=== PATIENT | male | born 1965 | race Caucasian/White ===

== ENCOUNTER 2024-04-18 09:23 | Emergency (ER) | payer BC, SELFPAY ==
[2024-04-18 09:27] VITALS: BP 151/98; PULSE 89; TEMP 36.9; O2SAT 99; BMI 31.3
--- NOTE | 2024-04-18 09:36 | ED_ITS ---
HPI - Animal Bite General Chief Complaint: Wound/Laceration Stated Complaint: UPPER LEFT EXTREMITY ANIMAL BITE Time Seen by Provider: 04/18/24 09:24 Source: patient Mode of arrival: walk-in Limitations: no limitations History of Present Illness HPI narrative: 58-year-old male presents to the emergency department for a cat bite. This was sustained on his left hand last night and a cat that lives at his house but outside. No other injury was sustained. It was more swollen today so he came in and got checked. He cannot recall at all when his last tetanus shot was, it has been a very long time. He has no weakness or numbness. Related Data Previous Rx's ?Medication ?Instructions ?Recorded amoxicillin 875 mg-potassium 1 tab PO BID #14 tabs 04/18/24 clavulanate 125 mg tablet Allergies Allergy/AdvReac Type Severity Reaction Status Date / Time No Known Drug Allergies Allergy Verified 04/18/24 09:27 Review of Systems ROS Narrative A ten point review of systems is negative except as noted above. Exam Narrative Exam Narrative: Nurses note and vital signs reviewed and patient is not hypoxic. General: The patient appears in no apparent distress. Patient is resting comfortably on cart. Skin: Warm, dry, no pallor noted. There is no rash noted. Head: Normocephalic, atraumatic Eye: Normal conjunctiva, no drainage Ears, Nose, Mouth, and Throat: oral mucosa is moist. Nares patent. Cardiovascular: Regular Rate and Rhythm Respiratory: Patient is in no distress, no accessory muscle use Back: non-tender GI: Nontender healing puncture type wood are present on his left hand on the ulnar side. No drainage. There is swelling of the dorsum of his hand as well as erythema. The patient has no evidence of calf tenderness, no pitting edema, symmetrical pulses noted bilaterally Neurological: A&O, normal speech; fingers have full range of motion Psychiatric: Cooperative Constitutional Vital Signs, click to edit/add: Last Vital Signs Temp 98.5 F 04/18/24 09:27 Pulse 89 04/18/24 09:27 Resp 18 04/18/24 09:27 BP 151/98 H 04/18/24 09:27 Pulse Ox 99 04/18/24 09:27 O2 Del Method Room Air 04/18/24 09:27 Course Vital Signs Vital signs: Vital Signs Temperature 98.5 F 04/18/24 09:27 Pulse Rate 89 04/18/24 09:27 Respiratory Rate 18 04/18/24 09:27 Blood Pressure 151/98 H 04/18/24 09:27 Pulse Oximetry 99 04/18/24 09:27 Oxygen Delivery Method Room Air 04/18/24 09:27 Temperature 98.5 F 04/18/24 09:27 Pulse Rate 89 04/18/24 09:27 Respiratory Rate 18 04/18/24 09:27 Blood Pressure 151/98 H 04/18/24 09:27 Pulse Oximetry 99 04/18/24 09:27 Oxygen Delivery Method Room Air 04/18/24 09:27 MDM - Animal Bite MDM Narrative Medical decision making narrative: Tetanus is updated and he was given IM Ancef and prescribed Augmentin. Treatment diagnosis and follow-up were discussed with the patient. I do not suspect rabies. This is a cat known to him and was provoked. Differential Diagnosis Differential diagnosis: Likely bite by animal and cat bite Discharge Plan Discharge Chief Complaint: Wound/Laceration Clinical Impression: Cat bite Patient Disposition: Home, Self-Care Time of Disposition Decision: 09:39 Condition: Good Mode of Transportation: Private Vehicle Prescriptions / Home Meds: New amoxicillin-pot clavulanate 875-125 mg tablet 1 tab PO BID Qty: 14 0RF Print Language: Kiswahili Instructions: Animal Bite (ED) Referrals: Dayron Pleitez MD [Primary Care Provider] - 1 week
[2024-04-18] MEDS: CEFAZOLIN SODIUM 1,000 MG, WATER FOR INJECTION,STERILE 2.5 ML IM (09:50)
[2024-04-18] MEDS: ADACEL DIPH,PERTUSS(ACELL),TET VAC/PF 0.5 ML ADULT SYRINGE IM (09:51)
== END 2024-04-18 09:58 | disposition home or self-care (01) ==
PROVIDERS: Emergency Provider Emergency Medicine; PCP Family Medicine
DX: S61.432A Puncture wound without foreign body of left hand, initial encounter (principal); W55.01XA Bitten by cat, initial encounter; Z23 Encounter for immunization
CPT/HCPCS: 90471; 90715; 96372; 99284; J0690

== ENCOUNTER 2024-09-24 07:37 | Outpatient (OUT) | payer BC, SELFPAY ==
--- OUTSIDE RECORDS SUMMARY | 2024-06-24 04:57 | XMS_ITS ---
Author Organization The [facility] in [place] Address [address] [place] [address] Care Team Providers Care Nut Sorter Name Role Phone PERLA PLEITEZ MD Primary Care Provider [phone] Perla Pleitez Unavailable [phone] Encounters Encounter Location Date Provider Diagnosis [address] [address] 06/24/2024 Perla Pleitez Plan Of Treatment No Information Progress Notes * Irvin CARRINGTON EDOB:1965 (58 yo M)Acc No.[id number]:06/24/2024 Patient: Roni MICHELLEIrvin :1965 A ge:58 Y S ex:Male Address:[facility] [address], [place], [address] * true * Date: Generated for Radhika boone/Rochelle/eTransmitting on: 0 09/24/2024 07:41 AM EDT
--- OUTSIDE RECORDS SUMMARY | 2024-08-25 09:06 | XMS_ITS ---
Author Organization The [facility] in [place] Address [address] [place] [address] Care Team Providers Care Financial Aid Administrator Name Role Phone PERLA PLEITEZ MD Primary Care Provider Perla Pleitez Unavailable [phone] REASON FOR VISIT Eliquis Encounters Encounter Location Date Provider Diagnosis [facility] [address] [place] [address] 08/25/2024 Perla Pleitez Plan Of Treatment No Information Progress Notes * Irvin CARRINGTON EDOB:1965 (58 yo M)Acc No.[id number]:08/25/2024 Patient: Roni MICHELLEIrvin :1965 A ge:58 Y S ex:Male Address:[facility] [address], [place], [address] * true * Date: Generated for Husami mely/Rochelle/eTransmitting on: 0 09/24/2024 07:41 AM EDT
--- OUTSIDE RECORDS SUMMARY | 2024-09-21 06:09 | XMS_ITS ---
Author Organization The [facility] in [place] Address [address] [place] [address] Care Team Providers Care Interventional Tech Name Role Phone PERLA PLEITEZ MD Primary Care Provider [phone] Perla Pleitez Unavailable [phone] REASON FOR VISIT repeat US for DVT Encounters Encounter Location Date Provider Diagnosis [facility] [address] [place] [address] 09/21/2024 Perla Pleitez Deep vein blood clot of right lower extremity I82.401 Assessments Encounter Date Diagnosis (ICD Code) Assessment Notes Treatment Notes Treatment Clinical Notes Section Notes 09/21/2024 Deep vein blood clot of right lower extremity (ICD-10 - I82.401) Plan Of Treatment Pending Test Test Name Order Date US venous doppler LE BI 09/21/2024 Progress Notes * Irvin CARRINGTON EDOB:1965 (58 yo M)Acc No.[id number]:09/21/2024 Patient: Roni MICHELLE Irvin Geller :1965 A ge:58 Y S ex:Male Address:[address], [place], [address] Subjective: * Chief Complaints: * r epeat US for DVT * Medical History: * Surgical History: * Hospitalization/Major Diagno stic Procedure: * Medications: Objective: * Vitals: * Physical Examination: Assessment: * Assessment: 1. D eep vein blood clot of right lower extremity - I82.401 (Primary) Plan: * Treatment: * Procedure Codes: * true * Date: Generated for Radhika boone/Rochelle/Jennifer on: 0 09/24/2024 07:41 AM EDT
--- OUTSIDE RECORDS SUMMARY | 2024-09-24 07:41 | XMS_ITS | Clinical Summary ---
Author Organization [facility] Address [id number] [address] [place] [address] Care Team Providers Care Paper Rewinder Operator Name Role Phone Dayron Pleitez MD Primary Care Provider [phone] Allergies No known active allergies Medications metoprolol tartrate (LOPRESSOR) 25 mg tablet Take 1 tablet (25 mg total) by mouth. Active lisinopriL (PRINIVIL,ZESTR IL) 20 mg tablet Take 1 tablet (20 mg total) by mouth in the morning. Active tacrolimus (PROGRAF) 1 mg capsule Take 1 capsule (1 mg total) by mouth every 12 (twelve) hours. Active mycophenolate (MYFORTIC) 180 mg EC tablet Take 3 tablets (540 mg total) by mouth in the morning and 3 tablets (540 mg total) before bedtime. Active atorvastatin (LIPITOR) 20 mg tablet Take 1 tablet (20 mg total) by mouth in the morning. Active magnesium oxide (MAGOX) 400 mg tablet Take 1 tablet (400 mg total) by mouth in the morning. Active allopurinoL (ZYLOPRIM) 100 mg tablet Take 1 tablet (100 mg total) by mouth in the morning. Active omega 3-ndm-wwi-fish oil (Fish OiL) 300-1,000 mg capsule Take 1,000 mg by mouth in the morning. Active Active Problems No known active problems Social History Tobacco Use Types Packs/Day Years Used Date Smoking Tobacco: Never Smokeless Tobacco: Never Alcohol Use Standard Drinks/Week Comments Yes 0 (1 standard drink = 0.6 oz pur e alcohol) few drinks few times a week Childcare Answer Date Recorded Childcare Unknown 09/17/2018 Employment Answer Date Recorded Employment Unknown 09/17/2018 Sex and Gender Information Value Date Recorded Sex Assigned at Not on file Legal Sex Male 11:31 AM EDT Gender Identity Not on file Sexual Orientation Not on file Last Filed Vital Signs Vital Sign Reading Time Taken Comments Blood Pressure 154/100 02/06/2024 8:23 AM EDT ok to d/c per dr. salvador Pulse 49 02/06/2024 8:23 AM EDT Temperature 36.4 C (97.5 F) 02/06/2024 6:48 AM EDT Respiratory Rate 14 02/06/2024 8:23 AM EDT Oxygen Saturation 97% 02/06/2024 8:2 3 AM EDT Inhaled Oxygen Concentration - - Weight 97.5 kg (215 lb) 02/06/2024 6:48 AM EDT Height 177.8 cm (5' 10 ) 02/06/2024 6:4 8 AM EDT Body Mass Index 30.85 02/06/2024 6:48 AM EDT Plan of Treatment Health Maintenance Due Date Last Done Comments Depression Screening 1978 Adult BMI Follow Up Plan 1984 DTaP,Tdap and Td Vaccines (1 - Tdap) 1985 Zoster (Shingles) Vaccine (1 of 2) 2016 Influenza Vaccine 12/07/2024 02/25/2019, 02/23/2016 Adult BMI Screening 02/05/2025 02/06/2024 Tobacco Screening 02/05/2025 02/06/2024 Colonoscopy 02/05/2034 02/06/2024, 02/06/2024 Medical Devices Not on file Procedures Procedure Name Priority Date/Time Associated Diagnosis Comments PROVATION COLONOSCOPY Routine 02/06/2024 6:18 AM EDT from Last 3 Months or Most Recently Relevant to Health Maintenance Results * Colonoscopy Report (02/06/2024 6:18 AM EDT) Narrative SYSTEMGENERATED, DOCUMENTATION - 02/06/2024 6:18 AM EDT This order has been auto-finalized for image and report archival in PACs. *For full report details, please reach out to your physician. This image is visible to you in [facility].* us Sal Vera DO IMG OR IMG ORDERABLES Final Result from Last 3 Months or Most Recently Relevant to Health Maintenance Insurance ANTH Care Teams Paper Rewinder Operator Relationship Specialty Start Date End Date Dayron Pleitez MD PCP - General Family Medicine 12/11/21
--- OUTSIDE RECORDS SUMMARY | 2024-09-24 07:41 | XMS_ITS | Encounter Summary ---
Author Organization [facility] Address [address] [place] [address] Care Team Providers Care Construction Management Assistant Name Role Phone Sal Guerrero MD Unavailable Dayron Pleitez MD Primary Care Provider [phone] Rojelio Dukes CNP Unavailable [phone] Reason for Visit * Reason Comments Med Refill Encounter Details Date Type Department Care Team (Late st Contact Info) Description 04/05/2023 Refill [facility] Transplant [address] [place] [address] Latha Currie MD [address] [place], [place] Aftercare following organ transplant Social History Tobacco Use Types Packs/Day Years Used Date Smoking Tobacco: Never Smokeless Tobacco: Never Alcohol Use Standard Drinks/Week Comments Yes 0 (1 standard drink = 0.6 oz pur e alcohol) 6 A WEEK BEER OR liquor PHQ-2 Answer Date Recorded Patient Health Questionnaire-2 Score 0 08/24/2022 Sex and Gender Information Value Date Recorded Sex Assigned at Male 05/15/2024 1:32 PM EST Legal Sex Male 9:53 PM EDT Gender Identity Male 05/15/2024 1:32 PM EST Sexual Orientation Heterosexual or Straight 10/2024 1:32 PM EST documented as of this encounter Plan of Treatment Upcoming Encounters Date Type Department Care Team (Late st Contact Info) Description 11/26/2024 2:30 PM EDT Follow-Up [facility] Transplant [address] [place] [address] Flower Baig, GUILLE [address] [facility] [address] [place], [place] [id number] 12/18/2024 10:30 AM EDT Follow-Up [facility] Rheumatology [address] [place] [address] Brennen Vidales MD [address] [place] [address] documented as of this encounter Visit Diagnoses Diagnosis Aftercare following organ transplant documented in this encounter Additional Health Concerns Infection Onset Date Last Indicated Resolved Time COVID-19 (confirmed) 03/21/2023 03/21/2023 024 5:23 AM EST documented as of this encounter Care Teams Construction Management Assistant Relationship Specialty Start Date End Date Dayron Pleitez MD [address] [place] [address] PCP - General 04/26/22 Sal Guerrero MD [address] [place] [address] Dr [address] [place] [address] Consulting Physician Urology 01/16/22 Rojelio Dukes CNP [address] [place] [address] Nurse Practitioner Urology 05/07/23 documented as of this encounter
--- OUTSIDE RECORDS SUMMARY | 2024-09-24 07:41 | XMS_ITS ---
Author Organization [facility] Address [address] [place] [address] Care Team Providers Care Menu Planner Name Role Phone Sal Guerrero MD Unavailable Dayron Pleitez MD Primary Care Provider [phone] Rojelio Dukes CNP Unavailable [phone] Transplant Episode Kidney Recipient [facility] ([place], [place]) - [facility] Organ Received: Left Kidney Transplanted on 11/02/2009 Marked as Active Follow-up on 11/02/2009 Kidney CoordinatorWhitney Pavon RN Phone: N/A Fax: N/A Email: N/A [place] Organ Diagnosis Organ Primary Contributory Kidney IgA Nephropathy Donor Information Organ ABO Source Meets Risk Criteria HLA Match Mismatches Cross Match Left Kidney Transplanted O Live A: B: DR: Left Kidney Donor Serology Results Anti-CMV No results on file HBsAg HBsAg: Negative Anti-HBcAb HBC Total: Not Done HBsAb No results on file HBV DNA No results on file Anti-HCV No results on file Anti-HIV I/II No results on file Anti-HTLV I/II No results on file RPR/VDRL No results on file EBV IgG No results on file EBV IgM No results on file EBNA No results on file Toxoplasma No results on file SARS CoV-2 No results on file Care Team Name Role Phone Fax Email Whitney Pavon RN Kidney Coordinator N/A N/A N/ A Sal Guerrero MD Surgeon [phone] N/A Events Post-Transplant Pre-Transplant Admitted: 11/01/2009 Referred: 06/20/2009 Transplanted: 11/02/2009 Center waitlisted: 09/29/19 10 Discharged: 11/07/2009
--- OUTSIDE RECORDS SUMMARY | 2024-09-24 07:41 | XMS_ITS | Clinical Summary ---
Author Organization [facility] Address [address] [place] [address] Care Team Providers Care [employer] Name Role Phone Sal Guerrero MD Unavailable Dayron Pleitez MD Primary Care Provider [phone] Rojelio Dukes CNP Unavailable [phone] Allergies No known active allergies Medications colchicine 0.6 mg tabletIndications: Gout of multiple sites, unspecified cause, unspecified chronicity Take 1 tab every other day 30 tablet 1 04/27/19 23 Active Additional Information Patient not taking.Reported on 06/19/2024 Prograf 0.5 mg capsuleIndications :Aftercare following organ transplant Take 1 capsule twice a day by oral route for 90 days. TDD: 3mg 60 capsule 11 02/23/20 23 Active Prograf 1 mg capsuleIndications :Aftercare following organ transplant Take 1 capsule twice a day by oral route for 90 days. TDD: 3 MG 180 capsule 3 02/23/20 23 Active ondansetron ODT (Zofran-ODT) 4 mg disintegrating tablet Take 1 tablet (4 mg) by mouth every 8 (eight) hours if needed for nausea or vomiting for up to 10 doses. 10 tablet 03/21/20 23 Active Additional Information Patient not taking.Reported on 06/19/2024 mycophenolate (Myfortic) 180 mg EC tabletIndications: History of renal transplant TAKE 3 TABLETS BY MOUTH TWICE DAILY 540 tablet 3 12/24/19 24 Active tacrolimus (Prograf) 0.5 mg capsuleIndications :Kidney replaced by transplant TAKE 2 CAPSULES BY MOUTH IN THE MORNING AND 2 CAPSULES BY MOUTH IN THE EVENING 360 capsule 3 12/24/19 24 Active predniSONE (Deltasone) 5 mg tabletIndications: Aftercare following organ transplant TAKE 1 TABLET BY MOUTH IN THE MORNING 90 tablet 3 01/06/20 24 Active hydroCHLOROthiazid e 12.5 mg tabletIndications: Aftercare following organ transplant,Essenti al hypertension Take 1 tablet (12.5 mg) by mouth in the morning. 30 tablet 11 05/28/19 25 Active allopurinol (Zyloprim) 100 mg tablet Take 100 mg by mouth in the morning. Active amoxicillin-pot clavulanate (Augmentin) 875-125 mg tablet Take 1 tablet by mouth Twice daily at 6am and 6pm. 04/18/19 25 Active metoprolol tartrate (Lopressor) 25 mg tablet Take 0.5 tablets by mouth in the morning. Active DOCOSAHEXAENOIC ACID ORAL Take 1,000 mg by mouth in the morning. Active omega-3 acid ethyl esters (Lovaza) 1 gram capsule 06/14/19 25 Active Suflave 178.7-7.3-0.5 gram recon soln PLEASE SEE ATTACHED FOR DETAILED DIRECTIONS 01/22/20 24 Active sodium,potassium,m ag sulfates (Suprep) 17.5-3.13-1.6 gram recon soln Active apixaban (Eliquis) 5 mg tablet Take 2 tablets (10 mg) by mouth two times daily for 7 days. 28 tablet 06/20/19 25 Active febuxostat (Uloric) 40 mg tabletIndications: Gout of multiple sites, unspecified cause, unspecified chronicity TAKE 1 TABLET BY MOUTH IN THE MORNING 90 tablet 3 06/23/19 25 Active lisinopril 20 mg tabletIndications: Aftercare following organ transplant Take 1 tablet (20 mg) by mouth in the morning. 90 tablet 3 07/02/19 25 Active atorvastatin (Lipitor) 20 mg tabletIndications: Aftercare following organ transplant TAKE 1 TABLET BY MOUTH IN THE MORNING 90 tablet 3 08/04/19 25 Active magnesium oxide (Mag-Ox) 400 mg (241.3 mg magnesium) tabletIndications: Aftercare following organ transplant TAKE 1 TABLET BY MOUTH IN THE MORNING 90 tablet 3 08/04/19 25 Active Active Problems Problem Noted Date Diagnosed Date End-stage renal disease 01/15/2022 Essential hypertension 01/15/2022 Hypomagnesemia 01/15/2022 Proteinuria 01/15/2022 Stage 3 chronic kidney disease 01/15/2022 Basal cell carcinoma (BCC) of left forearm 11/17 Hyperlipidemia 09/30/2018 Increased infection risk sta tus post immunosuppressive therapy 08/20/2018 Immunodeficiency, unspecified 08/20/2018 Supraventricular tachycardia 07/29/2017 History of renal transplant 09/11/2013 Chest pain 07/20/2011 Encounters Date Type Department Care Team Description 09/09/2024 8:25 AM EDT Lab [facility] Outpatient Draw Station [address] [place] [address] Kidney replaced by transplant 08/18/2024 9:10 AM EDT Lab [facility] Outpatient Draw Station [address] [place] [address] Kidney replaced by transplant; Impaired fasting glucose 07/31/2024 Refill [facility] [address] [place] [address] Latha Currie MD Aftercare following organ transplant 07/01/2024 [facility] [address] [place] [address] Thor Rodriguez MD Aftercare following organ transplant from Last 3 Months Immunizations Immunization Administration Dates Next Due Influenza, injectable, quadrivalent, preservativ e free 02/25/2019,02/23/2016 Tdap 04/18/2024 Social History Tobacco Use Types Packs/Day Years Used Date Smoking Tobacco: Never Smokeless Tobacco: Never Tobacco Cessation:Counseling Given: Not Answered Alcohol Use Standard Drinks/Week Comments Yes 0 (1 standard drink = 0.6 oz pur e alcohol) daily PHQ-2 Answer Date Recorded Patient Health Questionnaire-2 Score 0 06/19/2024 [place] Safety & Environment Answer Date Rec orded Fear of Current or Ex-Partner Not on file Emotionally Abused Not on file 05/30/2023 Physically Abused Not on file 05/30/2023 Sexually Abused Not on file 05/30/2023 Physically or Sexually Abused Not on file Sex and Gender Information Value Date Recorded Sex Assigned at Male 05/15/2024 1:32 PM EST Legal Sex Male 9:53 PM EDT Gender Identity Male 05/15/2024 1:32 PM EST Sexual Orientation Heterosexual or Straight 10/2024 1:32 PM EST Last Filed Vital Signs Vital Sign Reading Time Taken Comments Blood Pressure 142/91 06/19/2024 1:40 PM EDT Pulse 60 06/19/2024 1:40 PM EDT Temperature 36.6 C (97.9 F) 06/19/2024 11:55 AM EDT Respiratory Rate 10 06/19/2024 1:40 PM EDT Oxygen Saturation 95% 06/19/2024 1:40 PM EDT Inhaled Oxygen Concentration - - Weight 98.9 kg (218 lb) 06/19/2024 11:55 AM EDT Height 177.8 cm (5' 10 ) 06/19/2024 11:55 AM EDT Body Mass Index 31.28 06/19/2024 11:55 AM EDT Plan of Treatment Upcoming Encounters Date Type Department Care Team (Late st Contact Info) Description 11/26/2024 2:30 PM EDT Follow-Up [facility] Transplant [address] [place] [id number] Flower Baig, GEOTHERMAL HEAT PUMP MACHINIST [address] [place] [address] 12/18/2024 10:30 AM EDT Follow-Up [facility] Rheumatology [address] [place] [address] Brennen Vidales MD [address] [facility] [place] [address] Health Maintenance Due Date Last Done Comments CT Colonography 1966 FIT-DNA 1966 FIT 1966 FOBT 1966 Sigmoidoscopy 1966 COVID-19 Vaccine (#1) 11/15/1971 Hepatitis B Vaccines (1 of 3 - 19+ 3-dose series) 1985 Pneumococcal Vaccine: Pediatrics (0 to 5 Years) and At-Risk Patients (6 to 64 Years) (1 of 2 - PCV) 1985 Zoster Vaccines (1 of 2) 1985 Influenza Vaccine (Season Ended) 2024 02/25/2019, 02/23/2016 Depression Screening 06/19/2025 06/19/2024 Diabetes: Hemoglobin A1C 08/18/2025 025, 03/18/2024, 12/25/2023, Additional history exists Colonoscopy 02/05/2034 02/06/2024, 02/06/2024 Colorectal Cancer Screening 02/05/2034 Adult Tetanus 04/18/2034 04/18/2024 HIB Vaccines Aged Out No longer eligi ble based on patient's age to complete this topic HPV Vaccines Aged Out No longer eligi ble based on patient's age to complete this topic IPV Vaccines Aged Out No longer eligi ble based on patient's age to complete this topic Meningococcal B Vaccine Aged Out No l onger eligible based on patient's age to complete this topic Meningococcal Vaccine Aged Out No panfilo ra eligible based on patient's age to complete this topic Rotavirus Vaccines Aged Out No longer eligible based on patient's age to complete this topic Procedures Procedure Name Priority Date/Time Associated Diagnosis Comments BILIRUBIN, DIRECT Routine 09/09/2024 8:2 6 AM EDT Kidney replaced by transplant CBC WITH AUTO DIFFERENTIAL Routine 09/09/2024 8:26 AM EDT Kidney replaced by transplant COMPREHENSIVE METABOLIC PANEL Routine 09/09/2024 8:26 AM EDT Kidney replaced by transplant URIC ACID Routine 09/09/2024 8:26 AM EDT Kidney replaced by transplant TACROLIMUS LEVEL Routine 09/09/2024 8:26 AM EDT Kidney replaced by transplant MAGNESIUM Routine 09/09/2024 8:26 AM EDT Kidney replaced by transplant PHOSPHORUS Routine 09/09/2024 8:26 AM EDT Kidney replaced by transplant CBC AND DIFFERENTIAL Routine 09/09/2024 8:26 AM EDT Kidney replaced by transplant BILIRUBIN, DIRECT Routine 08/18/2024 9:2 0 AM EDT Kidney replaced by transplant CBC WITH AUTO DIFFERENTIAL Routine 08/18/2024 9:20 AM EDT Kidney replaced by transplant BK VIRUS, PLASMA, QUANTITATIVE Routine 08/18/2024 9:20 AM EDT Kidney replaced by transplant HEMOGLOBIN A1C Routine 08/18/2024 9:20 AM EDT Impaired fasting glucose TESTOSTERONE, FREE AND TOTAL, AND SHBG Routine 08/18/2024 9:20 AM EDT Kidney replaced by transplant COMPREHENSIVE METABOLIC PANEL Routine 08/18/2024 9:20 AM EDT Kidney replaced by transplant LIPID PANEL Routine 08/18/2024 9:20 AM EDT Kidney replaced by transplant URIC ACID Routine 08/18/2024 9:20 AM EDT Kidney replaced by transplant TACROLIMUS LEVEL Routine 08/18/2024 9:20 AM EDT Kidney replaced by transplant MAGNESIUM Routine 08/18/2024 9:20 AM EDT Kidney replaced by transplant PHOSPHORUS Routine 08/18/2024 9:20 AM EDT Kidney replaced by transplant CBC AND DIFFERENTIAL Routine 08/18/2024 9:20 AM EDT Kidney replaced by transplant from Last 3 Months Results * (ABNORMAL) CBC auto differential (09/09/2024 8:26 AM EDT) Only the most recent of2 resultswithin the time period is included. Auto WBC 10.74(H) 4.00 - 10.60 10*3/uL 09/09/2024 9:06 AM EDT [facility]) RBC 4.62 4.20 - 5.70 10*6/uL 09/09/2024 9:06 AM T [facility] ([facility]) Hemoglobin 13.7 13.0 - 17.0 g/dL 09/09/2024 9:[address] [facility] ([facility]) Hematocrit 42.4 39.0 - 50.0 % 09/09/2024 9:[address] [facility] ([facility]) MCV 91.8 82.0 - 98.0 fL 09/09/2024 9:[address] [facility] ([facility]) MCH 29.7 27.0 - 33.0 pg 09/09/2024 9:[address] [facility] ([facility]) MCHC 32.3 32.0 - 35.0 g/dL 09/09/2024 9:[address] [facility] ([facility]) RDW 13.3 11.5 - 15.0 % 09/09/2024 9:[address] [facility] ([facility]) Neutrophils % 69.5 40.0 - 72.0 % 09/09/2024 9:[address] [facility] ([facility]) Lymphocytes % 21.3 20.0 - 45.0 % 09/09/2024 9:[address] [facility] ([facility]) Monocytes % 7.1 5.0 - 12.0 % 09/09/2024 9:[address] [facility] ([facility]) Eosinophils % 0.7 0.0 - 6.0 % 09/09/2024 9:[address] [facility] ([facility]) Basophils % 0.2 0.0 - 1.0 % 09/09/2024 9:[address] [facility] ([facility]) Neutrophils Absolute 7.46 1.60 - 7.60 10*3/uL 09/09/2024 9:[address] [facility] ([facility]) Lymphocytes Absolute 2.29 1.20 - 4.00 10*3/uL 09/09/2024 9:[address] [facility] ([facility]) Monocytes Absolute 0.76 0.10 - 1.00 10*3/uL 09/09/2024 9:[address] [facility] ([facility]) Eosinophils Absolute 0.08 0.00 - 0.50 10*3/uL 09/09/2024 9:06 AM EDT [facility] ([facility]) Basophils Absolute 0.02 0.00 - 0.20 10*3/uL 09/09/2024 9:06 AM EDT [facility] ([facility]) Platelets 270 150 - 400 10*3/uL 09/09/2024 9:06 AM EDT [facility] ([facility]) nRBC % 0.0 0 % 09/09/2024 9:06 AM EDT [facility] ([facility]) Immature Granulocytes % 1.2(H) 0.0 - 1.0 % 09/09/2024 9:06 AM EDT [facility] ([facility]) Immature Granulocytes Absolute 0.13 0.00 - 0.20 10*3/uL 09/09/2024 9:06 AM EDT [facility] ([facility]) Blood Venous blood specimen / Unknown Venipuncture / Unknown 09/09/2024 8:26 AM EDT 09/09/2024 8:57 AM EDT us Bruce Coates MD LAB BLOOD ORDERABLES Final Re sult [facility] ([facility]) [address] [id number] * (ABNORMAL) Tacrolimus level (09/09/2024 8:26 AM EDT) Only the most recent of2 resultswithin the time period is included. Tacrolimus Lvl 3.6(L) 5.0 - 20.0 ng/mL 09/09/2024 12:41 PM EDT [facility] ([facility]) Comment:The CARO GEAR MACHINE OPERATOR GENERAL Tacrolimus assay is a delayed one-step immunoassay for the quantitative determination of tacrolimus in human whole blood using the chemiluminescent microparticle immunoassay (CMIA) technology with flexible assay protocols, referred to as Chemiflex. Blood Venous blood specimen / Unknown Venipuncture / Unknown 09/09/2024 8:26 AM EDT 09/09/2024 8:57 AM EDT Bruce Coates MD LAB BLOOD ORDERABLES Final Re sult Performing Organization Address City/[facility]/ZIP Co de Phone Number [facility]) [address] [place] [phone] * (ABNORMAL) Uric acid (09/09/2024 8:26 AM EDT) Only the most recent of2 resultswithin the time period is included. Uric Acid 9.7(H) 4.4 - 7.6 mg/dL 09/09/2024 10:14 AM EDT [facility]) Blood Venous blood specimen / Unknown Venipuncture / Unknown 09/09/2024 8:26 AM EDT 09/09/2024 8:56 AM EDT Bruce Coates MD LAB BLOOD ORDERABLES Final Re sult Performing Organization Address [facility] Co de Phone Number [facility]) [address] [place] [phone] * Phosphorus (09/09/2024 8:26 AM EDT) Only the most recent of2 resultswithin the time period is included. Phosphorus 2.9 2.5 - 5.0 mg/dL 09/09/2024 9:24 AM EDT [facility]) Blood Venous blood specimen / Unknown Venipuncture / Unknown 09/09/2024 8:26 AM EDT 09/09/2024 8:56 AM EDT Bruce Coates MD LAB BLOOD ORDERABLES Final Re sult Performing Organization Address City/[facility] Co de Phone Number [facility]) [address] [place] [phone] * (ABNORMAL) Magnesium (09/09/2024 8:26 AM EDT) Only the most recent of2 resultswithin the time period is included. Magnesium 1.8(L) 1.9 - 2.7 mg/dL 09/09/2024 9:24 AM EDT [facility] ([facility]) Blood Venous blood specimen / Unknown Venipuncture / Unknown 09/09/2024 8:26 AM EDT 09/09/2024 8:56 AM EDT Bruce Coates MD LAB BLOOD ORDERABLES Final Re sult Performing Organization Address City/[facility]/ZIP Co de Phone Number [facility]) [address] [place] [address] * Bilirubin, direct (09/09/2024 8:26 AM EDT) Only the most recent of2 resultswithin the time period is included. Bilirubin, Direct 0.1 0 - 0.2 mg/dL 09/09/2024 9:24 AM EDT [facility]) Blood Venous blood specimen / Unknown Venipuncture / Unknown 09/09/2024 8:26 AM EDT 09/09/2024 8:56 AM EDT Bruce Coates MD LAB BLOOD ORDERABLES Final Re sult Performing Organization Address City/[facility] Co de Phone Number [facility]) [address] [place] [phone] * (ABNORMAL) Comprehensive metabolic panel (09/09/2024 8:26 AM EDT) Only the most recent of2 resultswithin the time period is included. Sodium 136 136 - 145 mmol/L 09/09/2024 9:24 AM EDT [facility]) Potassium 4.2 3.5 - 5.1 mmol/L 09/09/2024 9:24 AM EDT [facility]) Chloride 106 98 - 107 mmol/L 09/09/2024 9:24 AM EDT [facility]) CO2 23 21 - 31 mmol/L 09/09/2024 9:24 AM EDT [facility] ([facility]) Anion Gap 11 7 - 20 mmol/L 09/09/2024 9:24 AM T [facility] ([facility]) BUN 54(H) 7 - 25 mg/dL 09/09/2024 9:24 AM T [facility] ([facility]) Creatinine 1.99(H) 0.70 - 1.30 mg/dL 09/09/2024 9:[address] [facility] ([facility]) BUN/Creatinine Ratio 27.1 07/2024 9:24 AM T [facility] ([facility]) Glucose 72 70 - 100 mg/dL 09/09/2024 9:24 AM T [facility] ([facility]) Calcium 9.4 8.6 - 10.3 mg/dL 09/09/2024 9:[address] [facility] ([facility]) AST 12(L) 13 - 39 U/L 09/09/2024 9:[address] [facility] ([facility]) ALT (SGPT) 15 7 - 52 U/L 09/09/2024 9:[address] [facility] ([facility]) Alkaline Phosphatase 50 34 - 104 U/L 09/09/2024 9:[address] [facility] ([facility]) Total Protein 6.5 6.0 - 8.3 g/dL 09/09/2024 9:[address] [facility] ([facility]) Albumin 4.0 3.5 - 5.7 g/dL 09/09/2024 9:[address] [facility] ([facility]) Total Bilirubin 0.5 0.3 - 1.0 mg/dL 09/09/2024 9:[address] [facility] ([facility]) eGFR 38.4(L) >60.0 mL/min/1. 73m*2 09/09/2024 9:[address] [facility] ([facility]) Comment:The [facility] s estimated glomerular filtration rate (eGFR) will no longer include consideration of race in its calculation. The National Kidney Foundation s eGFR Task Force developed new recommendations for the estimation of the glomerular filtration rate in the [place] They recommend immediate implementation of the new equation refit without the race variable in all laboratories because the calculation does not include race. In addition to not including race in the calculation and reporting, it included diversity in its development, and has acceptable performance characteristics and potential consequences that do not disproportionately affect any one group of individuals. Blood Venous blood specimen / Unknown Venipuncture / Unknown 09/09/2024 8:26 AM EDT 09/09/2024 8:56 AM EDT Bruce Coates MD LAB BLOOD ORDERABLES Final Re sult [facility] ([facility]) [address], [place] [id number] * Testosterone, free and total, and SHBG (08/18/2024 9:20 AM EDT) Testosterone 328 193 - 740 ng/dL 08/18/2024 5:24 PM EDT [facility] Sex Hormone Binding 29 19 - 76 nmol/L 08/18/2024 5:24 PM EDT [facility] Testosterone, Free 70.2 47.0 - 244.0 pg/mL 08/18/2024 5:24 PM EDT [facility] Comment: The concentration of free testosterone is derived from a mathematical expression based on the constant for the binding of testosterone to albumin and/or sex hormone binding globulin. Test Performed by [facility] [address] [place] [address] - [id number] 08/18/2024 17:24 Blood Venous blood specimen / Unknown Venipuncture / Unknown 08/18/2024 9:20 AM EDT 08/18/2024 9:40 AM EDT Bruce Coates MD LAB BLOOD ORDERABLES Final Re sult Performing Organization Address City/[facility]/ZIP Co de Phone Number [facility] [address] [place] [address] * BK virus, plasma, quantitative (08/18/2024 9:20 AM EDT) BK Virus Plasma Interpretation Not Detected Not Detected 08/18/2024 1:17 PM EDT [facility] ([place]) BK Virus Quantitation Not Detected Not Detected copies/mL 08/18/2024 1:17 PM EDT [facility] ([facility]) Comment: Method: BK virus was measured by quantitative polymerase chain reaction using a fluorescent hydrolysis probe targeting the polyomavirus BK APPLICATIONS SYSTEMS ENGINEER-1 gene. The lower limit of quantitation of the assay is 500 copies of BK genome per milliliter of plasma or urine, and any detectable BK DNA below that level is reported as: Detected, <500 copies/ml. Serial BK virus measurement can be used to monitor disease activity. (Reference: Hattie vancel. J CLIN MICRO 2004; 42:4570-3588). This test was developed and its performance characteristics determined by the [facility] Molecular Diagnostics Laboratory. It has not been approved by the US Food and Drug Administration. However, such approval is not required for clinical implementation, and test results have been shown to be clinically useful. This laboratory is CAP accredited and CLIA certified to perform high complexity testing. BK Virus Quant Log Not Detected Not Detected copies/mL 08/18/2024 1:17 PM EDT [facility] ([facility]) Blood Venous blood specimen / Unknown Venipuncture / Unknown 08/18/2024 9:20 AM EDT 08/18/2024 9:40 AM EDT us Bruce Coates MD LAB BLOOD ORDERABLES Final Re sult [facility]) [address] [place] [address] * Hemoglobin A1c (08/18/2024 9:20 AM EDT) Hemoglobin A1C 5.8 4.0 - 6.0 % 08/19/2024 7:46 AM EDT [facility] ([facility]) Estimated Average Glucose 120 mg/dL 08/19/2024 7:46 AM EDT [facility] ([facility]) Blood Venous blood specimen / Unknown Venipuncture / Unknown 08/18/2024 9:20 AM EDT 08/18/2024 9:40 AM EDT us Bruce Coates MD LAB BLOOD ORDERABLES Final Re sult [facility] ([facility]) [address] [place] [address] * (ABNORMAL) Lipid panel (08/18/2024 9:20 AM EDT) Triglycerides 132 <150 mg/dL 08/18/2024 10:06 AM EDT [facility] ([facility]) Comment: TRIGLYCERIDE REFERENCE RANGE: 20 YEARS AND OLDER CARDIOVASCULAR RISK LESS THAN 150 mg/dL LOW RISK 150 TO 199 mg/dL BORDERLINE RISK 200 mg/dL AND GREATER HIGH RISK Cholesterol 217(H) 120 - 200 mg/dL 08/18/2024 10:06 AM EDT [facility] ([facility]) LDL Calculated 132 0 - 160 mg/dL 08/18/2024 10:06 AM EDT [facility] ([facility]) HDL 59 23 - 92 mg/dL 08/18/2024 10:06 AM EDT [facility] ([facility]) Non HDL Cholesterol 158 08/18/2024 10:06 AM EDT [facility] ([facility]) Total VLDL-C 26 0 - 40 mg/dL 08/18/2024 10:06 AM EDT [facility] ([facility]) Cholesterol/HDL Ratio 3.7 mg/dL 08/18/2024 10:06 AM EDT [facility] ([facility]) Blood Venous blood specimen / Unknown Venipuncture / Unknown 08/18/2024 9:20 AM EDT 08/18/2024 9:40 AM EDT us Bruce Coates MD LAB BLOOD ORDERABLES Final Re sult [facility] ([facility]) [address] [place] [address] from Last 3 Months Insurance [facility] Care Teams [employer] Relationship Specialty Start Date End Date Dayron Pleitez MD [address] [place] [address] PCP - General 04/26/22 Sal Guerrero MD [address] [place] [address] Dr [address] [place] [phone] Consulting Physician Urology 01/16/22 Rojelio Dukes CNP [address] [place] [address] Nurse Practitioner Urology 05/07/23
--- OUTSIDE RECORDS SUMMARY | 2024-09-24 07:41 | XMS_ITS | Referral Summary ---
Author Organization [facility] Address [address] [address] Care Team Providers Care System Designer Name Role Phone Sal Guerrero MD Unavailable Dayron Pleitez MD Primary Care Provider [phone] Rojelio Dukes CNP Unavailable [phone] Encounters Date Type Department Care Team Description 09/09/2024 8:25 AM EDT Lab [facility] Outpatient Draw Station [address] [place] [address] Kidney replaced by transplant 08/18/2024 9:10 AM EDT Lab [facility] Outpatient Draw Station [address] [place] [address] Kidney replaced by transplant; Impaired fasting glucose 07/31/2024 Refill [facility] [address] [place] [phone] Latha Currie MD Aftercare following organ transplant 07/01/2024 Refill [facility] [address] [place] [phone] Thor Rodriguez MD Aftercare following organ transplant from Last 3 Months Allergies No known active allergies Medications colchicine 0.6 mg tabletIndications: Gout of multiple sites, unspecified cause, unspecified chronicity Take 1 tab every other day 30 tablet 1 04/27/19 23 Active Additional Information Patient not taking.Reported on 06/19/2024 Prograf 0.5 mg capsuleIndications :Aftercare following organ transplant Take 1 capsule twice a day by oral route for 90 days. TDD: 3mg 60 capsule 02/23/20 Active Prograf 1 mg capsuleIndications :Aftercare following organ transplant Take 1 capsule twice a day by oral route for 90 days. TDD: 3 MG 180 capsule 02/23/20 Active ondansetron ODT (Zofran-ODT) 4 mg disintegrating tablet Take 1 tablet (4 mg) by mouth every 8 (eight) hours if needed for nausea or vomiting for up to 10 doses. 10 tablet 03/21/20 Active Additional Information Patient not taking.Reported on 06/19/2024 mycophenolate (Myfortic) 180 mg EC tabletIndications: History of renal transplant TAKE 3 TABLETS BY MOUTH TWICE DAILY 540 tablet 3 12/24/19 24 Active tacrolimus (Prograf) 0.5 mg capsuleIndications :Kidney replaced by transplant TAKE 2 CAPSULES BY MOUTH IN THE MORNING AND 2 CAPSULES BY MOUTH IN THE EVENING 360 capsule 12/24/19 24 Active predniSONE (Deltasone) 5 mg [...] of renal transplant 09/11/2013 Chest pain 07/20/2011 Immunizations Immunization Administration Dates Next Due Influenza, injectable, quadrivalent, preservativ e free 02/25/2019,02/23/2016 Tdap 04/18/2024 Social History Tobacco Use Types Packs/Day Years Used Date Smoking Tobacco: Never Smokeless Tobacco: Never Tobacco Cessation:Counseling Given: Not Answered Alcohol Use Standard Drinks/Week Comments Yes 0 (1 standard drink = 0.6 oz pur e alcohol) daily PHQ-2 Answer Date Recorded Patient Health Questionnaire-2 Score 0 06/19/2024 [place] Safety & Environment Answer Date Rec orded [...] Info) Description 11/26/2024 2:30 PM EDT Follow-Up [facility] Transplant [address] [place] [phone] Flower Baig, [employer] [address] [facility] [address] [place] [id number] 12/18/2024 10:30 AM EDT Follow-Up [facility] Rheumatology [address] [place] [phone] Brennen Vidales MD [address] [facility] [place] [phone] Procedures Procedure Name Priority Date/Time Associated Diagnosis [...] 4.00 - 10.60 10*3/uL 09/09/2024 9:06 AM [facility] ([facility]) RBC 4.62 4.20 - 5.70 10*6/uL 09/09/2024 9:06 AM [facility] ([facility]) Hemoglobin 13.7 13.0 - 17.0 g/dL 09/09/2024 9:06 AM [facility] ([facility]) Hematocrit 42.4 39.0 - 50.0 % 09/09/2024 9:06 AM [facility] ([facility]) MCV 91.8 82.0 - 98.0 fL 09/09/2024 9:06 AM [facility] ([facility]) MCH 29.7 27.0 - 33.0 pg 09/09/2024 9:06 AM [facility] ([facility]) MCHC 32.3 32.0 - 35.0 g/dL 09/09/2024 9:06 AM [facility] ([facility]) RDW 13.3 11.5 - 15.0 % 09/09/2024 9:06 AM [facility] ([facility]) Neutrophils % 69.5 40.0 - 72.0 % 09/09/2024 9:06 AM [facility] ([facility]) Lymphocytes % 21.3 20.0 - 45.0 % 09/09/2024 9:06 AM [facility] ([facility]) Monocytes % 7.1 5.0 - 12.0 % 09/09/2024 9:06 AM [facility] ([facility]) Eosinophils % 0.7 0.0 - 6.0 % 09/09/2024 9:06 AM [facility] ([facility]) Basophils % 0.2 0.0 - 1.0 % 09/09/2024 9:06 AM EDT [facility] ([facility]) Neutrophils Absolute 7.46 1.60 - 7.60 10*3/uL 09/09/2024 9:06 AM EDT [facility] ([facility]) Lymphocytes Absolute 2.29 1.20 - 4.00 10*3/uL 09/09/2024 9:06 AM EDT [facility] ([facility]) Monocytes Absolute 0.76 0.10 - 1.00 10*3/uL 09/09/2024 9:06 AM EDT [facility] ([facility]) Eosinophils Absolute 0.08 0.00 - 0.50 10*3/uL 09/09/2024 9:06 AM EDT [facility] ([facility]) Basophils Absolute 0.02 0.00 - 0.20 10*3/uL 09/09/2024 9:06 AM EDT [facility]) Platelets 270 150 - 400 10*3/uL 09/09/2024 9:06 AM EDT [facility] ([facility]) nRBC % 0.0 0 % 09/09/2024 9:06 AM EDT [facility] ([facility]) Immature Granulocytes % 1.2(H) 0.0 - 1.0 % 09/09/2024 9:06 AM EDT [facility] ([facility]) Immature Granulocytes Absolute 0.13 0.00 - 0.20 10*3/uL 09/09/2024 9:06 AM EDT [facility]) Blood Venous blood specimen / Unknown Venipuncture / Unknown 09/09/2024 8:26 AM EDT 09/09/2024 8:57 AM EDT us Bruce Coates MD LAB BLOOD ORDERABLES Final Re sult [facility]) [address] [place] [address] * (ABNORMAL) Tacrolimus level (09/09/2024 8:26 AM EDT) Only the most recent of2 resultswithin the time period is included. Tacrolimus Lvl 3.6(L) 5.0 - 20.0 ng/mL 09/09/2024 12:41 PM EDT [facility] ([facility]) Comment:The [employer] TRANSITION TEACHER Tacrolimus assay is a delayed one-step immunoassay for the quantitative determination of tacrolimus in human whole blood using the chemiluminescent microparticle immunoassay (CMIA) technology with flexible assay protocols, referred to as Chemiflex. Blood Venous blood specimen / Unknown Venipuncture / Unknown 09/09/2024 8:26 AM EDT 09/09/2024 8:57 AM EDT Bruce Coates MD LAB BLOOD ORDERABLES Final Re sult Performing Organization Address City/[facility]/ZIP Co de Phone Number [facility] ([facility]) [address] [place] [address] * (ABNORMAL) Uric acid (09/09/2024 8:26 AM EDT) Only the most recent of2 resultswithin the time period is included. Uric Acid 9.7(H) 4.4 - 7.6 mg/dL 09/09/2024 10:14 AM EDT [facility] ([facility]) Blood Venous blood specimen / Unknown Venipuncture / Unknown 09/09/2024 8:26 AM EDT 09/09/2024 8:56 AM EDT Bruce Coates MD LAB BLOOD ORDERABLES Final Re sult Performing Organization Address City/[facility]/ZIP Co de Phone Number [facility]) [address] [place] [address] * Phosphorus (09/09/2024 8:26 AM EDT) Only the most recent of2 resultswithin the time period is included. Phosphorus 2.9 2.5 - 5.0 mg/dL 09/09/2024 9:24 AM EDT [facility]) Blood Venous blood specimen / Unknown Venipuncture / Unknown 09/09/2024 8:26 AM EDT 09/09/2024 8:56 AM EDT Bruce Coates MD LAB BLOOD ORDERABLES Final Re sult Performing Organization Address City/[facility]/ZIP Co de Phone Number [facility]) [address] [place] [address] * (ABNORMAL) Magnesium (09/09/2024 8:26 AM EDT) Only the most recent of2 resultswithin the time period is included. Magnesium 1.8(L) 1.9 - 2.7 mg/dL 09/09/2024 9:24 AM EDT [facility] ([facility]) Blood Venous blood specimen / Unknown Venipuncture / Unknown 09/09/2024 8:26 AM EDT 09/09/2024 8:56 AM EDT Result [facility] Bruce Coates MD LAB BLOOD ORDERABLES Final Re sult Performing Organization Address [facility] Co de Phone Number [facility]) [address] [place] [address] * Bilirubin, direct (09/09/2024 8:26 AM EDT) Only the most recent of2 resultswithin the time period is included. Bilirubin, Direct 0.1 0 - 0.2 mg/dL 09/09/2024 9:24 AM EDT [facility] ([facility]) Blood Venous blood specimen / Unknown Venipuncture / Unknown 09/09/2024 8:26 AM EDT 09/09/2024 8:56 AM EDT Bruce Coates MD LAB BLOOD ORDERABLES Final Re sult Performing Organization Address City/[facility]/ZIP Co de Phone Number [facility] ([facility]) [address] [place] [address] * (ABNORMAL) Comprehensive metabolic panel (09/09/2024 8:26 AM EDT) Only the most recent of2 resultswithin the time period is included. Sodium 136 136 - 145 mmol/L 09/09/2024 9:24 AM T [facility] ([facility]) Potassium 4.2 3.5 - 5.1 mmol/L 09/09/2024 9:24 AM T [facility] ([facility]) Chloride 106 98 - 107 mmol/L 09/09/2024 9:24 AM T [facility] ([facility]) CO2 23 21 - 31 mmol/L 09/09/2024 9:24 AM [facility] ([facility]) Anion Gap 11 7 - 20 mmol/L 09/09/2024 9:24 AM [facility] ([facility]) BUN 54(H) 7 - 25 mg/dL 09/09/2024 9:24 AM [facility] ([facility]) Creatinine 1.99(H) 0.70 - 1.30 mg/dL 09/09/2024 9:24 AM [facility] ([facility]) BUN/Creatinine Ratio 27.1 07/2024 9:24 AM [facility] ([facility]) Glucose 72 70 - 100 mg/dL 09/09/2024 9:24 AM [facility] ([facility]) Calcium 9.4 8.6 - 10.3 mg/dL 09/09/2024 9:24 AM [facility] ([facility]) AST 12(L) 13 - 39 U/L 09/09/2024 9:24 AM T [facility] ([facility]) ALT (SGPT) 15 7 - 52 U/L 09/09/2024 9:24 AM [facility] ([facility]) Alkaline Phosphatase 50 34 - 104 U/L 09/09/2024 9:24 AM [facility] ([facility]) Total Protein 6.5 6.0 - 8.3 g/dL 09/09/2024 9:24 AM [facility] ([facility]) Albumin 4.0 3.5 - 5.7 g/dL 09/09/2024 9:24 AM EDT [facility]) Total Bilirubin 0.5 0.3 - 1.0 mg/dL 09/09/2024 9:24 AM EDT [facility] ([facility]) eGFR 38.4(L) >60.0 mL/min/1. 73m*2 09/09/2024 9:24 AM EDT [facility]) Comment:[facility] estimated glomerular filtration rate (eGFR) [...] 8:26 AM EDT 09/09/2024 8:56 AM EDT us Bruce Coates MD LAB BLOOD ORDERABLES Final Re sult [facility] ([place]) [address] [place] [address] * Testosterone, free and total, and SHBG (08/18/2024 9:20 AM EDT) Testosterone 328 193 - 740 ng/dL 08/18/2024 5:24 PM EDT [facility] Sex Hormone Binding 29 19 - 76 nmol/L 08/18/2024 5:24 PM EDT [facility] Testosterone, Free 70.2 47.0 - 244.0 pg/mL 08/18/2024 5:24 PM EDT [facility] Comment: The concentration of free testosterone is derived from a mathematical expression based on the constant for the binding of testosterone to albumin and/or sex hormone binding globulin. Test Performed by [facility] [address] [place] [id number] - [id number] 08/18/2024 17:24 Blood Venous blood specimen / Unknown Venipuncture / Unknown 08/18/2024 9:20 AM EDT 08/18/2024 9:40 AM EDT Bruce Coates MD LAB BLOOD ORDERABLES Final Re sult Performing Organization Address City/[facility]/ZIP Co de Phone Number [facility] [address] [place] [address] * BK virus, plasma, quantitative (08/18/2024 9:20 AM EDT) BK Virus Plasma Interpretation Not Detected Not Detected 08/18/2024 1:17 PM EDT [facility]) BK Virus Quantitation Not Detected Not Detected copies/mL 08/18/2024 1:17 PM EDT [facility] ([facility]) Comment: Method: BK virus was measured by quantitative polymerase chain reaction using a fluorescent hydrolysis probe targeting the polyomavirus BK FINANCIAL SERVICES REPRESENTATIVE-1 gene. The lower limit of quantitation of the assay is 500 copies of BK genome per milliliter of plasma or urine, and any detectable BK DNA below that level is reported as: Detected, <500 copies/ml. Serial BK virus measurement can be used to monitor disease activity. (Reference: Hattie vancel. J CLIN MICRO 2004; 42:0685-0373). This test was developed and its performance characteristics determined by the [facility] Molecular Diagnostics Laboratory. It has not been approved by the US Food and Drug Administration. However, such approval is not required for clinical implementation, and test results have been shown to be clinically useful. This laboratory is CAP accredited and CLIA certified to perform high complexity testing. BK Virus Quant Log Not Detected Not Detected copies/mL 08/18/2024 1:17 PM EDT [facility]) Blood Venous blood specimen / Unknown Venipuncture / Unknown 08/18/2024 9:20 AM EDT 08/18/2024 9:40 AM EDT Bruce Coates MD LAB BLOOD ORDERABLES Final Re sult Performing Organization Address City/[facility]/ZIP Co de Phone Number [facility] ([place]) [address] [place] [address] * Hemoglobin A1c (08/18/2024 9:20 AM EDT) Pathologist [facility] Hemoglobin A1C 5.8 4.0 - 6.0 % 08/19/2024 7:46 AM EDT [facility] ([facility]) Estimated Average Glucose 120 mg/dL 08/19/2024 7:46 AM EDT [facility] ([facility]) Blood Venous blood specimen / Unknown Venipuncture / Unknown 08/18/2024 9:20 AM EDT 08/18/2024 9:40 AM EDT Bruce Coates MD LAB BLOOD ORDERABLES Final Re sult [facility] ([facility]) [address] [place] [address] * (ABNORMAL) Lipid panel (08/18/2024 9:20 AM EDT) [facility] Triglycerides 132 <150 mg/dL 08/18/2024 10:06 AM EDT [facility] ([facility]) Comment: TRIGLYCERIDE REFERENCE RANGE: 20 YEARS AND OLDER CARDIOVASCULAR RISK LESS THAN 150 mg/dL LOW RISK 150 TO 199 mg/dL BORDERLINE RISK 200 mg/dL AND GREATER HIGH RISK Cholesterol 217(H) 120 - 200 mg/dL 08/18/2024 10:06 AM EDT [facility] ([facility]) LDL Calculated 132 0 - 160 mg/dL 08/18/2024 10:06 AM EDT [facility] ([facility]) HDL 59 23 - 92 mg/dL 08/18/2024 10:06 AM EDT [facility] ([facility]) Non HDL Cholesterol 158 08/18/2024 10:06 AM EDT [facility] ([facility]) Total VLDL-C 26 0 - 40 mg/dL 08/18/2024 10:06 AM EDT [facility] ([facility]) Cholesterol/HDL Ratio 3.7 mg/dL 08/18/2024 10:06 AM EDT [facility] ([facility]) Blood Venous blood specimen / Unknown Venipuncture / Unknown 08/18/2024 9:20 AM EDT 08/18/2024 9:40 AM EDT us Bruce Coates MD LAB BLOOD ORDERABLES Final Re sult [facility]) [address] [place] [address] from Last [address] [facility] Care Teams System Designer Relationship Specialty Start Date End Date Dayron Pleitez MD [address] [facility] [address] [address] PCP - General 04/26/22 Sal Guerrero MD [facility] [facility] [address] [place] [address] Consulting Physician Urology 01/16/22 Rojelio Dukes CNP [facility] [place] [address] Nurse Practitioner Urology 05/07/23
--- OUTSIDE RECORDS SUMMARY | 2024-09-24 07:41 | XMS_ITS | Encounter Summary ---
Author Organization [employer] Address [id number] [address] [place] [address] Care Team Providers Care Apparel Rental Clerk Name Role Phone Dayron Pleitez MD Primary Care Provider [phone] Encounter Details Date Type Department Care Team (Late st Contact Info) Description 01/22/2024 Telephone [facility] Surgery [address] [place] [address] Chiara Cano RMA Social History Tobacco Use Types Packs/Day Years [...] on file Sexual Orientation Not on file documented as of this encounter Miscellaneous Notes * Telephone Encounter - TIFFANIE Hyde - 01/22/2024 11:25 AM EDT Irvin was seen in the office on 01/21/24....Kristel Bryan's called to schedule his procedure. We scheduled for 02/06/24 however it will need to be reschedule to February to comply with insurance. documented in this encounter Plan of Treatment Not on file documented as of this encounter Visit Diagnoses Not on filedocumented in this encounter Care Teams Apparel Rental Clerk Relationship Specialty Start Date End Date Dayron Pleitez MD PCP - General Family Medicine 12/11/21 documented as of this encounter
--- OUTSIDE RECORDS SUMMARY | 2024-09-24 07:41 | XMS_ITS | Clinical Summary ---
Author Organization [facility] Address [address] [place] [address] Care Team Providers Care Dye Colorist Dyer Name Role Phone Unavailable Primary Care Provider Unavailabl e Allergies No known active allergies Medications allopurinol (Zyloprim) 100 MG tablet Take 1 tablet every day by oral route as directed for 90 days. Active amLODIPine (Norvasc) 5 MG tablet Take 1 tablet every day by oral route in the morning. Active atorvastatin (Lipitor) 20 MG tablet Take 1 tablet by mouth Daily Active atorvastatin (Lipitor) 20 MG tablet Take 20 mg by mouth in the morning. 11/11/2023 Active Active Problems No known active problems Social History Tobacco Use Types Packs/Day Years Used Date Smoking Tobacco: Never Smokeless Tobacco: Never Tobacco Cessation:Counseling Given: Not Answered Sex and Gender Information Value Date Recorded Sex Assigned at Not on file Legal Sex Male 7:07 PM EDT Gender Identity Not on file Sexual Orientation Not on file Plan of Treatment Not on file Insurance BS
--- OUTSIDE RECORDS SUMMARY | 2024-09-24 07:41 | XMS_ITS | Encounter Summary ---
Author Organization [employer] Address [facility] [id number] [address] [place] [address] Care Team Providers Care Dry Mill Operator Name Role Phone Dayron Pleitez MD Primary Care Provider [phone] Encounter Details Date Type Department Care Team (Late st Contact Info) Description 01/22/2024 Telephone [facility] [address] [place] [address] Chiara Cano RMA Social History [...] Telephone Encounter - TIFFANIE Hyde - 01/22/2024 12:05 PM EDT Kristel said she called the insurance company and it's preventive... they would like to proceed. Irvin 's surgery is scheduled for 02/06/24. documented in this encounter Plan of Treatment Not on file documented as of this encounter Visit Diagnoses Not on filedocumented in this encounter Care Teams Dry Mill Operator Relationship Specialty Start Date End Date Dayron Pleitez MD PCP - General Family Medicine 12/11/21 documented as of this encounter
--- OUTSIDE RECORDS SUMMARY | 2024-09-24 07:41 | XMS_ITS | CCD ---
Author Organization [facility] Care Team Providers Care Predatory Animal Trapper Name Role Phone ARMINDA JOSH Referring Unavailable DAYRON BROWN Primary Care Unavailable OLEG LOPEZ Admitting Unavailab OLEG Johnson Attending Unavailab DAYRON Cantu Primary Care Unavailable KEVIN, DR ONEILL Consulting Unavailable HOY, DR ONEILL Attending Unavailable HOY, DR ONEILL Admitting Unavailable HOY, DR ONEILL Primary Care Unavailable HOY, DR ONEILL Attending Unavailable HOY, DR ONEILL Admitting Unavailable HOY, DR ONEILL Primary Care Unavailable HOY, DR ONEILL Consulting Unavailable ZIEBER, DR SON Gallo Consulting Unavailable RATNAM, DR MCCRACKEN Admitting Unavailable RATNAM, DR MCCRACKEN Attending Unavailable LISETTEY, DR ONEILL Primary Care Unavailable PAY, DR BOURNE Admitting Unavailable PAY, DR BOURNE Attending Unavailable KEVIN, DR ONEILL Primary Care Unavailable WEST, DR SOHAIL Whaley Consulting Unavailable PAY, DR BOURNE Consulting Unavailable LISETTEY, DR ONEILL Attending Unavailable HOY, DR ONEILL Admitting Unavailable HOY, DR ONEILL Primary Care Unavailable HOY, DR ONEILL Consulting Unavailable HOY, DR ONEILL Consulting Unavailable HOY, DR ONEILL Attending Unavailable HOY, DR ONEILL Admitting Unavailable KEVIN, DR ONEILL Primary Care Unavailable MACY SAUCEDO Attending Unavailable HORACIO WINKLER Admitting Unavailable SELF, REFERRED Referring Unavailable DAYRON BROWN Primary Care Unavailable RENE JUAREZ Attending Unavailable SELF, REFERRED Referring Unavailable DAYRON BROWN Primary Care Unavailable PIPER HERNANDEZ Admitting Unavailable RODRIGO BOBO Attending Unavailable AVIVA BROWN Attending Unavailable DAYRON BROWN Referring Unavailable DAYRON BROWN Primary Care Unavailable JANN ADAMS Admitting Unavailable JANN ADAMS Attending Unavailable DAYRON BROWN Primary Care Unavailable Unavailable Primary Care Provider UnavailDayron Waller MD Primary Care Provider [phone] RENE JUAREZ Referring Unavailable JAJA LANDAVERDE Attending Unavailable ROBB BURGOS Referring Unavailable CARMELO FARNSWORTH Referring Unavailable RENE JUAREZ Attending Unavailable ROBB BURGOS Attending Unavailable BRENNEN VIDALES I Referring Unavailable BROOKE NEZAM Lauro Attending Unavailable CARMELO FARNSWORTH Referring Unavailable RENE JUAREZ Referring Unavailable RENE JUAREZ Referring Unavailable ROJELIO DUKES Attending Unavailable Allergies Allergy Classification Reported Allergen(s) Allergy Type Date of Onset Reaction(s) Facility (1 source) 62402,00 Drug allergy (disorder) 11-01-2009 [facility] Repository Medications Current Medications Medication Drug Class(es) Dates Sig (Normalized) Sig (Original) allopurinol 100 mg oral tablet (3 sources) Xanthine Oxidase Inhibitor take 1 tablet by mouth in the morning allopurinoL (ZYLOPRIM) 100 mg tablet Take 1 tablet (100 mg total) by mouth in the morning. Active amLODIPine 5 mg oral tablet (2 sources) Dihydropyridine Calcium Channel Mary take 1 tablet by mouth once daily in the morning amLODIPine (Norvasc) 5 MG tablet Take 1 tablet every day by oral route in the morning. Active atorvastatin 20 mg oral tablet (5 sources) HMG-CoA Reductase Inhibitor Start: 11-11-2023 take 1 tablet by mouth in the morning atorvastatin (Lipitor) 20 MG tablet Take 20 mg by mouth in the morning. 11/11/2023 Active lisinopril 20 mg oral tablet (1 source) Angiotensin Converting Enzyme Inhibitor take 1 tablet by mouth in the morning lisinopriL (PRINIVIL,ZESTRIL) 20 mg tablet Take 1 tablet (20 mg total) by mouth in the morning. Active magnesium oxide 400 mg oral tablet (1 source) take 1 tablet by mouth in the morning magnesium oxide (MAGOX) 400 mg tablet Take 1 tablet (400 mg total) by mouth in the morning. Active metoprolol tartrate 25 mg oral tablet (1 source) beta-Adrenergic Mary metoprolol tartrate (LOPRESSOR) 25 mg tablet Take 1 tablet (25 mg total) by mouth. Active mycophenolic acid 180 mg delayed release oral tablet (1 source) Antimetabolite Immunosuppressant take 3 tablets by mouth in the morning, then take 3 tablets by mouth at bedtime mycophenolate (MYFORTIC) 180 mg EC tablet Take 3 tablets (540 mg total) by mouth in the morning and 3 tablets (540 mg total) before bedtime. Active peg 3350-sod sulf,bicr-woh-lvu 178.7-7.3-0.5 gram recon soln (1 source) Start: 01-21-2024 End: 01-22-2024 peg 3350-sod sulf,xjlc-myr-nqv 178.7-7.3-0.5 gram recon soln Indications: Encounter for screening colonoscopy Take 1 kit by mouth once daily for 1 dose. Please see instructional sheet given by physicians office. 1 each 01/21/2024 01/22/2024 Active tacrolimus 1 mg oral capsule (1 source) Calcineurin Inhibitor Immunosuppressant take 1 capsule by mouth once tacrolimus (PROGRAF) 1 mg capsule Take 1 capsule (1 mg total) by mouth every 12 (twelve) hours. Active Completed/Discontinued Medications Medication Drug Class(es) Dates Sig (Normalized) Sig (Original) predniSONE 5 mg oral tablet (1 source) End: 01-21-2024 take 1 tablet by mouth in the morning predniSONE (DELTASONE) 5 mg tablet Take 1 tablet (5 mg total) by mouth in the morning. 01/21/2024 Discontinued (Therapy completed) Problems Active Problems Problem Classification Problem Date Documented Da te Episodic/Chronic Chronic kidney disease (3 sources) Kidney transplant status; Translations: [KIDNEY TRANSPLANT STATUS] Onset: 04-27-2021 Chronic Chronic kidney disease (2 sources) Chronic kidney disease; Translations: [Chronic kidney disease, stage 3b] Onset: 01-15-2022 Complication of device; implant or graft (2 sources) Unspecified complication of kidney transplant; Translations: [Unspecified complication of kidney transplant] Onset: 05-15-2024 Chronic Diabetes mellitus without complication (2 sources) Impaired fasting glucose; Translations: [Impaired fasting glucose] Onset: 08-18-2024 Episodic Diverticulosis and diverticulitis (1 source) Diverticulosis of intestine, part unspecified, without perforation or abscess without bleeding; Translations: [Diverticulosis of intestine, part unspecified, without perforation or abscess without bleeding] Onset: 02-06-2024 Chronic Essential hypertension (2 sources) Essential (primary) hypertension; Translations: [Essential (primary) hypertension] Onset: 05-15-2024 Chronic Fluid and electrolyte disorders (2 sources) Hypo-osmolality and hyponatremia; Translations: [Dehydration] Onset: 04-27-2021 Episodic Gout and other crystal arthropathies (2 sources) Gout, unspecified; Translations: [Gout, unspecified] Onset: 06-19-2024 Chronic Immunizations and screening for infectious disease (1 source) Encounter for immunization; Translations: [ENCOUNTER FOR IMMUNIZATION] Onset: 04-20-2021 Episodic Other aftercare (1 source) Other terminal supervisor (current) drug therapy; Translations: [OTH CARDIOTHORACIC PHYSIOTHERAPIST CURRENT DRUG THERAPY] Onset: 04-27-2021 Episodic Other connective tissue disease (2 sources) Pain in leg, unspecified; Translations: [Pain in leg, unspecified] Onset: 06-19-2024 Episodic Other connective tissue disease (2 sources) Pain in right lower leg; Translations: [Pain in right lower leg] Onset: 06-19-2024 Episodic Other lower respiratory disease (3 sources) Shortness of breath; Translations: [SHORTNESS OF BREATH] Onset: 04-25-2021 Episodic Other lower respiratory disease (1 source) Dyspnea, unspecified; Translations: [DYSPNEA UNSPECIFIED] Onset: 04-27-2021 Episodic Other nervous system disorders (1 source) Paresthesia of skin; Translations: [PARESTHESIA OF SKIN] Onset: 05-29-2021 Episodic Other screening for suspected conditions (not mental disorders or infectious disease) (4 sources) Encounter for screening for malignant neoplasm of colon; Translations: [Encounter for screening for malignant neoplasm, site unspecified] Onset: 01-21-2024 01-21-2024 Episodic Other upper respiratory infections (1 source) Acute sinusitis, unspecified; Translations: [ACUTE SINUSITIS UNSPECIFIED] Onset: 04-20-2021 Episodic Phlebitis; thrombophlebitis and thromboembolism (2 sources) Acute embolism and thrombosis of unspecified deep veins of right distal lower extremity; Translations: [Acute embolism and thrombosis of unspecified deep veins of right distal lower extremity] Onset: 06-19-2024 Episodic Residual codes; unclassified (4 sources) Localized edema; Translations: [LOCALIZED EDEMA] Onset: 05-25-2021 Episodic Unclassified (3 sources) CONTACT W/AND (SUSP) EXPOS COVID-19; Translations: [CONTACT W/AND (SUSP) EXPOS COVID-19] Onset: 01-09-2021 Unclassified (1 source) Colon Cancer Screening Onset: 01-21-2024 Unclassified (1 source) screening Onset: 02-06-2024 Viral infection (4 sources) COVID-19; Translations: [COVID-19] Onset: 04-17-2021 Past or Other Problems Problem Classification Problem Date Documented Da te Episodic/Chronic Acute bronchitis (1 source) Acute bronchitis, unspecified; Translations: [ACUTE BRONCHITIS UNSPECIFIED] Onset: 01-09-2021 Episodic Other and unspecified benign neoplasm (2 sources) Melanocytic nevus of trunk; Translations: [Melanocytic nevi of trunk] 12-26-2023 Episodic Other and unspecified benign neoplasm (2 sources) Senile angioma; Translations: [Hemangioma of skin and subcutaneous tissue] 12-26-2023 Episodic Other skin disorders (2 sources) Seborrheic keratosis; Translations: [Other seborrheic keratosis] 12-26-2023 Episodic Other skin disorders (2 sources) Actinic keratosis; Translations: [Actinic keratosis] 12-26-2023 Episodic Unclassified (1 source) CONTACT W/AND (SUSP) EXPOS COVID-19; Translations: [CONTACT W/AND (SUSP) EXPOS COVID-19] Onset: 04-14-2021 Results Test Name Value Interpretation Reference Range Facility BILIRUBIN, DIRECTon 09-10-19 25 Magnesium [Mass/Vol] 0.1 mg/dL Normal 0-0.2 [facility] Comment on above: Performed By: #### L [id number] #### [facility] ([facility]) [address] [place] [address] CBC WITH AUTO DIFFERENTIALon 09-09-2024 Basophils (Bld) [#/Vol] 0.02 10*3/uL Normal 0.00-0.20 [facility] Comment on above: Performed By: #### L [id number] #### [facility] ([facility]) [address] [place] [address] Basophils/100 WBC (Bld) 0.2 % Normal 0.0-1.0 [facility] Comment on above: Performed By: #### L [id number] #### [facility] ([facility]) [address] [place] [address] Eosinophils (Bld) [#/Vol] 0.08 10*3/uL Normal 0.00-0.50 [facility] Comment on above: Performed By: #### L [id number] #### [facility] ([facility]) [address] [place] [address] Eosinophils/100 WBC (Bld) 0.7 % Normal 0.0-6.0 [facility] Comment on above: Performed By: #### L [id number] #### [facility] ([facility]) [address] [place] [address] Erythrocyte distribution width (RBC) [Ratio] 13.3 % Normal 11.5-15.0 [facility] Comment on above: Performed By: #### L [id number] #### [facility] ([facility]) [address] [place] [address] ERYTHROCYTE MEAN CORPUSCULAR HEMOGLOBIN CONCENTRATION (G/DL) BY AUTOMATED 32.3 g/dL Normal 32.0-35.0 [facility] Comment on above: Performed By: #### L [id number] #### [facility] ([facility]) [address] [place] [address] Hematocrit (Bld) [Volume fraction] 42.4 % Normal 39.0-50.0 [facility] Comment on above: Performed By: #### L [id number] #### [facility] ([facility]) [address] [place] [address] Hemoglobin (Bld) [Mass/Vol] 13.7 g/dL Normal 13.0-17.0 [facility] Comment on above: Performed By: #### L [id number] #### [facility] [address] [place] [address] Immature granulocytes (Bld) [#/Vol] 0.13 10*3/uL Normal 0.00-0.20 [facility] Comment on above: Performed By: #### L [id number] #### [facility] ([facility]) [address] [place] [address] Immature granulocytes/100 WBC (Bld) 1.2 % High 0.0-1.0 [facility] Comment on above: Performed By: #### L [id number] #### [facility] ([facility]) [address] [place] [address] Lymphocytes (Bld) [#/Vol] 2.29 10*3/uL Normal 1.20-4.00 [facility] Comment on above: Performed By: #### L [id number] #### [facility] ([facility]) [address] [place] [address] Lymphocytes/100 WBC (Bld) 21.3 % Normal 20.0-45.0 [facility] Comment on above: Performed By: #### L [id number] #### [facility] ([facility]) [address] [place] [address] MCH (RBC) [Entitic mass] 29.7 pg Normal 27.0-33.0 [facility] Comment on above: Performed By: #### L [id number] #### [facility] ([facility]) [address] [place] [address] MCV (RBC) [Entitic vol] 91.8 fL Normal 82.0-98.0 [facility] Comment on above: Performed By: #### L [id number] #### [facility] ([facility]) [address] [place] [address] Monocytes (Bld) [#/Vol] 0.76 10*3/uL Normal 0.10-1.00 [facility] Comment on above: Performed By: #### L [id number] #### [facility] ([facility]) [address] [place] [address] Monocytes/100 WBC (Bld) 7.1 % Normal 5.0-12.0 [facility] Comment on above: Performed By: #### L [id number] #### [facility] ([facility]) [address] [place] [address] Neutrophils (Bld) [#/Vol] 7.46 10*3/uL Normal 1.60-7.60 [facility] Comment on above: Performed By: #### L [id number] #### [facility] ([facility]) [address] [place] [address] Neutrophils/100 WBC (Bld) 69.5 % Normal 40.0-72.0 [facility] Comment on above: Performed By: #### L [id number] #### [facility] ([facility]) [address] [place] [address] NRBC (PER 100 WBCS) BY AUTOMATED COUNT 0.0 % Normal 0 [facility] Comment on above: Performed By: #### L [id number] #### [facility] ([facility]) [address] [place] [address] PLATELETS (10*3/UL) IN BLOOD AUTOMATED COUNT 270 10*3/uL Normal 150-400 [facility] Comment on above: Performed By: #### L [id number] #### [facility] ([facility]) [address] [place] [address] RBC (Bld) [#/Vol] 4.62 10*6/uL Normal 4.20-5.70 [facility] Comment on above: Performed By: #### L [id number] #### [facility] ([facility]) [address] [place] [address] WBC (Bld) [#/Vol] 10.74 10*3/uL High 4.00-10.60 [facility] Comment on above: Performed By: #### L [id number] #### [facility] [address] [place] [address] COMPREHENSIVE METABOLIC PANE Jarett 09-09-2024 Albumin [Mass/Vol] 4.0 g/dL Normal 3.5-5.7 [facility] Comment on above: Performed By: #### L [id number] #### [facility] ([facility]) [address] [place] [address] ALP [Catalytic activity/Vol] 50 U/L Normal 34-104 [facility] Comment on above: Performed By: #### L [id number] #### [facility] ([facility]) [address] [place] [address] ALT [Catalytic activity/Vol] 15 U/L Normal 7-52 [facility] Comment on above: Performed By: #### L [id number] #### [facility] [address] [place] [address] Anion gap [Moles/Vol] 11 mmol/L Normal 7-20 [facility] Comment on above: Performed By: #### L [id number] #### [facility] [address] [place] [address] AST [Catalytic activity/Vol] 12 U/L Low 13-39 [facility] Comment on above: Performed By: #### L [id number] #### [facility] [address] [place] [address] Bilirubin [Mass/Vol] 0.5 mg/dL Normal 0.3-1.0 [facility] Comment on above: Performed By: #### L [id number] #### [facility] [address] [place] [address] Calcium [Mass/Vol] 9.4 mg/dL Normal 8.6-10.3 [facility] Comment on above: Performed By: #### L [id number] #### [facility] [address] [place] [address] Chloride [Moles/Vol] 106 mmol/L Normal 98-107 [facility] Comment on above: Performed By: #### L [id number] #### [facility] ([facility]) [address] [place] [address] CO2 [Moles/Vol] 23 mmol/L Normal 21-31 [facility] Comment on above: Performed By: #### L [id number] #### [facility] ([facility]) [address] [place] [address] Creatinine [Mass/Vol] 1.99 mg/dL High 0.70-1.30 [facility] Comment on above: Performed By: #### L [id number] #### [facility] ([facility]) [address] [place] [address] GLOMERULAR FILTRATION RATE ML/MIN/1.73 SQ M.PREDICTED 38.4 mL/min/1.73m*2 Low >60.0 [facility] Comment on above: Result Comment: The [facility]???s estimated glomerular filtration rate (eGFR) will no longer include consideration of race in its calculation. The National Kid[employer] Foundation???s eGFR Task Force developed new recommendations for [...] disproportionately affect any one group of individuals. Performed By: #### L [id number] #### [facility] ([facility]) [address] [place] [address] Glucose [Mass/Vol] 72 mg/dL Normal 70-100 [facility] Comment on above: Performed By: #### L [id number] #### [facility] ([facility]) [address] [place] [address] Potassium [Moles/Vol] 4.2 mmol/L Normal 3.5-5.1 [facility] Comment on above: Performed By: #### L [id number] #### [facility] ([facility]) [address] [place] [address] Protein [Mass/Vol] 6.5 g/dL Normal 6.0-8.3 [facility] Comment on above: Performed By: #### L [id number] #### [facility] ([facility]) [address] [place] [address] Sodium [Moles/Vol] 136 mmol/L Normal 136-145 [facility] Comment on above: Performed By: #### L [id number] #### [facility] ([facility]) [address] [place] [address] Urea nitrogen [Mass/Vol] 54 mg/dL High 7-25 [facility] Comment on above: Performed By: #### L [id number] #### [facility] ([facility]) [address] [facility] [place] [address] UREA NITROGEN/CREATININE (MASS RATIO) IN SER/PLAS 27.1 Normal [facility] Comment on above: Performed By: #### L [id number] #### [facility] ([facility]) [address] [place] [address] Labon 09-09-2024 Lab [id number] Irvin Carrington [address] 1965 M Date Provider Department Center 09/09/2024 [id number]PD LAB RESOURCE [facility] Family History Family history unknown: Yes Normal [facility] MAGNESIUMon 09-09-2024 Magnesium [Mass/Vol] 1.8 mg/dL Low 1.9-2.7 [facility] Comment on above: Performed By: #### L [id number] #### [facility] ([facility]) [address] [place] [address] PHOSPHORUSon 09-09-2024 Magnesium [Mass/Vol] 2.9 mg/dL Normal 2.5-5.0 [facility] Comment on above: Performed By: #### L [id number] #### [facility] ([facility]) [address] [facility] [place] [address] TACROLIMUS LEVELon Tacrolimus (Bld) [Mass/Vol] 3.6 ng/mL Low 5.0-20.0 [facility] Comment on above: Result Comment: The [employer] Tacrolimus assay is a delayed one-step immunoassay for the quantitative determination of tacrolimus in human whole blood using the chemiluminescent microparticle immunoassay (CMIA) technology with flexible assay protocols, referred to as Chemiflex. Performed By: #### L [id number] #### [facility] ([facility]) [address] [place] [address] URIC ACIDon 09-09-2024 Magnesium [Mass/Vol] 9.7 mg/dL High 4.4-7.6 [facility] Comment on above: Performed By: #### L [id number] #### [facility] ([facility]) [address] [place] [address] BILIRUBIN, DIRECTon 08-19-19 25 Magnesium [Mass/Vol] 0.1 mg/dL Normal 0-0.2 [facility] Comment on above: Performed By: #### L [id number] #### [facility] ([facility]) [address] [place] [address] CBC WITH AUTO DIFFERENTIALon 08-18-2024 Basophils (Bld) [#/Vol] 0.03 10*3/uL Normal 0.00-0.20 [facility] Comment on above: Performed By: #### L [id number] #### [facility] ([facility]) [address] [place] [address] Basophils/100 WBC (Bld) 0.4 % Normal 0.0-1.0 [facility] Comment on above: Performed By: #### L [id number] #### [facility] ([facility]) [address] [place] [address] Eosinophils (Bld) [#/Vol] 0.07 10*3/uL Normal 0.00-0.50 [facility] Comment on above: Performed By: #### L [id number] #### [facility] ([facility]) [address] [place] [address] Eosinophils/100 WBC (Bld) 0.8 % Normal 0.0-6.0 [facility] Comment on above: Performed By: #### L [id number] #### [facility] ([facility]) [address] [place] [address] Erythrocyte distribution width (RBC) [Ratio] 13.4 % Normal 11.5-15.0 [facility] Comment on above: Performed By: #### L [id number] #### [facility] ([facility]) [address] [place] [address] ERYTHROCYTE MEAN CORPUSCULAR HEMOGLOBIN CONCENTRATION (G/DL) BY AUTOMATED 32.3 g/dL Normal 32.0-35.0 [facility] Comment on above: Performed By: #### L [id number] #### [facility] ([facility]) [address] [place] [address] Hematocrit (Bld) [Volume fraction] 42.7 % Normal 39.0-50.0 [facility] Comment on above: Performed By: #### L [id number] #### [facility] ([facility]) [address] [place] [address] Hemoglobin (Bld) [Mass/Vol] 13.8 g/dL Normal 13.0-17.0 [facility] Comment on above: Performed By: #### L [id number] #### [facility] ([facility]) [address] [place] [address] Immature granulocytes (Bld) [#/Vol] 0.02 10*3/uL Normal 0.00-0.20 [facility] Comment on above: Performed By: #### L [id number] #### [facility] ([facility]) [address] [place] [address] Immature granulocytes/100 WBC (Bld) 0.2 % Normal 0.0-1.0 [facility] Comment on above: Performed By: #### L [id number] #### [facility] ([facility]) [address] [place] [address] Lymphocytes (Bld) [#/Vol] 1.54 10*3/uL Normal 1.20-4.00 [facility] Comment on above: Performed By: #### L [id number] #### [facility] ([facility]) [address] [place] [address] Lymphocytes/100 WBC (Bld) 18.6 % Low 20.0-45.0 [facility] Comment on above: Performed By: #### L [id number] #### [facility] ([facility]) [address] [place] [address] MCH (RBC) [Entitic mass] 29.4 pg Normal 27.0-33.0 [facility] Comment on above: Performed By: #### L [id number] #### [facility] [address] [place] [address] MCV (RBC) [Entitic vol] 91.0 fL Normal 82.0-98.0 [facility] Comment on above: Performed By: #### L [id number] #### [facility] ([facility]) [address] [place] [address] Monocytes (Bld) [#/Vol] 0.67 10*3/uL Normal 0.10-1.00 [facility] Comment on above: Performed By: #### L [id number] #### [facility] ([facility]) [address] [place] [address] Monocytes/100 WBC (Bld) 8.1 % Normal 5.0-12.0 [facility] Comment on above: Performed By: #### L [id number] #### [facility] ([facility]) [address] [place] [address] Neutrophils (Bld) [#/Vol] 5.93 10*3/uL Normal 1.60-7.60 [facility] Comment on above: Performed By: #### L [id number] #### [facility] ([facility]) [address] [place] [address] Neutrophils/100 WBC (Bld) 71.9 % Normal 40.0-72.0 [facility] Comment on above: Performed By: #### L [id number] #### [facility] ([facility]) [address] [place] [address] NRBC (PER 100 WBCS) BY AUTOMATED COUNT 0.0 % Normal 0 [facility] Comment on above: Performed By: #### L [id number] #### [facility] [address] [place] [address] PLATELETS (10*3/UL) IN BLOOD AUTOMATED COUNT 216 10*3/uL Normal 150-400 [facility] Comment on above: Performed By: #### L [id number] #### [facility] ([facility]) [address] [place] [address] RBC (Bld) [#/Vol] 4.69 10*6/uL Normal 4.20-5.70 [facility] Comment on above: Performed By: #### L [id number] #### [facility] ([facility]) [address] [place] [address] WBC (Bld) [#/Vol] 8.26 10*3/uL Normal 4.00-10.60 [facility] Comment on above: Performed By: #### L [id number] #### [facility] ([facility]) [address] [place] [address] COMPREHENSIVE METABOLIC PANE Jarett 08-18-2024 Albumin [Mass/Vol] 4.3 g/dL Normal 3.5-5.7 [facility] Comment on above: Performed By: #### L [id number] #### [facility] ([facility]) [address] [place] [address] ALP [Catalytic activity/Vol] 52 U/L Normal 34-104 [facility] Comment on above: Performed By: #### L [id number] #### [facility] ([facility]) [address] [place] [address] ALT [Catalytic activity/Vol] 19 U/L Normal 7-52 [facility] Comment on above: Performed By: #### L [id number] #### [facility] [address] [place] [address] Anion gap [Moles/Vol] 13 mmol/L Normal 7-20 [facility] Comment on above: Performed By: #### L [id number] #### [facility] ([facility]) [address] [place] [address] AST [Catalytic activity/Vol] 18 U/L Normal 13-39 [facility] Comment on above: Performed By: #### L [id number] #### [facility] ([facility]) [address] [place] [address] Bilirubin [Mass/Vol] 0.5 mg/dL Normal 0.3-1.0 [facility] Comment on above: Performed By: #### L [id number] #### [facility] ([facility]) [address] [place] [address] Calcium [Mass/Vol] 8.8 mg/dL Normal 8.6-10.3 [facility] Comment on above: Performed By: #### L [id number] #### [facility] ([facility]) [address] [place] [address] Chloride [Moles/Vol] 107 mmol/L Normal 98-107 [facility] Comment on above: Performed By: #### L [id number] #### [facility] ([facility]ER) [address] [place] [address] CO2 [Moles/Vol] 21 mmol/L Normal 21-31 [facility] Comment on above: Performed By: #### L [id number] #### [facility] ([facility]ER) [address] [place] [address] Creatinine [Mass/Vol] 2.11 mg/dL High 0.70-1.30 [facility] Comment on above: Performed By: #### L [id number] #### [facility] [address] [place] [address] GLOMERULAR FILTRATION RATE ML/MIN/1.73 SQ M.PREDICTED 35.8 mL/min/1.73m*2 Low >60.0 [facility] Comment on above: Result Comment: The [facility]???s estimated glomerular filtration rate (eGFR) will no longer include consideration of race in its calculation. The National Kidney Foundation???s eGFR Task Force developed new recommendations for [...] disproportionately affect any one group of individuals. Performed By: #### L [id number] #### [facility] ([facility]) [address] [place] [address] Glucose [Mass/Vol] 88 mg/dL Normal 70-100 [facility] Comment on above: Performed By: #### L [id number] #### [facility] ([facility]) [address] [place] [address] Potassium [Moles/Vol] 4.8 mmol/L Normal 3.5-5.1 [facility] Comment on above: Performed By: #### L [id number] #### [facility] ([facility]) [address] [place] [address] Protein [Mass/Vol] 6.7 g/dL Normal 6.0-8.3 [facility] Comment on above: Performed By: #### L [id number] #### [facility] ([facility]) [address] [place] [address] Sodium [Moles/Vol] 136 mmol/L Normal 136-145 [facility] Comment on above: Performed By: #### L [id number] #### [facility] ([facility]) [address] [place] [address] Urea nitrogen [Mass/Vol] 40 mg/dL High 7-25 [facility] Comment on above: Performed By: #### L [id number] #### [facility] ([facility]) [address] [place] [address] UREA NITROGEN/CREATININE (MASS RATIO) IN SER/PLAS 19.0 Normal [facility] Comment on above: Performed By: #### L [id number] #### [facility] ([facility]) [address] [place] [address] HEMOGLOBIN A1Con 08-18-2024 Glucose [Mass/Vol] 120 mg/dL Normal [facility] Comment on above: Performed By: #### L [id number] #### [facility] [address] [place] [address] HbA1c (Bld) [Mass fraction] 5.8 % Normal 4.0-6.0 [facility] Comment on above: Performed By: #### L [id number] #### [facility] ([facility]) [address] [place] [address] LIPID PANELon 08-18-2024 CHOL/HDL 3.7 mg/dL Normal [facility] Comment on above: Performed By: #### L [id number] #### [facility] ([facility]) [address] [place] [address] Cholesterol [Mass/Vol] 217 mg/dL High 120-200 [facility] Comment on above: Performed By: #### L [id number] #### [facility] ([facility]) [address] [place] [address] Magnesium [Mass/Vol] 132 mg/dL Normal 0-160 [facility] Comment on above: Result Comment: TRIG LYCERIDE REFERENCE RANGE: 20 YEARS AND OLDER CARDIOVASCULAR RISK LESS THAN 150 mg/dL LOW RISK 150 TO 199 mg/dL BORDERLINE RISK 200 mg/dL AND GREATER HIGH RISK Performed By: #### L [id number] #### [facility] ([facility]) [address] [place] [address] Magnesium [Mass/Vol] 59 mg/dL Normal 23-92 [facility] Comment on above: Performed By: #### L [id number] #### [facility] ([facility]) [address] [facility] [place] [address] NON HDL CHOL. (LDL+VLDL) 158 Normal [facility] Comment on above: Performed By: #### L [id number] #### [facility] ([facility]) [address] [place] [address] TOTAL VLDL-C 26 mg/dL Normal 0-40 [facility] Comment on above: Performed By: #### L [id number] #### [facility] [address] [place] [address] Labon 08-18-2024 Lab [id number] Irvin Carrington 1965 M Date Provider Department Center 08/18/2024 2245-[facility] OPD LAB RESOURCE [facility] OPD NM Medical C Family History Family history unknown: Yes Normal [facility] MAGNESIUMon 08-18-2024 Magnesium [Mass/Vol] 2.2 mg/dL Normal 1.9-2.7 [facility] Comment on above: Performed By: #### L [id number] #### [facility] ([facility]) [address] [place] [address] PHOSPHORUSon 08-18-2024 Magnesium [Mass/Vol] 2.0 mg/dL Low 2.5-5.0 [facility] Comment on above: Performed By: #### L [id number] #### [facility] ([facility]) [address] [place] [address] TACROLIMUS LEVELon Tacrolimus (Bld) [Mass/Vol] 3.0 ng/mL Low 5.0-20.0 [facility] Comment on above: Result Comment: The [employer] Tacrolimus assay is a delayed one-step immunoassay for the quantitative determination of tacrolimus in human whole blood using the chemiluminescent microparticle immunoassay (CMIA) technology with flexible assay protocols, referred to as Chemiflex. Performed By: #### L [id number] #### [facility] ([facility]) [address] [place] [address] TESTOSTERONE, FREE AND TOTAL , AND SHBGon 08-18-2024 SEX HORMONE BINDING GLOBULIN (NMOL/L) IN SER/PLAS 29 nmol/L Normal 19-76 [facility] Comment on above: Performed By: #### L [id number] #### [facility] [address] [place] [address] TESTOSTERONE (NG/DL) IN SER/PLAS 328 ng/dL Normal 193-740 [facility] Comment on above: Performed By: #### L [id number] #### [facility] ([facility]) [address] [place] [address] TESTOSTERONE FREE (NG/ML) IN SER/PLAS 70.2 pg/mL Normal 47.0-244.0 [facility] Comment on above: Result Comment: The concentration of free testosterone is derived from a mathematical expression based on the constant for the binding of testosterone to albumin and/or sex hormone binding globulin. Test Performed by [facility] [place] [address] - Released 08/18/2024 17:24 Performed By: #### L [id number] #### [facility] ([facility]) [address] [place] [address] URIC ACIDon 08-18-2024 Magnesium [Mass/Vol] 8.0 mg/dL High 4.4-7.6 [facility] Comment on above: Performed By: #### L [id number] #### [facility] ([facility]) [address] [place] [address] Refillon 07-01-2024 Refill [id number] Irvin Carrington 1965 M Date Provider Department Center 07/01/2024 THOR [facility] NEPHRO Comprehensiv Family History Family history unknown: Yes Reason for Visit and Comments: Med Refill [[id number]] Normal [facility] 36on 06-22-2024 36 Last Visit: 06/19/24 Upcoming Visit: 12/18/24 Normal [facility] APTTon 06-19-2024 ACTIVATED PARTIAL THROMBOPLASTIN TIME IN PPP BY COAGULATION ASSAY 25.7 Seconds Normal 25.0-35.0 [facility] Comment on above: Result Comment: Clin ical significance of the APTT is questionable in the presence of heparin. Performed By: #### L [id number] #### [facility] ([facility]) [address] [place] [address] BASIC METABOLIC PANELon 06-06 Anion gap [Moles/Vol] 9 mmol/L Normal 7-20 [facility] Comment on above: Performed By: #### L [id number] #### [facility] ([facility]) [address] [place] [address] Calcium [Mass/Vol] 9.0 mg/dL Normal 8.6-10.3 [facility] Comment on above: Performed By: #### L [id number] #### [facility] ([facility]ER) [address] [place] [address] Chloride [Moles/Vol] 109 mmol/L High 98-107 [facility] Comment on above: Performed By: #### L [id number] #### [facility] ([facility]ER) [address] [place] [address] CO2 [Moles/Vol] 22 mmol/L Normal 21-31 [facility] Comment on above: Performed By: #### L [id number] #### [facility] [address] [place] [address] Creatinine [Mass/Vol] 1.88 mg/dL High 0.70-1.30 [facility] Comment on above: Performed By: #### L [id number] #### [facility] ([facility]) [address] [place] [address] GLOMERULAR FILTRATION RATE ML/MIN/1.73 SQ M.PREDICTED 41.2 mL/min/1.73m*2 Low >60.0 [facility] Comment on above: Result Comment: The [facility]???s estimated glomerular filtration rate (eGFR) will no longer include consideration of race in its calculation. The National Kidney Foundation???s eGFR Task Force developed new recommendations for [...] disproportionately affect any one group of individuals. Performed By: #### L [id number] #### [facility] [address] [place] [address] Glucose [Mass/Vol] 101 mg/dL High 70-100 [facility] Comment on above: Performed By: #### L [id number] #### [facility] [address] [place] [address] Potassium [Moles/Vol] 5.0 mmol/L Normal 3.5-5.1 [facility] Comment on above: Performed By: #### L [id number] #### [facility] ([facility]) [address] [place] [address] Sodium [Moles/Vol] 135 mmol/L Low 136-145 [facility] Comment on above: Performed By: #### L [id number] #### [facility] ([facility]) [address] [place] [address] Urea nitrogen [Mass/Vol] 39 mg/dL High 7-25 [facility] Comment on above: Performed By: #### L [id number] #### [facility] ([facility]) [address] [facility] [place] [address] UREA NITROGEN/CREATININE (MASS RATIO) IN SER/PLAS 20.7 Normal [facility] Comment on above: Performed By: #### L [id number] #### [facility] ([facility]) [address] [facility] [place] [address] CBC WITH AUTO DIFFERENTIALon 06-19-2024 Basophils (Bld) [#/Vol] 0.02 10*3/uL Normal 0.00-0.20 [facility] Comment on above: Performed By: #### L [id number] #### [facility] ([facility]) [address] [place] [address] Basophils/100 WBC (Bld) 0.2 % Normal 0.0-1.0 [facility] Comment on above: Performed By: #### L [id number] #### [facility] ([facility]) [address] [facility] [place] [address] Eosinophils (Bld) [#/Vol] 0.03 10*3/uL Normal 0.00-0.50 [facility] Comment on above: Performed By: #### L [id number] #### [facility] [address] [facility] [place] [address] Eosinophils/100 WBC (Bld) 0.4 % Normal 0.0-6.0 [facility] Comment on above: Performed By: #### L [id number] #### [facility] [address] [place] [address] Erythrocyte distribution width (RBC) [Ratio] 12.8 % Normal 11.5-15.0 [facility] Comment on above: Performed By: #### L [id number] #### [facility] ([facility]) [address] [place] [address] ERYTHROCYTE MEAN CORPUSCULAR HEMOGLOBIN CONCENTRATION (G/DL) BY AUTOMATED 31.5 g/dL Low 32.0-35.0 [facility] Comment on above: Performed By: #### L [id number] #### [facility] ([facility]) [address] [place] [address] Hematocrit (Bld) [Volume fraction] 41.6 % Normal 39.0-50.0 [facility] Comment on above: Performed By: #### L [id number] #### [facility] ([facility]) [address] [place] [address] Hemoglobin (Bld) [Mass/Vol] 13.1 g/dL Normal 13.0-17.0 [facility] Comment on above: Performed By: #### L [id number] #### [facility] ([facility]) [address] [place] [address] Immature granulocytes (Bld) [#/Vol] 0.03 10*3/uL Normal 0.00-0.20 [facility] Comment on above: Performed By: #### L [id number] #### [facility] [address] [place] [address] Immature granulocytes/100 WBC (Bld) 0.4 % Normal 0.0-1.0 [facility] Comment on above: Performed By: #### L [id number] #### [facility] [address] [place] [address] Lymphocytes (Bld) [#/Vol] 0.90 10*3/uL Low 1.20-4.00 [facility] Comment on above: Performed By: #### L [id number] #### [facility] ([facility]ER) [address] [place] [address] Lymphocytes/100 WBC (Bld) 10.6 % Low 20.0-45.0 [facility] Comment on above: Performed By: #### L [id number] #### [facility] ([facility]) [address] [place] [address] MCH (RBC) [Entitic mass] 28.9 pg Normal 27.0-33.0 [facility] Comment on above: Performed By: #### L [id number] #### [facility] ([facility]ER) [address] [place] [address] MCV (RBC) [Entitic vol] 91.6 fL Normal 82.0-98.0 [facility] Comment on above: Performed By: #### L [id number] #### [facility] ([facility]) [address] [place] [address] Monocytes (Bld) [#/Vol] 0.41 10*3/uL Normal 0.10-1.00 [facility] Comment on above: Performed By: #### L [id number] #### [facility] ([facility]) [address] [place] [address] Monocytes/100 WBC (Bld) 4.8 % Low 5.0-12.0 [facility] Comment on above: Performed By: #### L [id number] #### [facility] ([facility]) [address] [place] [address] Neutrophils (Bld) [#/Vol] 7.13 10*3/uL Normal 1.60-7.60 [facility] Comment on above: Performed By: #### L [id number] #### [facility] ([facility]ER) [address] [place] [address] Neutrophils/100 WBC (Bld) 83.6 % High 40.0-72.0 [facility] Comment on above: Performed By: #### L [id number] #### [facility] (BEAKER) [address] [place] [address] NRBC (PER 100 WBCS) BY AUTOMATED COUNT 0.0 % Normal 0 [facility] Comment on above: Performed By: #### L [id number] #### [facility] [address] [place] [address] PLATELETS (10*3/UL) IN BLOOD AUTOMATED COUNT 180 10*3/uL Normal 150-400 [facility] Comment on above: Performed By: #### L [id number] #### [facility] [address] [place] [address] RBC (Bld) [#/Vol] 4.54 10*6/uL Normal 4.20-5.70 [facility] Comment on above: Performed By: #### L [id number] #### [facility] ([facility]) [address] [place] [address] WBC (Bld) [#/Vol] 8.52 10*3/uL Normal 4.00-10.60 [facility] Comment on above: Performed By: #### L [id number] #### [facility] ([facility]) [address] [place] [address] EDPROVon 06-19-2024 EDPROV [facility] EMERGENCY DEPARTMENT ENCOUNTER Pt Name: Irvin Carrington Birthdate: 1965 Date of visit: 06/20/24 HISTORY OF PRESENT ILLNESS CC (triage): Leg Pain (Patient sent over from vascular with c/o dvt right calf. Patient denies injury, pain started on Saturday.) HPI: Patient presents with complaint of right calf pain x 5 days. Denies any injury to the calf. Denies chest pain or dyspnea. States he started himself on aspirin due to concern about potential DVT. He had an appointment upcoming with rheumatology today and figured her would ask them about it. He was evaluated today by rheumatology and an emergent vascular ultrasound of his right calf was ordered. The tech told him he had a DVT and put him a wheelchair and wheeled him directly to the ED for evaluation/treatment. He is a kidney transplant recipient (2009 from living donor). States that overall he has been doing very well from a transplant perspective. Last saw his psychological examiner just a couple weeks ago here at [facility]. Requesting that we touch base with them prior to initiating DVT meds. He notes that he also has a history of some microclots in small upper extremity vessels a few years ago when he had COVID-19. States that no special treatment was required for these. Denies any history of DVT or PE. PREVIOUS HISTORY has a past medical history of HTN (hypertension). Patient Active Problem List Diagnosis Chest pain End-stage renal disease (CMS/HCC) Essential hypertension History of renal transplant Hypomagnesemia Increased infection risk status post immunosuppressive therapy Proteinuria Stage 3 chronic kidney disease (CMS/HCC) Supraventricular tachycardia Basal cell carcinoma (BCC) of left forearm Hyperlipidemia Immunodeficiency, unspecified has a past surgical history that includes CT guided percutaneous biopsy renal left (Left, 10/16/2017) and transplant, kidney, open. reports that he has never smoked. He has never used smokeless tobacco. He reports current alcohol use. He reports that he does not use drugs. CURRENT MEDICATIONS No current facility-administered medications on file prior to encounter. Current Outpatient Medications on File Prior to Encounter Medication Sig allopurinol (Zyloprim) 100 mg tablet Take 100 mg by mouth in the morning. amoxicillin-pot clavulanate (Augmentin) 875-125 mg tablet Take 1 tablet by mouth Twice daily at 6am and 6pm. atorvastatin (Lipitor) 20 mg tablet TAKE 1 TABLET IN THE MORNING colchicine 0.6 mg tablet Take 1 tab every other day (Patient not taking: Reported on 06/19/2024) DOCOSAHEXAENOIC ACID ORAL Take 1,000 mg by mouth in the morning. febuxostat (Uloric) 40 mg tablet TAKE 1 TABLET IN THE MORNING hydroCHLOROthiazide 12.5 mg tablet Take 1 tablet (12.5 mg) by mouth in the morning. lisinopril 20 mg tablet TAKE 1 TABLET DAILY magnesium oxide (Mag-Ox) 400 mg (241.3 mg magnesium) tablet Take 1 tablet (400 mg) by mouth in the morning. metoprolol tartrate (Lopressor) 25 mg tablet Take 0.5 tablets by mouth in the morning. mycophenolate (Myfortic) 180 mg EC tablet TAKE 3 TABLETS BY MOUTH TWICE DAILY omega-3 acid ethyl esters (Lovaza) 1 gram capsule ondansetron ODT (Zofran-ODT) 4 mg disintegrating tablet Take 1 tablet (4 mg) by mouth every 8 (eight) hours if needed for nausea or vomiting for up to 10 doses. (Patient not taking: Reported on 06/19/2024) predniSONE (Deltasone) 5 mg tablet TAKE 1 TABLET BY MOUTH IN THE MORNING Prograf 0.5 mg capsule Take 1 capsule twice a day by oral route for 90 days. TDD: 3mg Prograf 1 mg capsule Take 1 capsule twice a day by oral route for 90 days. TDD: 3 MG sodium,potassium,mag sulfates (Suprep) 17.5-3.13-1.6 gram recon soln Suflave 178.7-7.3-0.5 gram recon soln PLEASE SEE ATTACHED FOR DETAILED DIRECTIONS tacrolimus (Prograf) 0.5 mg capsule TAKE 2 CAPSULES BY MOUTH IN THE MORNING AND 2 CAPSULES BY MOUTH IN THE EVENING [DISCONTINUED] levoFLOXacin (Levaquin) 500 mg tablet Take 1 tablet by mouth in the morning. ALLERGIES has No Known Allergies. PHYSICAL EXAM VITALS: height is 1.778 m (5' 10 ) and weight is 98.9 kg (218 lb). His temporal temperature is 36.6 ???C (97.9 ???F). General: Patient is alert and oriented, NAD, well-developed, well-nourished Neurological: Normal strength and tone, no focal deficits noted, speech is clear and fluent Psychiatric: Normal mood and affect, cooperative, appropriate Heart: RRR, no murmurs noted Lungs: CTA bilaterally, speaking in complete sentences without breathlessness Musculoskeletal: Lower extremities examined. Pedal pulses 2+ bilat. + tenderness to deep palpation of right calf musculature. No tenderness of posterior knee or thigh. No overlying skin erythema. No significant swelling appreciated. Very minimal discomfort to deep palpation of left calf musculature, much less than the right side. DIFFERENTIAL DIAGNOSIS / MDM / EMERGENCY COURSE Number and Complexity (more content not included)... Normal [facility] Follow-Upon 06-19-2024 Follow-Up [id number] Irvin Carrington 1965 M Date Provider Department Center 06/19/2024 Addison-BRENNNE VIDALES I [facility] Vandana Heal Family History Family history unknown: Yes Level of Service:41053 [place] OFFICE/OUTPATIENT ESTABLISHED LOW MDM 20 MIN (GC) Reason for Visit and Comments: History of renal transplant [Other] Gout of multiple sites, unspecified cause, unspecified endocrinology physician [Other] Follow-up [[id number]] Normal [facility] PROTIME-INRon 06-19-2024 INR IN PPP BY COAGULATION ASSAY 0.95 Normal 0.90-1.10 [facility] Comment on above: Result Comment: ACCC P RECOMMENDED INR FOR WARFARIN THERAPY CONDITION INR PROPHYLAXIS OF VENOUS THROMBOSIS 2-3 (HIGH-RISK SURGERY) TREATMENT OF VENOUS THROMBOSIS 2-3 TREATMENT OF PULMONARY EMBOLISM 2-3 PREVENTION OF SYSTEMIC EMBOLISM: 2-3 ACUTE MYOCARDIAL INFARCTION TISSUE HEART VALVES VALVULAR HEART DISEASE ATRIAL FIBRILLATION RECURRENT SYSTEMIC EMBOLISM MECHANICAL HEART VALVE 2.5-3.5 FROM: ORAL ANTICOAGULANTS. MECHANISM OF ACTION, CLINICAL EFFECTIVENESS, AND OPTIMAL THERAPEUTIC RANGE. CHEST 1995;108:[id number]. Performed By: #### L [id number] #### [facility] (Unocoin) [address] [place] [address] PROTHROMBIN TIME (PT) IN PPP BY COAGULATION ASSAY 12.7 Seconds Normal 12.3-14.8 [facility] Comment on above: Performed By: #### L [id number] #### [facility] (Unocoin) [address] [place] [address] Refillon 06-19-2024 Refill [id number] Irvin Carrington 1965 M Date Provider Department Center 06/19/2024 BRENNEN ALVARADO I [facility] Vandana Heal Family History Family history unknown: Yes Reason for Visit and Comments: Med Refill [[id number]] Normal [facility] 36on 06-16-2024 36 Please have patient call [facility] rheumatology to schedule a follow up visit Normal [facility] CREATININE, URINE, RANDOMon 05-28-2024 Creatinine (U) [Mass/Vol] 122.0 mg/dL Normal 26-299 [facility] Comment on above: Performed By: #### L [id number] #### [facility] ([facility]) [address] [place] [address] Follow-Upon 05-28-2024 Follow-Up [id number] Irvin Carrington 1965 M Date Provider Department Center 05/28/2024 [id number] LANDAVERDE None No family history on file Level of Service:33466 [place] OFFICE/OUTPATIENT ESTABLISHED MOD MDM 30 MIN Reason for Visit and Comments: Kidney Follow-up [[id number]] - Pt states bp has been high the last month, has a gout flare up at the moment. Normal [facility] PROTEIN, URINE, RANDOMon Protein (U) [Mass/Vol] 110.0 mg/dL Normal [facility] Comment on above: Result Comment: Ther e are no established reference values for random urine specimens. Performed By: #### L [id number] #### [facility] ([facility]) [address] [place] [address] BILIRUBIN, DIRECTon 05-27-19 25 Magnesium [Mass/Vol] 0.1 mg/dL Normal 0-0.2 [facility] Comment on above: Performed By: #### L [id number] #### [facility] [address] [place] [address] CBC WITH AUTO DIFFERENTIALon 05-27-2024 Basophils (Bld) [#/Vol] 0.03 10*3/uL Normal 0.00-0.20 [facility] Comment on above: Performed By: #### L [id number] #### [facility] ([facility]) [address] [place] [address] Basophils/100 WBC (Bld) 0.4 % Normal 0.0-1.0 [facility] Comment on above: Performed By: #### L [id number] #### [facility] (BEAKER) [address] [place] [address] Eosinophils (Bld) [#/Vol] 0.10 10*3/uL Normal 0.00-0.50 [facility] Comment on above: Performed By: #### L [id number] #### [facility] [address] [place] [address] Eosinophils/100 WBC (Bld) 1.2 % Normal 0.0-6.0 [facility] Comment on above: Performed By: #### L [id number] #### [facility] ([facility]) [address] [place] [address] Erythrocyte distribution width (RBC) [Ratio] 12.7 % Normal 11.5-15.0 [facility] Comment on above: Performed By: #### L [id number] #### [facility] ([facility]) [address] [place] [address] ERYTHROCYTE MEAN CORPUSCULAR HEMOGLOBIN CONCENTRATION (G/DL) BY AUTOMATED 31.8 g/dL Low 32.0-35.0 [facility] Comment on above: Performed By: #### L [id number] #### [facility] (BEAKER) [address] [place] [address] Hematocrit (Bld) [Volume fraction] 45.0 % Normal 39.0-55.0 [facility] Comment on above: Performed By: #### L [id number] #### [facility] ([facility]AKER) [address] [place] [address] Hemoglobin (Bld) [Mass/Vol] 14.3 g/dL Normal 13.0-17.0 [facility] Comment on above: Performed By: #### L [id number] #### [facility] (BEAKER) [address] [place] [address] Immature granulocytes (Bld) [#/Vol] 0.03 10*3/uL Normal 0.00-0.20 [facility] Comment on above: Performed By: #### L [id number] #### [facility] ([facility]) [address] [place] [address] Immature granulocytes/100 WBC (Bld) 0.4 % Normal 0.0-1.0 [facility] Comment on above: Performed By: #### L [id number] #### [facility] ([facility]) [address] [place] [address] Lymphocytes (Bld) [#/Vol] 1.50 10*3/uL Normal 1.20-4.00 [facility] Comment on above: Performed By: #### L [id number] #### [facility] ([facility]) [address] [place] [address] Lymphocytes/100 WBC (Bld) 17.9 % Low 20.0-45.0 [facility] Comment on above: Performed By: #### L [id number] #### [facility] ([facility]) [address] [place] [address] MCH (RBC) [Entitic mass] 29.1 pg Normal 27.0-33.0 [facility] Comment on above: Performed By: #### L [id number] #### [facility] ([facility]) [address] [place] [address] MCV (RBC) [Entitic vol] 91.6 fL Normal 82.0-98.0 [facility] Comment on above: Performed By: #### L [id number] #### [facility] [address] [place] [address] Monocytes (Bld) [#/Vol] 0.61 10*3/uL Normal 0.10-1.00 [facility] Comment on above: Performed By: #### L [id number] #### [facility] (BEAKER) [address] [place] [address] Monocytes/100 WBC (Bld) 7.3 % Normal 5.0-12.0 [facility] Comment on above: Performed By: #### L [id number] #### [facility] ([facility]) [address] [place] [address] Neutrophils (Bld) [#/Vol] 6.10 10*3/uL Normal 1.60-7.60 [facility] Comment on above: Performed By: #### L [id number] #### [facility] ([facility]) [address] [place] [address] Neutrophils/100 WBC (Bld) 72.8 % High 40.0-72.0 [facility] Comment on above: Performed By: #### L [id number] #### [facility] ([facility]) [address] [place] [address] NRBC (PER 100 WBCS) BY AUTOMATED COUNT 0.0 % Normal 0 [facility] Comment on above: Performed By: #### L [id number] #### [facility] ([facility]) [address] [place] [address] PLATELETS (10*3/UL) IN BLOOD AUTOMATED COUNT 242 10*3/uL Normal 150-400 [facility] Comment on above: Performed By: #### L [id number] #### [facility] ([facility]) [address] [place] [address] RBC (Bld) [#/Vol] 4.91 10*6/uL Normal 4.20-5.70 [facility] Comment on above: Performed By: #### L [id number] #### [facility] ([facility]) [address] [place] [address] WBC (Bld) [#/Vol] 8.37 10*3/uL Normal 4.00-10.60 [facility] Comment on above: Performed By: #### L [id number] #### [facility] ([facility]) [address] [place] [address] COMPREHENSIVE METABOLIC PANE Jarett 05-27-2024 Albumin [Mass/Vol] 4.0 g/dL Normal 3.5-5.7 [facility] Comment on above: Performed By: #### L [id number] #### [facility] (BEAKER) [address] [place] [address] ALP [Catalytic activity/Vol] 83 U/L Normal 34-104 [facility] Comment on above: Performed By: #### L [id number] #### [facility] [address] [place] [address] ALT [Catalytic activity/Vol] 23 U/L Normal 7-52 [facility] Comment on above: Performed By: #### L [id number] #### [facility] [address] [place] [address] Anion gap [Moles/Vol] 13 mmol/L Normal 7-20 [facility] Comment on above: Performed By: #### L [id number] #### [facility] [address] [place] [address] AST [Catalytic activity/Vol] 17 U/L Normal 13-39 [facility] Comment on above: Performed By: #### L [id number] #### [facility] [address] [place] [address] Bilirubin [Mass/Vol] 0.6 mg/dL Normal 0.3-1.0 [facility] Comment on above: Performed By: #### L [id number] #### [facility] [address] [place] [address] Calcium [Mass/Vol] 9.3 mg/dL Normal 8.6-10.3 [facility] Comment on above: Performed By: #### L [id number] #### [facility] (BEAKER) [address] [place] [address] Chloride [Moles/Vol] 108 mmol/L High 98-107 [facility] Comment on above: Performed By: #### L [id number] #### [facility] ([facility]AKER) [address] [place] [address] CO2 [Moles/Vol] 23 mmol/L Normal 21-31 [facility] Comment on above: Performed By: #### L [id number] #### [facility] ([facility]) [address] [place] [address] Creatinine [Mass/Vol] 2.00 mg/dL High 0.70-1.30 [facility] Comment on above: Performed By: #### L [id number] #### [facility] ([facility]) [address] [place] [address] GLOMERULAR FILTRATION RATE ML/MIN/1.73 SQ M.PREDICTED 38.2 mL/min/1.73m*2 Low >60.0 [facility] Comment on above: Result Comment: The [facility]???s estimated glomerular filtration rate (eGFR) will no longer include consideration of race in its calculation. The National Kid[employer] Foundation???s eGFR Task Force developed new recommendations for [...] disproportionately affect any one group of individuals. Performed By: #### L [id number] #### [facility] ([facility]) [address] [place] [address] Glucose [Mass/Vol] 90 mg/dL Normal 70-100 [facility] Comment on above: Performed By: #### L [id number] #### [facility] ([facility]) [address] [place] [address] Potassium [Moles/Vol] 4.7 mmol/L Normal 3.5-5.1 [facility] Comment on above: Performed By: #### L [id number] #### [facility] ([facility]) [address] [place] [address] Protein [Mass/Vol] 7.0 g/dL Normal 6.0-8.3 [facility] Comment on above: Performed By: #### L [id number] #### [facility] ([facility]) [address] [place] [address] Sodium [Moles/Vol] 139 mmol/L Normal 136-145 [facility] Comment on above: Performed By: #### L [id number] #### [facility] ([facility]) [address] [place] [address] Urea nitrogen [Mass/Vol] 27 mg/dL High 7-25 [facility] Comment on above: Performed By: #### L [id number] #### [facility] ([facility]) [address] [place] [address] UREA NITROGEN/CREATININE (MASS RATIO) IN SER/PLAS 13.5 Normal [facility] Comment on above: Performed By: #### L [id number] #### [facility] ([facility]) [address] [place] [address] Labon 05-27-2024 Lab [id number] Irvin Carrington Duyen 1965 M Date Provider Department Center 05/27/[address]-[facility] OPD LAB RESOURCE [facility] OPD [facility] No family history on file Normal [facility] MAGNESIUMon 05-27-2024 Magnesium [Mass/Vol] 1.9 mg/dL Normal 1.9-2.7 [facility] Comment on above: Performed By: #### L [id number] #### [facility] ([facility]) [address] [place] [address] PHOSPHORUSon 05-27-2024 Magnesium [Mass/Vol] 2.9 mg/dL Normal 2.5-5.0 [facility] Comment on above: Performed By: #### L [id number] #### [facility] ([facility]) [address] [place] [address] TACROLIMUS LEVELon Tacrolimus (Bld) [Mass/Vol] 8.0 ng/mL Normal 5.0-20.0 [facility] Comment on above: Result Comment: The [employer] Tacrolimus assay is a delayed one-step immunoassay for the quantitative determination of tacrolimus in human whole blood using the chemiluminescent microparticle immunoassay (CMIA) technology with flexible assay protocols, referred to as Chemiflex. Performed By: #### L [id number] #### [facility] ([facility]) [address] [place] [address] URIC ACIDon 05-27-2024 Magnesium [Mass/Vol] 5.4 mg/dL Normal 4.4-7.6 [facility] Comment on above: Performed By: #### L [id number] #### [facility] ([facility]) [address] [place] [address] BILIRUBIN, DIRECTon 05-15-19 25 Magnesium [Mass/Vol] 0.1 mg/dL Normal 0-0.2 [facility] Comment on above: Performed By: #### L [id number] #### [facility] ([facility]) [address] [place] [address] CBC WITH AUTO DIFFERENTIALon 05-15-2024 Basophils (Bld) [#/Vol] 0.03 10*3/uL Normal 0.00-0.20 [facility] Comment on above: Performed By: #### L [id number] #### [facility] ([facility]) [address] [place] [address] Basophils/100 WBC (Bld) 0.4 % Normal 0.0-1.0 [facility] Comment on above: Performed By: #### L [id number] #### [facility] ([facility]) [address] [place] [address] Eosinophils (Bld) [#/Vol] 0.13 10*3/uL Normal 0.00-0.50 [facility] Comment on above: Performed By: #### L [id number] #### [facility] ([facility]) [address] [place] [address] Eosinophils/100 WBC (Bld) 1.8 % Normal 0.0-6.0 [facility] Comment on above: Performed By: #### L [id number] #### [facility] ([facility]) [address] [place] [address] Erythrocyte distribution width (RBC) [Ratio] 12.9 % Normal 11.5-15.0 [facility] Comment on above: Performed By: #### L [id number] #### [facility] ([facility]AKER) [address] [place] [address] ERYTHROCYTE MEAN CORPUSCULAR HEMOGLOBIN CONCENTRATION (G/DL) BY AUTOMATED 33.0 g/dL Normal 32.0-35.0 [facility] Comment on above: Performed By: #### L [id number] #### [facility] [address] [place] [address] Hematocrit (Bld) [Volume fraction] 44.3 % Normal 39.0-55.0 [facility] Comment on above: Performed By: #### L [id number] #### [facility] ([facility]) [address] [place] [address] Hemoglobin (Bld) [Mass/Vol] 14.6 g/dL Normal 13.0-17.0 [facility] Comment on above: Performed By: #### L [id number] #### [facility] (BEAKER) [address] [place] [address] Immature granulocytes (Bld) [#/Vol] 0.02 10*3/uL Normal 0.00-0.20 [facility] Comment on above: Performed By: #### L [id number] #### [facility] ([facility]AKER) [address] [place] [address] Immature granulocytes/100 WBC (Bld) 0.3 % Normal 0.0-1.0 [facility] Comment on above: Performed By: #### L [id number] #### [facility] ([facility]AKER) [address] [place] [address] Lymphocytes (Bld) [#/Vol] 1.39 10*3/uL Normal 1.20-4.00 [facility] Comment on above: Performed By: #### L [id number] #### [facility] ([facility]AKER) [address] [place] [address] Lymphocytes/100 WBC (Bld) 19.5 % Low 20.0-45.0 [facility] Comment on above: Performed By: #### L [id number] #### [facility] ([facility]) [address] [place] [address] MCH (RBC) [Entitic mass] 29.1 pg Normal 27.0-33.0 [facility] Comment on above: Performed By: #### L [id number] #### [facility] ([facility]AKER) [address] [place] [address] MCV (RBC) [Entitic vol] 88.2 fL Normal 82.0-98.0 [facility] Comment on above: Performed By: #### L [id number] #### [facility] ([facility]) [address] [place] [address] Monocytes (Bld) [#/Vol] 0.66 10*3/uL Normal 0.10-1.00 [facility] Comment on above: Performed By: #### L [id number] #### [facility] ([facility]) [address] [place] [address] Monocytes/100 WBC (Bld) 9.3 % Normal 5.0-12.0 [facility] Comment on above: Performed By: #### L [id number] #### [facility] ([facility]) [address] [place] [address] Neutrophils (Bld) [#/Vol] 4.90 10*3/uL Normal 1.60-7.60 [facility] Comment on above: Performed By: #### L [id number] #### [facility] [address] [place] [address] Neutrophils/100 WBC (Bld) 68.7 % Normal 40.0-72.0 [facility] Comment on above: Performed By: #### L [id number] #### [facility] [address] [place] [address] NRBC (PER 100 WBCS) BY AUTOMATED COUNT 0.0 % Normal 0 [facility] Comment on above: Performed By: #### L [id number] #### [facility] ([facility]) [address] [place] [address] PLATELETS (10*3/UL) IN BLOOD AUTOMATED COUNT 188 10*3/uL Normal 150-400 [facility] Comment on above: Performed By: #### L [id number] #### [facility] ([facility]) [address] [place] [address] RBC (Bld) [#/Vol] 5.02 10*6/uL Normal 4.20-5.70 [facility] Comment on above: Performed By: #### L [id number] #### [facility] ([facility]) [address] [place] [address] WBC (Bld) [#/Vol] 7.13 10*3/uL Normal 4.00-10.60 [facility] Comment on above: Performed By: #### L [id number] #### [facility] ([facility]) [address] [place] [address] COMPREHENSIVE METABOLIC PANE Jarett 05-15-2024 Albumin [Mass/Vol] 3.8 g/dL Normal 3.5-5.7 [facility] Comment on above: Performed By: #### L [id number] #### [facility] ([facility]) [address] [place] [address] ALP [Catalytic activity/Vol] 69 U/L Normal 34-104 [facility] Comment on above: Performed By: #### L [id number] #### [facility] ([facility]) [address] [place] [address] ALT [Catalytic activity/Vol] 24 U/L Normal 7-52 [facility] Comment on above: Performed By: #### L [id number] #### [facility] ([facility]) [address] [place] [address] Anion gap [Moles/Vol] 8 mmol/L Normal 7-20 [facility] Comment on above: Performed By: #### L [id number] #### [facility] ([facility]) [address] [place] [address] AST [Catalytic activity/Vol] 19 U/L Normal 13-39 [facility] Comment on above: Performed By: #### L [id number] #### [facility] ([facility]) [address] [place] [address] Bilirubin [Mass/Vol] 0.7 mg/dL Normal 0.3-1.0 [facility] Comment on above: Performed By: #### L [id number] #### [facility] ([facility]) [address] [place] [address] Calcium [Mass/Vol] 8.9 mg/dL Normal 8.6-10.3 [facility] Comment on above: Performed By: #### L [id number] #### [facility] [address] [place] [address] Chloride [Moles/Vol] 109 mmol/L High 98-107 [facility] Comment on above: Performed By: #### L [id number] #### [facility] [address] [place] [address] CO2 [Moles/Vol] 23 mmol/L Normal 21-31 [facility] Comment on above: Performed By: #### L [id number] #### [facility] ([facility]) [address] [place] [address] Creatinine [Mass/Vol] 1.85 mg/dL High 0.70-1.30 [facility] Comment on above: Performed By: #### L [id number] #### [facility] [address] [place] [address] GLOMERULAR FILTRATION RATE ML/MIN/1.73 SQ M.PREDICTED 42.0 mL/min/1.73m*2 Low >60.0 [facility] Comment on above: Result Comment: The [facility]???s estimated glomerular filtration rate (eGFR) will no longer include consideration of race in its calculation. The National Kidney Foundation???s eGFR Task Force developed new recommendations for [...] disproportionately affect any one group of individuals. Performed By: #### L [id number] #### [facility] ([facility]) [address] [place] [address] Glucose [Mass/Vol] 98 mg/dL Normal 70-100 [facility] Comment on above: Performed By: #### L [id number] #### [facility] ([facility]) [address] [place] [address] Potassium [Moles/Vol] 4.4 mmol/L Normal 3.5-5.1 [facility] Comment on above: Performed By: #### L [id number] #### [facility] ([facility]) [address] [place] [address] Protein [Mass/Vol] 6.4 g/dL Normal 6.0-8.3 [facility] Comment on above: Performed By: #### L [id number] #### [facility] ([facility]) [address] [place] [address] Sodium [Moles/Vol] 136 mmol/L Normal 136-145 [facility] Comment on above: Performed By: #### L [id number] #### [facility] ([facility]) [address] [place] [address] Urea nitrogen [Mass/Vol] 28 mg/dL High 7-25 [facility] Comment on above: Performed By: #### L [id number] #### [facility] ([facility]) [address] [place] [address] UREA NITROGEN/CREATININE (MASS RATIO) IN SER/PLAS 15.1 Normal [facility] Comment on above: Performed By: #### L [id number] #### [facility] ([facility]) [address] [place] [address] CT HEAD WO IV CONTRASTon CT HEAD WO IV CONTRAST History: Head trauma. Patient is on anticoagulation and at increased risk for intracranial hemorrhage. Comparison: None available EXAM & TECHNIQUE: Multi detector CT axial slices the head were obtained without IV contrast. Multiplanar reformats were performed and viewed on a separate workstation and reviewed to further define anatomy and possible pathology. Appropriate CT dose lowering techniques were utilized. FINDINGS: No intracranial blood products, mass or midline shift. Cerebral volume is preserved. Whitten-white matter differentiation maintained. Ventricular cisternal configuration is symmetric in concordant with cerebral volume. Imaged portions of the paranasal sinuses and mastoids show no fluid levels or blood products. Calvarium and skull base appear intact and atraumatic. IMPRESSION: * No acute findings. All CT scans at this institution used dose modulation, iterative reconstruction and/or weight based dose modulation when appropriate to reduce radiation dose to as low as reasonably achievable. Electronically signed: Luis Fox. [facility] EDPROVon 05-15-2024 EDPROV -- Attestation signed by Rene Juarez MD at 05/16/2024 4:12 PM I performed a history and physical examination of Irvin Carrington and discussed his management with the resident. I agree with the history, physical, assessment, and plan of care, with the following exceptions: None Rene Juarez MD History of Present Illness Chief Complaint Patient presents with Hypertension Pt c/o high blood pressure for the past couple days with a headache. Pt reports takes lisinopril for it 58-year-old male with PMH of HTN and kidney transplant in 2009 presents to the ED for ongoing hypertension for the last 3 days. Accompanying symptoms include headache and a pressure sensation that comes from inside to outside of his body. He was able to decrease his blood pressure by taking an extra losartan pill, in addition to his daily lisinopril, for which she stated did decrease his blood pressure and relieve his chest pressure however the headache remains. He took Tylenol at 11 AM this morning.He coaches softball team with adolescents and is unsure about sick contacts however denies recent illness, fevers, fatigue, weakness, dizziness, difficulty with ambulation, changes in weight, appetite, bladder or bowel patterns. Chuckey Coma Scale Score: 15 History History reviewed. No pertinent past medical history. Past Surgical History: Procedure Laterality Date CT GUIDED PERCUTANEOUS BIOPSY RENAL LEFT Left 10/16/2017 CT GUIDED PERCUTANEOUS BIOPSY RENAL LEFT [place] CONVERSION No family history on file. Social History Tobacco Use Smoking status: Never Smokeless tobacco: Never Substance Use Topics Alcohol use: Yes Comment: 6 A WEEK BEER OR liquor Drug use: Never Review of Systems Review of Systems Constitutional: Negative for chills and fever. HENT: Negative for ear pain and sore throat. Eyes: Negative for pain and visual disturbance. Respiratory: Negative for cough, shortness of breath and wheezing. Cardiovascular: Positive for chest pain. Negative for palpitations. Gastrointestinal: Negative for abdominal pain, constipation, nausea and vomiting. Genitourinary: Negative for dysuria and hematuria. Musculoskeletal: Negative for arthralgias and back pain. Skin: Negative for color change and rash. Neurological: Negative for seizures and syncope. All other systems reviewed and are negative. Physical Exam ED Triage Vitals [05/15/24 1300] Temp Heart Rate Resp BP 36.6 ???C (97.9 ???F) 67 18 (!) 133/99 SpO2 Temp src Heart Rate Source Patient Position 92 % -- -- -- BP Location FiO2 (%) -- -- Physical Exam Vitals and nursing note reviewed. Constitutional: General: He is not in acute distress. Appearance: He is well-developed. HENT: Head: Normocephalic and atraumatic. Eyes: Conjunctiva/sclera: Conjunctivae normal. Cardiovascular: Rate and Rhythm: Normal rate and regular rhythm. Pulses: Normal pulses. Heart sounds: Normal heart sounds. No murmur heard. Pulmonary: Effort: Pulmonary effort is normal. No respiratory distress. Breath sounds: Normal breath sounds. No wheezing, rhonchi or rales. Abdominal: General: Abdomen is flat. Bowel sounds are normal. There is no distension. Palpations: Abdomen is soft. There is no mass. Tenderness: There is no abdominal tenderness. Musculoskeletal: General: No swelling. Cervical back: Neck supple. Skin: General: Skin is warm and dry. Capillary Refill: Capillary refill takes less than 2 seconds. Neurological: Mental Status: He is alert. Psychiatric: Mood and Affect: Mood normal. Procedures ED Course & MDM Diagnoses as of 05/16/24 1006 Renal transplant disorder Hypertension, unspecified type Medical Decision Making Patient chart independently reviewed by Julia Boggs DO, MPH, PGY-2 Care discussion: Alert and oriented x3. Differential Diagnosis: 1. ACS 2. Transplant rejection 3. Pericarditis 4. Pleurisy Testing/Labs/Treatment :: 1. Labs in addition to recent kidney lab draw done today will include troponin and TSH 2. Chest x-ray and CT brain 3. Discharged home Disposition: With great care and expert medical opinion, it is safe for the patient to be discharged to home care at this time. All questions have been asked and answered. The patient has been updated, expresses understanding and is amenable with the plan. Attestion Julia Boggs DO Resident 05/16/24 1007 Normal [facility] Labon 05-15-2024 Lab [id number] Irvin Carrington 1965 M Date Provider Department Center 05/15/[address]245-[facility]PD LAB RESOURCE [facility] No family history on file Normal [facility] MAGNESIUMon 05-15-2024 Magnesium [Mass/Vol] 1.7 mg/dL Low 1.9-2.7 [facility] Comment on above: Performed By: #### L [id number] #### [facility] ([facility]) [address] [place] [address] PHOSPHORUSon 05-15-2024 Magnesium [Mass/Vol] 2.3 mg/dL Low 2.5-5.0 [facility] Comment on above: Performed By: #### L [id number] #### [facility] ([facility]) [address] [place] [address] TACROLIMUS LEVELon Tacrolimus (Bld) [Mass/Vol] 4.5 ng/mL Low 5.0-20.0 [facility] Comment on above: Result Comment: The [employer] Tacrolimus assay is a delayed one-step immunoassay for the quantitative determination of tacrolimus in human whole blood using the chemiluminescent microparticle immunoassay (CMIA) technology with flexible assay protocols, referred to as Chemiflex. Performed By: #### L [id number] #### [facility] ([facility]) [address] [place] [address] TROPONIN Ion 05-15-2024 Troponin I.cardiac [Mass/Vol] 0.01 ng/mL Normal 0.00-0.04 [facility] Comment on above: Performed By: #### L [id number] #### [facility] ([facility]) [address] [place] [address] TSH3 REFLEX TO FT4on 025 THYROTROPIN (MIU/L) IN SER/PLAS BY DETECTION LIMIT <= 0.05 MIU/L 1.01 mIU/L Normal 0.34-5.60 [facility] Comment on above: Performed By: #### L [id number] #### [facility] ([facility]) [address] [place] [address] URIC ACIDon 05-15-2024 Magnesium [Mass/Vol] 7.2 mg/dL Normal 4.4-7.6 [facility] Comment on above: Performed By: #### L [id number] #### [facility] ([facility]) [address] [place] [address] BILIRUBIN, DIRECTon 04-30-19 25 Magnesium [Mass/Vol] 0.1 mg/dL Normal 0-0.2 [facility] Comment on above: Performed By: #### L [id number] #### [facility] ([facility]) [address] [place] [address] CBC WITH AUTO DIFFERENTIALon 04-30-2024 Basophils (Bld) [#/Vol] 0.04 10*3/uL Normal 0.00-0.20 [facility] Comment on above: Performed By: #### L [id number] #### [facility] ([facility]) [address] [place] [address] Basophils/100 WBC (Bld) 0.5 % Normal 0.0-1.0 [facility] Comment on above: Performed By: #### L [id number] #### [facility] [address] [place] [address] Eosinophils (Bld) [#/Vol] 0.05 10*3/uL Normal 0.00-0.50 [facility] Comment on above: Performed By: #### L [id number] #### [facility] ([facility]) [address] [place] [address] Eosinophils/100 WBC (Bld) 0.7 % Normal 0.0-6.0 [facility] Comment on above: Performed By: #### L [id number] #### [facility] ([facility]) [address] [place] [address] Erythrocyte distribution width (RBC) [Ratio] 13.2 % Normal 11.5-15.0 [facility] Comment on above: Performed By: #### L [id number] #### [facility] ([facility]) [address] [place] [address] ERYTHROCYTE MEAN CORPUSCULAR HEMOGLOBIN CONCENTRATION (G/DL) BY AUTOMATED 31.3 g/dL Low 32.0-35.0 [facility] Comment on above: Performed By: #### L [id number] #### [facility] ([facility]) [address] [place] [address] Hematocrit (Bld) [Volume fraction] 46.9 % Normal 39.0-55.0 [facility] Comment on above: Performed By: #### L [id number] #### [facility] ([facility]) [address] [place] [address] Hemoglobin (Bld) [Mass/Vol] 14.7 g/dL Normal 13.0-17.0 [facility] Comment on above: Performed By: #### L [id number] #### [facility] ([facility]) [address] [place] [address] Immature granulocytes (Bld) [#/Vol] 0.03 10*3/uL Normal 0.00-0.20 [facility] Comment on above: Performed By: #### L [id number] #### [facility] ([facility]) [address] [place] [address] Immature granulocytes/100 WBC (Bld) 0.4 % Normal 0.0-1.0 [facility] Comment on above: Performed By: #### L [id number] #### [facility] ([facility]) [address] [place] [address] Lymphocytes (Bld) [#/Vol] 1.31 10*3/uL Normal 1.20-4.00 [facility] Comment on above: Performed By: #### L [id number] #### [facility] ([facility]) [address] [place] [address] Lymphocytes/100 WBC (Bld) 17.3 % Low 20.0-45.0 [facility] Comment on above: Performed By: #### L [id number] #### [facility] ([facility]) [address] [place] [address] MCH (RBC) [Entitic mass] 29.0 pg Normal 27.0-33.0 [facility] Comment on above: Performed By: #### L [id number] #### [facility] [address] [place] [address] MCV (RBC) [Entitic vol] 92.5 fL Normal 82.0-98.0 [facility] Comment on above: Performed By: #### L [id number] #### [facility] [address] [place] [address] Monocytes (Bld) [#/Vol] 0.55 10*3/uL Normal 0.10-1.00 [facility] Comment on above: Performed By: #### L [id number] #### [facility] ([facility]) [address] [place] [address] Monocytes/100 WBC (Bld) 7.3 % Normal 5.0-12.0 [facility] Comment on above: Performed By: #### L [id number] #### [facility] ([facility]) [address] [place] [address] Neutrophils (Bld) [#/Vol] 5.59 10*3/uL Normal 1.60-7.60 [facility] Comment on above: Performed By: #### L [id number] #### [facility] ([facility]) [address] [place] [address] Neutrophils/100 WBC (Bld) 73.8 % High 40.0-72.0 [facility] Comment on above: Performed By: #### L [id number] #### [facility] ([facility]) [address] [place] [address] NRBC (PER 100 WBCS) BY AUTOMATED COUNT 0.0 % Normal 0 [facility] Comment on above: Performed By: #### L [id number] #### [facility] ([facility]) [address] [place] [address] PLATELETS (10*3/UL) IN BLOOD AUTOMATED COUNT 282 10*3/uL Normal 150-400 [facility] Comment on above: Performed By: #### L [id number] #### [facility] ([facility]) [address] [place] [address] RBC (Bld) [#/Vol] 5.07 10*6/uL Normal 4.20-5.70 [facility] Comment on above: Performed By: #### L [id number] #### [facility] ([facility]) [address] [place] [address] WBC (Bld) [#/Vol] 7.57 10*3/uL Normal 4.00-10.60 [facility] Comment on above: Performed By: #### L [id number] #### [facility] ([facility]) [address] [place] [address] COMPREHENSIVE METABOLIC PANE Jarett 04-30-2024 Albumin [Mass/Vol] 3.9 g/dL Normal 3.5-5.7 [facility] Comment on above: Performed By: #### L [id number] #### [facility] [address] [place] [address] ALP [Catalytic activity/Vol] 69 U/L Normal 34-104 [facility] Comment on above: Performed By: #### L [id number] #### [facility] [address] [place] [address] ALT [Catalytic activity/Vol] 39 U/L Normal 7-52 [facility] Comment on above: Performed By: #### L [id number] #### [facility] [address] [place] [address] Anion gap [Moles/Vol] 9 mmol/L Normal 7-20 [facility] Comment on above: Performed By: #### L [id number] #### [facility] [address] [place] [address] AST [Catalytic activity/Vol] 23 U/L Normal 13-39 [facility] Comment on above: Performed By: #### L [id number] #### [facility] ([facility]) [address] [place] [address] Bilirubin [Mass/Vol] 0.5 mg/dL Normal 0.3-1.0 [facility] Comment on above: Performed By: #### L [id number] #### [facility] ([facility]) [address] [place] [address] Calcium [Mass/Vol] 9.0 mg/dL Normal 8.6-10.3 [facility] Comment on above: Performed By: #### L [id number] #### [facility] [address] [place] [address] Chloride [Moles/Vol] 110 mmol/L High 98-107 [facility] Comment on above: Performed By: #### L [id number] #### [facility] ([facility]) [address] [place] [address] CO2 [Moles/Vol] 25 mmol/L Normal 21-31 [facility] Comment on above: Performed By: #### L [id number] #### [facility] ([facility]) [address] [place] [address] Creatinine [Mass/Vol] 1.96 mg/dL High 0.70-1.30 [facility] Comment on above: Performed By: #### L [id number] #### [facility] ([facility]) [address] [place] [address] GLOMERULAR FILTRATION RATE ML/MIN/1.73 SQ M.PREDICTED 39.1 mL/min/1.73m*2 Low >60.0 [facility] Comment on above: Result Comment: The [facility]???s estimated glomerular filtration rate (eGFR) will no longer include consideration of race in its calculation. The National Kidney Foundation???s eGFR Task Force developed new recommendations for [...] disproportionately affect any one group of individuals. Performed By: #### L [id number] #### [facility] ([facility]) [address] [place] [address] Glucose [Mass/Vol] 98 mg/dL Normal 70-100 [facility] Comment on above: Performed By: #### L [id number] #### [facility] ([facility]) [address] [place] [address] Potassium [Moles/Vol] 5.7 mmol/L High 3.5-5.1 [facility] Comment on above: Performed By: #### L [id number] #### [facility] ([facility]) [address] [place] [address] Protein [Mass/Vol] 6.8 g/dL Normal 6.0-8.3 [facility] Comment on above: Performed By: #### L [id number] #### [facility] ([facility]) [address] [place] [address] Sodium [Moles/Vol] 138 mmol/L Normal 136-145 [facility] Comment on above: Performed By: #### L [id number] #### [facility] ([facility]) [address] [place] [address] Urea nitrogen [Mass/Vol] 29 mg/dL High 7-25 [facility] Comment on above: Performed By: #### L [id number] #### [facility] ([facility]) [address] [place] [address] UREA NITROGEN/CREATININE (MASS RATIO) IN SER/PLAS 14.8 Normal [facility] Comment on above: Performed By: #### L [id number] #### [facility] ([facility]) [address] [place] [address] Labon 04-30-2024 Lab [id number] Irvin Carrington Duyen 1965 M Date Provider Department Center 04/30/2024 2245-[facility] OPD LAB RESOURCE [facility] OPD [facility] No family history on file Normal [facility] MAGNESIUMon 04-30-2024 Magnesium [Mass/Vol] 1.9 mg/dL Normal 1.9-2.7 [facility] Comment on above: Performed By: #### L [id number] #### [facility] ([facility]) [address] [place] [address] PHOSPHORUSon 04-30-2024 Magnesium [Mass/Vol] 2.3 mg/dL Low 2.5-5.0 [facility] Comment on above: Performed By: #### L [id number] #### [facility] ([facility]) [address] [place] [address] TACROLIMUS LEVELon Tacrolimus (Bld) [Mass/Vol] 6.0 ng/mL Normal 5.0-20.0 [facility] Comment on above: Result Comment: The [employer] Tacrolimus assay is a delayed one-step immunoassay for the quantitative determination of tacrolimus in human whole blood using the chemiluminescent microparticle immunoassay (CMIA) technology with flexible assay protocols, referred to as Chemiflex. Performed By: #### L [id number] #### [facility] ([facility]) [address] [place] [address] URIC ACIDon 04-30-2024 Magnesium [Mass/Vol] 6.5 mg/dL Normal 4.4-7.6 [facility] Comment on above: Performed By: #### L [id number] #### [facility] ([facility]) [address] [place] [address] BILIRUBIN, DIRECTon 03-18-20 Magnesium [Mass/Vol] 0.1 mg/dL Normal 0-0.2 [facility] Comment on above: Performed By: #### L [id number] #### [facility] ([facility]) [address] [place] [address] CBC WITH AUTO DIFFERENTIALon 03-18-2024 Basophils (Bld) [#/Vol] 0.03 10*3/uL Normal 0.00-0.20 [facility] Comment on above: Performed By: #### L [id number] #### [facility] ([facility]) [address] [place] [address] Basophils/100 WBC (Bld) 0.5 % Normal 0.0-1.0 [facility] Comment on above: Performed By: #### L [id number] #### [facility] ([facility]) [address] [place] [address] Eosinophils (Bld) [#/Vol] 0.06 10*3/uL Normal 0.00-0.50 [facility] Comment on above: Performed By: #### L [id number] #### [facility] ([facility]) [address] [place] [address] Eosinophils/100 WBC (Bld) 1.1 % Normal 0.0-6.0 [facility] Comment on above: Performed By: #### L [id number] #### [facility] ([facility]) [address] [place] [address] Erythrocyte distribution width (RBC) [Ratio] 12.7 % Normal 11.5-15.0 [facility] Comment on above: Performed By: #### L [id number] #### [facility] ([facility]) [address] [place] [address] ERYTHROCYTE MEAN CORPUSCULAR HEMOGLOBIN CONCENTRATION (G/DL) BY AUTOMATED 32.2 g/dL Normal 32.0-35.0 [facility] Comment on above: Performed By: #### L [id number] #### [facility] [address] [place] [address] Hematocrit (Bld) [Volume fraction] 45.4 % Normal 39.0-55.0 [facility] Comment on above: Performed By: #### L [id number] #### [facility] ([facility]) [address] [place] [address] Hemoglobin (Bld) [Mass/Vol] 14.6 g/dL Normal 13.0-17.0 [facility] Comment on above: Performed By: #### L [id number] #### [facility] ([facility]) [address] [facility] [place] [address] Immature granulocytes (Bld) [#/Vol] 0.01 10*3/uL Normal 0.00-0.20 [facility] Comment on above: Performed By: #### L [id number] #### [facility] ([facility]) [address] [place] [address] Immature granulocytes/100 WBC (Bld) 0.2 % Normal 0.0-1.0 [facility] Comment on above: Performed By: #### L [id number] #### [facility] ([facility]) [address] [place] [address] Lymphocytes (Bld) [#/Vol] 1.18 10*3/uL Low 1.20-4.00 [facility] Comment on above: Performed By: #### L [id number] #### [facility] (BEAKER) [address] [place] [address] Lymphocytes/100 WBC (Bld) 20.8 % Normal 20.0-45.0 [facility] Comment on above: Performed By: #### L [id number] #### [facility] (BEAKER) [address] [place] [address] MCH (RBC) [Entitic mass] 29.2 pg Normal 27.0-33.0 [facility] Comment on above: Performed By: #### L [id number] #### [facility] (BEAKER) [address] [place] [address] MCV (RBC) [Entitic vol] 90.8 fL Normal 82.0-98.0 [facility] Comment on above: Performed By: #### L [id number] #### [facility] ([facility]) [address] [place] [address] Monocytes (Bld) [#/Vol] 0.44 10*3/uL Normal 0.10-1.00 [facility] Comment on above: Performed By: #### L [id number] #### [facility] ([facility]) [address] [place] [address] Monocytes/100 WBC (Bld) 7.8 % Normal 5.0-12.0 [facility] Comment on above: Performed By: #### L [id number] #### [facility] ([facility]) [address] [place] [address] Neutrophils (Bld) [#/Vol] 3.94 10*3/uL Normal 1.60-7.60 [facility] Comment on above: Performed By: #### L [id number] #### [facility] ([facility]) [address] [place] [address] Neutrophils/100 WBC (Bld) 69.6 % Normal 40.0-72.0 [facility] Comment on above: Performed By: #### L [id number] #### [facility] ([facility]) [address] [place] [address] NRBC (PER 100 WBCS) BY AUTOMATED COUNT 0.0 % Normal 0 [facility] Comment on above: Performed By: #### L [id number] #### [facility] [address] [place] [address] PLATELETS (10*3/UL) IN BLOOD AUTOMATED COUNT 200 10*3/uL Normal 150-400 [facility] Comment on above: Performed By: #### L [id number] #### [facility] ([facility]) [address] [place] [address] RBC (Bld) [#/Vol] 5.00 10*6/uL Normal 4.20-5.70 [facility] Comment on above: Performed By: #### L [id number] #### [facility] ([facility]) [address] [place] [address] WBC (Bld) [#/Vol] 5.66 10*3/uL Normal 4.00-10.60 [facility] Comment on above: Performed By: #### L [id number] #### [facility] ([facility]) [address] [place] [address] COMPREHENSIVE METABOLIC PANE Jarett 03-18-2024 Albumin [Mass/Vol] 4.0 g/dL Normal 3.5-5.7 [facility] Comment on above: Performed By: #### L [id number] #### [facility] ([facility]) [address] [place] [address] ALP [Catalytic activity/Vol] 58 U/L Normal 34-104 [facility] Comment on above: Performed By: #### L [id number] #### [facility] ([facility]) [address] [place] [address] ALT [Catalytic activity/Vol] 29 U/L Normal 7-52 [facility] Comment on above: Performed By: #### L [id number] #### [facility] ([facility]) [address] [place] [address] Anion gap [Moles/Vol] 12 mmol/L Normal 7-20 [facility] Comment on above: Performed By: #### L [id number] #### [facility] ([facility]) [address] [place] [address] AST [Catalytic activity/Vol] 20 U/L Normal 13-39 [facility] Comment on above: Performed By: #### L [id number] #### [facility] [address] [place] [address] Bilirubin [Mass/Vol] 0.6 mg/dL Normal 0.3-1.0 [facility] Comment on above: Performed By: #### L [id number] #### [facility] [address] [place] [address] Calcium [Mass/Vol] 9.0 mg/dL Normal 8.6-10.3 [facility] Comment on above: Performed By: #### L [id number] #### [facility] [address] [place] [address] Chloride [Moles/Vol] 109 mmol/L High 98-107 [facility] Comment on above: Performed By: #### L [id number] #### [facility] [address] [place] [address] CO2 [Moles/Vol] 22 mmol/L Normal 21-31 [facility] Comment on above: Performed By: #### L [id number] #### [facility] ([facility]) [address] [place] [address] Creatinine [Mass/Vol] 1.81 mg/dL High 0.70-1.30 [facility] Comment on above: Performed By: #### L [id number] #### [facility] [address] [place] [address] GLOMERULAR FILTRATION RATE ML/MIN/1.73 SQ M.PREDICTED 43.1 mL/min/1.73m*2 Low >60.0 [facility] Comment on above: Result Comment: The [facility]???s estimated glomerular filtration rate (eGFR) will no longer include consideration of race in its calculation. The National Kidney Foundation???s eGFR Task Force developed new recommendations for [...] disproportionately affect any one group of individuals. Performed By: #### L [id number] #### [facility] ([facility]) [address] [place] [address] Glucose [Mass/Vol] 101 mg/dL High 70-100 [facility] Comment on above: Performed By: #### L [id number] #### [facility] ([facility]) [address] [place] [address] Potassium [Moles/Vol] 5.0 mmol/L Normal 3.5-5.1 [facility] Comment on above: Performed By: #### L [id number] #### [facility] ([facility]) [address] [place] [address] Protein [Mass/Vol] 6.6 g/dL Normal 6.0-8.3 [facility] Comment on above: Performed By: #### L [id number] #### [facility] ([facility]) [address] [place] [address] Sodium [Moles/Vol] 138 mmol/L Normal 136-145 [facility] Comment on above: Performed By: #### L [id number] #### [facility] ([facility]) [address] [place] [address] Urea nitrogen [Mass/Vol] 32 mg/dL High 7-25 [facility] Comment on above: Performed By: #### L [id number] #### [facility] ([facility]) [address] [place] [address] UREA NITROGEN/CREATININE (MASS RATIO) IN SER/PLAS 17.7 Normal [facility] Comment on above: Performed By: #### L [id number] #### [facility] ([facility]) [address] [place] [address] HEMOGLOBIN A1Con 03-18-2024 Glucose [Mass/Vol] 117 mg/dL Normal [facility] Comment on above: Performed By: #### L [id number] #### [facility] (BEAKER) [address] [place] [address] HbA1c (Bld) [Mass fraction] 5.7 % Normal 4.0-6.0 [facility] Comment on above: Performed By: #### L [id number] #### [facility] (BEAKER) [address] [place] [address] LIPID PANELon 03-18-2024 CHOL/HDL 3.9 mg/dL Normal [facility] Comment on above: Performed By: #### L [id number] #### [facility] ([facility]) [address] [place] [address] Cholesterol [Mass/Vol] 204 mg/dL High 120-200 [facility] Comment on above: Performed By: #### L [id number] #### [facility] ([facility]) [address] [place] [address] Magnesium [Mass/Vol] 83 mg/dL Normal 40-149 [facility] Comment on above: Result Comment: TRIG LYCERIDE REFERENCE RANGE: 20 YEARS AND OLDER CARDIOVASCULAR RISK LESS THAN 150 mg/dL LOW RISK 150 TO 199 mg/dL BORDERLINE RISK 200 mg/dL AND GREATER HIGH RISK Performed By: #### L [id number] #### [facility] [address] [place] [address] Magnesium [Mass/Vol] 135 mg/dL Normal 0-160 [facility] Comment on above: Performed By: #### L [id number] #### [facility] (BEAKER) [address] [place] [address] Magnesium [Mass/Vol] 52 mg/dL Normal 23-92 [facility] Comment on above: Performed By: #### L [id number] #### [facility] (BEAKER) [address] [facility] [place] [address] NON HDL CHOL. (LDL+VLDL) 152 Normal [facility] Comment on above: Performed By: #### L [id number] #### [facility] [address] [place] [address] TOTAL VLDL-C 17 mg/dL Normal 0-40 [facility] Comment on above: Performed By: #### L [id number] #### [facility] ([facility]) [address] [place] [address] Labon 03-18-2024 Lab [id number] Irvin Carrington 1965 M Date Provider Department [place] 03/18/2024 2245-[facility] LAB RESOURCE [facility] No family history on file Normal [facility] MAGNESIUMon 03-18-2024 Magnesium [Mass/Vol] 1.9 mg/dL Normal 1.9-2.7 [facility] Comment on above: Performed By: #### L [id number] #### [facility] ([facility]) [address] [place] [address] PHOSPHORUSon 03-18-2024 Magnesium [Mass/Vol] 2.5 mg/dL Normal 2.5-5.0 [facility] Comment on above: Performed By: #### L [id number] #### [facility] ([facility]) [address] [place] [address] TACROLIMUS LEVELon Tacrolimus (Bld) [Mass/Vol] 5.2 ng/mL Normal 5.0-20.0 [facility] Comment on above: Result Comment: The [employer] Tacrolimus assay is a delayed one-step immunoassay for the quantitative determination of tacrolimus in human whole blood using the chemiluminescent microparticle immunoassay (CMIA) technology with flexible assay protocols, referred to as Chemiflex. Performed By: #### L [id number] #### [facility] ([facility]) [address] [place] [address] TESTOSTERONE, FREE AND TOTAL , AND SHBGon 03-18-2024 SEX HORMONE BINDING GLOBULIN (NMOL/L) IN SER/PLAS 46 nmol/L Normal 19-76 [facility] Comment on above: Performed By: #### L [id number] #### [facility] ([facility]) [address] [place] [address] TESTOSTERONE (NG/DL) IN SER/PLAS 462 ng/dL Normal 193-740 [facility] Comment on above: Performed By: #### L [id number] #### [facility] ([facility]) [address] [place] [address] TESTOSTERONE FREE (NG/ML) IN SER/PLAS 77.4 pg/mL Normal 47.0-244.0 [facility] Comment on above: Result Comment: The concentration of free testosterone is derived from a mathematical expression based on the constant for the binding of testosterone to albumin and/or sex hormone binding globulin. Test Performed by [facility] [address] [place] [address] - Released 03/18/2024 21:14 Performed By: #### L [id number] #### [facility] ([facility]) [address] [place] [address] URIC ACIDon 03-18-2024 Magnesium [Mass/Vol] 6.2 mg/dL Normal 4.4-7.6 [facility] Comment on above: Performed By: #### L [id number] #### [facility] ([facility]) [address] [place] [address] BILIRUBIN, DIRECTon 02-05-20 Magnesium [Mass/Vol] 0.1 mg/dL Normal 0-0.2 [facility] Comment on above: Performed By: #### L [id number] #### [facility] ([facility]) [address] [place] [address] CBC WITH AUTO DIFFERENTIALon 02-05-2024 Basophils (Bld) [#/Vol] 0.02 10*3/uL Normal 0.00-0.20 [facility] Comment on above: Performed By: #### L [id number] #### [facility] ([facility]) [address] [place] [address] Basophils/100 WBC (Bld) 0.4 % Normal 0.0-1.0 [facility] Comment on above: Performed By: #### L [id number] #### [facility] ([facility]) [address] [place] [address] Eosinophils (Bld) [#/Vol] 0.05 10*3/uL Normal 0.00-0.50 [facility] Comment on above: Performed By: #### L [id number] #### [facility] (BEAKER) [address] [place] [address] Eosinophils/100 WBC (Bld) 0.9 % Normal 0.0-6.0 [facility] Comment on above: Performed By: #### L [id number] #### [facility] [address] [place] [address] Erythrocyte distribution width (RBC) [Ratio] 12.5 % Normal 11.5-15.0 [facility] Comment on above: Performed By: #### L [id number] #### [facility] (BEAKER) [address] [place] [address] ERYTHROCYTE MEAN CORPUSCULAR HEMOGLOBIN CONCENTRATION (G/DL) BY AUTOMATED 32.0 g/dL Normal 32.0-35.0 [facility] Comment on above: Performed By: #### L [id number] #### [facility] [address] [place] [address] Hematocrit (Bld) [Volume fraction] 44.7 % Normal 39.0-55.0 [facility] Comment on above: Performed By: #### L [id number] #### [facility] (BEAKER) [address] [place] [address] Hemoglobin (Bld) [Mass/Vol] 14.3 g/dL Normal 13.0-17.0 [facility] Comment on above: Performed By: #### L [id number] #### [facility] (BEAKER) [address] [place] [address] Immature granulocytes (Bld) [#/Vol] 0.02 10*3/uL Normal 0.00-0.20 [facility] Comment on above: Performed By: #### L [id number] #### [facility] (BEAKER) [address] [place] [address] Immature granulocytes/100 WBC (Bld) 0.4 % Normal 0.0-1.0 [facility] Comment on above: Performed By: #### L [id number] #### [facility] ([facility]) [address] [place] [address] Lymphocytes (Bld) [#/Vol] 1.08 10*3/uL Low 1.20-4.00 [facility] Comment on above: Performed By: #### L [id number] #### [facility] ([facility]) [address] [place] [address] Lymphocytes/100 WBC (Bld) 19.3 % Low 20.0-45.0 [facility] Comment on above: Performed By: #### L [id number] #### [facility] ([facility]) [address] [place] [address] MCH (RBC) [Entitic mass] 29.2 pg Normal 27.0-33.0 [facility] Comment on above: Performed By: #### L [id number] #### [facility] ([facility]) [address] [place] [address] MCV (RBC) [Entitic vol] 91.2 fL Normal 82.0-98.0 [facility] Comment on above: Performed By: #### L [id number] #### [facility] ([facility]) [address] [place] [address] Monocytes (Bld) [#/Vol] 0.50 10*3/uL Normal 0.10-1.00 [facility] Comment on above: Performed By: #### L [id number] #### [facility] ([facility]) [address] [place] [address] Monocytes/100 WBC (Bld) 8.9 % Normal 5.0-12.0 [facility] Comment on above: Performed By: #### L [id number] #### [facility] [address] [place] [address] Neutrophils (Bld) [#/Vol] 3.92 10*3/uL Normal 1.60-7.60 [facility] Comment on above: Performed By: #### L [id number] #### [facility] [address] [place] [address] Neutrophils/100 WBC (Bld) 70.1 % Normal 40.0-72.0 [facility] Comment on above: Performed By: #### L [id number] #### [facility] ([facility]) [address] [place] [address] NRBC (PER 100 WBCS) BY AUTOMATED COUNT 0.0 % Normal 0 [facility] Comment on above: Performed By: #### L [id number] #### [facility] ([facility]) [address] [place] [address] PLATELETS (10*3/UL) IN BLOOD AUTOMATED COUNT 182 10*3/uL Normal 150-400 [facility] Comment on above: Performed By: #### L [id number] #### [facility] ([facility]) [address] [place] [address] RBC (Bld) [#/Vol] 4.90 10*6/uL Normal 4.20-5.70 [facility] Comment on above: Performed By: #### L [id number] #### [facility] ([facility]) [address] [place] [address] WBC (Bld) [#/Vol] 5.59 10*3/uL Normal 4.00-10.60 [facility] Comment on above: Performed By: #### L [id number] #### [facility] ([facility]) [address] [place] [address] COMPREHENSIVE METABOLIC PANE Jarett 02-05-2024 Albumin [Mass/Vol] 4.0 g/dL Normal 3.5-5.7 [facility] Comment on above: Performed By: #### L [id number] #### [facility] [address] [place] [address] ALP [Catalytic activity/Vol] 59 U/L Normal 34-104 [facility] Comment on above: Performed By: #### L [id number] #### [facility] (BEAKER) [address] [place] [address] ALT [Catalytic activity/Vol] 21 U/L Normal 7-52 [facility] Comment on above: Performed By: #### L [id number] #### [facility] (BEAKER) [address] [place] [address] Anion gap [Moles/Vol] 9 mmol/L Normal 7-20 [facility] Comment on above: Performed By: #### L [id number] #### [facility] (BEAKER) [address] [place] [address] AST [Catalytic activity/Vol] 19 U/L Normal 13-39 [facility] Comment on above: Performed By: #### L [id number] #### [facility] [address] [place] [address] Bilirubin [Mass/Vol] 0.6 mg/dL Normal 0.3-1.0 [facility] Comment on above: Performed By: #### L [id number] #### [facility] [address] [place] [address] Calcium [Mass/Vol] 8.8 mg/dL Normal 8.6-10.3 [facility] Comment on above: Performed By: #### L [id number] #### [facility] (BEAKER) [address] [place] [address] Chloride [Moles/Vol] 110 mmol/L High 98-107 [facility] Comment on above: Performed By: #### L [id number] #### [facility] (BEAKER) [address] [place] [address] CO2 [Moles/Vol] 22 mmol/L Normal 21-31 [facility] Comment on above: Performed By: #### L [id number] #### [facility] (BEAKER) [address] [place] [address] Creatinine [Mass/Vol] 1.96 mg/dL High 0.70-1.30 [facility] Comment on above: Performed By: #### L [id number] #### [facility] ([facility]) [address] [place] [address] GLOMERULAR FILTRATION RATE ML/MIN/1.73 SQ M.PREDICTED 39.1 mL/min/1.73m*2 Low >60.0 [facility] Comment on above: Result Comment: The [facility]???s estimated glomerular filtration rate (eGFR) will no longer include consideration of race in its calculation. The National Kidney Foundation???s eGFR Task Force developed new recommendations for [...] disproportionately affect any one group of individuals. Performed By: #### L [id number] #### [facility] ([facility]) [address] [place] [address] Glucose [Mass/Vol] 112 mg/dL High 70-100 [facility] Comment on above: Performed By: #### L [id number] #### [facility] ([facility]) [address] [place] [address] Potassium [Moles/Vol] 5.0 mmol/L Normal 3.5-5.1 [facility] Comment on above: Performed By: #### L [id number] #### [facility] ([facility]) [address] [place] [address] Protein [Mass/Vol] 6.6 g/dL Normal 6.0-8.3 [facility] Comment on above: Performed By: #### L [id number] #### [facility] ([facility]) [address] [place] [address] Sodium [Moles/Vol] 136 mmol/L Normal 136-145 [facility] Comment on above: Performed By: #### L [id number] #### [facility] ([facility]) [address] [facility] [place] [address] Urea nitrogen [Mass/Vol] 39 mg/dL High 7-25 [facility] Comment on above: Performed By: #### L [id number] #### [facility] ([facility]) [address] [place] [address] UREA NITROGEN/CREATININE (MASS RATIO) IN SER/PLAS 19.9 Normal [facility] Comment on above: Performed By: #### L [id number] #### [facility] ([facility]) [address] [place] [address] Labon 02-05-2024 Lab [id number] Irvin Carrington Duyen 1965 M Date Provider Department [place] 02/05/2024 2245-[facility] LAB RESOURCE [facility] No family history on file Normal [facility] MAGNESIUMon 02-05-2024 Magnesium [Mass/Vol] 1.8 mg/dL Low 1.9-2.7 [facility] Comment on above: Performed By: #### L [id number] #### [facility] ([facility]) [address] [place] [address] PHOSPHORUSon 02-05-2024 Magnesium [Mass/Vol] 2.5 mg/dL Normal 2.5-5.0 [facility] Comment on above: Performed By: #### L [id number] #### [facility] ([facility]) [address] [place] [address] TACROLIMUS LEVELon Tacrolimus (Bld) [Mass/Vol] 4.0 ng/mL Low 5.0-20.0 [facility] Comment on above: Result Comment: The [employer] Tacrolimus assay is a delayed one-step immunoassay for the quantitative determination of tacrolimus in human whole blood using the chemiluminescent microparticle immunoassay (CMIA) technology with flexible assay protocols, referred to as Chemiflex. Performed By: #### L [id number] #### [facility] [address] [place] [address] URIC ACIDon 02-05-2024 Magnesium [Mass/Vol] 6.9 mg/dL Normal 4.4-7.6 [facility] Comment on above: Performed By: #### L [id number] #### [facility] [address] [place] [address] No Panel Informationon 12-25 [facility] BILIRUBIN, DIRECTon 12-25-19 24 Magnesium [Mass/Vol] 0.1 mg/dL Normal 0-0.2 [facility] Comment on above: Performed By: #### L [id number] #### [facility] [address] [place] [address] CBC WITH AUTO DIFFERENTIALon 12-25-2023 Basophils (Bld) [#/Vol] 0.03 10*3/uL Normal 0.00-0.20 [facility] Comment on above: Performed By: #### L [id number] #### [facility] ([facility]) [address] [place] [address] Basophils/100 WBC (Bld) 0.5 % Normal 0.0-1.0 [facility] [facility] Comment on above: Performed By: #### L [id number] #### [facility] ([facility]) [address] [place] [address] Eosinophils (Bld) [#/Vol] 0.09 10*3/uL Normal 0.00-0.50 [facility] Comment on above: Performed By: #### L [id number] #### [facility] [address] [place] [address] Eosinophils/100 WBC (Bld) 1.4 % Normal 0.0-6.0 [facility] Comment on above: Performed By: #### L [id number] #### [facility] [address] [place] [address] Erythrocyte distribution width (RBC) [Ratio] 13.0 % Normal 11.5-15.0 [facility] Comment on above: Performed By: #### L [id number] #### [facility] ([facility]) [address] [place] [address] ERYTHROCYTE MEAN CORPUSCULAR HEMOGLOBIN CONCENTRATION (G/DL) BY AUTOMATED 32.7 g/dL Normal 32.0-35.0 [facility] Comment on above: Performed By: #### L [id number] #### [facility] ([facility]) [address] [place] [address] Hematocrit (Bld) [Volume fraction] 45.3 % Normal 39.0-55.0 [facility] Comment on above: Performed By: #### L [id number] #### [facility] [address] [place] [address] Hemoglobin (Bld) [Mass/Vol] 14.8 g/dL Normal 13.0-17.0 [facility] Comment on above: Performed By: #### L [id number] #### [facility] ([facility]) [address] [place] [address] Immature granulocytes (Bld) [#/Vol] 0.02 10*3/uL Normal 0.00-0.20 [facility] Comment on above: Performed By: #### L [id number] #### [facility] [address] [place] [address] Immature granulocytes/100 WBC (Bld) 0.3 % Normal 0.0-1.0 [facility] Comment on above: Performed By: #### L [id number] #### [facility] ([facility]) [address] [place] [address] Lymphocytes (Bld) [#/Vol] 1.23 10*3/uL Normal 1.20-4.00 [facility] Comment on above: Performed By: #### L [id number] #### [facility] ([facility]) [address] [place] [address] Lymphocytes/100 WBC (Bld) 19.7 % Low 20.0-45.0 [facility] Comment on above: Performed By: #### L [id number] #### [facility] ([facility]) [address] [place] [address] MCH (RBC) [Entitic mass] 29.3 pg Normal 27.0-33.0 [facility] Comment on above: Performed By: #### L [id number] #### [facility] ([facility]) [address] [place] [address] MCV (RBC) [Entitic vol] 89.7 fL Normal 82.0-98.0 [facility] Comment on above: Performed By: #### L [id number] #### [facility] ([facility]) [address] [place] [address] Monocytes (Bld) [#/Vol] 0.48 10*3/uL Normal 0.10-1.00 [facility] Comment on above: Performed By: #### L [id number] #### [facility] ([facility]) [address] [place] [address] Monocytes/100 WBC (Bld) 7.7 % Normal 5.0-12.0 [facility] Comment on above: Performed By: #### L [id number] #### [facility] ([facility]) [address] [place] [address] Neutrophils (Bld) [#/Vol] 4.39 10*3/uL Normal 1.60-7.60 [facility] Comment on above: Performed By: #### L [id number] #### [facility] ([facility]) [address] [place] [address] Neutrophils/100 WBC (Bld) 70.4 % Normal 40.0-72.0 [facility] Comment on above: Performed By: #### L [id number] #### [facility] ([facility]) [address] [place] [address] NRBC (PER 100 WBCS) BY AUTOMATED COUNT 0.0 % Normal 0 [facility] Comment on above: Performed By: #### L [id number] #### [facility] ([facility]) [address] [place] [address] PLATELETS (10*3/UL) IN BLOOD AUTOMATED COUNT 207 10*3/uL Normal 150-400 [facility] Comment on above: Performed By: #### L [id number] #### [facility] ([facility]) [address] [place] [address] RBC (Bld) [#/Vol] 5.05 10*6/uL Normal 4.20-5.70 [facility] Comment on above: Performed By: #### L [id number] #### [facility] [address] [place] [address] WBC (Bld) [#/Vol] 6.24 10*3/uL Normal 4.00-10.60 [facility] Comment on above: Performed By: #### L [id number] #### [facility] ([facility]) [address] [place] [address] COMPREHENSIVE METABOLIC PANE Jarett 12-25-2023 Albumin [Mass/Vol] 4.0 g/dL Normal 3.5-5.7 [facility] Comment on above: Performed By: #### L [id number] #### [facility] ([facility]) [address] [place] [address] ALP [Catalytic activity/Vol] 60 U/L Normal 34-104 [facility] Comment on above: Performed By: #### L [id number] #### [facility] ([facility]) [address] [place] [address] ALT [Catalytic activity/Vol] 22 U/L Normal 7-52 [facility] Comment on above: Performed By: #### L [id number] #### [facility] ([facility]) [address] [place] [address] Anion gap [Moles/Vol] 10 mmol/L Normal 7-20 [facility] Comment on above: Performed By: #### L [id number] #### [facility] ([facility]) [address] [place] [address] AST [Catalytic activity/Vol] 19 U/L Normal 13-39 [facility] Comment on above: Performed By: #### L [id number] #### [facility] [address] [place] [address] Bilirubin [Mass/Vol] 0.7 mg/dL Normal 0.3-1.0 [facility] Comment on above: Performed By: #### L [id number] #### [facility] ([facility]) [address] [place] [address] Calcium [Mass/Vol] 9.1 mg/dL Normal 8.6-10.3 [facility] Comment on above: Performed By: #### L [id number] #### [facility] ([facility]) [address] [place] [address] Chloride [Moles/Vol] 109 mmol/L High 98-107 [facility] Comment on above: Performed By: #### L [id number] #### [facility] ([facility]) [address] [place] [address] CO2 [Moles/Vol] 24 mmol/L Normal 21-31 [facility] Comment on above: Performed By: #### L [id number] #### [facility] ([facility]) [address] [place] [address] Creatinine [Mass/Vol] 1.79 mg/dL High 0.70-1.30 [facility] Comment on above: Performed By: #### L [id number] #### [facility] ([facility]) [address] [place] [address] GLOMERULAR FILTRATION RATE ML/MIN/1.73 SQ M.PREDICTED 43.7 mL/min/1.73m*2 Low >60.0 [facility] Comment on above: Result Comment: [facility]???s estimated glomerular filtration rate (eGFR) will no longer include consideration of race in its calculation. The National Kidney Foundation???s eGFR Task Force developed new recommendations for [...] disproportionately affect any one group of individuals. Performed By: #### L [id number] #### [facility] ([facility]) [address] [place] [address] Glucose [Mass/Vol] 107 mg/dL High 70-100 [facility] Comment on above: Performed By: #### L [id number] #### [facility] ([facility]) [address] [place] [address] Potassium [Moles/Vol] 4.3 mmol/L Normal 3.5-5.1 [facility] Comment on above: Performed By: #### L [id number] #### [facility] ([facility]) [address] [place] [address] Protein [Mass/Vol] 6.8 g/dL Normal 6.0-8.3 [facility] Comment on above: Performed By: #### L [id number] #### [facility] ([facility]) [address] [place] [address] Sodium [Moles/Vol] 139 mmol/L Normal 136-145 [facility] Comment on above: Performed By: #### L [id number] #### [facility] ([facility]) [address] [place] [address] Urea nitrogen [Mass/Vol] 26 mg/dL High 7-25 [facility] Comment on above: Performed By: #### L [id number] #### [facility] ([facility]) [address] [place] [address] UREA NITROGEN/CREATININE (MASS RATIO) IN SER/PLAS 14.5 Normal [facility] Comment on above: Performed By: #### L [id number] #### [facility] ([facility]) [address] [place] [address] HEMOGLOBIN A1Con 12-25-2023 Glucose [Mass/Vol] 103 mg/dL Normal [facility] Comment on above: Performed By: #### L [id number] #### [facility] ([facility]) [address] [place] [address] HbA1c (Bld) [Mass fraction] 5.2 % Normal 4.0-6.0 [facility] Comment on above: Performed By: #### L [id number] #### [facility] ([facility]) [address] [place] [address] LIPID PANELon 12-25-2023 CHOL/HDL 3.6 mg/dL Normal [facility] Comment on above: Performed By: #### L [id number] #### [facility] ([facility]) [address] [place] [address] Cholesterol [Mass/Vol] 203 mg/dL High 120-200 [facility] Comment on above: Performed By: #### L [id number] #### [facility] [address] [facility] [place] [address] Magnesium [Mass/Vol] 97 mg/dL Normal 40-149 [facility] Comment on above: Result Comment: TRIG LYCERIDE REFERENCE RANGE: 20 YEARS AND OLDER CARDIOVASCULAR RISK LESS THAN 150 mg/dL LOW RISK 150 TO 199 mg/dL BORDERLINE RISK 200 mg/dL AND GREATER HIGH RISK Performed By: #### L [id number] #### [facility] [address] [place] [address] Magnesium [Mass/Vol] 127 mg/dL Normal 0-160 [facility] Comment on above: Performed By: #### L [id number] #### [facility] ([facility]) [address] [place] [address] Magnesium [Mass/Vol] 57 mg/dL Normal 23-92 [facility] Comment on above: Performed By: #### L [id number] #### [facility] ([facility]) [address] [facility] [place] [address] NON HDL CHOL. (LDL+VLDL) 146 Normal [facility] Comment on above: Performed By: #### L [id number] #### [facility] ([facility]) [address] [facility] [place] [address] TOTAL VLDL-C 19 mg/dL Normal 0-40 [facility] Comment on above: Performed By: #### L [id number] #### [facility] ([facility]) [address] [place] [address] [place] 12-25-2023 Lab [id number] Irvin Carrington 1965 M Date Provider Department Center 12/25/2023 2245-[facility] OPD LAB RESOURCE [facility] OPD [facility] C No family history on file Normal [facility] MAGNESIUMon 12-25-2023 Magnesium [Mass/Vol] 1.7 mg/dL Low 1.9-2.7 [facility] Comment on above: Performed By: #### L [id number] #### [facility] [address] [facility] [place] [address] PHOSPHORUSon 12-25-2023 Magnesium [Mass/Vol] 2.4 mg/dL Low 2.5-5.0 [facility] Comment on above: Performed By: #### L [id number] #### [facility] ([facility]) [address] [place] [address] TACROLIMUS LEVELon Tacrolimus (Bld) [Mass/Vol] 4.0 ng/mL Low 5.0-20.0 [facility] Comment on above: Result Comment: The [employer] Tacrolimus assay is a delayed one-step immunoassay for the quantitative determination of tacrolimus in human whole blood using the chemiluminescent microparticle immunoassay (CMIA) technology with flexible assay protocols, referred to as Chemiflex. Performed By: #### L [id number] #### [facility] [address] [place] [address] TESTOSTERONE, FREE AND TOTAL , AND SHBGon 12-25-2023 SEX HORMONE BINDING GLOBULIN (NMOL/L) IN SER/PLAS 44 nmol/L Normal 19-76 [facility] Comment on above: Performed By: #### L [id number] #### [facility] [address] [place] [address] TESTOSTERONE (NG/DL) IN SER/PLAS 407 ng/dL Normal 193-740 [facility] Comment on above: Performed By: #### L [id number] #### [facility] [address] [place] [address] TESTOSTERONE FREE (NG/ML) IN SER/PLAS 69.1 pg/mL Normal 47.0-244.0 [facility] Comment on above: Result Comment: The concentration of free testosterone is derived from a mathematical expression based on the constant for the binding of testosterone to albumin and/or sex hormone binding globulin. Test Performed by [facility] [address] [place] [id number] - Released 12/25/2023 12:52 Performed By: #### L [id number] #### [facility] ([facility]) [address] [place] [address] URIC ACIDon 12-25-2023 Magnesium [Mass/Vol] 6.7 mg/dL Normal 4.4-7.6 [facility] Comment on above: Performed By: #### L [id number] #### [facility] ([facility]) [address] [place] [address] BILIRUBIN, DIRECTon 12-05-19 Magnesium [Mass/Vol] 0.1 mg/dL Normal 0-0.2 [facility] Comment on above: Performed By: #### L [id number] #### [facility] ([facility]) [address] [place] [address] CBC WITH AUTO DIFFERENTIALon 12-05-2023 Basophils (Bld) [#/Vol] 0.03 10*3/uL Normal 0.00-0.20 [facility] Comment on above: Performed By: #### L [id number] #### [facility] ([facility]) [address] [place] [address] Basophils/100 WBC (Bld) 0.4 % Normal 0.0-1.0 [facility] Comment on above: Performed By: #### L [id number] #### [facility] ([facility]) [address] [place] [address] Eosinophils (Bld) [#/Vol] 0.08 10*3/uL Normal 0.00-0.50 [facility] Comment on above: Performed By: #### L [id number] #### [facility] ([facility]) [address] [place] [address] Eosinophils/100 WBC (Bld) 1.2 % Normal 0.0-6.0 [facility] Comment on above: Performed By: #### L [id number] #### [facility] [address] [place] [address] Erythrocyte distribution width (RBC) [Ratio] 12.9 % Normal 11.5-15.0 [facility] Comment on above: Performed By: #### L [id number] #### [facility] ([facility]) [address] [place] [address] ERYTHROCYTE MEAN CORPUSCULAR HEMOGLOBIN CONCENTRATION (G/DL) BY AUTOMATED 32.1 g/dL Normal 32.0-35.0 [facility] Comment on above: Performed By: #### L [id number] #### [facility] ([facility]) [address] [place] [address] Hematocrit (Bld) [Volume fraction] 43.6 % Normal 39.0-55.0 [facility] Comment on above: Performed By: #### L [id number] #### [facility] [address] [place] [address] Hemoglobin (Bld) [Mass/Vol] 14.0 g/dL Normal 13.0-17.0 [facility] Comment on above: Performed By: #### L [id number] #### [facility] [address] [place] [address] Immature granulocytes (Bld) [#/Vol] 0.01 10*3/uL Normal 0.00-0.20 [facility] Comment on above: Performed By: #### L [id number] #### [facility] ([facility]) [address] [place] [address] Immature granulocytes/100 WBC (Bld) 0.1 % Normal 0.0-1.0 [facility] Comment on above: Performed By: #### L [id number] #### [facility] ([facility]) [address] [place] [address] Lymphocytes (Bld) [#/Vol] 1.33 10*3/uL Normal 1.20-4.00 [facility] Comment on above: Performed By: #### L [id number] #### [facility] [address] [place] [address] Lymphocytes/100 WBC (Bld) 19.3 % Low 20.0-45.0 [facility] Comment on above: Performed By: #### L [id number] #### [facility] ([facility]) [address] [place] [address] MCH (RBC) [Entitic mass] 29.5 pg Normal 27.0-33.0 [facility] Comment on above: Performed By: #### L [id number] #### [facility] ([facility]) [address] [place] [address] MCV (RBC) [Entitic vol] 92.0 fL Normal 82.0-98.0 [facility] Comment on above: Performed By: #### L [id number] #### [facility] ([facility]) [address] [place] [address] Monocytes (Bld) [#/Vol] 0.53 10*3/uL Normal 0.10-1.00 [facility] Comment on above: Performed By: #### L [id number] #### [facility] ([facility]) [address] [place] [address] Monocytes/100 WBC (Bld) 7.7 % Normal 5.0-12.0 [facility] Comment on above: Performed By: #### L [id number] #### [facility] ([facility]) [address] [place] [address] Neutrophils (Bld) [#/Vol] 4.92 10*3/uL Normal 1.60-7.60 [facility] Comment on above: Performed By: #### L [id number] #### [facility] ([facility]) [address] [place] [address] Neutrophils/100 WBC (Bld) 71.3 % Normal 40.0-72.0 [facility] Comment on above: Performed By: #### L [id number] #### [facility] ([facility]) [address] [place] [address] NRBC (PER 100 WBCS) BY AUTOMATED COUNT 0.0 % Normal 0 [facility] Comment on above: Performed By: #### L [id number] #### [facility] ([facility]) [address] [place] [address] PLATELETS (10*3/UL) IN BLOOD AUTOMATED COUNT 204 10*3/uL Normal 150-400 [facility] Comment on above: Performed By: #### L [id number] #### [facility] ([facility]) [address] [place] [address] RBC (Bld) [#/Vol] 4.74 10*6/uL Normal 4.20-5.70 [facility] Comment on above: Performed By: #### L [id number] #### [facility] ([facility]) [address] [place] [address] WBC (Bld) [#/Vol] 6.90 10*3/uL Normal 4.00-10.60 [facility] Comment on above: Performed By: #### L [id number] #### [facility] ([facility]) [address] [place] [address] COMPREHENSIVE METABOLIC PANE Jarett 12-05-2023 Albumin [Mass/Vol] 3.9 g/dL Normal 3.5-5.7 [facility] Comment on above: Performed By: #### L [id number] #### [facility] ([facility]) [address] [place] [address] ALP [Catalytic activity/Vol] 59 U/L Normal 34-104 [facility] Comment on above: Performed By: #### L [id number] #### [facility] [address] [place] [address] ALT [Catalytic activity/Vol] 23 U/L Normal 7-52 [facility] Comment on above: Performed By: #### L [id number] #### [facility] ([facility]) [address] [place] [address] Anion gap [Moles/Vol] 10 mmol/L Normal 7-20 [facility] Comment on above: Performed By: #### L [id number] #### [facility] ([facility]) [address] [place] [address] AST [Catalytic activity/Vol] 20 U/L Normal 13-39 [facility] Comment on above: Performed By: #### L [id number] #### [facility] ([facility]) [address] [place] [address] Bilirubin [Mass/Vol] 0.7 mg/dL Normal 0.3-1.0 [facility] Comment on above: Performed By: #### L [id number] #### [facility] ([facility]) [address] [place] [address] Calcium [Mass/Vol] 8.8 mg/dL Normal 8.6-10.3 [facility] Comment on above: Performed By: #### L [id number] #### [facility] ([facility]) [address] [place] [address] Chloride [Moles/Vol] 110 mmol/L High 98-107 [facility] Comment on above: Performed By: #### L [id number] #### [facility] ([facility]) [address] [place] [address] CO2 [Moles/Vol] 24 mmol/L Normal 21-31 [facility] Comment on above: Performed By: #### L [id number] #### [facility] ([facility]) [address] [place] [address] Creatinine [Mass/Vol] 1.90 mg/dL High 0.70-1.30 [facility] Comment on above: Performed By: #### L [id number] #### [facility] ([facility]) [address] [place] [address] GLOMERULAR FILTRATION RATE ML/MIN/1.73 SQ M.PREDICTED 40.6 mL/min/1.73m*2 Low >60.0 [facility] Comment on above: Result Comment: [facility]???s estimated glomerular filtration rate (eGFR) will no longer include consideration of race in its calculation. The National Kidney Foundation???s eGFR Task Force developed new recommendations for [...] disproportionately affect any one group of individuals. Performed By: #### L [id number] #### [facility] ([facility]) [address] [place] [address] Glucose [Mass/Vol] 105 mg/dL High 70-100 [facility] Comment on above: Performed By: #### L [id number] #### [facility] ([facility]) [address] [place] [address] Potassium [Moles/Vol] 4.5 mmol/L Normal 3.5-5.1 [facility] Comment on above: Performed By: #### L [id number] #### [facility] ([facility]) [address] [place] [address] Protein [Mass/Vol] 6.7 g/dL Normal 6.0-8.3 [facility] Comment on above: Performed By: #### L [id number] #### [facility] ([facility]) [address] [place] [address] Sodium [Moles/Vol] 139 mmol/L Normal 136-145 [facility] Comment on above: Performed By: #### L [id number] #### [facility] ([facility]) [address] [place] [address] Urea nitrogen [Mass/Vol] 31 mg/dL High 7-25 [facility] Comment on above: Performed By: #### L [id number] #### [facility] ([facility]) [address] [place] [address] UREA NITROGEN/CREATININE (MASS RATIO) IN SER/PLAS 16.3 Normal [facility] Comment on above: Performed By: #### L [id number] #### [facility] ([facility]) [address] [place] [address] [place] 12-05-2023 Lab [id number] Irvin Carrington 1965 M Date Provider Department Center 12/05/2023 2245-[facility] OPD LAB RESOURCE [facility] OPD [facility] No family history on file Normal [facility] MAGNESIUMon 12-05-2023 Magnesium [Mass/Vol] 1.8 mg/dL Low 1.9-2.7 [facility] Comment on above: Performed By: #### L [id number] #### [facility] ([facility]) [address] [place] [address] PHOSPHORUSon 12-05-2023 Magnesium [Mass/Vol] 2.2 mg/dL Low 2.5-5.0 [facility] Comment on above: Performed By: #### L [id number] #### [facility] ([facility]) [address] [place] [address] TACROLIMUS LEVELon Tacrolimus (Bld) [Mass/Vol] 8.8 ng/mL Normal 5.0-20.0 [facility] Comment on above: Result Comment: The [employer] A[employer]LYST Tacrolimus assay is a delayed one-step immunoassay for the quantitative determination of tacrolimus in human whole blood using the chemiluminescent microparticle immunoassay (CMIA) technology with flexible assay protocols, referred to as Chemiflex. Performed By: #### L [id number] #### [facility] [address] [place] [address] URIC ACIDon 12-05-2023 Magnesium [Mass/Vol] 7.7 mg/dL High 4.4-7.6 [facility] Comment on above: Performed By: #### L [id number] #### [facility] ([facility]) [address] [place] [address] BILIRUBIN, DIRECTon 10-29-19 24 Magnesium [Mass/Vol] 0.1 mg/dL Normal 0-0.2 [facility] Comment on above: Performed By: #### L [id number] #### [facility] ([facility]) [address] [place] [address] CBC WITH AUTO DIFFERENTIALon 10-29-2023 Basophils (Bld) [#/Vol] 0.03 10*3/uL Normal 0.00-0.20 [facility] Comment on above: Performed By: #### L [id number] #### [facility] ([facility]) [address] [place] [address] Basophils/100 WBC (Bld) 0.4 % Normal 0.0-1.0 [facility] Comment on above: Performed By: #### L [id number] #### [facility] ([facility]) [address] [place] [address] Eosinophils (Bld) [#/Vol] 0.07 10*3/uL Normal 0.00-0.50 [facility] Comment on above: Performed By: #### L [id number] #### [facility] ([facility]) [address] [place] [address] Eosinophils/100 WBC (Bld) 0.9 % Normal 0.0-6.0 [facility] Comment on above: Performed By: #### L [id number] #### [facility] ([facility]) [address] [place] [address] Erythrocyte distribution width (RBC) [Ratio] 13.1 % Normal 11.5-15.0 [facility] Comment on above: Performed By: #### L [id number] #### [facility] ([facility]) [address] [place] [address] ERYTHROCYTE MEAN CORPUSCULAR HEMOGLOBIN CONCENTRATION (G/DL) BY AUTOMATED 33.3 g/dL Normal 32.0-35.0 [facility] Comment on above: Performed By: #### L [id number] #### [facility] ([facility]) [address] [place] [address] Hematocrit (Bld) [Volume fraction] 44.4 % Normal 39.0-55.0 [facility] Comment on above: Performed By: #### L [id number] #### [facility] [address] [place] [address] Hemoglobin (Bld) [Mass/Vol] 14.8 g/dL Normal 13.0-17.0 [facility] Comment on above: Performed By: #### L [id number] #### [facility] ([facility]) [address] [place] [address] Immature granulocytes (Bld) [#/Vol] 0.02 10*3/uL Normal 0.00-0.20 [facility] Comment on above: Performed By: #### L [id number] #### [facility] ([facility]) [address] [place] [address] Immature granulocytes/100 WBC (Bld) 0.3 % Normal 0.0-1.0 [facility] Comment on above: Performed By: #### L [id number] #### [facility] ([facility]) [address] [place] [address] Lymphocytes (Bld) [#/Vol] 1.23 10*3/uL Normal 1.20-4.00 [facility] Comment on above: Performed By: #### L [id number] #### [facility] ([facility]) [address] [place] [address] Lymphocytes/100 WBC (Bld) 16.6 % Low 20.0-45.0 [facility] Comment on above: Performed By: #### L [id number] #### [facility] [address] [place] [address] MCH (RBC) [Entitic mass] 29.5 pg Normal 27.0-33.0 [facility] Comment on above: Performed By: #### L [id number] #### [facility] [address] [place] [address] MCV (RBC) [Entitic vol] 88.6 fL Normal 82.0-98.0 [facility] Comment on above: Performed By: #### L [id number] #### [facility] ([facility]) [address] [place] [address] Monocytes (Bld) [#/Vol] 0.56 10*3/uL Normal 0.10-1.00 [facility] Comment on above: Performed By: #### L [id number] #### [facility] ([facility]) [address] [place] [address] Monocytes/100 WBC (Bld) 7.5 % Normal 5.0-12.0 [facility] Comment on above: Performed By: #### L [id number] #### [facility] ([facility]) [address] [place] [address] Neutrophils (Bld) [#/Vol] 5.52 10*3/uL Normal 1.60-7.60 [facility] Comment on above: Performed By: #### L [id number] #### [facility] ([facility]) [address] [place] [address] Neutrophils/100 WBC (Bld) 74.3 % High 40.0-72.0 [facility] Comment on above: Performed By: #### L [id number] #### [facility] ([facility]) [address] [place] [address] NRBC (PER 100 WBCS) BY AUTOMATED COUNT 0.0 % Normal 0 [facility] Comment on above: Performed By: #### L [id number] #### [facility] ([facility]) [address] [place] [address] PLATELETS (10*3/UL) IN BLOOD AUTOMATED COUNT 183 10*3/uL Normal 150-400 [facility] Comment on above: Performed By: #### L [id number] #### [facility] ([facility]) [address] [place] [address] RBC (Bld) [#/Vol] 5.01 10*6/uL Normal 4.20-5.70 [facility] Comment on above: Performed By: #### L [id number] #### [facility] ([facility]) [address] [place] [address] WBC (Bld) [#/Vol] 7.43 10*3/uL Normal 4.00-10.60 [facility] Comment on above: Performed By: #### L [id number] #### [facility] ([facility]) [address] [place] [address] COMPREHENSIVE METABOLIC PANE Jarett 10-29-2023 Albumin [Mass/Vol] 3.9 g/dL Normal 3.5-5.7 [facility] Comment on above: Performed By: #### L [id number] #### [facility] ([facility]) [address] [place] [address] ALP [Catalytic activity/Vol] 59 U/L Normal 34-104 [facility] Comment on above: Performed By: #### L [id number] #### [facility] ([facility]) [address] [place] [address] ALT [Catalytic activity/Vol] 22 U/L Normal 7-52 [facility] Comment on above: Performed By: #### L [id number] #### [facility] ([facility]) [address] [place] [address] Anion gap [Moles/Vol] 13 mmol/L Normal 7-20 [facility] Comment on above: Performed By: #### L [id number] #### [facility] ([facility]) [address] [place] [address] AST [Catalytic activity/Vol] 16 U/L Normal 13-39 [facility] Comment on above: Performed By: #### L [id number] #### [facility] [address] [place] [address] Bilirubin [Mass/Vol] 0.6 mg/dL Normal 0.3-1.0 [facility] Comment on above: Performed By: #### L [id number] #### [facility] ([facility]) [address] [place] [address] Calcium [Mass/Vol] 8.8 mg/dL Normal 8.6-10.3 [facility] Comment on above: Performed By: #### L [id number] #### [facility] ([facility]) [address] [place] [address] Chloride [Moles/Vol] 108 mmol/L High 98-107 [facility] Comment on above: Performed By: #### L [id number] #### [facility] [address] [place] [address] CO2 [Moles/Vol] 20 mmol/L Low 21-31 [facility] Comment on above: Performed By: #### L [id number] #### [facility] [address] [place] [address] Creatinine [Mass/Vol] 1.85 mg/dL High 0.70-1.30 [facility] Comment on above: Performed By: #### L [id number] #### [facility] ([facility]) [address] [place] [address] GLOMERULAR FILTRATION RATE ML/MIN/1.73 SQ M.PREDICTED 42.2 mL/min/1.73m*2 Low >60.0 [facility] Comment on above: Result Comment: The [facility]???s estimated glomerular filtration rate (eGFR) will no longer include consideration of race in its calculation. The National Kidney Foundation???s eGFR Task Force developed new recommendations for [...] disproportionately affect any one group of individuals. Performed By: #### L [id number] #### [facility] [address] [place] [address] Glucose [Mass/Vol] 111 mg/dL High 70-100 [facility] Comment on above: Performed By: #### L [id number] #### [facility] [address] [place] [address] Potassium [Moles/Vol] 4.5 mmol/L Normal 3.5-5.1 [facility] Comment on above: Performed By: #### L [id number] #### [facility] [address] [place] [address] Protein [Mass/Vol] 6.5 g/dL Normal 6.0-8.3 [facility] Comment on above: Performed By: #### L [id number] #### [facility] ([facility]) [address] [place] [address] Sodium [Moles/Vol] 136 mmol/L Normal 136-145 [facility] Comment on above: Performed By: #### L [id number] #### [facility] ([facility]) [address] [place] [address] Urea nitrogen [Mass/Vol] 34 mg/dL High 7-25 [facility] Comment on above: Performed By: #### L [id number] #### [facility] ([facility]) [address] [place] [address] UREA NITROGEN/CREATININE (MASS RATIO) IN SER/PLAS 18.4 Normal [facility] Comment on above: Performed By: #### L [id number] #### [facility] ([facility]) [address] [place] [address] Follow-Upon 10-29-2023 Follow-Up [id number] Irvin Carrington 1965 M [facility] Provider Department [place] 10/29/2023 124-ROJELIO DUKES None No family history on file Level of Service:47978 [place] OFFICE/OUTPATIENT ESTABLISHED LOW MDM 20 MIN Reason for Visit and Comments: Kidney Follow-up [[id number]] - No concerns Normal [facility] Labon 10-29-2023 Lab [id number] Irvin Carrington 1965 M Date Provider Department [place] 10/29/2023 2245-[facility] OPD LAB RESOURCE [facility] OPD [facility] No family history on file Normal [facility] MAGNESIUMon 10-29-2023 Magnesium [Mass/Vol] 1.7 mg/dL Low 1.9-2.7 [facility] Comment on above: Performed By: #### L [id number] #### [facility] ([facility]) [address] [place] [address] PHOSPHORUSon 10-29-2023 Magnesium [Mass/Vol] 2.3 mg/dL Low 2.5-5.0 [facility] Comment on above: Performed By: #### L [id number] #### [facility] ([facility]) [address] [place] [address] TACROLIMUS LEVELon Tacrolimus (Bld) [Mass/Vol] 4.9 ng/mL Low 5.0-20.0 [facility] Comment on above: Result Comment: The [employer] Tacrolimus assay is a delayed one-step immunoassay for the quantitative determination of tacrolimus in human whole blood using the chemiluminescent microparticle immunoassay (CMIA) technology with flexible assay protocols, referred to as Chemiflex. Performed By: #### L [id number] #### [facility] ([facility]) [address] [place] [address] URIC ACIDon 10-29-2023 Magnesium [Mass/Vol] 5.9 mg/dL Normal 4.4-7.6 [facility] Comment on above: Performed By: #### L [id number] #### [facility] ([facility]) [address] [facility] [place] [address] BILIRUBIN, DIRECTon 10-15-19 24 Magnesium [Mass/Vol] 0.1 mg/dL Normal 0-0.2 [facility] Comment on above: Performed By: #### L [id number] #### [facility] ([facility]) [address] [place] [address] CBC WITH AUTO DIFFERENTIALon 10-15-2023 Basophils (Bld) [#/Vol] 0.02 10*3/uL Normal 0.00-0.20 [facility] Comment on above: Performed By: #### L [id number] #### [facility] ([facility]) [address] [place] [address] Basophils/100 WBC (Bld) 0.2 % Normal 0.0-1.0 [facility] Comment on above: Performed By: #### L [id number] #### [facility] ([facility]) [address] [place] [address] Eosinophils (Bld) [#/Vol] 0.07 10*3/uL Normal 0.00-0.50 [facility] Comment on above: Performed By: #### L [id number] #### [facility] ([facility]) [address] [place] [address] Eosinophils/100 WBC (Bld) 0.8 % Normal 0.0-6.0 [facility] Comment on above: Performed By: #### L [id number] #### [facility] ([facility]) [address] [place] [address] Erythrocyte distribution width (RBC) [Ratio] 13.2 % Normal 11.5-15.0 [facility] Comment on above: Performed By: #### L [id number] #### [facility] ([facility]) [address] [place] [address] ERYTHROCYTE MEAN CORPUSCULAR HEMOGLOBIN CONCENTRATION (G/DL) BY AUTOMATED 32.9 g/dL Normal 32.0-35.0 [facility] Comment on above: Performed By: #### L [id number] #### [facility] ([facility]) [address] [place] [address] Hematocrit (Bld) [Volume fraction] 45.3 % Normal 39.0-55.0 [facility] Comment on above: Performed By: #### L [id number] #### [facility] ([facility]) [address] [place] [address] Hemoglobin (Bld) [Mass/Vol] 14.9 g/dL Normal 13.0-17.0 [facility] Comment on above: Performed By: #### L [id number] #### [facility] [address] [place] [address] Immature granulocytes (Bld) [#/Vol] 0.03 10*3/uL Normal 0.00-0.20 [facility] Comment on above: Performed By: #### L [id number] #### [facility] ([facility]) [address] [place] [address] Immature granulocytes/100 WBC (Bld) 0.4 % Normal 0.0-1.0 [facility] Comment on above: Performed By: #### L [id number] #### [facility] ([facility]) [address] [facility] [place] [address] Lymphocytes (Bld) [#/Vol] 1.09 10*3/uL Low 1.20-4.00 [facility] Comment on above: Performed By: #### L [id number] #### [facility] ([facility]) [address] [facility] [place] [address] Lymphocytes/100 WBC (Bld) 13.0 % Low 20.0-45.0 [facility] Comment on above: Performed By: #### L [id number] #### [facility] ([facility]) [address] [place] [address] MCH (RBC) [Entitic mass] 29.9 pg Normal 27.0-33.0 [facility] Comment on above: Performed By: #### L [id number] #### [facility] ([facility]) [address] [place] [address] MCV (RBC) [Entitic vol] 91.0 fL Normal 82.0-98.0 [facility] Comment on above: Performed By: #### L [id number] #### [facility] ([facility]) [address] [place] [address] Monocytes (Bld) [#/Vol] 0.66 10*3/uL Normal 0.10-1.00 [facility] Comment on above: Performed By: #### L [id number] #### [facility] ([facility]) [address] [place] [address] Monocytes/100 WBC (Bld) 7.9 % Normal 5.0-12.0 [facility] Comment on above: Performed By: #### L [id number] #### [facility] ([facility]) [address] [place] [address] Neutrophils (Bld) [#/Vol] 6.51 10*3/uL Normal 1.60-7.60 [facility] Comment on above: Performed By: #### L [id number] #### [facility] ([facility]) [address] [place] [address] Neutrophils/100 WBC (Bld) 77.7 % High 40.0-72.0 [facility] Comment on above: Performed By: #### L [id number] #### [facility] ([facility]) [address] [place] [address] NRBC (PER 100 WBCS) BY AUTOMATED COUNT 0.0 % Normal 0 [facility] Comment on above: Performed By: #### L [id number] #### [facility] ([facility]) [address] [place] [address] PLATELETS (10*3/UL) IN BLOOD AUTOMATED COUNT 217 10*3/uL Normal 150-400 [facility] Comment on above: Performed By: #### L [id number] #### [facility] ([facility]) [address] [place] [address] RBC (Bld) [#/Vol] 4.98 10*6/uL Normal 4.20-5.70 [facility] Comment on above: Performed By: #### L [id number] #### [facility] ([facility]) [address] [place] [address] WBC (Bld) [#/Vol] 8.38 10*3/uL Normal 4.00-10.60 [facility] Comment on above: Performed By: #### L [id number] #### [facility] [address] [place] [address] COMPREHENSIVE METABOLIC PANE Jaertt 10-15-2023 Albumin [Mass/Vol] 3.7 g/dL Normal 3.5-5.7 [facility] Comment on above: Performed By: #### L [id number] #### [facility] (BEAKER) [address] [place] [address] ALP [Catalytic activity/Vol] 61 U/L Normal 34-104 [facility] Comment on above: Performed By: #### L [id number] #### [facility] ([facility]) [address] [place] [address] ALT [Catalytic activity/Vol] 31 U/L Normal 7-52 [facility] Comment on above: Performed By: #### L [id number] #### [facility] ([facility]) [address] [place] [address] Anion gap [Moles/Vol] 11 mmol/L Normal 7-20 [facility] Comment on above: Performed By: #### L [id number] #### [facility] ([facility]) [address] [place] [address] AST [Catalytic activity/Vol] 20 U/L Normal 13-39 [facility] Comment on above: Performed By: #### L [id number] #### [facility] [address] [place] [address] Bilirubin [Mass/Vol] 0.5 mg/dL Normal 0.3-1.0 [facility] Comment on above: Performed By: #### L [id number] #### [facility] ([facility]) [address] [place] [address] Calcium [Mass/Vol] 9.0 mg/dL Normal 8.6-10.3 [facility] Comment on above: Performed By: #### L [id number] #### [facility] ([facility]) [address] [place] [address] Chloride [Moles/Vol] 110 mmol/L High 98-107 [facility] Comment on above: Performed By: #### L [id number] #### [facility] ([facility]) [address] [place] [address] CO2 [Moles/Vol] 21 mmol/L Normal 21-31 [facility] Comment on above: Performed By: #### L [id number] #### [facility] ([facility]) [address] [facility] [place] [address] Creatinine [Mass/Vol] 1.95 mg/dL High 0.70-1.30 [facility] Comment on above: Performed By: #### L [id number] #### [facility] ([facility]) [address] [facility] [place] [address] GLOMERULAR FILTRATION RATE ML/MIN/1.73 SQ M.PREDICTED 39.6 mL/min/1.73m*2 Low >60.0 [facility] Comment on above: Result Comment: The [facility]???s estimated glomerular filtration rate (eGFR) will no longer include consideration of race in its calculation. The National Kidney Foundation???s eGFR Task Force developed new recommendations for [...] disproportionately affect any one group of individuals. Performed By: #### L [id number] #### [facility] ([facility]) [address] [place] [address] Glucose [Mass/Vol] 118 mg/dL High 70-100 [facility] Comment on above: Performed By: #### L [id number] #### [facility] ([facility]) [address] [facility] [place] [address] Potassium [Moles/Vol] 5.0 mmol/L Normal 3.5-5.1 [facility] Comment on above: Performed By: #### L [id number] #### [facility] ([facility]) [address] [place] [address] Protein [Mass/Vol] 6.7 g/dL Normal 6.0-8.3 [facility] Comment on above: Performed By: #### L [id number] #### [facility] ([facility]) [address] [place] [address] Sodium [Moles/Vol] 137 mmol/L Normal 136-145 [facility] Comment on above: Performed By: #### L [id number] #### [facility] ([facility]) [address] [place] [address] Urea nitrogen [Mass/Vol] 26 mg/dL High 7-25 [facility] Comment on above: Performed By: #### L [id number] #### [facility] ([facility]) [address] [facility] [place] [address] UREA NITROGEN/CREATININE (MASS RATIO) IN SER/PLAS 13.3 Normal [facility] Comment on above: Performed By: #### L [id number] #### [facility] ([facility]) [address] [place] [place] [address] [place] 10-15-2023 Lab [id number] Irvin Carrington 1965 M Date Provider Department [place] 10/15/2023 [id number] LAB RESOURCE [facility] No family history on file Normal [facility] MAGNESIUMon 10-15-2023 Magnesium [Mass/Vol] 1.9 mg/dL Normal 1.9-2.7 [facility] Comment on above: Performed By: #### L [id number] #### [facility] ([facility]) [address] [facility] [place] [address] PHOSPHORUSon 10-15-2023 Magnesium [Mass/Vol] 2.4 mg/dL Low 2.5-5.0 [facility] Comment on above: Performed By: #### L [id number] #### [facility] ([facility]) [address] [place] [address] TACROLIMUS LEVELon Tacrolimus (Bld) [Mass/Vol] 5.5 ng/mL Normal 5.0-20.0 [facility] Comment on above: Result Comment: The [employer] Tacrolimus assay is a delayed one-step immunoassay for the quantitative determination of tacrolimus in human whole blood using the chemiluminescent microparticle immunoassay (CMIA) technology with flexible assay protocols, referred to as Chemiflex. Performed By: #### L [id number] #### [facility] ([facility]) [address] [place] [address] URIC ACIDon 10-15-2023 Magnesium [Mass/Vol] 7.3 mg/dL Normal 4.4-7.6 [facility] Comment on above: Performed By: #### L AB90 #### [facility] ([facility]) [address] [place] [address] BILIRUBIN, DIRECTon 09-17-19 Magnesium [Mass/Vol] 0.1 mg/dL Normal 0-0.2 [facility] Comment on above: Performed By: #### L [id number] #### [facility] ([facility]) [address] [place] [address] CBC WITH AUTO DIFFERENTIALon 09-17-2023 Basophils (Bld) [#/Vol] 0.04 10*3/uL Normal 0.00-0.20 [facility] Comment on above: Performed By: #### L [id number] #### [facility] ([facility]) [address] [place] [address] Basophils/100 WBC (Bld) 0.6 % Normal 0.0-1.0 [facility] Comment on above: Performed By: #### L [id number] #### [facility] ([facility]) [address] [place] [address] Eosinophils (Bld) [#/Vol] 0.08 10*3/uL Normal 0.00-0.50 [facility] Comment on above: Performed By: #### L [id number] #### [facility] ([facility]) [address] [place] [address] Eosinophils/100 WBC (Bld) 1.2 % Normal 0.0-6.0 [facility] Comment on above: Performed By: #### L [id number] #### [facility] ([facility]) [address] [place] [address] Erythrocyte distribution width (RBC) [Ratio] 12.8 % Normal 11.5-15.0 [facility] Comment on above: Performed By: #### L [id number] #### [facility] [address] [place] [address] ERYTHROCYTE MEAN CORPUSCULAR HEMOGLOBIN CONCENTRATION (G/DL) BY AUTOMATED 33.1 g/dL Normal 32.0-35.0 [facility] Comment on above: Performed By: #### L [id number] #### [facility] ([facility]) [address] [place] [address] Hematocrit (Bld) [Volume fraction] 46.5 % Normal 39.0-55.0 [facility] Comment on above: Performed By: #### L [id number] #### [facility] ([facility]) [address] [place] [address] Hemoglobin (Bld) [Mass/Vol] 15.4 g/dL Normal 13.0-17.0 [facility] Comment on above: Performed By: #### L [id number] #### [facility] ([facility]) [address] [place] [address] Immature granulocytes (Bld) [#/Vol] 0.01 10*3/uL Normal 0.00-0.20 [facility] Comment on above: Performed By: #### L [id number] #### [facility] [address] [place] [address] Immature granulocytes/100 WBC (Bld) 0.2 % Normal 0.0-1.0 [facility] Comment on above: Performed By: #### L [id number] #### [facility] ([facility]) [address] [place] [address] Lymphocytes (Bld) [#/Vol] 1.28 10*3/uL Normal 1.20-4.00 [facility] Comment on above: Performed By: #### L [id number] #### [facility] ([facility]) [address] [place] [address] Lymphocytes/100 WBC (Bld) 19.4 % Low 20.0-45.0 [facility] Comment on above: Performed By: #### L [id number] #### [facility] ([facility]) [address] [place] [address] MCH (RBC) [Entitic mass] 29.0 pg Normal 27.0-33.0 [facility] Comment on above: Performed By: #### L [id number] #### [facility] [address] [place] [address] MCV (RBC) [Entitic vol] 87.6 fL Normal 82.0-98.0 [facility] Comment on above: Performed By: #### L [id number] #### [facility] ([facility]) [address] [place] [address] Monocytes (Bld) [#/Vol] 0.51 10*3/uL Normal 0.10-1.00 [facility] Comment on above: Performed By: #### L [id number] #### [facility] ([facility]) [address] [place] [address] Monocytes/100 WBC (Bld) 7.7 % Normal 5.0-12.0 [facility] Comment on above: Performed By: #### L [id number] #### [facility] ([facility]) [address] [place] [address] Neutrophils (Bld) [#/Vol] 4.69 10*3/uL Normal 1.60-7.60 [facility] Comment on above: Performed By: #### L [id number] #### [facility] [address] [place] [address] Neutrophils/100 WBC (Bld) 70.9 % Normal 40.0-72.0 [facility] Comment on above: Performed By: #### L [id number] #### [facility] [address] [place] [address] NRBC (PER 100 WBCS) BY AUTOMATED COUNT 0.0 % Normal 0 [facility] Comment on above: Performed By: #### L [id number] #### [facility] ([facility]) [address] [place] [address] PLATELETS (10*3/UL) IN BLOOD AUTOMATED COUNT 196 10*3/uL Normal 150-400 [facility] Comment on above: Performed By: #### L [id number] #### [facility] ([facility]) [address] [place] [address] RBC (Bld) [#/Vol] 5.31 10*6/uL Normal 4.20-5.70 [facility] Comment on above: Performed By: #### L [id number] #### [facility] ([facility]) [address] [place] [address] WBC (Bld) [#/Vol] 6.61 10*3/uL Normal 4.00-10.60 [facility] Comment on above: Performed By: #### L [id number] #### [facility] ([facility]) [address] [place] [address] COMPREHENSIVE METABOLIC PANE Jarett 09-17-2023 Albumin [Mass/Vol] 4.1 g/dL Normal 3.5-5.7 [facility] Comment on above: Performed By: #### L AB52 #### [facility] ([facility]) [address] [place] [address] ALP [Catalytic activity/Vol] 64 U/L Normal 34-104 [facility] Comment on above: Performed By: #### L AB52 #### [facility] ([facility]) [address] [place] [address] ALT [Catalytic activity/Vol] 40 U/L Normal 7-52 [facility] Comment on above: Performed By: #### L AB52 #### [facility] ([facility]) [address] [place] [address] Anion gap [Moles/Vol] 11 mmol/L Normal 7-20 [facility] Comment on above: Performed By: #### L AB52 #### [facility] ([facility]) [address] [place] [address] AST [Catalytic activity/Vol] 22 U/L Normal 13-39 [facility] Comment on above: Performed By: #### L AB52 #### [facility] ([facility]) [address] [place] [address] Bilirubin [Mass/Vol] 0.6 mg/dL Normal 0.3-1.0 [facility] Comment on above: Performed By: #### L AB52 #### [facility] [address] [place] [address] Calcium [Mass/Vol] 9.4 mg/dL Normal 8.6-10.3 [facility] Comment on above: Performed By: #### L AB52 #### [facility] [address] [place] [address] Chloride [Moles/Vol] 107 mmol/L Normal 98-107 [facility] Comment on above: Performed By: #### L AB52 #### [facility] [address] [place] [address] CO2 [Moles/Vol] 22 mmol/L Normal 21-31 [facility] Comment on above: Performed By: #### L AB52 #### [facility] [address] [place] [address] Creatinine [Mass/Vol] 1.80 mg/dL High 0.70-1.30 [facility] Comment on above: Performed By: #### L AB52 #### [facility] [address] [place] [address] GLOMERULAR FILTRATION RATE ML/MIN/1.73 SQ M.PREDICTED 43.6 mL/min/1.73m*2 Low >60.0 [facility] Comment on above: Result Comment: The [facility]???s estimated glomerular filtration rate (eGFR) will no longer include consideration of race in its calculation. The [employer]???s eGFR Task Force developed new recommendations for [...] disproportionately affect any one group of individuals. Performed By: #### L AB52 #### [facility] ([facility]) [address] [place] [address] Glucose [Mass/Vol] 103 mg/dL High 70-100 [facility] Comment on above: Performed By: #### L AB52 #### [facility] ([facility]) [address] [place] [address] Potassium [Moles/Vol] 4.1 mmol/L Normal 3.5-5.1 [facility] Comment on above: Performed By: #### L AB52 #### [facility] ([facility]) [address] [place] [address] Protein [Mass/Vol] 6.9 g/dL Normal 6.0-8.3 [facility] Comment on above: Performed By: #### L AB52 #### [facility] ([facility]) [address] [place] [address] Sodium [Moles/Vol] 136 mmol/L Normal 136-145 [facility] Comment on above: Performed By: #### L [id number] #### [facility] ([facility]) [address] [place] [address] Urea nitrogen [Mass/Vol] 26 mg/dL High 7-25 [facility] Comment on above: Performed By: #### L AB52 #### [facility] ([facility]) [address] [place] [address] UREA NITROGEN/CREATININE (MASS RATIO) IN SER/PLAS 14.4 Normal [facility] Comment on above: Performed By: #### L AB52 #### [facility] ([facility]) [address] [place] [address] LIPID PANELon 09-17-2023 CHOL/HDL 4.5 mg/dL Normal [facility] Comment on above: Performed By: #### L [id number] #### [facility] ([facility]) [address] [place] [address] Cholesterol [Mass/Vol] 226 mg/dL High 120-200 [facility] Comment on above: Performed By: #### L [id number] #### [facility] [address] [place] [address] Magnesium [Mass/Vol] 120 mg/dL Normal 40-149 [facility] Comment on above: Result Comment: TRIG LYCERIDE REFERENCE RANGE: 20 YEARS AND OLDER CARDIOVASCULAR RISK LESS THAN 150 mg/dL LOW RISK 150 TO 199 mg/dL BORDERLINE RISK 200 mg/dL AND GREATER HIGH RISK Performed By: #### L [id number] #### [facility] ([facility]) [address] [place] [address] Magnesium [Mass/Vol] 152 mg/dL Normal 0-160 [facility] Comment on above: Performed By: #### L [id number] #### [facility] ([facility]) [address] [place] [address] Magnesium [Mass/Vol] 50 mg/dL Normal 23-92 [facility] Comment on above: Performed By: #### L [id number] #### [facility] ([facility]) [address] [place] [address] NON HDL CHOL. (LDL+VLDL) 176 Normal [facility] Comment on above: Performed By: #### L [id number] #### [facility] ([facility]) [address] [place] [address] TOTAL VLDL-C 24 mg/dL Normal 0-40 [facility] Comment on above: Performed By: #### L [id number] #### [facility] [address] [place] [address] Labon 09-17-2023 Lab [id number] Irvin Carrington 1965 M Date Provider Department Center 09/17/2023 2245-[facility]PD LAB RESOURCE [facility] OPD NM Medical C No family history on file Normal [facility] MAGNESIUMon 09-17-2023 Magnesium [Mass/Vol] 1.7 mg/dL Low 1.9-2.7 [facility] Comment on above: Performed By: #### L [id number] #### [facility] ([facility]) [address] [place] [address] Orders Onlyon 09-17-2023 Orders Only [id number] Irvin Carrington 1965 M Date Provider Department Center 09/17/2023 SKY SAMANIEGO None No family history on file Normal [facility] PHOSPHORUSon 09-17-2023 Magnesium [Mass/Vol] 2.4 mg/dL Low 2.5-5.0 [facility] Comment on above: Performed By: #### L AB90 #### [facility] ([facility]) [address] [place] [address] TACROLIMUS LEVELon Tacrolimus (Bld) [Mass/Vol] 3.9 ng/mL Low 5.0-20.0 [facility] Comment on above: Result Comment: The [employer] Tacrolimus assay is a delayed one-step immunoassay for the quantitative determination of tacrolimus in human whole blood using the chemiluminescent microparticle immunoassay (CMIA) technology with flexible assay protocols, referred to as Chemiflex. Performed By: #### L AB90 #### [facility] ([facility]) [address] [place] [address] URIC ACIDon 09-17-2023 Magnesium [Mass/Vol] 6.7 mg/dL Normal 4.4-7.6 [facility] Comment on above: Performed By: #### L AB90 #### [facility] ([facility]) [address] [place] [address] Refillon 09-16-2023 Refill [id number] Irvin Carrington Duyen 1965 M Date Provider Department Center 09/16/2023 [facility] NEPHRO Comprehensiv No family history on file Reason for Visit and Comments: Med Refill [[id number]] Normal [facility] CBC W/DIFFon 11-08-2021 ABS IMM GRANS 0.0 10*3/uL Normal 0.0-0.2 [facility] Comment on above: Performed By: #### 1 0070, 15335, 47444, 45828, 02301, 43503 #### [facility] [address] [facility] [address], [facility] ABS NEUTROPHILS 5.0 10*3/uL Normal 1.6-7.6 [facility] Comment on above: Performed By: #### 1 0070, 34260, 82086, 69878, 45655, 13943 #### [facility] [address] [facility] [place] [address], [facility] Basophils (Bld) [#/Vol] 0.0 10*3/uL Normal 0.0-0.2 [facility] Comment on above: Performed By: #### 1 0070, 32166, 75435, 19443, 85207, 86086 #### [facility] [address] [facility] [place] [address], [facility] Basophils/100 WBC (Bld) 0.4 % Normal 0.0-1.0 [facility] Comment on above: Performed By: #### 1 0070, 92024, 35679, 57401, 54563, 82298 #### [facility] [address] [facility] [place] [address], [facility] Eosinophils (Bld) [#/Vol] 0.1 10*3/uL Normal 0.0-0.5 [facility] Comment on above: Performed By: #### 1 0070, 44557, 30557, 67754, 22772, 95225 #### [facility] [address] [place] [address], [facility] Eosinophils/100 WBC (Bld) 1.2 % Normal 0.0-6.0 [facility] Comment on above: Performed By: #### 1 0070, 56709, 62936, 43879, 46993, 86505 #### [facility] [address] [facility] [place] [address], [facility] Erythrocyte distribution width (RBC) [Ratio] 13.6 % Normal 11.5-15.0 [facility] Comment on above: Performed By: #### 1 0070, 37003, 19152, 27744, 69573, 17121 #### [facility] [address] Hematocrit (Bld) [Volume fraction] 42.8 % Normal 39.0-50.0 [facility] Comment on above: Performed By: #### 1 0070, 63386, 77377, 65975, 29313, 49192 #### [facility] [address] [facility] [address] Hemoglobin (Bld) [Mass/Vol] 13.7 g/dL Normal 13.0-17.0 [facility] Comment on above: Performed By: #### 1 0070, 30009, 63270, 14249, 51010, 40762 #### [facility] [address] [facility] IMMATURE GRANS 0.5 % Normal 0.0-1.0 [facility] Comment on above: Performed By: #### 1 0070, 51056, 30020, 34466, 99570, 02992 #### [facility] [address] [facility] [address] Lymphocytes (Bld) [#/Vol] 1.6 10*3/uL Normal 1.2-4.0 [facility] Comment on above: Performed By: #### 1 0070, 36277, 23141, 67654, 51871, 80233 #### [facility] [address] [facility] [place] [address], [facility] Lymphocytes/100 WBC (Bld) 21.0 % Normal 20.0-45.0 [facility] Comment on above: Performed By: #### 1 0070, 15753, 25297, 61713, 30766, 35066 #### [facility] [address] [facility]. [address] MCH (RBC) [Entitic mass] 29.5 pg Normal 27.0-33.0 [facility] Comment on above: Performed By: #### 1 0070, 68079, 07084, 31536, 27265, 64299 #### [facility] [address] [facility] [place] [address], [facility] MCHC (RBC) [Mass/Vol] 32.0 g/dL Normal 32.0-35.0 [facility] Comment on above: Performed By: #### 1 0070, 11729, 29139, 89925, 20336, 81757 #### [facility] [address] [facility]. [address] MCV (RBC) [Entitic vol] 92.2 fL Normal 82.0-98.0 [facility] Comment on above: Performed By: #### 1 0070, 94908, 82691, 93538, 95068, 71077 #### [facility] [address] [place] [address], [facility] Monocytes (Bld) [#/Vol] 0.7 10*3/uL Normal 0.1-1.0 [facility] Comment on above: Performed By: #### 1 0070, 05244, 00562, 62774, 16120, 17572 #### [facility] [address] [facility]. [address] MONOS 9.1 % Normal 5.0-12.0 [facility] Comment on above: Performed By: #### 1 0070, 43452, 33902, 65078, 25509, 11538 #### [facility] [address] Neutrophils/100 WBC (Bld) 67.8 % Normal 40.0-72.0 [facility] Comment on above: Performed By: #### 1 0070, 44924, 26979, 56274, 84338, 31057 #### [facility] [address] [facility] [place] [address], [facility] Nucleated RBC/100 WBC (Bld) [Ratio] 0 % Normal 0-0 [facility] Comment on above: Performed By: #### 1 0070, 83688, 69582, 65037, 66212, 82896 #### [facility] [address] [facility] [place] [address], [facility] PLAT CNT 191 10*3/uL Normal 150-400 [facility] Comment on above: Performed By: #### 1 0070, 37382, 31880, 06014, 07972, 22593 #### [facility] [address] [facility]. [address] RBC (Bld) [#/Vol] 4.64 10*6/uL Normal 4.20-5.70 [facility] Comment on above: Performed By: #### 1 0070, 51277, 11126, 69912, 57321, 55816 #### [facility] [address] [facility] [place] [address], [facility] WBC (Bld) [#/Vol] 7.44 10*3/uL Normal 4.00-10.60 [facility] Comment on above: Performed By: #### 1 0070, 51529, 93649, 30867, 36758, 06629 #### [facility] [address] [facility]. [address] COMP METABOLIC PANELon 11-08 Albumin [Mass/Vol] 3.9 g/dL Normal 3.5-5.7 [facility] Comment on above: Performed By: #### 1 0070, 01230, 64833, 56366, 24521, 90793 #### [facility] [address] ALKALINE PHOSPH 50 IU/L Normal 34-104 [facility] Comment on above: Performed By: #### 1 0070, 02589, 76144, 47894, 99463, 16925 #### [facility] [address] [place] [address], [place] ALT [Catalytic activity/Vol] 20 U/L Normal 7-52 [facility] Comment on above: Performed By: #### 1 0070, 97406, 58860, 99098, 40944, 42691 #### [facility] [address] [place] [address], [place] AST [Catalytic activity/Vol] 17 U/L Normal 13-39 [facility] Comment on above: Performed By: #### 1 0070, 27151, 95432, 51565, 10183, 37887 #### [facility] [address] [place] [address], [place] Bilirubin [Mass/Vol] 0.5 mg/dL Normal 0.3-1.0 [facility] Comment on above: Performed By: #### 1 0070, 89716, 35746, 43507, 78178, 03947 #### [facility] [address] [place] [address], [place] Calcium [Mass/Vol] 9.3 mg/dL Normal 8.6-10.3 [facility] Comment on above: Performed By: #### 1 0070, 20875, 10574, 37861, 27446, 66089 #### [facility] [address] [place] [address], [place] Chloride [Moles/Vol] 108 mmol/L High 98-107 [facility] Comment on above: Performed By: #### 1 0070, 81952, 63095, 55907, 90405, 56709 #### [facility] [address] [place] [address], [place] CO2 [Moles/Vol] 27 mmol/L Normal 21-31 [facility] Comment on above: Performed By: #### 1 0070, 63875, 15598, 62310, 65805, 84870 #### [facility] [address] [place] [address], [facility] Creatinine [Mass/Vol] 1.67 mg/dL High 0.70-1.30 [facility] Comment on above: Performed By: #### 1 0070, [id number], 72366, 07264, 72184, 45092 #### [facility] [address] [place] [place] [address], [place] EGFR 48 ml/min/1.73sq m Abnormal >60 [facility] Comment on above: Result Comment: [facility]'s estimated glomerular filtration rate (eGFR) will no longer include consideration of race in its calculation. The [employer]'s eGFR Task Force developed new recommendations for [...] disproportionately affect any one group of individuals. Performed By: #### 1 0070, 97676, 55001, 40702, 73205, 34226 #### [facility] [address] [place] [address], [place] Glucose [Mass/Vol] 90 mg/dL Normal 70-100 [facility] Comment on above: Performed By: #### 1 0070, 52548, 83486, 06273, 44880, 17299 #### [facility] [address] [place] [address], [place] Potassium [Moles/Vol] 4.7 mmol/L Normal 3.5-5.1 [facility] Comment on above: Performed By: #### 1 0070, 37807, 05398, 12916, 90840, 07420 #### [facility] [address] [place] [address], [place] Protein [Mass/Vol] 6.4 g/dL Normal 6.0-8.3 [facility] Comment on above: Performed By: #### 1 0070, 26208, 03886, 46576, 69217, 68743 #### [facility] [address] [place] [address], [facility] Sodium [Moles/Vol] 139 mmol/L Normal 136-145 [facility] Comment on above: Performed By: #### 1 0070, 20221, 92770, 01155, 45858, 93702 #### [facility] [address] [place] [address], [facility] Urea nitrogen [Mass/Vol] 24 mg/dL Normal 7-25 [facility] Comment on above: Performed By: #### 1 0070, 91702, 38364, 11146, 60679, 85896 #### [facility] [address] [place] [address], [facility] CREATININE URINE RANDOMon Creatinine (U) [Mass/Vol] 135.0 mg/dL Normal [facility] Comment on above: Result Comment: Ther e are no established reference values for random urine specimens Performed By: #### 1 0070, 17511, 47772, 06217, 37194, 80114 #### [facility] [address] [place] [address], [facility] DIRECT BILIon 11-08-2021 Bilirubin.direct [Mass/Vol] 0.1 mg/dL Normal 0.0-0.2 [facility] Comment on above: Performed By: #### 1 0070, 49947, 44873, 88838, 14293, 89801 #### [facility] [address] [place] [address], [facility] LIPID PROFILEon 11-08-2021 Cholesterol [Mass/Vol] 200 mg/dL Normal 120-200 [facility] Comment on above: Result Comment: CHOL ESTEROL REFERENCE RANGE: 20 YEARS AND OLDER CARDIOVASCULAR RISK Less than 200 mg/dl Low Risk 200 to 239 mg/dl Borderline Risk 240 mg/dl and greater High Risk Performed By: #### 1 0070, 95181, 72660, 19497, 47014, 33793 #### [facility] [address] [place] [address], [place] Cholesterol in HDL [Mass/Vol] 64 mg/dL Normal 23-92 [facility] Comment on above: Result Comment: Slig ht variation in normal range could be due to gender and/or age. HDL CHOLESTEROL REFERENCE RANGE: 20 years and older Cardiovascular Risk > or =60 mg/dL Desirable 40 TO 59 mg/dL Low Risk <40 mg/dL High Risk Performed By: #### 1 0070, 71455, 85308, 02024, 26569, 75710 #### [facility] [address] [facility] [place] [address], [facility] Cholesterol in LDL [Mass/Vol] 120 mg/dL Normal 0-130 [facility] Comment on above: Result Comment: LDL IS A CALCULATION LDL IS ONLY VALID IF THE TRIG IS LESS THAN 400. Performed By: #### 1 0070, 71810, 29526, 77199, 53467, 60098 #### [facility] [address] [place] [address], [place] Cholesterol.total/C holesterol in HDL [Mass ratio] 3.1 {ratio} Normal .0-4.5 [facility] Comment on above: Performed By: #### 1 0070, 09375, 63643, 92568, 24871, 20883 #### [facility] [address] [place] [address], [place] NON-HDL CHOLESTEROL 136 mg/dL Normal [facility] Comment on above: Performed By: #### 1 0070, 04401, 69506, 25217, 97506, 05275 #### [facility] [address] [place] [address], [place] Triglyceride [Mass/Vol] 78 mg/dL Normal 40-149 [facility] Comment on above: Result Comment: TRIG LYCERIDE REFERENCE RANGE: 20 YEARS AND OLDER CARDIOVASCULAR RISK LESS THAN 150 mg/dl LOW RISK 150 TO 199 mg/dl BORDERLINE RISK 200 mg/dl AND GREATER HIGH RISK Performed By: #### 1 0070, 33799, 63472, 53720, 04123, 11840 #### [facility] [address] [facility] [place] [address], [facility] VLDL CHOL 16 mg/dL Normal 0-40 [facility] Comment on above: Performed By: #### 1 0070, 03443, 37241, 98923, 30612, 45524 #### [facility] [address] [place] [address], [facility] MAGNESIUM BLOODon 11-08-2021 Magnesium [Mass/Vol] 1.9 mg/dL Normal 1.9-2.7 [facility] Comment on above: Performed By: #### 1 0070, 56240, 63033, 75367, 01951, 33696 #### [facility] [address] [facility] [place] [address], [facility] PHOSPHORUS BLOODon Phosphate [Mass/Vol] 3.2 mg/dL Normal 2.5-5.0 [facility] Comment on above: Performed By: #### 1 0070, 13043, 74488, 05878, 51250, 41263 #### [facility] [address] [facility] [address], [facility] T PROT UR Kylie 11-08-2021 U TOTAL PROTEIN 38.0 mg/dL Normal [facility] Comment on above: Result Comment: Ther e are no established reference values for random urine specimens Performed By: #### 1 0070, 09018, 45084, 99881, 50611, 44905 #### [facility] [address] [facility] [place] [address], [facility] TACROLIMUSon 11-08-2021 Tacrolimus (Bld) [Mass/Vol] 6.0 ng/mL Normal 5.0-20.0 [facility] Comment on above: Result Comment: The [employer] Tacrolimus assay is a delayed one-step immunoassay for the quantitative determination of tacrolimus in human whole blood using the chemiluminescent microparticle immunoassay (CMIA) technology with flexible assay protocols, referred to as Chemiflex. Performed By: #### 1 0070, 61439, 15013, 84276, 17252, 44884 #### [facility] [address] [place] [address], [facility] URIC ACID BLOODon 11-08-2021 Urate [Mass/Vol] 7.2 mg/dL Normal 4.4-7.6 [facility] Comment on above: Performed By: #### 1 0070, 03321, 62716, 06725, 56977, 31165 #### [facility] [address] [facility] [address] BK VIRUS QUANTITATION FOR PL ASMAon 10-11-2021 BKV Plasma Quantitation by PCR Not detected Normal [facility] Comment on above: Result Comment: Meth od: BK virus was measured by quantitative polymerase chain reaction using a fluorescent hydrolysis probe targeting the polyomavirus BK DAYLIGHT DRILLER-1 gene. The lower limit of quantitation of the assay is 500 copies of BK genome per milliliter of plasma or urine, and any detectable BK DNA below that level is reported as: Detected, <500 copies/ml. Serial BK virus measurement can be used to monitor disease activity. (Reference: Hattie vancel. J CLIN MICRO 2004; 42:4335-4009). This test was developed and its performance characteristics determined by the [facility]. It has not been approved by the [place] Food and Drug Administration. However, such approval is not required for clinical implementation, and test results have been shown to be clinically useful. This laboratory is CAP accredited and CLIA certified to perform high complexity testing. Performed By: #### 4 191, 17844 #### [facility] [address] [facility] [place] [address], [facility] BKV Plasma Quantitation Log by PCR Not detected Normal [facility] Comment on above: Performed By: #### 4 191, 56678 #### [facility] [address] [place] [address], [facility] CBC W/DIFFon 10-11-2021 ABS IMM GRANS 0.0 10*3/uL Normal 0.0-0.2 [facility] Comment on above: Performed By: #### 3 1756 #### [facility] [address] [place] [address], [facility] ABS NEUTROPHILS 5.6 10*3/uL Normal 1.6-7.6 [facility] Comment on above: Performed By: #### 3 1756 #### [facility] [address] [place] [address], [facility] Basophils (Bld) [#/Vol] 0.0 10*3/uL Normal 0.0-0.2 [facility] Comment on above: Performed By: #### 3 1756 #### [facility] [address] [place] [address], [facility] Basophils/100 WBC (Bld) 0.4 % Normal 0.0-1.0 [facility] Comment on above: Performed By: #### 3 1756 #### [facility] [address] [place] [address], [facility] Eosinophils (Bld) [#/Vol] 0.1 10*3/uL Normal 0.0-0.5 [facility] Comment on above: Performed By: #### 3 6 #### [facility] [address] [place] [address], [facility] Eosinophils/100 WBC (Bld) 1.6 % Normal 0.0-6.0 [facility] Comment on above: Performed By: #### 3 6 #### [facility] [address] [place] [address], [facility] Erythrocyte distribution width (RBC) [Ratio] 13.6 % Normal 11.5-15.0 [facility] Comment on above: Performed By: #### 3 5756 #### [facility] [address] [place] [address], [facility] Hematocrit (Bld) [Volume fraction] 43.6 % Normal 39.0-50.0 [facility] Comment on above: Performed By: #### 3 1756 #### [facility] [address] [place] [address], [facility] Hemoglobin (Bld) [Mass/Vol] 14.1 g/dL Normal 13.0-17.0 [facility] Comment on above: Performed By: #### 3 1756 #### [facility] [address] [place] [address], [facility] IMMATURE GRANS 0.5 % Normal 0.0-1.0 [facility] Comment on above: Performed By: #### 3 1756 #### [facility] [address] [facility] [place] [address], [facility] Lymphocytes (Bld) [#/Vol] 1.1 10*3/uL Low 1.2-4.0 [facility] Comment on above: Performed By: #### 3 1756 #### [facility] [address] [facility] [place] [address], [facility] Lymphocytes/100 WBC (Bld) 14.3 % Low 20.0-45.0 [facility] Comment on above: Performed By: #### 3 1756 #### [facility] [address] [facility] [place] [address], [facility] MCH (RBC) [Entitic mass] 29.4 pg Normal 27.0-33.0 [facility] Comment on above: Performed By: #### 3 1756 #### [facility] [address] [place] [id number], [facility] MCHC (RBC) [Mass/Vol] 32.3 g/dL Normal 32.0-35.0 [facility] Comment on above: Performed By: #### 3 1756 #### [facility] [address] [place] [id number], [facility] MCV (RBC) [Entitic vol] 90.8 fL Normal 82.0-98.0 [facility] Comment on above: Performed By: #### 3 1756 #### [facility] [address] [place] [address], [facility] Monocytes (Bld) [#/Vol] 0.7 10*3/uL Normal 0.1-1.0 [facility] Comment on above: Performed By: #### 3 1756 #### [facility] [address] [facility] [place] [address], [facility] MONOS 8.7 % Normal 5.0-12.0 [facility] Comment on above: Performed By: #### 3 6 #### [facility] [address] [place] [id number], [facility] Neutrophils/100 WBC (Bld) 74.5 % High 40.0-72.0 [facility] Comment on above: Performed By: #### 3 6 #### [facility] [address] [place] [address], [facility] Nucleated RBC/100 WBC (Bld) [Ratio] 0 % Normal 0-0 [facility] Comment on above: Performed By: #### 3 6 #### [facility] [address] [place] [address], [facility] PLAT CNT 182 10*3/uL Normal 150-400 [facility] Comment on above: Performed By: #### 3 6 #### [facility] [address] [place] [id number], [facility] RBC (Bld) [#/Vol] 4.80 10*6/uL Normal 4.20-5.70 [facility] Comment on above: Performed By: #### 3 6 #### [facility] [address] [place] [id number], [place] WBC (Bld) [#/Vol] 7.48 10*3/uL Normal 4.00-10.60 [facility] Comment on above: Performed By: #### 3 1756 #### [facility] [address] [place] [address], [facility] COMP METABOLIC PANELon 10-11 Albumin [Mass/Vol] 4.0 g/dL Normal 3.5-5.7 [facility] Comment on above: Performed By: #### 1 0070, 32314, 81458, 89483, 09714, 93482 #### [facility] [address] [place] [address], [facility] ALKALINE PHOSPH 57 IU/L Normal 34-104 [facility] Comment on above: Performed By: #### 1 0070, 22767, 02589, 79166, 24460, 54669 #### [facility] [address] [place] [address], [facility] ALT [Catalytic activity/Vol] 21 U/L Normal 7-52 [facility] Comment on above: Performed By: #### 1 0070, 05099, 05163, 36685, 76089, 96919 #### [facility] [address] [place] [address], [facility] AST [Catalytic activity/Vol] 14 U/L Normal 13-39 [facility] Comment on above: Performed By: #### 1 0070, 59154, 40672, 74928, 27031, 91275 #### [facility] [address] [place] [address], [place] Bilirubin [Mass/Vol] 0.6 mg/dL Normal 0.3-1.0 [facility] Comment on above: Performed By: #### 1 0070, 38131, 08768, 81649, 04896, 85216 #### [facility] [address] [place] [address], [place] Calcium [Mass/Vol] 8.9 mg/dL Normal 8.6-10.3 [facility] Comment on above: Performed By: #### 1 0070, 24959, 21628, 97298, 95549, 79786 #### [facility] [address] [place] [address], [facility] Chloride [Moles/Vol] 109 mmol/L High 98-107 [facility] Comment on above: Performed By: #### 1 0070, 91367, 00693, 96487, 25194, 72812 #### [facility] [address] [place] [address], [place] CO2 [Moles/Vol] 23 mmol/L Normal 21-31 [facility] Comment on above: Performed By: #### 1 0070, 84146, 14552, 31524, 53546, 26530 #### [facility] [address] [place] [address], [facility] Creatinine [Mass/Vol] 1.37 mg/dL High 0.70-1.30 [facility] Comment on above: Performed By: #### 1 0070, 87171, 43483, 97589, 25950, 75478 #### [facility] [address] [place] [address], [facility] eGFR- non- 54 ml/min/1.73sq m Abnormal >60 [facility] Comment on above: Performed By: #### 1 0070, 79420, 06078, 46586, 11585, 09800 #### [facility] [address] [place] [address], [place] GFR/1.73 sq M.predicted among blacks MDRD (S/P/Bld) [Vol rate/Area] mL/min/{1.73_m2} Normal >60 [facility] Comment on above: Performed By: #### 1 0070, 77479, 02206, 69370, 90165, 74385 #### [facility] [address] [place] [address], [place] Glucose [Mass/Vol] 99 mg/dL Normal 70-100 [facility] Comment on above: Performed By: #### 1 0070, 85639, 34820, 54391, 78835, 45463 #### [facility] [address] [place] [address], [place] Potassium [Moles/Vol] 4.2 mmol/L Normal 3.5-5.1 [facility] Comment on above: Performed By: #### 1 0070, 64039, 78408, 57777, 11458, 06260 #### [facility] [address] [place] [address], [place] Protein [Mass/Vol] 6.5 g/dL Normal 6.0-8.3 [facility] Comment on above: Performed By: #### 1 0070, 16780, 35432, 15791, 64317, 24063 #### [facility] [address] [place] [address], [place] Sodium [Moles/Vol] 137 mmol/L Normal 136-145 [facility] Comment on above: Performed By: #### 1 0070, 87261, 87940, 96068, 16515, 65747 #### [facility] [address] [place] [address], [place] Urea nitrogen [Mass/Vol] 25 mg/dL Normal 7-25 [facility] Comment on above: Performed By: #### 1 0070, 10180, 76274, 70317, 09860, 39343 #### [facility] [address] [place] [address], [place] CREATININE URINE RANDOMon Creatinine (U) [Mass/Vol] 118.0 mg/dL Normal [facility] Comment on above: Result Comment: Ther e are no established reference values for random urine specimens Performed By: #### 1 0070, 74317, 42380, 86756, 88380, 62587 #### [facility] [address] [place] [address], [place] DIRECT BILIon 10-11-2021 Bilirubin.direct [Mass/Vol] 0.1 mg/dL Normal 0.0-0.2 [facility] Comment on above: Performed By: #### 1 0070, 30462, 20971, 35686, 21872, 47212 #### [facility] [address] [place] [address], [facility] HEMOGLOBIN A1Con 10-11-2021 Glucose [Moles/Vol] 117 mmol/L Normal [facility] Comment on above: Performed By: #### 1 0070, 36597, 65897, 42786, 11438, 00916 #### [facility] [address] [place] [address], [facility] HbA1c (Bld) [Mass fraction] 5.7 % Normal 4.0-6.0 [facility] Comment on above: Performed By: #### 1 0070, 08479, 69128, 17230, 99622, 21709 #### [facility] [address] [place] [address], [facility] LIPID PROFILEon 10-11-2021 Cholesterol [Mass/Vol] 231 mg/dL High 120-200 [facility] Comment on above: Result Comment: CHOL ESTEROL REFERENCE RANGE: 20 YEARS AND OLDER CARDIOVASCULAR RISK Less than 200 mg/dl Low Risk 200 to 239 mg/dl Borderline Risk 240 mg/dl and greater High Risk Performed By: #### 1 0070, 71953, 20682, 33689, 01274, 73893 #### [facility] [address] [place] [address], [facility] Cholesterol in HDL [Mass/Vol] 61 mg/dL Normal 23-92 [facility] Comment on above: Result Comment: Slig ht variation in normal range could be due to gender and/or age. HDL CHOLESTEROL REFERENCE RANGE: 20 years and older Cardiovascular Risk > or =60 mg/dL Desirable 40 TO 59 mg/dL Low Risk <40 mg/dL High Risk Performed By: #### 1 0070, 08517, 70946, 78650, 60551, 06012 #### [facility] [address] [place] [address], [facility] Cholesterol in LDL [Mass/Vol] 132 mg/dL High 0-130 [facility] Comment on above: Result Comment: LDL IS A CALCULATION LDL IS ONLY VALID IF THE TRIG IS LESS THAN 400. Performed By: #### 1 0070, 11570, 38274, 49610, 31802, 86929 #### [facility] [address] [place] [address], [facility] Cholesterol.total/C holesterol in HDL [Mass ratio] 3.8 {ratio} Normal .0-4.5 [facility] Comment on above: Performed By: #### 1 0070, 31188, 11336, 84347, 43950, 33345 #### [facility] [address] [place] [address], [facility] NON-HDL CHOLESTEROL 170 mg/dL Normal [facility] Comment on above: Performed By: #### 1 0070, 76957, 71478, 37034, 75980, 56276 #### [facility] [address] [place] [address], [facility] Triglyceride [Mass/Vol] 190 mg/dL High 40-149 [facility] Comment on above: Result Comment: TRIG LYCERIDE REFERENCE RANGE: 20 YEARS AND OLDER CARDIOVASCULAR RISK LESS THAN 150 mg/dl LOW RISK 150 TO 199 mg/dl BORDERLINE RISK 200 mg/dl AND GREATER HIGH RISK Performed By: #### 1 0070, 45723, 42298, 66766, 11979, 41573 #### [facility] [address] [place] [address], [facility] VLDL CHOL 38 mg/dL Normal 0-40 [facility] Comment on above: Performed By: #### 1 0070, 52508, 36354, 73698, 26013, 11348 #### [facility] [address] [place] [address], [facility] MAGNESIUM BLOODon 10-11-2021 Magnesium [Mass/Vol] 1.8 mg/dL Low 1.9-2.7 [facility] Comment on above: Performed By: #### 1 0070, 08161, 41350, 76540, 41544, 60278 #### [facility] [address] [place] [address], [facility] PHOSPHORUS BLOODon Phosphate [Mass/Vol] 2.7 mg/dL Normal 2.5-5.0 [facility] Comment on above: Performed By: #### 1 0070, 26342, 72484, 88357, 66524, 54607 #### [facility] [address] [place] [address], [facility] T PROT UR Kylie 10-11-2021 U TOTAL PROTEIN 67.4 mg/dL Normal [facility] Comment on above: Result Comment: Ther e are no established reference values for random urine specimens Performed By: #### 1 0070, 07307, 73841, 30990, 48426, 79379 #### [facility] [address] [place] [address], [facility] [facility] TESTOSTERONE, TOTAL ILon [place] Normal [facility] Comment on above: Result Comment: Test Performed by [facility] [address] [place] [address] - Released 10/11/2021 14:36 Testosterone [Mass/Vol] 304 ng/dL Normal 220-1000 [facility] URIC ACID BLOODon 10-11-2021 Urate [Mass/Vol] 7.3 mg/dL Normal 4.4-7.6 [facility] Comment on above: Performed By: #### 1 0070, 63188, 29409, 76555, 46894, 63486 #### [facility] [address] [facility] [place] [address], [facility] CBC W/DIFFon 09-08-2021 ABS IMM GRANS 0.0 10*3/uL Normal 0.0-0.2 [facility] Comment on above: Performed By: #### 3 1756 #### [facility] [address] [place] [address], [facility] ABS NEUTROPHILS 5.4 10*3/uL Normal 1.6-7.6 [facility] Comment on above: Performed By: #### 3 1755 #### [facility] [address] [place] [address], [facility] Basophils (Bld) [#/Vol] 0.0 10*3/uL Normal 0.0-0.2 [facility] Comment on above: Performed By: #### 3 1755 #### [facility] [address] [place] [address], [facility] Basophils/100 WBC (Bld) 0.3 % Normal 0.0-1.0 [facility] Comment on above: Performed By: #### 3 1755 #### [facility] [address] [place] [address], [facility] Eosinophils (Bld) [#/Vol] 0.1 10*3/uL Normal 0.0-0.5 [facility] Comment on above: Performed By: #### 3 1755 #### [facility] [address] [place] [address], [facility] Eosinophils/100 WBC (Bld) 1.8 % Normal 0.0-6.0 [facility] Comment on above: Performed By: #### 3 1755 #### [facility] [address] [place] [address], [facility] Erythrocyte distribution width (RBC) [Ratio] 13.0 % Normal 11.5-15.0 [facility] Comment on above: Performed By: #### 3 1755 #### [facility] [address] [place] [address], [facility] Hematocrit (Bld) [Volume fraction] 43.4 % Normal 39.0-50.0 [facility] Comment on above: Performed By: #### 3 1756 #### [facility] [address] [facility] [address], [facility] Hemoglobin (Bld) [Mass/Vol] 13.8 g/dL Normal 13.0-17.0 [facility] Comment on above: Performed By: #### 3 6 #### [facility] [address] [facility] [place] [address], [facility] IMMATURE GRANS 0.3 % Normal 0.0-1.0 [facility] Comment on above: Performed By: #### 3 6 #### [facility] [address] [place] [address], [facility] Lymphocytes (Bld) [#/Vol] 1.1 10*3/uL Low 1.2-4.0 [facility] Comment on above: Performed By: #### 3 6 #### [facility] [address] [place] [address], [facility] Lymphocytes/100 WBC (Bld) 14.8 % Low 20.0-45.0 [facility] Comment on above: Performed By: #### 3 6 #### [facility] [address] [place] [address], [facility] MCH (RBC) [Entitic mass] 29.4 pg Normal 27.0-33.0 [facility] Comment on above: Performed By: #### 3 6 #### [facility] [address] MCHC (RBC) [Mass/Vol] 31.8 g/dL Low 32.0-35.0 [facility] Comment on above: Performed By: #### 3 6 #### [facility] [address] [place] [address], [facility] MCV (RBC) [Entitic vol] 92.3 fL Normal 82.0-98.0 [facility] Comment on above: Performed By: #### 3 1755 #### [facility] [address] [place] [address], [facility] Monocytes (Bld) [#/Vol] 0.7 10*3/uL Normal 0.1-1.0 [facility] Comment on above: Performed By: #### 3 1756 #### [facility] [address] [place] [address], [place] MONOS 9.1 % Normal 5.0-12.0 [facility] Comment on above: Performed By: #### 3 1756 #### [facility] [address] [place] [address], [facility] Neutrophils/100 WBC (Bld) 73.7 % High 40.0-72.0 [facility] Comment on above: Performed By: #### 3 6 #### [facility] [address] [place] [id number], [facility] Nucleated RBC/100 WBC (Bld) [Ratio] 0 % Normal 0-0 [facility] Comment on above: Performed By: #### 3 6 #### [facility] [address] [facility] [place] [address], [facility] PLAT CNT 202 10*3/uL Normal 150-400 [facility] Comment on above: Performed By: #### 3 6 #### [facility] [address] [place] [id number], [facility] RBC (Bld) [#/Vol] 4.70 10*6/uL Normal 4.20-5.70 [facility] Comment on above: Performed By: #### 3 6 #### [facility] [address] [place] [address], [facility] WBC (Bld) [#/Vol] 7.25 10*3/uL Normal 4.00-10.60 [facility] Comment on above: Performed By: #### 3 6 #### [facility] [address] [place] [address], [facility] COMP METABOLIC PANELon 09-08 Albumin [Mass/Vol] 4.1 g/dL Normal 3.5-5.7 [facility] Comment on above: Performed By: #### 1 0070, 27335, 03340, 58994, 88010, 78906 #### [facility] [address] [place] [address], [facility] ALKALINE PHOSPH 59 IU/L Normal 34-104 [facility] Comment on above: Performed By: #### 1 0070, 80572, 40223, 02051, 60435, 85181 #### [facility] [address] [place] [address], [facility] ALT [Catalytic activity/Vol] 17 U/L Normal 7-52 [facility] Comment on above: Performed By: #### 1 0070, 66611, 52178, 02707, 57011, 88566 #### [facility] [address] [place] [address], [place] AST [Catalytic activity/Vol] 14 U/L Normal 13-39 [facility] Comment on above: Performed By: #### 1 0070, 10414, 25589, 37719, 93042, 41409 #### [facility] [address] [place] [address], [facility] Bilirubin [Mass/Vol] 0.7 mg/dL Normal 0.3-1.0 [facility] Comment on above: Performed By: #### 1 0070, 53128, 00058, 59029, 18742, 42759 #### [facility] [address] [place] [address], [place] Calcium [Mass/Vol] 9.2 mg/dL Normal 8.6-10.3 [facility] Comment on above: Performed By: #### 1 0070, 08580, 93396, 32233, 84168, 34224 #### [facility] [address] [place] [address], [place] Chloride [Moles/Vol] 107 mmol/L Normal 98-107 [facility] Comment on above: Performed By: #### 1 0070, 16890, 13540, 92121, 63789, 61827 #### [facility] [address] [place] [address], [place] CO2 [Moles/Vol] 23 mmol/L Normal 21-31 [facility] Comment on above: Performed By: #### 1 0070, 12507, 69596, 66027, 89328, 58154 #### [facility] [address] [place] [address], [place] Creatinine [Mass/Vol] 1.58 mg/dL High 0.70-1.30 [facility] Comment on above: Performed By: #### 1 0070, 48635, 46497, 78247, 81930, 71117 #### [facility] [address] [place] [address], [place] eGFR- 56 ml/min/1.73sq m Abnormal >60 [facility] Comment on above: Performed By: #### 1 0070, 23161, 01219, 19063, 38386, 10992 #### [facility] [address] [place] [address], [place] eGFR- non- 46 ml/min/1.73sq m Abnormal >60 [facility] Comment on above: Performed By: #### 1 0070, 20296, 82526, 02024, 68661, 87957 #### [facility] [address] [place] [address], [place] Glucose [Mass/Vol] 97 mg/dL Normal 70-100 [facility] Comment on above: Performed By: #### 1 0070, 67741, 27981, 86312, 82929, 52864 #### [facility] [address] [place] [address], [place] Potassium [Moles/Vol] 4.8 mmol/L Normal 3.5-5.1 [facility] Comment on above: Performed By: #### 1 0070, 44827, 63228, 39761, 72980, 92554 #### [facility] [address] [place] [address], [facility] Protein [Mass/Vol] 6.5 g/dL Normal 6.0-8.3 [facility] Comment on above: Performed By: #### 1 0070, 37997, 95431, 09305, 03309, 81677 #### [facility] [address] [place] [address], [facility] Sodium [Moles/Vol] 137 mmol/L Normal 136-145 [facility] Comment on above: Performed By: #### 1 0070, 12157, 55697, 26523, 89004, 70195 #### [facility] [address] [place] [address], [facility] Urea nitrogen [Mass/Vol] 24 mg/dL Normal 7-25 [facility] Comment on above: Performed By: #### 1 0070, 75023, 46717, 64010, 42105, 34856 #### [facility] [address] [place] [address], [facility] CREATININE URINE RANDOMon Creatinine (U) [Mass/Vol] 107.0 mg/dL Normal [facility] Comment on above: Result Comment: Ther e are no established reference values for random urine specimens Performed By: #### 4 1919, 43395 #### [facility] [address] [place] [id number], [facility] DIRECT BILIon 09-08-2021 Bilirubin.direct [Mass/Vol] 0.1 mg/dL Normal 0.0-0.2 [facility] Comment on above: Performed By: #### 1 0070, 28408, 51968, 40741, 74238, 64114 #### [facility] [address] [place] [address], [facility] LIPID PROFILEon 09-08-2021 Cholesterol [Mass/Vol] 225 mg/dL High 120-200 [facility] Comment on above: Result Comment: CHOL ESTEROL REFERENCE RANGE: 20 YEARS AND OLDER CARDIOVASCULAR RISK Less than 200 mg/dl Low Risk 200 to 239 mg/dl Borderline Risk 240 mg/dl and greater High Risk Performed By: #### 1 0070, 89724, 69797, 43018, 38025, 92745 #### [facility] [address] [place] [address], [facility] Cholesterol in HDL [Mass/Vol] 62 mg/dL Normal 23-92 [facility] Comment on above: Result Comment: Slig ht variation in normal range could be due to gender and/or age. HDL CHOLESTEROL REFERENCE RANGE: 20 years and older Cardiovascular Risk > or =60 mg/dL Desirable 40 TO 59 mg/dL Low Risk <40 mg/dL High Risk Performed By: #### 1 0070, 00171, 12517, 04006, 52787, 65149 #### [facility] [address] [facility] [place] [address], [facility] Cholesterol in LDL [Mass/Vol] 135 mg/dL High 0-130 [facility] Comment on above: Result Comment: LDL IS A CALCULATION LDL IS ONLY VALID IF THE TRIG IS LESS THAN 400. Performed By: #### 1 0070, 82054, 40691, 47115, 54426, 22226 #### [facility] [address] [facility] [place] [address], [facility] Cholesterol.total/C holesterol in HDL [Mass ratio] 3.6 {ratio} Normal .0-4.5 [facility] Comment on above: Performed By: #### 1 0070, 21903, 73308, 56976, 48149, 71014 #### [facility] [address] [place] [address], [place] NON-HDL CHOLESTEROL 163 mg/dL Normal [facility] Comment on above: Performed By: #### 1 0070, 17158, 31292, 68201, 60944, 51827 #### [facility] [address] [place] [address], [facility] Triglyceride [Mass/Vol] 140 mg/dL Normal 40-149 [facility] Comment on above: Result Comment: TRIG LYCERIDE REFERENCE RANGE: 20 YEARS AND OLDER CARDIOVASCULAR RISK LESS THAN 150 mg/dl LOW RISK 150 TO 199 mg/dl BORDERLINE RISK 200 mg/dl AND GREATER HIGH RISK Performed By: #### 1 0070, 79678, 52765, 68210, 21187, 88782 #### [facility] [address] [place] [address], [facility] VLDL CHOL 28 mg/dL Normal 0-40 [facility] Comment on above: Performed By: #### 1 0070, 48729, 99834, 94342, 76812, 60795 #### [facility] [address] [place] [address], [facility] MAGNESIUM BLOODon 09-08-2021 Magnesium [Mass/Vol] 2.0 mg/dL Normal 1.9-2.7 [facility] Comment on above: Performed By: #### 1 0070, 68151, 80644, 98292, 26952, 28836 #### [facility] [address] [place] [address], [facility] PHOSPHORUS BLOODon 2 Phosphate [Mass/Vol] 2.6 mg/dL Normal 2.5-5.0 [facility] Comment on above: Performed By: #### 1 0070, 50321, 03900, 95221, 82742, 86908 #### [facility] [address] [place] [address], [facility] PROSPERAon 09-08-2021 PROSPERA KIT Results to be mailed directly to physician's office by reference lab. Normal [facility] Comment on above: Result Comment: Test performed by [id number] [id number] Specimen collected for transplant patient and sent to [facility] per Dr instructions. No charge. No result expected. For billing and tracking purposes only. Performed By: #### 4 1918, 05474 #### [facility] [address] RESULT Results to be mailed directly to physician's office by reference lab. Normal [facility] Comment on above: Performed By: #### 4 1918, 98554 #### [facility] [address] [facility]. [address] T PROT UR Kylie 09-08-2021 U TOTAL PROTEIN 31.7 mg/dL Normal [facility] Comment on above: Result Comment: Ther e are no established reference values for random urine specimens Performed By: #### 4 1918, #### [facility] [address] [facility]. [address] TACROLIMUSon 09-08-2021 Tacrolimus (Bld) [Mass/Vol] 6.0 ng/mL Normal 5.0-20.0 [facility] Comment on above: Result Comment: The [employer] Tacrolimus assay is a delayed one-step immunoassay for the quantitative determination of tacrolimus in human whole blood using the chemiluminescent microparticle immunoassay (CMIA) technology with flexible assay protocols, referred to as Chemiflex. Performed By: #### 1 0070, 44258, 49628, 49541, 23945, 68615 #### [facility] [address] [facility]. [address] URIC ACID BLOODon 09-08-2021 Urate [Mass/Vol] 7.0 mg/dL Normal 4.4-7.6 [facility] Comment on above: Performed By: #### 1 0070, 83061, 37239, 17877, 25848, 76480 #### [facility] [address] [facility]. [address] CBC W/DIFFon 06-15-2021 ABS IMM GRANS 0.0 10*3/uL Normal 0.0-0.2 [facility] Comment on above: Performed By: #### 1 0070, 33664, 94939, 42736, 28657, 15474 #### [facility] [address] [facility] [place] [address], [facility] ABS NEUTROPHILS 6.6 10*3/uL Normal 1.6-7.6 [facility] Comment on above: Performed By: #### 1 0070, 35254, 07950, 48456, 81202, 41450 #### [facility] [address] [facility] [place] [address], [facility] Basophils (Bld) [#/Vol] 0.0 10*3/uL Normal 0.0-0.2 [facility] Comment on above: Performed By: #### 1 0070, 53204, 33300, 87799, 43173, 81764 #### [facility] [address] [facility] [place] [address], [facility] Basophils/100 WBC (Bld) 0.3 % Normal 0.0-1.0 [facility] Comment on above: Performed By: #### 1 0070, 73874, 99567, 48962, 30689, 65665 #### [facility] [address] [facility] [place] [address], [facility] Eosinophils (Bld) [#/Vol] 0.1 10*3/uL Normal 0.0-0.5 [facility] Comment on above: Performed By: #### 1 0070, 88287, 18784, 60289, 81399, 32228 #### [facility] [address] [facility] [place] [address], [facility] Eosinophils/100 WBC (Bld) 0.9 % Normal 0.0-6.0 [facility] Comment on above: Performed By: #### 1 0070, 18078, 95579, 75754, 21416, 15803 #### [facility] [address] [facility] [place] [address], [facility] Erythrocyte distribution width (RBC) [Ratio] 13.9 % Normal 11.5-15.0 [facility] Comment on above: Performed By: #### 1 0070, 77167, 82064, 35878, 63411, 14796 #### [facility] [address] Hematocrit (Bld) [Volume fraction] 43.7 % Normal 39.0-50.0 [facility] Comment on above: Performed By: #### 1 0070, 68012, 32296, 53813, 02265, 75030 #### [facility] [address] [facility]. [address] Hemoglobin (Bld) [Mass/Vol] 13.8 g/dL Normal 13.0-17.0 [facility] Comment on above: Performed By: #### 1 0070, 01027, 38446, 95526, 26455, 54671 #### [facility] [address] IMMATURE GRANS 0.3 % Normal 0.0-1.0 [facility] Comment on above: Performed By: #### 1 0070, 65076, 94193, 49646, 74088, 23130 #### [facility] [address] [facility] [address] Lymphocytes (Bld) [#/Vol] 1.5 10*3/uL Normal 1.2-4.0 [facility] Comment on above: Performed By: #### 1 0070, 03234, 78970, 63663, 74652, 16794 #### [facility] [address] [facility] [place] [address], [facility] Lymphocytes/100 WBC (Bld) 16.8 % Low 20.0-45.0 [facility] Comment on above: Performed By: #### 1 0070, 03519, 64592, 98794, 34469, 22791 #### [facility] [address] [facility] [place] [address], [facility] MCH (RBC) [Entitic mass] 29.2 pg Normal 27.0-33.0 [facility] Comment on above: Performed By: #### 1 0070, 36440, 99639, 88260, 93781, 58252 #### [facility] [address] [place] [address], [facility] MCHC (RBC) [Mass/Vol] 31.6 g/dL Low 32.0-35.0 [facility] Comment on above: Performed By: #### 1 0070, 66668, 72965, 98807, 83132, 98587 #### [facility] [address] [facility] [place] [address], [facility] MCV (RBC) [Entitic vol] 92.4 fL Normal 82.0-98.0 [facility] Comment on above: Performed By: #### 1 0070, 27862, 35971, 81326, 91184, 40678 #### [facility] [address] [place] [address], [facility] Monocytes (Bld) [#/Vol] 0.8 10*3/uL Normal 0.1-1.0 [facility] Comment on above: Performed By: #### 1 0070, 73966, 58834, 58097, 63955, 94425 #### [facility] [address] [facility] [address], [facility] MONOS 9.1 % Normal 5.0-12.0 [facility] Comment on above: Performed By: #### 1 0070, 60700, 28353, 47249, 77910, 92868 #### [facility] [address] [facility] [place] [address], [facility] Neutrophils/100 WBC (Bld) 72.6 % High 40.0-72.0 [facility] Comment on above: Performed By: #### 1 0070, 95406, 96352, 78019, 92808, 83371 #### [facility] [address] [facility] [place] [address], [facility] Nucleated RBC/100 WBC (Bld) [Ratio] 0 % Normal 0-0 [facility] Comment on above: Performed By: #### 1 0070, 56330, 16312, 26259, 93573, 93667 #### [facility] [address] [place] [address], [facility] PLAT CNT 194 10*3/uL Normal 150-400 [facility] Comment on above: Performed By: #### 1 0070, 60469, 50734, 78754, 42690, 44589 #### [facility] [address] [facility] [place] [address], [facility] RBC (Bld) [#/Vol] 4.73 10*6/uL Normal 4.20-5.70 [facility] Comment on above: Performed By: #### 1 0070, 42717, 03888, 24373, 15801, 12978 #### [facility] [address] [facility] [place] [address], [facility] WBC (Bld) [#/Vol] 9.03 10*3/uL Normal 4.00-10.60 [facility] Comment on above: Performed By: #### 1 0070, [id number], [id number], 61638, 57124, [id number] #### [facility] [address] [facility] [place] [address], [facility] COMP METABOLIC PANELon 06-15 Albumin [Mass/Vol] 3.8 g/dL Normal 3.5-5.7 [facility] Comment on above: Performed By: #### 1 0070, 09941, 48894, 68727, 36723, 53493 #### [facility] [address] [place] [address], [facility] ALKALINE PHOSPH 56 IU/L Normal 34-104 [facility] Comment on above: Performed By: #### 1 0070, 81827, 35982, 54497, 76826, 55952 #### [facility] [address] [place] [address], [place] ALT [Catalytic activity/Vol] 52 U/L Normal 7-52 [facility] Comment on above: Performed By: #### 1 0070, 16465, 04727, 22185, 69157, 08700 #### [facility] [address] [place] [address], [place] AST [Catalytic activity/Vol] 25 U/L Normal 13-39 [facility] Comment on above: Performed By: #### 1 0070, 55098, 47654, 25608, 54701, 47894 #### [facility] [address] [place] [address], [place] Bilirubin [Mass/Vol] 0.7 mg/dL Normal 0.3-1.0 [facility] Comment on above: Performed By: #### 1 0070, 98940, 16744, 15098, 57810, 10686 #### [facility] [address] [place] [address], [place] Calcium [Mass/Vol] 8.9 mg/dL Normal 8.6-10.3 [facility] Comment on above: Performed By: #### 1 0070, 65634, 68011, 53969, 09595, 15343 #### [facility] [address] [place] [address], [place] Chloride [Moles/Vol] 108 mmol/L High 98-107 [facility] Comment on above: Performed By: #### 1 0070, 99364, 00936, 50502, 26938, 18975 #### [facility] [address] [place] [address], [place] CO2 [Moles/Vol] 24 mmol/L Normal 21-31 [facility] Comment on above: Performed By: #### 1 0070, 09320, 57875, 69361, 66147, 38093 #### [facility] [address] [place] [address], [facility] Creatinine [Mass/Vol] 1.61 mg/dL High 0.70-1.30 [facility] Comment on above: Performed By: #### 1 0070, 87640, 94636, 73469, 37561, 71089 #### [facility] [address] [place] [address], [facility] eGFR- 54 ml/min/1.73sq m Abnormal >60 [facility] Comment on above: Performed By: #### 1 0070, 93368, 41674, 16778, 76331, 23945 #### [facility] [address] [place] [address], [facility] eGFR- non- 45 ml/min/1.73sq m Abnormal >60 [facility] Comment on above: Performed By: #### 1 0070, 80313, 41872, 63492, 28828, 69828 #### [facility] [address] [place] [address], [place] Glucose [Mass/Vol] 92 mg/dL Normal 70-100 [facility] Comment on above: Performed By: #### 1 0070, 71815, 50389, 16004, 39853, 71959 #### [facility] [address] [place] [address], [place] Potassium [Moles/Vol] 4.1 mmol/L Normal 3.5-5.1 [facility] Comment on above: Performed By: #### 1 0070, 29445, 35313, 33462, 37397, 03066 #### [facility] [address] [place] [address], [place] Protein [Mass/Vol] 6.0 g/dL Normal 6.0-8.3 [facility] Comment on above: Performed By: #### 1 0070, 70422, 11390, 00610, 52191, 95750 #### [facility] [address] [place] [address], [facility] Sodium [Moles/Vol] 139 mmol/L Normal 136-145 [facility] Comment on above: Performed By: #### 1 0070, 71251, 99021, 39934, 58731, 64971 #### [facility] [address] [place] [address], [facility] Urea nitrogen [Mass/Vol] 24 mg/dL Normal 7-25 [facility] Comment on above: Performed By: #### 1 0070, 58340, 35785, 08958, 14951, 88365 #### [facility] [address] [place] [address], [facility] CREATININE URINE RANDOMon Creatinine (U) [Mass/Vol] 253.0 mg/dL Normal [facility] Comment on above: Result Comment: Ther e are no established reference values for random urine specimens Performed By: #### 1 0070, 93320, 30196, 36119, 65731, 02927 #### [facility] [address] [place] [address], [facility] DIRECT BILIon 06-15-2021 Bilirubin.direct [Mass/Vol] 0.1 mg/dL Normal 0.0-0.2 [facility] Comment on above: Performed By: #### 1 0070, 23497, 49926, 22190, 26724, 26773 #### [facility] [address] [place] [address], [facility] LIPID PROFILEon 06-15-2021 Cholesterol [Mass/Vol] 212 mg/dL High 120-200 [facility] Comment on above: Result Comment: CHOL ESTEROL REFERENCE RANGE: 20 YEARS AND OLDER CARDIOVASCULAR RISK Less than 200 mg/dl Low Risk 200 to 239 mg/dl Borderline Risk 240 mg/dl and greater High Risk Performed By: #### 1 0070, 53532, 12461, 55003, 99948, 25324 #### [facility] [address] [place] [address], [place] Cholesterol in HDL [Mass/Vol] 67 mg/dL Normal 23-92 [facility] Comment on above: Result Comment: Slig ht variation in normal range could be due to gender and/or age. HDL CHOLESTEROL REFERENCE RANGE: 20 years and older Cardiovascular Risk > or =60 mg/dL Desirable 40 TO 59 mg/dL Low Risk <40 mg/dL High Risk Performed By: #### 1 0070, 78864, 95345, 84512, 65222, 58501 #### [facility] [address] [place] [address], [place] Cholesterol in LDL [Mass/Vol] 117 mg/dL Normal 0-130 [facility] Comment on above: Result Comment: LDL IS A CALCULATION LDL IS ONLY VALID IF THE TRIG IS LESS THAN 400. Performed By: #### 1 0070, 73787, 23799, 64221, 71825, 06758 #### [facility] [address] [place] [address], [place] Cholesterol.total/C holesterol in HDL [Mass ratio] 3.2 {ratio} Normal .0-4.5 [facility] Comment on above: Performed By: #### 1 0070, 87180, 87002, 79256, 63485, 58277 #### [facility] [address] [place] [address], [place] NON-HDL CHOLESTEROL 145 mg/dL Normal [facility] Comment on above: Performed By: #### 1 0070, 87982, 26153, 85796, 59630, 02919 #### [facility] [address] [place] [address], [place] Triglyceride [Mass/Vol] 140 mg/dL Normal 40-149 [facility] Comment on above: Result Comment: TRIG LYCERIDE REFERENCE RANGE: 20 YEARS AND OLDER CARDIOVASCULAR RISK LESS THAN 150 mg/dl LOW RISK 150 TO 199 mg/dl BORDERLINE RISK 200 mg/dl AND GREATER HIGH RISK Performed By: #### 1 0070, 56174, 78882, 77744, 08648, 45219 #### [facility] [address] [place] [address], [facility] VLDL CHOL 28 mg/dL Normal 0-40 [facility] Comment on above: Performed By: #### 1 0070, 68610, 01774, 69481, 30845, 05975 #### [facility] [address] [place] [address], [facility] MAGNESIUM BLOODon 06-15-2021 Magnesium [Mass/Vol] 1.9 mg/dL Normal 1.9-2.7 [facility] Comment on above: Performed By: #### 1 0070, 65600, 20349, 02440, 17810, 95102 #### [facility] [address] [place] [address], [facility] PHOSPHORUS BLOODon Phosphate [Mass/Vol] 2.7 mg/dL Normal 2.5-5.0 [facility] Comment on above: Performed By: #### 1 0070, 42552, 07689, 43480, 34126, 26066 #### [facility] [address] [facility] [place] [address], [facility] T PROT UR Kylie 06-15-2021 U TOTAL PROTEIN 72.3 mg/dL Normal [facility] Comment on above: Result Comment: Ther e are no established reference values for random urine specimens Performed By: #### 1 0070, 69518, 02275, 37980, 99937, 55414 #### [facility] [address] [place] [address], [facility] TACROLIMUSon 06-15-2021 Tacrolimus (Bld) [Mass/Vol] 5.9 ng/mL Normal 5.0-20.0 [facility] Comment on above: Result Comment: The [employer] Tacrolimus assay is a delayed one-step immunoassay for the quantitative determination of tacrolimus in human whole blood using the chemiluminescent microparticle immunoassay (CMIA) technology with flexible assay protocols, referred to as Chemiflex. Performed By: #### 1 0070, 48434, 09082, 43690, 69553, 31688 #### [facility] [address] URIC ACID BLOODon 06-15-2021 Urate [Mass/Vol] 7.9 mg/dL High 4.4-7.6 [facility] Comment on above: Performed By: #### 1 0070, 28922, 25369, 20167, 43907, 49237 #### [facility] [address] *URINE CULTUREon 06-05-2021 *URINE CULTURE Clinical Report: (D) Specimen: URINE Collected: 06/05/2021 12:54 Status: Final Last Updated: 06/08/2021 10:30 ISO (Final) Corynebacterium glucuronolyticum 1,000 - 5,000 Cfu/mL ISO (Final) Aerococcus urinae 1,000 - 5,000 Cfu/mL At the present time there are no CLSI guidelines for performance and/or interpretation of susceptibility testing for the above organism and/or the indicated antimicrobial agent(s). Normal [facility] Comment on above: Performed By: #### 1 0070, 93900, 92924, 72892, 69278, 68096 #### [facility] [address] URINALYSIS REFLEXon 06-05-19 22 Appearance (U) CLEAR Normal CLEAR [facility] Comment on above: Order Comment: TEMPO RARILY UNABLE TO PERFORM PROTEIN ELECTROPHORESIS TESTING IN HOUSE. SEE [facility] REPORT FOR MONOCLONAL PROTEIN STUDY - Performed By: #### 4 1918, 68722 #### [facility] [address] Bilirubin Ql (U) Negative Normal NEGATIVE [facility] Comment on above: Order Comment: TEMPO RARILY UNABLE TO PERFORM PROTEIN ELECTROPHORESIS TESTING IN HOUSE. SEE [facility] REPORT FOR MONOCLONAL PROTEIN STUDY - Performed By: #### 4 1918, 78849 #### [facility] [address] [place] [address], [place] Color (U) STRAW Abnormal YELLOW [facility] Comment on above: Order Comment: RICHARD SANTOS UNABLE TO PERFORM PROTEIN ELECTROPHORESIS TESTING IN HOUSE. SEE [facility] REPORT FOR MONOCLONAL PROTEIN STUDY - Performed By: #### 4 1918, 86315 #### [facility] [address] [place] [address], [place] EPIS NONE SEEN Normal FEW,OCC,NONE SEEN [facility] Comment on above: Order Comment: RICHARD SANTOS UNABLE TO PERFORM PROTEIN ELECTROPHORESIS TESTING IN HOUSE. SEE [facility] REPORT FOR MONOCLONAL PROTEIN STUDY - Performed By: #### 4 1918, #### [facility] [address] [place] [address], [place] Glucose Ql (U) Negative Normal NEGATIVE [facility] Comment on above: Order Comment: RICHARD SANTOS UNABLE TO PERFORM PROTEIN ELECTROPHORESIS TESTING IN HOUSE. SEE [facility] REPORT FOR MONOCLONAL PROTEIN STUDY - Performed By: #### 4 1918, #### [facility] [address] [place] [address], [place] Hemoglobin Ql (U) SMALL Abnormal NEGATIVE [facility] Comment on above: Order Comment: RICHARD SANTOS UNABLE TO PERFORM PROTEIN ELECTROPHORESIS TESTING IN HOUSE. SEE [facility] REPORT FOR MONOCLONAL PROTEIN STUDY - Performed By: #### 4 1918, #### [facility] [address] [place] [address], [place] KETONE Negative Normal NEGATIVE [facility] Comment on above: Order Comment: RICHARD SANTOS UNABLE TO PERFORM PROTEIN ELECTROPHORESIS TESTING IN HOUSE. SEE [facility] REPORT FOR MONOCLONAL PROTEIN STUDY - Performed By: #### 4 1918, 23926 #### [facility] [address] [place] [address], [place] LEUK KEELY Negative Normal NEGATIVE [facility] Comment on above: Order Comment: RICHARD SANTOS UNABLE TO PERFORM PROTEIN ELECTROPHORESIS TESTING IN HOUSE. SEE [facility] REPORT FOR MONOCLONAL PROTEIN STUDY - Performed By: #### 4 1918, 42219 #### [facility] [address] [place] [address], [facility] Nitrite Ql (U) Negative Normal NEGATIVE [facility] Comment on above: Order Comment: RICHARD SANTOS UNABLE TO PERFORM PROTEIN ELECTROPHORESIS TESTING IN HOUSE. SEE [facility] REPORT FOR MONOCLONAL PROTEIN STUDY - Performed By: #### 4 1918, 79327 #### [facility] [address] [place] [address], [facility] pH (U) 5.0 [pH] Normal 5.0-8.0 [facility] Comment on above: Order Comment: RICHARD SANTOS UNABLE TO PERFORM PROTEIN ELECTROPHORESIS TESTING IN HOUSE. SEE [facility] REPORT FOR MONOCLONAL PROTEIN STUDY - Performed By: #### 4 1918, 17043 #### [facility] [address] [facility] [place] [address], [facility] Protein Ql (U) Negative Normal NEGATIVE [facility] Comment on above: Order Comment: RICHARD SANTOS UNABLE TO PERFORM PROTEIN ELECTROPHORESIS TESTING IN HOUSE. SEE [facility] REPORT FOR MONOCLONAL PROTEIN STUDY - Performed By: #### 4 1918, #### [facility] [address] [facility] [place] [address], [facility] RBC 0-2 Abnormal NONE SEEN [facility] Comment on above: Order Comment: RICHARD SANTOS UNABLE TO PERFORM PROTEIN ELECTROPHORESIS TESTING IN HOUSE. SEE [facility] REPORT FOR MONOCLONAL PROTEIN STUDY - Performed By: #### 4 1918, #### [facility] [address] [place] [address], [facility] SPEC GRAV 1.006 Low 1.015-1.020 [facility] Comment on above: Order Comment: RICHARD SANTOS UNABLE TO PERFORM PROTEIN ELECTROPHORESIS TESTING IN HOUSE. SEE [facility] REPORT FOR MONOCLONAL PROTEIN STUDY - Performed By: #### 4 1918, 20862 #### [facility] [address] [facility] [place] [address], [facility] WBC UA NONE SEEN Normal NONE SEEN [facility] Comment on above: Order Comment: RICHARD SANTOS UNABLE TO PERFORM PROTEIN ELECTROPHORESIS TESTING IN HOUSE. SEE [facility] REPORT FOR MONOCLONAL PROTEIN STUDY - Performed By: #### 4 1918, 39433 #### [facility] [address] [facility] [place] [address], [facility] CBC W/DIFFon 05-26-2021 ABS IMM GRANS 0.1 10*3/uL Normal 0.0-0.2 [facility] Comment on above: Performed By: #### 3 4266 #### [facility] [address] [facility] [place] [id number], [facility] ABS NEUTROPHILS 9.7 10*3/uL High 1.6-7.6 [facility] Comment on above: Performed By: #### 3 1756 #### [facility] [address] [facility] [place] [address], [facility] Basophils (Bld) [#/Vol] 0.0 10*3/uL Normal 0.0-0.2 [facility] Comment on above: Performed By: #### 3 8826 #### [facility] [address] [facility] [place] [address], [facility] Basophils/100 WBC (Bld) 0.3 % Normal 0.0-1.0 [facility] Comment on above: Performed By: #### 3 2066 #### [facility] [address] [facility] [place] [address], [facility] Eosinophils (Bld) [#/Vol] 0.0 10*3/uL Normal 0.0-0.5 [facility] Comment on above: Performed By: #### 3 7106 #### [facility] [address] [place] [address], [facility] Eosinophils/100 WBC (Bld) 0.2 % Normal 0.0-6.0 [facility] Comment on above: Performed By: #### 3 1756 #### [facility] [address] [facility] Erythrocyte distribution width (RBC) [Ratio] 13.4 % Normal 11.5-15.0 [facility] Comment on above: Performed By: #### 3 1756 #### [facility] [address] [facility] [place] [address], [facility] Hematocrit (Bld) [Volume fraction] 44.5 % Normal 39.0-50.0 [facility] Comment on above: Performed By: #### 3 1756 #### [facility] [address] [facility] [address] Hemoglobin (Bld) [Mass/Vol] 13.9 g/dL Normal 13.0-17.0 [facility] Comment on above: Performed By: #### 3 1756 #### [facility] [address] [facility]. [address] IMMATURE GRANS 0.6 % Normal 0.0-1.0 [facility] Comment on above: Performed By: #### 3 2816 #### [facility] [address] [facility] [place] [address], [facility] Lymphocytes (Bld) [#/Vol] 0.7 10*3/uL Low 1.2-4.0 [facility] Comment on above: Performed By: #### 3 7376 #### [facility] [address] [facility] [place] [address], [facility] Lymphocytes/100 WBC (Bld) 6.6 % Low 20.0-45.0 [facility] Comment on above: Performed By: #### 3 9836 #### [facility] [address] [place] [id number], [facility] MCH (RBC) [Entitic mass] 29.0 pg Normal 27.0-33.0 [facility] Comment on above: Performed By: #### 3 6 #### [facility] [address] [facility] [place] [address], [facility] MCHC (RBC) [Mass/Vol] 31.2 g/dL Low 32.0-35.0 [facility] Comment on above: Performed By: #### 3 6 #### [facility] [address] [facility] [place] [address], [facility] MCV (RBC) [Entitic vol] 92.7 fL Normal 82.0-98.0 [facility] Comment on above: Performed By: #### 3 6 #### [facility] [address] [facility] [place] [address], [facility] Monocytes (Bld) [#/Vol] 0.3 10*3/uL Normal 0.1-1.0 [facility] Comment on above: Performed By: #### 3 6 #### [facility] [address] [facility] [place] [address], [facility] MONOS 3.1 % Low 5.0-12.0 [facility] Comment on above: Performed By: #### 3 6 #### [facility] [address] [facility] Neutrophils/100 WBC (Bld) 89.2 % High 40.0-72.0 [facility] Comment on above: Performed By: #### 3 6 #### [facility] [address] [facility] [place] [address], [facility] Nucleated RBC/100 WBC (Bld) [Ratio] 0 % Normal 0-0 [facility] Comment on above: Performed By: #### 3 6 #### [facility] [address] [place] [address], [facility] PLAT CNT 271 10*3/uL Normal 150-400 [facility] Comment on above: Performed By: #### 3 1755 #### [facility] [address] [place] [address], [facility] RBC (Bld) [#/Vol] 4.80 10*6/uL Normal 4.20-5.70 [facility] Comment on above: Performed By: #### 3 1756 #### [facility] [address] [place] [address], [place] WBC (Bld) [#/Vol] 10.86 10*3/uL High 4.00-10.60 [facility] Comment on above: Performed By: #### 3 1756 #### [facility] [address] [place] [address], [facility] COMP METABOLIC PANELon 05-26 Albumin [Mass/Vol] 4.2 g/dL Normal 3.5-5.7 [facility] Comment on above: Performed By: #### 1 0070, 25639, 58806, 94474, 63635, 29463 #### [facility] [address] [place] [address], [place] ALKALINE PHOSPH 61 IU/L Normal 34-104 [facility] Comment on above: Performed By: #### 1 0070, 85627, 08546, 23840, 96238, 65706 #### [facility] [address] [place] [address], [place] ALT [Catalytic activity/Vol] 45 U/L Normal 7-52 [facility] Comment on above: Performed By: #### 1 0070, 69541, 78103, 23402, 60748, 10254 #### [facility] [address] [place] [address], [place] AST [Catalytic activity/Vol] 23 U/L Normal 13-39 [facility] Comment on above: Performed By: #### 1 0070, 96018, 58367, 32560, 03615, 63698 #### [facility] [address] [place] [address], [place] Bilirubin [Mass/Vol] 0.7 mg/dL Normal 0.3-1.0 [facility] Comment on above: Performed By: #### 1 0070, 70529, 59618, 28507, 89217, 94345 #### [facility] [address] [place] [address], [place] Calcium [Mass/Vol] 9.9 mg/dL Normal 8.6-10.3 [facility] Comment on above: Performed By: #### 1 0070, 72314, 36791, 44374, 65782, 44566 #### [facility] [address] [place] [address], [place] Chloride [Moles/Vol] 102 mmol/L Normal 98-107 [facility] Comment on above: Performed By: #### 1 0070, 29925, 08642, 13123, 55041, 34044 #### [facility] [address] [place] [address], [place] CO2 [Moles/Vol] 23 mmol/L Normal 21-31 [facility] Comment on above: Performed By: #### 1 0070, 22932, 63754, 24735, 05840, 38462 #### [facility] [address] [place] [address], [place] Creatinine [Mass/Vol] 1.73 mg/dL High 0.70-1.30 [facility] Comment on above: Performed By: #### 1 0070, [id number], [id number], 03607, 24682, 48461 #### [facility] [address] [place] [address], [place] eGFR- 50 ml/min/1.73sq m Abnormal >60 [facility] Comment on above: Performed By: #### 1 0070, 96450, [id number], [id number], [id number], [id number] #### [facility] [address] [place] [address], [place] eGFR- non- 41 ml/min/1.73sq m Abnormal >60 [facility] Comment on above: Performed By: #### 1 0070, 18772, 91832, 33677, 36044, 54679 #### [facility] [address] [place] [address], [place] Glucose [Mass/Vol] 109 mg/dL High 70-100 [facility] Comment on above: Performed By: #### 1 0070, 52757, 40886, 41593, 02466, 91521 #### [facility] [address] [place] [address], [place] Potassium [Moles/Vol] 5.1 mmol/L Normal 3.5-5.1 [facility] Comment on above: Performed By: #### 1 0070, 94683, 70114, 06088, 98309, 67601 #### [facility] [address] [place] [address], [place] Protein [Mass/Vol] 6.7 g/dL Normal 6.0-8.3 [facility] Comment on above: Performed By: #### 1 0070, 15607, 44070, 57293, 88272, 20140 #### [facility] [address] [place] [address], [place] Sodium [Moles/Vol] 135 mmol/L Low 136-145 [facility] Comment on above: Performed By: #### 1 0070, 11317, 03513, 96156, 24439, 82448 #### [facility] [address] [place] [address], [place] Urea nitrogen [Mass/Vol] 28 mg/dL High 7-25 [facility] Comment on above: Performed By: #### 1 0070, 95591, 05338, 33004, 44222, 28797 #### [facility] [address] [place] [address], [place] CREATININE URINE RANDOMon Creatinine (U) [Mass/Vol] 49.0 mg/dL Normal [facility] Comment on above: Result Comment: Ther e are no established reference values for random urine specimens Performed By: #### 4 1919, 51309 #### [facility] [address] [place] [address], [facility] DIRECT BILIon 05-26-2021 Bilirubin.direct [Mass/Vol] 0.1 mg/dL Normal 0.0-0.2 [facility] Comment on above: Performed By: #### 1 0070, 09808, 86665, 22320, 95800, 72753 #### [facility] [address] [place] [address], [facility] LIPID PROFILEon 05-26-2021 Cholesterol [Mass/Vol] 239 mg/dL High 120-200 [facility] Comment on above: Result Comment: CHOL ESTEROL REFERENCE RANGE: 20 YEARS AND OLDER CARDIOVASCULAR RISK Less than 200 mg/dl Low Risk 200 to 239 mg/dl Borderline Risk 240 mg/dl and greater High Risk Performed By: #### 1 0070, 09248, 97147, 00198, 72956, 57070 #### [facility] [address] [place] [address], [facility] Cholesterol in HDL [Mass/Vol] 66 mg/dL Normal 23-92 [facility] Comment on above: Result Comment: Slig ht variation in normal range could be due to gender and/or age. HDL CHOLESTEROL REFERENCE RANGE: 20 years and older Cardiovascular Risk > or =60 mg/dL Desirable 40 TO 59 mg/dL Low Risk <40 mg/dL High Risk Performed By: #### 1 0070, 90961, 76394, 54572, 61919, 89974 #### [facility] [address] [place] [address], [facility] Cholesterol in LDL [Mass/Vol] 141 mg/dL High 0-130 [facility] Comment on above: Result Comment: LDL IS A CALCULATION LDL IS ONLY VALID IF THE TRIG IS LESS THAN 400. Performed By: #### 1 0070, 03493, 60271, 76424, 94259, 46140 #### [facility] [address] [place] [address], [facility] Cholesterol.total/C holesterol in HDL [Mass ratio] 3.6 {ratio} Normal .0-4.5 [facility] Comment on above: Performed By: #### 1 0070, 89558, 01819, 87730, 02863, 53616 #### [facility] [address] [place], [place] [id number] [place] [address] NON-HDL CHOLESTEROL 173 mg/dL Normal [facility] Comment on above: Performed By: #### 1 0070, 44707, 29239, 95017, 70387, 92271 #### [facility] [address] [facility] Triglyceride [Mass/Vol] 162 mg/dL High 40-149 [facility] Comment on above: Result Comment: TRIG LYCERIDE REFERENCE RANGE: 20 YEARS AND OLDER CARDIOVASCULAR RISK LESS THAN 150 mg/dl LOW RISK 150 TO 199 mg/dl BORDERLINE RISK 200 mg/dl AND GREATER HIGH RISK Performed By: #### 1 0070, 88751, 88844, 95364, 32662, 42916 #### [facility] [address] [facility] [place] [address], [facility] VLDL CHOL 32 mg/dL Normal 0-40 [facility] Comment on above: Performed By: #### 1 0070, 22604, 72415, 39051, 37585, 45309 #### [facility] [address] [facility] [place] [address], [facility] MAGNESIUM BLOODon 05-26-2021 Magnesium [Mass/Vol] 2.0 mg/dL Normal 1.9-2.7 [facility] Comment on above: Performed By: #### 1 0070, 28045, 35413, 56896, 63589, 71500 #### [facility] [address] [place] [address], [facility] MONOCLONAL PROTEIN STUDY, 24 HR URINE [id number] 05-26-2021 ALBUMIN % URINE 77.3 % Normal [facility] ALPHA-1 % URINE 3.0 % Normal [facility] ALPHA-2 % URINE 4.1 % Normal [facility] ARUP TIME Not Provided Normal [facility] BETA GLOBULIN % URINE 6.9 % Normal [facility] EER MONOCLONAL PROTEIN STUDY See Note Normal [facility] Comment on above: Result Comment: Acce ss [facility] Enhanced Report using the link below: -Direct access: [email or web address] Performed By: [facility] [address] [place] [address] Pharmacy Service Associate: Tiffanie Portillo MD GAMMA GLOBULIN % URINE 8.7 % Normal [facility] ROBERTH INTERPRETATION See Note Normal [facility] Comment on above: Result Comment: No m onoclonal protein detected on UPEP. Urine ROBERTH is negative for monoclonal free light chains (Bence Hughes Protein). This test has been reviewed and approved by Blade Christian M.D., M.S. PARAPROTEIN % URINE 0.0 % Normal [facility] PARAPROTEIN EXCRETION/24 HOUR Not Applicable Normal [facility] Protein (U) [Mass/Vol] 17 mg/dL Normal [facility] URINE 24 HOUR PROTEIN Not Applicable Normal 40-150 [facility] Comment on above: Result Comment: INTE RPRETIVE INFORMATION: Total Protein - mg/day Total urine protein measurement using this method characteristically underestimates urinary light chains. VOLUME ml Not Provided Normal [facility] PHOSPHORUS BLOODon Phosphate [Mass/Vol] 3.4 mg/dL Normal 2.5-5.0 [facility] Comment on above: Performed By: #### 1 0070, 52521, 27076, 37377, 83905, 31368 #### [facility] [address] [place] [address], [facility] PROTEIN ELECT URon PROTEIN ELECT CANCELED Normal [facility] Comment on above: Order Comment: RICHARD SANTOS UNABLE TO PERFORM PROTEIN ELECTROPHORESIS TESTING IN HOUSE. SEE [facility] REPORT FOR MONOCLONAL PROTEIN STUDY - Performed By: #### 4 191, 74695 #### [facility] [address] [facility] [address], [facility] U TOTAL PROTEIN CANCELED Normal [facility] Comment on above: Order Comment: RICHARD SANTOS UNABLE TO PERFORM PROTEIN ELECTROPHORESIS TESTING IN HOUSE. SEE [facility] REPORT FOR MONOCLONAL PROTEIN STUDY - Result Comment: The released value 16.0 was canceled by OCREEGER on 06/08/2021 11:23 Performed By: #### 4 1918, 49251 #### [facility] [address] TACROLIMUSon 05-26-2021 Tacrolimus (Bld) [Mass/Vol] 9.3 ng/mL Normal 5.0-20.0 [facility] Comment on above: Result Comment: The [employer] Tacrolimus assay is a delayed one-step immunoassay for the quantitative determination of tacrolimus in human whole blood using the chemiluminescent microparticle immunoassay (CMIA) technology with flexible assay protocols, referred to as Chemiflex. Performed By: #### 9 9914 #### [facility] [address] [place] [address], [facility] URIC ACID BLOODon 05-26-2021 Urate [Mass/Vol] 9.4 mg/dL High 4.4-7.6 [facility] Comment on above: Performed By: #### 1 0070, 64967, 25557, 57156, 29431, 79002 #### [facility] [address] [facility] [place] [address], [facility] US FLORINA DOP LEG BILon 022 US FLORINA DOP LEG FERNANDA EXAMINATION: US FLORINA DOP LEG FERNANDA HISTORY: Swelling of bilateral lower limbs , bilateral leg pain and tingling, left greater than right COMPARISON: No relevant comparison available. FINDINGS: REGION: Bilateral lower extremities THROMBI: None. COMPRESSIBILITY: Normal compressibility. FLOW: Normal waveform and antegrade flow between 5 and 20 cm/s. OTHER: None. IMPRESSION: 1. No deep vein thrombus within the right or left lower extremity. Electronically authenticated by: SON CACERES Date: 2021-05-25 16:26 Normal [facility] CHEST AND LATERALon 05-18-19 22 CHEST AND LATERAL [facility] Department of Radiology [address] [place] [id number] ======== Patient Name: IRVIN CARRINGTON : 1965 Sex: M Age: Race: White Pt. Location: [facility] Patient Status: E Ordered Date: 05/18/2021 8:55:00 AM Completed Date: 05/18/2021 09:11 AM Requesting Provider: PIPER HERNANDEZ Attending Provider: PIPER HERNANDEZ Report Copy To: Signs & Symptoms: Productive Cough History: Comments: Aspiration Exam: CHEST AND LATERAL ======== CHEST AND LATERAL 05/18/2021 9:11 AM CLINICAL INDICATIONS: Productive Cough TECHNOLOGIST COMMENTS: Pt stated having productive cough, HTN, was diagnosed with Covid X 1 month ago, pneumonia. QUESTION FOR THE RADIOLOGIST: Aspiration PROTOCOL: AP(PA) and Lateral views were obtained. COMPARISON: April 27, 2021 FINDINGS: Cardiomediastinal silhouette is unchanged. There is redemonstration of bilateral midlung interstitial opacities no pneumothorax or pleural effusion. IMPRESSION: Multifocal interstitial opacities possible sequela of Covid 19 pneumonia. Approved by:Brittany Gonsalves05/18/2021 9:20 AM. I, Kimberly Carrington,have reviewed the image(s) and agree with the findings in this report. Electronically signed: Kimberly Carrington. Transcribed by: [email or web address], User Resident: BRITTANY ADAMS Electronically Signed by: KIMBERLY CARRINGTON @ 05/18/2021 09:33 AM I personally read this/these film(s) with this resident Normal [facility] Comment on above: Order Comment: RICHARD RARPETER UNABLE TO PERFORM PROTEIN ELECTROPHORESIS TESTING IN HOUSE. SEE [facility] REPORT FOR MONOCLONAL PROTEIN STUDY - CBC W/DIFFon 05-15-2021 ABS IMM GRANS 0.1 10*3/uL Normal 0.0-0.2 [facility] Comment on above: Performed By: #### 3 1756 #### [facility] [address] ABS NEUTROPHILS 10.4 10*3/uL High 1.6-7.6 [facility] Comment on above: Performed By: #### 3 1756 #### [facility] [address] [place] [address], [facility] Basophils (Bld) [#/Vol] 0.0 10*3/uL Normal 0.0-0.2 [facility] Comment on above: Performed By: #### 3 1756 #### [facility] [address] [place] [address], [facility] Basophils/100 WBC (Bld) 0.1 % Normal 0.0-1.0 [facility] Comment on above: Performed By: #### 3 1756 #### [facility] [address] [place] [address], [facility] Eosinophils (Bld) [#/Vol] 0.0 10*3/uL Normal 0.0-0.5 [facility] Comment on above: Performed By: #### 3 1756 #### [facility] [address] [place] [address], [facility] Eosinophils/100 WBC (Bld) 0.3 % Normal 0.0-6.0 [facility] Comment on above: Performed By: #### 3 1756 #### [facility] [address] [place] [address], [facility] Erythrocyte distribution width (RBC) [Ratio] 13.6 % Normal 11.5-15.0 [facility] Comment on above: Performed By: #### 3 1756 #### [facility] [address] [place] [address], [facility] Hematocrit (Bld) [Volume fraction] 42.5 % Normal 39.0-50.0 [facility] Comment on above: Performed By: #### 3 6 #### [facility] [address] [facility] Hemoglobin (Bld) [Mass/Vol] 13.4 g/dL Normal 13.0-17.0 [facility] Comment on above: Performed By: #### 3 6 #### [facility] [address] [facility] [place] [address], [facility] IMMATURE GRANS 0.7 % Normal 0.0-1.0 [facility] Comment on above: Performed By: #### 3 6 #### [facility] [address] [facility] [place] [address], [facility] Lymphocytes (Bld) [#/Vol] 0.6 10*3/uL Low 1.2-4.0 [facility] Comment on above: Performed By: #### 3 6 #### [facility] [address] [facility] [place] [address], [facility] Lymphocytes/100 WBC (Bld) 4.9 % Low 20.0-45.0 [facility] Comment on above: Performed By: #### 3 6 #### [facility] [address] [place] [address], [facility] MCH (RBC) [Entitic mass] 29.3 pg Normal 27.0-33.0 [facility] Comment on above: Performed By: #### 3 1756 #### [facility] [address] [facility] [place] [address], [facility] MCHC (RBC) [Mass/Vol] 31.5 g/dL Low 32.0-35.0 [facility] Comment on above: Performed By: #### 3 1756 #### [facility] [address] [place] [address], [facility] MCV (RBC) [Entitic vol] 92.8 fL Normal 82.0-98.0 [facility] Comment on above: Performed By: #### 3 1756 #### [facility] [address] [facility] [place] [address], [facility] Monocytes (Bld) [#/Vol] 0.6 10*3/uL Normal 0.1-1.0 [facility] Comment on above: Performed By: #### 3 1756 #### [facility] [address] [facility] [place] [address], [facility] MONOS 5.1 % Normal 5.0-12.0 [facility] Comment on above: Performed By: #### 3 1756 #### [facility] [address] [facility] [place] [address], [facility] Neutrophils/100 WBC (Bld) 88.9 % High 40.0-72.0 [facility] Comment on above: Performed By: #### 3 1756 #### [facility] [address] [facility] [place] [address], [facility] Nucleated RBC/100 WBC (Bld) [Ratio] 0 % Normal 0-0 [facility] Comment on above: Performed By: #### 3 1756 #### [facility] [address] [place] [id number], [facility] PLAT CNT 173 10*3/uL Normal 150-400 [facility] Comment on above: Performed By: #### 3 1756 #### [facility] [address] [place] [address], [facility] RBC (Bld) [#/Vol] 4.58 10*6/uL Normal 4.20-5.70 [facility] Comment on above: Performed By: #### 3 1756 #### [facility] [address] [place] [address], [facility] WBC (Bld) [#/Vol] 11.69 10*3/uL High 4.00-10.60 [facility] Comment on above: Performed By: #### 3 1756 #### [facility] [address] [place] [id number], [facility] COMP METABOLIC PANELon 05-15 Albumin [Mass/Vol] 3.5 g/dL Normal 3.5-5.7 [facility] Comment on above: Order Comment: NO OT HER LABS IN [place] Performed By: #### 1 0070, 95702, 12689, 40389, 90128, 58395 #### [facility] [address] [place] [address], [facility] ALKALINE PHOSPH 63 IU/L Normal 34-104 [facility] Comment on above: Order Comment: NO OT HER LABS IN [place] Performed By: #### 1 0070, 96080, 90393, 35182, 90464, 34614 #### [facility] [address] [place] [address], [facility] ALT [Catalytic activity/Vol] 43 U/L Normal 7-52 [facility] Comment on above: Order Comment: NO OT HER LABS IN [place] Performed By: #### 1 0070, 28743, 12625, 69441, 55074, 45436 #### [facility] [address] [place] [address], [place] AST [Catalytic activity/Vol] 18 U/L Normal 13-39 [facility] Comment on above: Order Comment: NO OT HER LABS IN [place] Performed By: #### 1 0070, 91518, 44310, 61170, 66769, 54936 #### [facility] [address] [place] [address], [place] Bilirubin [Mass/Vol] 0.8 mg/dL Normal 0.3-1.0 [facility] Comment on above: Order Comment: NO OT HER LABS IN [place] Performed By: #### 1 0070, 44477, 37864, 42905, 13273, 82475 #### [facility] [address] [place] [address], [place] Calcium [Mass/Vol] 9.4 mg/dL Normal 8.6-10.3 [facility] Comment on above: Order Comment: NO OT HER LABS IN [place] Performed By: #### 1 0070, 89613, 29037, 08501, 71475, 43285 #### [facility] [address] [place] [address], [place] Chloride [Moles/Vol] 101 mmol/L Normal 98-107 [facility] Comment on above: Order Comment: NO OT HER LABS IN [place] Performed By: #### 1 0070, 27727, 12053, 50047, 78277, 53359 #### [facility] [address] [place] [address], [place] CO2 [Moles/Vol] 23 mmol/L Normal 21-31 [facility] Comment on above: Order Comment: NO OT HER LABS IN [place] Performed By: #### 1 0070, 70697, 61486, 56309, 26326, 97671 #### [facility] [address] [place] [address], [place] Creatinine [Mass/Vol] 1.71 mg/dL High 0.70-1.30 [facility] Comment on above: Order Comment: NO OT HER LABS IN [place] Performed By: #### 1 0070, 53828, 07361, 49006, 25088, 51972 #### [facility] [address] [place] [address], [place] eGFR- 51 ml/min/1.73sq m Abnormal >60 [facility] Comment on above: Order Comment: NO OT HER LABS IN [place] Performed By: #### 1 0070, 24980, 53696, 01354, 39520, 05754 #### [facility] [address] [place] [address], [place] eGFR- non- 42 ml/min/1.73sq m Abnormal >60 [facility] Comment on above: Order Comment: NO OT HER LABS IN [place] Performed By: #### 1 0070, 31709, 72161, 34682, 71338, 99007 #### [facility] [address] [place] [address], [place] Glucose [Mass/Vol] 111 mg/dL High 70-100 [facility] Comment on above: Order Comment: NO OT HER LABS IN [place] Performed By: #### 1 0070, 07747, 42102, 83219, 74404, 39171 #### [facility] [address] [place] [address], [place] Potassium [Moles/Vol] 4.7 mmol/L Normal 3.5-5.1 [facility] Comment on above: Order Comment: NO OT HER LABS IN [place] Performed By: #### 1 0070, 08959, 67382, 90459, 63846, 40628 #### [facility] [address] [place] [address], [place] Protein [Mass/Vol] 6.1 g/dL Normal 6.0-8.3 [facility] Comment on above: Order Comment: NO OT HER LABS IN [place] Performed By: #### 1 0070, 11490, 27762, 52544, 23709, 85264 #### [facility] [address] [place] [address], [place] Sodium [Moles/Vol] 133 mmol/L Low 136-145 [facility] Comment on above: Order Comment: NO OT HER LABS IN [place] Performed By: #### 1 0070, 44526, 83235, 35298, 37849, 04505 #### [facility] [address] [place] [address], [facility] Urea nitrogen [Mass/Vol] 28 mg/dL High 7-25 [facility] Comment on above: Order Comment: NO OT HER LABS IN [place] Performed By: #### 1 0070, 03775, 51756, 16955, 25726, 92273 #### [facility] [address] [place] [address], [facility] CREATININE URINE RANDOMon Creatinine (U) [Mass/Vol] 113.0 mg/dL Normal [facility] Comment on above: Result Comment: Ther e are no established reference values for random urine specimens Performed By: #### 1 0070, 89489, 46299, 18341, 90500, 15430 #### [facility] [address] [place] [address], [facility] DIRECT BILIon 05-15-2021 Bilirubin.direct [Mass/Vol] 0.1 mg/dL Normal 0.0-0.2 [facility] Comment on above: Order Comment: Liver Battery conflicts with Comprehensive Metabolic Panel. Liver Battery canceled and Direct Bilirubin added. Performed By: #### 1 0070, 94844, 74386, 37658, 34363, 18251 #### [facility] [address] [place] [address], [facility] LIPID PROFILEon 05-15-2021 Cholesterol [Mass/Vol] 228 mg/dL High 120-200 [facility] Comment on above: Result Comment: CHOL ESTEROL REFERENCE RANGE: 20 YEARS AND OLDER CARDIOVASCULAR RISK Less than 200 mg/dl Low Risk 200 to 239 mg/dl Borderline Risk 240 mg/dl and greater High Risk Performed By: #### 1 0070, 45307, 83846, 44189, 94147, 42279 #### [facility] [address] [place] [address], [place] Cholesterol in HDL [Mass/Vol] 60 mg/dL Normal 23-92 [facility] Comment on above: Result Comment: Slig ht variation in normal range could be due to gender and/or age. HDL CHOLESTEROL REFERENCE RANGE: 20 years and older Cardiovascular Risk > or =60 mg/dL Desirable 40 TO 59 mg/dL Low Risk <40 mg/dL High Risk Performed By: #### 1 0070, 87614, 30751, 54282, 06330, 74669 #### [facility] [address] [place] [address], [place] Cholesterol in LDL [Mass/Vol] 125 mg/dL Normal 0-130 [facility] Comment on above: Result Comment: LDL IS A CALCULATION LDL IS ONLY VALID IF THE TRIG IS LESS THAN 400. Performed By: #### 1 0070, 25378, 88642, 05421, 20873, 39180 #### [facility] [address] [place] [address], [place] Cholesterol.total/C holesterol in HDL [Mass ratio] 3.8 {ratio} Normal .0-4.5 [facility] Comment on above: Performed By: #### 1 0070, 93336, 88667, 11187, 15610, 83217 #### [facility] [address] [place] [address], [place] NON-HDL CHOLESTEROL 168 mg/dL Normal [facility] Comment on above: Performed By: #### 1 0070, 47112, 28547, 57310, 29952, 99646 #### [facility] [address] [place] [address], [place] Triglyceride [Mass/Vol] 216 mg/dL High 40-149 [facility] Comment on above: Result Comment: TRIG LYCERIDE REFERENCE RANGE: 20 YEARS AND OLDER CARDIOVASCULAR RISK LESS THAN 150 mg/dl LOW RISK 150 TO 199 mg/dl BORDERLINE RISK 200 mg/dl AND GREATER HIGH RISK Performed By: #### 1 0070, 88834, 52263, 36108, 55896, 81113 #### [facility] [address] [place] [address], [facility] VLDL CHOL 43 mg/dL High 0-40 [facility] Comment on above: Performed By: #### 1 0070, 99190, 54589, 29186, 05297, 60091 #### [facility] [address] [place] [address], [facility] MAGNESIUM BLOODon 05-15-2021 Magnesium [Mass/Vol] 1.8 mg/dL Low 1.9-2.7 [facility] Comment on above: Performed By: #### 1 0070, 19975, 34601, 23417, 09889, 96338 #### [facility] [address] [place] [address], [facility] PHOSPHORUS BLOODon Phosphate [Mass/Vol] 3.0 mg/dL Normal 2.5-5.0 [facility] Comment on above: Performed By: #### 1 0070, 33312, 90126, 58832, 15957, 06599 #### [facility] [address] [facility] [place] [address], [facility] T PROT UR Kylie 05-15-2021 U TOTAL PROTEIN 22.2 mg/dL Normal [facility] Comment on above: Result Comment: Ther e are no established reference values for random urine specimens Performed By: #### 1 0070, 95679, 42926, 25643, 62878, 31855 #### [facility] [address] [place] [address], [facility] TACROLIMUSon 05-15-2021 Tacrolimus (Bld) [Mass/Vol] 9.4 ng/mL Normal 5.0-20.0 [facility] Comment on above: Result Comment: The [employer] Tacrolimus assay is a delayed one-step immunoassay for the quantitative determination of tacrolimus in human whole blood using the chemiluminescent microparticle immunoassay (CMIA) technology with flexible assay protocols, referred to as Chemiflex. Performed By: #### 1 0070, 84653, 19121, 73428, 22441, 88552 #### [facility] [address] [facility]. [address] URIC ACID BLOODon 05-15-2021 Urate [Mass/Vol] 9.2 mg/dL High 4.4-7.6 [facility] Comment on above: Performed By: #### 1 0070, 66425, 26694, 55353, 76206, 56804 #### [facility] [address] [facility]. [address] CBC W/DIFFon 05-09-2021 ABS IMM GRANS 0.1 10*3/uL Normal 0.0-0.2 [facility] Comment on above: Performed By: #### 1 0070, 05983, 63839, 22953, 45503, 85778 #### [facility] [address] ABS NEUTROPHILS 11.8 10*3/uL High 1.6-7.6 [facility] Comment on above: Performed By: #### 1 0070, 10036, 74975, 44514, 44730, 01587 #### [facility] [address] [place] [address], [facility] Basophils (Bld) [#/Vol] 0.0 10*3/uL Normal 0.0-0.2 [facility] Comment on above: Performed By: #### 1 0070, 37456, 06568, 62762, 63143, 82136 #### [facility] [address] [place] [address], [facility] Basophils/100 WBC (Bld) 0.2 % Normal 0.0-1.0 [facility] Comment on above: Performed By: #### 1 0070, 27469, 97094, 88691, 12468, 28608 #### [facility] [address] [place] [address], [facility] Eosinophils (Bld) [#/Vol] 0.1 10*3/uL Normal 0.0-0.5 [facility] Comment on above: Performed By: #### 1 0070, 96654, 54722, 93903, 05822, 64761 #### [facility] [address] [place] [address], [facility] Eosinophils/100 WBC (Bld) 0.4 % Normal 0.0-6.0 [facility] Comment on above: Performed By: #### 1 0070, 82098, 29126, 38962, 38388, 36098 #### [facility] [address] Erythrocyte distribution width (RBC) [Ratio] 13.2 % Normal 11.5-15.0 [facility] Comment on above: Performed By: #### 1 0070, 93210, 96321, 04853, 21337, 66396 #### [facility] [address] Hematocrit (Bld) [Volume fraction] 40.9 % Normal 39.0-50.0 [facility] Comment on above: Performed By: #### 1 0070, 87016, 89215, 77928, 52022, 15137 #### [facility] [address] Hemoglobin (Bld) [Mass/Vol] 12.8 g/dL Low 13.0-17.0 [facility] Comment on above: Performed By: #### 1 0070, 78495, 60828, 53849, 10527, 69881 #### [facility] [address] [place] [address], [facility] IMMATURE GRANS 1.0 % Normal 0.0-1.0 [facility] Comment on above: Performed By: #### 1 0070, 73595, 72639, 86939, 19013, 77029 #### [facility] [address] [facility] [address] Lymphocytes (Bld) [#/Vol] 0.5 10*3/uL Low 1.2-4.0 [facility] Comment on above: Performed By: #### 1 0070, 23463, 27508, 46331, 47737, 88248 #### [facility] [address] [facility] [place] [address], [facility] Lymphocytes/100 WBC (Bld) 4.0 % Low 20.0-45.0 [facility] Comment on above: Performed By: #### 1 0070, 72408, 89302, 81827, 94508, 46053 #### [facility] [address] MCH (RBC) [Entitic mass] 28.8 pg Normal 27.0-33.0 [facility] Comment on above: Performed By: #### 1 0070, 32584, 24143, 87312, 38863, 63408 #### [facility] [address] [place] [address], [facility] MCHC (RBC) [Mass/Vol] 31.3 g/dL Low 32.0-35.0 [facility] Comment on above: Performed By: #### 1 0070, 02225, 05130, 58073, 07482, 64290 #### [facility] [address] [facility] [place] [address], [facility] MCV (RBC) [Entitic vol] 91.9 fL Normal 82.0-98.0 [facility] Comment on above: Performed By: #### 1 0070, 74285, 46578, 50897, 88964, 81532 #### [facility] [address] [place] [address], [facility] Monocytes (Bld) [#/Vol] 0.6 10*3/uL Normal 0.1-1.0 [facility] Comment on above: Performed By: #### 1 0070, 49984, 06126, 47763, 60745, 05709 #### [facility] [address] [place] [address], [facility] MONOS 4.7 % Low 5.0-12.0 [facility] Comment on above: Performed By: #### 1 0070, 83380, 90156, 73293, 99223, 02108 #### [facility] [address] [facility] [place] [address], [facility] Neutrophils/100 WBC (Bld) 89.7 % High 40.0-72.0 [facility] Comment on above: Performed By: #### 1 0070, 80882, 73531, 94139, 16042, 57190 #### [facility] [address] [facility] [place] [address], [facility] Nucleated RBC/100 WBC (Bld) [Ratio] 0 % Normal 0-0 [facility] Comment on above: Performed By: #### 1 0070, 54478, 54083, 00206, 14904, 72670 #### [facility] [address] [facility] [place] [address], [facility] PLAT CNT 201 10*3/uL Normal 150-400 [facility] Comment on above: Performed By: #### 1 0070, 42908, 89111, 70968, 99858, 93314 #### [facility] [address] [facility] [place] [address], [facility] RBC (Bld) [#/Vol] 4.45 10*6/uL Normal 4.20-5.70 [facility] Comment on above: Performed By: #### 1 0070, 58561, 58691, 59801, 68293, 75495 #### [facility] [address] [facility] [place] [address], [facility] WBC (Bld) [#/Vol] 13.11 10*3/uL High 4.00-10.60 [facility] Comment on above: Performed By: #### 1 0070, 16863, 44007, 08603, 96464, 61054 #### [facility] [address] [place] [address], [facility] COMP METABOLIC PANELon 05-09 Albumin [Mass/Vol] 3.4 g/dL Low 3.5-5.7 [facility] Comment on above: Performed By: #### 1 0070, 70562, 21077, 25421, 09110, 77317 #### [facility] [address] [place] [address], [place] ALKALINE PHOSPH 66 IU/L Normal 34-104 [facility] Comment on above: Performed By: #### 1 0070, 44213, 63137, 57863, 29364, 77487 #### [facility] [address] [place] [address], [place] ALT [Catalytic activity/Vol] 54 U/L High 7-52 [facility] Comment on above: Performed By: #### 1 0070, 40459, 00621, 79084, 79147, 34247 #### [facility] [address] [place] [address], [facility] AST [Catalytic activity/Vol] 22 U/L Normal 13-39 [facility] Comment on above: Performed By: #### 1 0070, 72521, 56886, 41796, 62072, 21160 #### [facility] [address] [place] [address], [place] Bilirubin [Mass/Vol] 0.6 mg/dL Normal 0.3-1.0 [facility] Comment on above: Performed By: #### 1 0070, 09287, 40510, 70079, 12585, 61121 #### [facility] [address] [place] [address], [place] Calcium [Mass/Vol] 9.1 mg/dL Normal 8.6-10.3 [facility] Comment on above: Performed By: #### 1 0070, 79916, 66755, 35509, 56460, 41675 #### [facility] [address] [place] [address], [facility] Chloride [Moles/Vol] 104 mmol/L Normal 98-107 [facility] Comment on above: Performed By: #### 1 0070, 09513, 79202, 72639, 41770, 18094 #### [facility] [address] [place] [address], [facility] CO2 [Moles/Vol] 23 mmol/L Normal 21-31 [facility] Comment on above: Performed By: #### 1 0070, 49005, 03026, 17427, 37056, 25443 #### [facility] [address] [place] [address], [facility] Creatinine [Mass/Vol] 1.80 mg/dL High 0.70-1.30 [facility] Comment on above: Performed By: #### 1 0070, 42852, 23244, 87406, 81743, 42040 #### [facility] [address] [place] [address], [facility] eGFR- 48 ml/min/1.73sq m Abnormal >60 [facility] Comment on above: Performed By: #### 1 0070, 92956, 44792, 50286, 40278, 87591 #### [facility] [address] [place] [address], [facility] eGFR- non- 40 ml/min/1.73sq m Abnormal >60 [facility] Comment on above: Performed By: #### 1 0070, 68532, 84708, 21046, 40945, 56347 #### [facility] [address] [place] [address], [place] Glucose [Mass/Vol] 116 mg/dL High 70-100 [facility] Comment on above: Performed By: #### 1 0070, 18636, 87783, 62407, 33729, 64497 #### [facility] [address] [place] [id number], [facility] Potassium [Moles/Vol] 4.8 mmol/L Normal 3.5-5.1 [facility] Comment on above: Performed By: #### 1 0070, 57019, 84706, 43237, 72112, 26053 #### [facility] [address] [place] [address], [facility] Protein [Mass/Vol] 6.0 g/dL Normal 6.0-8.3 [facility] Comment on above: Performed By: #### 1 0070, 15241, 62106, 32427, 35327, 15073 #### [facility] [address] [place] [address], [facility] Sodium [Moles/Vol] 135 mmol/L Low 136-145 [facility] Comment on above: Performed By: #### 1 0070, 86345, 46682, 65343, 69023, 45735 #### [facility] [address] [place] [address], [facility] Urea nitrogen [Mass/Vol] 41 mg/dL High 7-25 [facility] Comment on above: Performed By: #### 1 0070, 09882, 73982, 27269, 58738, 76219 #### [facility] [address] [place] [id number], [facility] CREATININE URINE RANDOMon Creatinine (U) [Mass/Vol] 185.0 mg/dL Normal [facility] Comment on above: Result Comment: Ther e are no established reference values for random urine specimens Performed By: #### 1 0070, 80260, 25150, 18230, 31100, 97991 #### [facility] [address] [place] [id number], [place] DIRECT BILIon 05-09-2021 Bilirubin.direct [Mass/Vol] 0.1 mg/dL Normal 0.0-0.2 [facility] Comment on above: Performed By: #### 1 0070, 96425, 12659, 71265, 65556, 74058 #### [facility] [address] [place] [address], [facility] LIPID PROFILEon 05-09-2021 Cholesterol [Mass/Vol] 169 mg/dL Normal 120-200 [facility] Comment on above: Result Comment: CHOL ESTEROL REFERENCE RANGE: 20 YEARS AND OLDER CARDIOVASCULAR RISK Less than 200 mg/dl Low Risk 200 to 239 mg/dl Borderline Risk 240 mg/dl and greater High Risk Performed By: #### 1 0070, 17842, 06435, 88789, 35044, 90494 #### [facility] [address] [place] [address], [facility] Cholesterol in HDL [Mass/Vol] 53 mg/dL Normal 23-92 [facility] Comment on above: Result Comment: Slig ht variation in normal range could be due to gender and/or age. HDL CHOLESTEROL REFERENCE RANGE: 20 years and older Cardiovascular Risk > or =60 mg/dL Desirable 40 TO 59 mg/dL Low Risk <40 mg/dL High Risk Performed By: #### 1 0070, 45416, 23856, 05843, 63404, 58364 #### [facility] [address] [place] [address], [place] Cholesterol in LDL [Mass/Vol] 69 mg/dL Normal 0-130 [facility] Comment on above: Result Comment: LDL IS A CALCULATION LDL IS ONLY VALID IF THE TRIG IS LESS THAN 400. Performed By: #### 1 0070, 18192, 85622, 10382, 15503, 50497 #### [facility] [address] [facility] [place] [address], [place] Cholesterol.total/C holesterol in HDL [Mass ratio] 3.2 {ratio} Normal .0-4.5 [facility] Comment on above: Performed By: #### 1 0070, 93945, 88950, 39560, 73928, 21196 #### [facility] [address] [place] [address], [facility] NON-HDL CHOLESTEROL 116 mg/dL Normal [facility] Comment on above: Performed By: #### 1 0070, 00619, 33984, 13367, 04893, 83479 #### [facility] [address] [place] [address], [facility] Triglyceride [Mass/Vol] 236 mg/dL High 40-149 [facility] Comment on above: Result Comment: TRIG LYCERIDE REFERENCE RANGE: 20 YEARS AND OLDER CARDIOVASCULAR RISK LESS THAN 150 mg/dl LOW RISK 150 TO 199 mg/dl BORDERLINE RISK 200 mg/dl AND GREATER HIGH RISK Performed By: #### 1 0070, 35840, 67362, 36604, 11140, 40478 #### [facility] [address] [place] [address], [facility] VLDL CHOL 47 mg/dL High 0-40 [facility] Comment on above: Performed By: #### 1 0070, 16079, 44653, 90066, 51021, 78141 #### [facility] [address] [place] [address], [facility] MAGNESIUM BLOODon 05-09-2021 Magnesium [Mass/Vol] 1.8 mg/dL Low 1.9-2.7 [facility] Comment on above: Performed By: #### 1 0070, 22320, 55990, 98315, 57194, 08031 #### [facility] [address] [place] [address], [facility] PHOSPHORUS BLOODon 2 Phosphate [Mass/Vol] 3.5 mg/dL Normal 2.5-5.0 [facility] Comment on above: Performed By: #### 1 0070, 87761, 29066, 07075, 57965, 81320 #### [facility] [address] [place] [address], [facility] PROTEIN ELECT URon 2 PROTEIN ELECT No abnormal bands seen. Normal [facility] Comment on above: Performed By: #### 1 0070, 21897, 41092, 64074, 25810, 10014 #### [facility] [address] [place] [address], [facility] U TOTAL PROTEIN 44.0 mg/dL Normal [facility] Comment on above: Result Comment: Ther e are no established reference values for random urine specimens Performed By: #### 1 0070, 63578, 70754, 51690, 12519, 82297 #### [facility] [address] [place] [address], [facility] TACROLIMUSon 05-09-2021 Tacrolimus (Bld) [Mass/Vol] 7.8 ng/mL Normal 5.0-20.0 [facility] Comment on above: Result Comment: The [employer] Tacrolimus assay is a delayed one-step immunoassay for the quantitative determination of tacrolimus in human whole blood using the chemiluminescent microparticle immunoassay (CMIA) technology with flexible assay protocols, referred to as Chemiflex. Performed By: #### 1 0070, 67321, 84088, 57809, 82039, 23685 #### [facility] [address] [place] [address], [facility] URIC ACID BLOODon 05-09-2021 Urate [Mass/Vol] 10.3 mg/dL High 4.4-7.6 [facility] Comment on above: Performed By: #### 1 0070, 21964, 15910, 81353, 33591, 99238 #### [facility] [address] [place] [address], [facility] BASIC METABOLIC PANELon 04-09 Calcium [Mass/Vol] 8.9 mg/dL Normal 8.6-10.3 [facility] Comment on above: Order Comment: No: D o not add to previous draw Performed By: #### 1 0070, 69972, 50645, 99128, 43594, 18555 #### [facility] [address] [place] [address], [facility] Chloride [Moles/Vol] 106 mmol/L Normal 98-107 [facility] Comment on above: Order Comment: No: D o not add to previous draw Performed By: #### 1 0070, 96984, 06585, 80986, 74221, 29613 #### [facility] [address] [place] [address], [facility] CO2 [Moles/Vol] 23 mmol/L Normal 21-31 [facility] Comment on above: Order Comment: No: D o not add to previous draw Performed By: #### 1 0070, 94378, 06559, 76097, 81275, 29046 #### [facility] [address] [place] [id number], [facility] Creatinine [Mass/Vol] 1.49 mg/dL High 0.70-1.30 [facility] Comment on above: Order Comment: No: D o not add to previous draw Performed By: #### 1 0070, 84750, 49428, 37003, 68623, 79652 #### [facility] [address] [place] [address], [facility] eGFR- 59 ml/min/1.73sq m Abnormal >60 [facility] Comment on above: Order Comment: No: D o not add to previous draw Performed By: #### 1 0070, 50540, 82810, 37340, 34448, 24883 #### [facility] [address] [place] [address], [facility] eGFR- non- 49 ml/min/1.73sq m Abnormal >60 [facility] Comment on above: Order Comment: No: D o not add to previous draw Performed By: #### 1 0070, 51991, 71705, 43199, 98242, 94604 #### [facility] [address] [place] [address], [place] Glucose [Mass/Vol] 118 mg/dL High 70-100 [facility] Comment on above: Order Comment: No: D o not add to previous draw Performed By: #### 1 0070, 29213, 31431, 75927, 72874, 17556 #### [facility] [address] Potassium [Moles/Vol] 5.0 mmol/L Normal 3.5-5.1 [facility] Comment on above: Order Comment: No: D o not add to previous draw Performed By: #### 1 0070, 78818, 99271, 26224, 22991, 35603 #### [facility] [address] Sodium [Moles/Vol] 135 mmol/L Low 136-145 [facility] Comment on above: Order Comment: No: D o not add to previous draw Performed By: #### 1 0070, 41937, 00425, 32449, 87112, 49704 #### [facility] [address] [facility]. [address] Urea nitrogen [Mass/Vol] 43 mg/dL High 7-25 [facility] Comment on above: Order Comment: No: D o not add to previous draw Performed By: #### 1 0070, 12715, 82003, 91502, [id number], [id number] #### [facility] [address] [facility] [address] TACROLIMUSon 05-02-2021 Tacrolimus (Bld) [Mass/Vol] 12.7 ng/mL Normal 5.0-20.0 [facility] Comment on above: Order Comment: Yes: Add to Previous draw if able Result Comment: The [employer] Tacrolimus assay is a delayed one-step immunoassay for the quantitative determination of tacrolimus in human whole blood using the chemiluminescent microparticle immunoassay (CMIA) technology with flexible assay protocols, referred to as Chemiflex. Performed By: #### 1 [id number], [id number], [id number], [id number], [id number], [id number] #### [facility] [address] [place] [address], [facility] COMP METABOLIC PANELon 05-01 Albumin [Mass/Vol] 2.8 g/dL Low 3.5-5.7 [facility] Comment on above: Order Comment: No: D o not add to previous draw Performed By: #### 1 0070, 16745, 79379, 91061, 74745, 61889 #### [facility] [address] [place] [address], [facility] ALKALINE PHOSPH 59 IU/L Normal 34-104 [facility] Comment on above: Order Comment: No: D o not add to previous draw Performed By: #### 1 0070, 32351, 09664, 79344, 14239, 44350 #### [facility] [address] [place] [address], [facility] ALT [Catalytic activity/Vol] 42 U/L Normal 7-52 [facility] Comment on above: Order Comment: No: D o not add to previous draw Performed By: #### 1 0070, 97799, 89439, 09282, 84292, 65921 #### [facility] [address] [place] [address], [facility] AST [Catalytic activity/Vol] 21 U/L Normal 13-39 [facility] Comment on above: Order Comment: No: D o not add to previous draw Performed By: #### 1 0070, 76581, 70589, 32184, 20960, 93119 #### [facility] [address] [place] [address], [place] Bilirubin [Mass/Vol] 0.5 mg/dL Normal 0.3-1.0 [facility] Comment on above: Order Comment: No: D o not add to previous draw Performed By: #### 1 0070, 07324, 30184, 54585, 71479, 93567 #### [facility] [address] [place] [address], [place] Calcium [Mass/Vol] 8.5 mg/dL Low 8.6-10.3 [facility] Comment on above: Order Comment: No: D o not add to previous draw Performed By: #### 1 0070, 16953, 15881, 88118, 00884, 26258 #### [facility] [address] [place] [address], [facility] Chloride [Moles/Vol] 106 mmol/L Normal 98-107 [facility] Comment on above: Order Comment: No: D o not add to previous draw Performed By: #### 1 0070, 07006, 51932, 35484, 53196, 07880 #### [facility] [address] [place] [address], [facility] CO2 [Moles/Vol] 23 mmol/L Normal 21-31 [facility] Comment on above: Order Comment: No: D o not add to previous draw Performed By: #### 1 0070, 91889, 39667, 68456, 53868, 82697 #### [facility] [address] [place] [address], [place] Creatinine [Mass/Vol] 1.43 mg/dL High 0.70-1.30 [facility] Comment on above: Order Comment: No: D o not add to previous draw Performed By: #### 1 0070, 23415, 04348, 23666, 32627, 27183 #### [facility] [address] [place] [address], [place] eGFR- non- 52 ml/min/1.73sq m Abnormal >60 [facility] Comment on above: Order Comment: No: D o not add to previous draw Performed By: #### 1 0070, 68428, 79954, 13070, 24185, 68979 #### [facility] [address] [place] [address], [place] GFR/1.73 sq M.predicted among blacks MDRD (S/P/Bld) [Vol rate/Area] mL/min/{1.73_m2} Normal >60 [facility] Comment on above: Order Comment: No: D o not add to previous draw Performed By: #### 1 0070, 84468, 84937, 83860, 72904, 49021 #### [facility] [address] [place] [address], [place] Glucose [Mass/Vol] 118 mg/dL High 70-100 [facility] Comment on above: Order Comment: No: D o not add to previous draw Performed By: #### 1 0070, 18654, 65680, 68039, 76122, 20377 #### [facility] [address] [place] [address], [place] Potassium [Moles/Vol] 4.8 mmol/L Normal 3.5-5.1 [facility] Comment on above: Order Comment: No: D o not add to previous draw Performed By: #### 1 0070, 75287, 96665, 36513, 01315, 09041 #### [facility] [address] [place] [address], [place] Protein [Mass/Vol] 5.2 g/dL Low 6.0-8.3 [facility] Comment on above: Order Comment: No: D o not add to previous draw Performed By: #### 1 0070, 50026, 78391, 51454, 07749, 59731 #### [facility] [address] [place] [address], [place] Sodium [Moles/Vol] 134 mmol/L Low 136-145 [facility] Comment on above: Order Comment: No: D o not add to previous draw Performed By: #### 1 0070, 01211, 83800, 63109, 88354, 10971 #### [facility] [address] [place] [address], [place] Urea nitrogen [Mass/Vol] 42 mg/dL High 7-25 [facility] Comment on above: Order Comment: No: D o not add to previous draw Performed By: #### 1 0070, 95844, 73433, 57074, 29197, 61435 #### [facility] [address] TACROLIMUSon 05-01-2021 Tacrolimus (Bld) [Mass/Vol] 8.2 ng/mL Normal 5.0-20.0 [facility] Comment on above: Order Comment: Unkno wn Result Comment: The [employer] Tacrolimus assay is a delayed one-step immunoassay for the quantitative determination of tacrolimus in human whole blood using the chemiluminescent microparticle immunoassay (CMIA) technology with flexible assay protocols, referred to as Chemiflex. Performed By: #### 1 0070, 73574, 11161, 62743, 48288, 14915 #### [facility] [address] [facility] [address] CBC COMPLETE BLOOD COUNTon 0 04-30-2021 Erythrocyte distribution width (RBC) [Ratio] 13.0 % Normal 11.5-15.0 [facility] Comment on above: Order Comment: Yes: Add to Previous draw if able Performed By: #### 3 6698 #### [facility] [address] [facility] [address] Hematocrit (Bld) [Volume fraction] 37.3 % Low 39.0-50.0 [facility] Comment on above: Order Comment: Yes: Add to Previous draw if able Performed By: #### 3 1623 #### [facility] [address] [facility] [place] [address], [facility] Hemoglobin (Bld) [Mass/Vol] 12.2 g/dL Low 13.0-17.0 [facility] Comment on above: Order Comment: Yes: Add to Previous draw if able Performed By: #### 3 0696 #### [facility] [address] [facility] [place] [address], [facility] MCH (RBC) [Entitic mass] 29.1 pg Normal 27.0-33.0 [facility] Comment on above: Order Comment: Yes: Add to Previous draw if able Performed By: #### 3 1756 #### [facility] [address] [place] [address], [facility] MCHC (RBC) [Mass/Vol] 32.7 g/dL Normal 32.0-35.0 [facility] Comment on above: Order Comment: Yes: Add to Previous draw if able Performed By: #### 3 1756 #### [facility] [address] [place] [id number], [facility] MCV (RBC) [Entitic vol] 89.0 fL Normal 82.0-98.0 [facility] Comment on above: Order Comment: Yes: Add to Previous draw if able Performed By: #### 3 1756 #### [facility] [address] [place] [address], [facility] Nucleated RBC/100 WBC (Bld) [Ratio] 0 % Normal 0-0 [facility] Comment on above: Order Comment: Yes: Add to Previous draw if able Performed By: #### 3 1756 #### [facility] [address] [place] [id number], [place] PLAT CNT 229 10*3/uL Normal 150-400 [facility] Comment on above: Order Comment: Yes: Add to Previous draw if able Performed By: #### 3 1756 #### [facility] [address] [place] [address], [facility] RBC (Bld) [#/Vol] 4.19 10*6/uL Low 4.20-5.70 [facility] Comment on above: Order Comment: Yes: Add to Previous draw if able Performed By: #### 3 1756 #### [facility] [address] [place] [id number], [facility] WBC (Bld) [#/Vol] 9.76 10*3/uL Normal 4.00-10.60 [facility] Comment on above: Order Comment: Yes: Add to Previous draw if able Performed By: #### 3 1756 #### [facility] [address] [place] [address], [facility] COMP METABOLIC PANELon 04-30 Albumin [Mass/Vol] 3.0 g/dL Low 3.5-5.7 [facility] Comment on above: Performed By: #### 1 0070, 60681, 29398, 75144, 50189, 81707 #### [facility] [address] [place] [address], [facility] ALKALINE PHOSPH 54 IU/L Normal 34-104 [facility] Comment on above: Performed By: #### 1 0070, 99789, 65969, 39239, 80850, 10286 #### [facility] [address] [place] [address], [facility] ALT [Catalytic activity/Vol] 32 U/L Normal 7-52 [facility] Comment on above: Performed By: #### 1 0070, 11671, 98941, 26442, 77360, 50890 #### [facility] [address] [place] [address], [facility] AST [Catalytic activity/Vol] 17 U/L Normal 13-39 [facility] Comment on above: Performed By: #### 1 0070, 28247, 25414, 86594, 09217, 26753 #### [facility] [address] [place] [address], [place] Bilirubin [Mass/Vol] 0.3 mg/dL Normal 0.3-1.0 [facility] Comment on above: Performed By: #### 1 0070, 93404, 85366, 28676, 46292, 77603 #### [facility] [address] [place] [address], [facility] Calcium [Mass/Vol] 8.6 mg/dL Normal 8.6-10.3 [facility] Comment on above: Performed By: #### 1 0070, 55431, 09528, 28914, 18733, 48697 #### [facility] [address] [place] [address], [facility] Chloride [Moles/Vol] 105 mmol/L Normal 98-107 [facility] Comment on above: Performed By: #### 1 0070, 47255, 80207, 14298, 45353, 67941 #### [facility] [address] [place] [address], [place] CO2 [Moles/Vol] 19 mmol/L Low 21-31 [facility] Comment on above: Performed By: #### 1 0070, 89962, 78072, 83125, 06897, 19306 #### [facility] [address] [place] [address], [facility] Creatinine [Mass/Vol] 1.66 mg/dL High 0.70-1.30 [facility] Comment on above: Performed By: #### 1 0070, 17783, 06396, 55674, 85350, 43643 #### [facility] [address] [place] [address], [facility] eGFR- 52 ml/min/1.73sq m Abnormal >60 [facility] Comment on above: Performed By: #### 1 0070, 83876, 20885, 63250, 02381, 11996 #### [facility] [address] [place] [address], [facility] eGFR- non- 43 ml/min/1.73sq m Abnormal >60 [facility] Comment on above: Performed By: #### 1 0070, 82472, 16767, 62812, 30336, 32169 #### [facility] [address] [place] [address], [place] Glucose [Mass/Vol] 165 mg/dL High 70-100 [facility] Comment on above: Performed By: #### 1 0070, 81220, 01054, 40638, 01953, 79212 #### [facility] [address] [place] [address], [place] Potassium [Moles/Vol] 5.3 mmol/L High 3.5-5.1 [facility] Comment on above: Performed By: #### 1 0070, 75367, 77697, 83955, 92921, 50421 #### [facility] [address] [place] [address], [place] Protein [Mass/Vol] 5.8 g/dL Low 6.0-8.3 [facility] Comment on above: Performed By: #### 1 0070, 92230, 05704, 01082, 22601, 73213 #### [facility] [address] [place] [address], [place] Sodium [Moles/Vol] 132 mmol/L Low 136-145 [facility] Comment on above: Performed By: #### 1 0070, 70349, 28131, 08324, 58384, 07287 #### [facility] [address] [place] [address], [place] Urea nitrogen [Mass/Vol] 54 mg/dL High 7-25 [facility] Comment on above: Performed By: #### 1 0070, 68162, 40422, 80294, 72622, 16724 #### [facility] [address] [place] [address], [place] MAGNESIUM BLOODon 04-30-2021 Magnesium [Mass/Vol] 2.0 mg/dL Normal 1.9-2.7 [facility] Comment on above: Order Comment: No: D o not add to previous drawAdd morning labs per charito etienne Performed By: #### 1 0070, 26687, 38729, 20659, 78055, 84298 #### [facility] [address] [place] [address], [place] POTASSIUM BLOODon 04-30-2021 Potassium [Moles/Vol] 5.2 mmol/L High 3.5-5.1 [facility] Comment on above: Order Comment: No: D o not add to previous draw Performed By: #### 1 0070, 32753, 88093, 15917, 24922, 58344 #### [facility] [address] [place] [address], [facility] TACROLIMUSon 04-30-2021 Tacrolimus (Bld) [Mass/Vol] 7.2 ng/mL Normal 5.0-20.0 [facility] Comment on above: Order Comment: Unkno wn Result Comment: The [employer] Tacrolimus assay is a delayed one-step immunoassay for the quantitative determination of tacrolimus in human whole blood using the chemiluminescent microparticle immunoassay (CMIA) technology with flexible assay protocols, referred to as Chemiflex. Performed By: #### 1 0070, 50561, 34806, 08612, 96847, 41636 #### [facility] [address] [place] [address], [facility] TROPONIN-Ion 04-30-2021 Troponin I.cardiac [Mass/Vol] 0.01 ng/mL Normal 0.00-0.04 [facility] Comment on above: Order Comment: No: D o not add to previous drawAdd morning labs per chairto etienne Result Comment: REFE RENCE RANGES: 0.00 - 0.04 ng/ml NORMAL 0.05 - 0.50 ng/ml INDETERMINATE > 0.50 ng/ml CONSISTENT WITH AN M.I. Performed By: #### 1 0070, 48137, 52568, 93281, 07848, 71360 #### [facility] [address] [place] [address], [facility] BASIC METABOLIC PANELon 04-09 Calcium [Mass/Vol] 8.4 mg/dL Low 8.6-10.3 [facility] Comment on above: Order Comment: No: D o not add to previous draw Performed By: #### 1 0070, 41161, 68711, 99041, 42801, 38568 #### [facility] [address] [place] [address], [facility] Chloride [Moles/Vol] 105 mmol/L Normal 98-107 [facility] Comment on above: Order Comment: No: D o not add to previous draw Performed By: #### 1 0070, 72519, 70513, 02695, 02400, 19879 #### [facility] [address] [place] [address], [facility] CO2 [Moles/Vol] 21 mmol/L Normal 21-31 [facility] Comment on above: Order Comment: No: D o not add to previous draw Performed By: #### 1 0070, 82933, 05998, 95201, 84340, 32946 #### [facility] [address] [place] [address], [facility] Creatinine [Mass/Vol] 1.54 mg/dL High 0.70-1.30 [facility] Comment on above: Order Comment: No: D o not add to previous draw Performed By: #### 1 0070, 25596, 75734, 32793, 83808, 72004 #### [facility] [address] [place] [address], [facility] eGFR- 57 ml/min/1.73sq m Abnormal >60 [facility] Comment on above: Order Comment: No: D o not add to previous draw Performed By: #### 1 0070, 32327, 75452, 79002, 21769, 87137 #### [facility] [address] [place] [address], [facility] eGFR- non- 47 ml/min/1.73sq m Abnormal >60 [facility] Comment on above: Order Comment: No: D o not add to previous draw Performed By: #### 1 0070, 03532, 15159, 22051, 98807, 84410 #### [facility] [address] [place] [address], [place] Glucose [Mass/Vol] 126 mg/dL High 70-100 [facility] Comment on above: Order Comment: No: D o not add to previous draw Performed By: #### 1 0070, 88011, 62478, 94434, 81143, 11183 #### [facility] [address] [place] [address], [facility] Potassium [Moles/Vol] 5.5 mmol/L High 3.5-5.1 [facility] Comment on above: Order Comment: No: D o not add to previous draw Performed By: #### 1 0070, 24506, 42138, 01195, 93447, 63575 #### [facility] [address] [place] [address], [facility] Sodium [Moles/Vol] 132 mmol/L Low 136-145 [facility] Comment on above: Order Comment: No: D o not add to previous draw Performed By: #### 1 0070, 26944, 15415, 53678, 29491, 55482 #### [facility] [address] [place] [address], [facility] Urea nitrogen [Mass/Vol] 50 mg/dL High 7-25 [facility] Comment on above: Order Comment: No: D o not add to previous draw Performed By: #### 1 0070, 59074, 29448, 87968, 89131, 61601 #### [facility] [address] [place] [address], [facility] CBC COMPLETE BLOOD COUNTon 0 04-29-2021 Erythrocyte distribution width (RBC) [Ratio] 12.9 % Normal 11.5-15.0 [facility] Comment on above: Order Comment: Yes: Add to Previous draw if able Performed By: #### 3 2334 #### [facility] [address] [place] [address], [facility] Hematocrit (Bld) [Volume fraction] 36.6 % Low 39.0-50.0 [facility] Comment on above: Order Comment: Yes: Add to Previous draw if able Performed By: #### 3 5241 #### [facility] [address] [place] [address], [facility] Hemoglobin (Bld) [Mass/Vol] 11.8 g/dL Low 13.0-17.0 [facility] Comment on above: Order Comment: Yes: Add to Previous draw if able Performed By: #### 3 6186 #### [facility] [address] [place] [address], [facility] MCH (RBC) [Entitic mass] 28.9 pg Normal 27.0-33.0 [facility] Comment on above: Order Comment: Yes: Add to Previous draw if able Performed By: #### 3 3816 #### [facility] [address] [facility] [place] [address], [facility] MCHC (RBC) [Mass/Vol] 32.2 g/dL Normal 32.0-35.0 [facility] Comment on above: Order Comment: Yes: Add to Previous draw if able Performed By: #### 3 2376 #### [facility] [address] [place] [address], [facility] MCV (RBC) [Entitic vol] 89.5 fL Normal 82.0-98.0 [facility] Comment on above: Order Comment: Yes: Add to Previous draw if able Performed By: #### 3 1396 #### [facility] [address] [facility] [place] [address], [facility] Nucleated RBC/100 WBC (Bld) [Ratio] 0 % Normal 0-0 [facility] Comment on above: Order Comment: Yes: Add to Previous draw if able Performed By: #### 3 2346 #### [facility] [address] [place] [id number], [place] PLAT CNT 223 10*3/uL Normal 150-400 [facility] Comment on above: Order Comment: Yes: Add to Previous draw if able Performed By: #### 3 2416 #### [facility] [address] [place] [id number], [facility] RBC (Bld) [#/Vol] 4.09 10*6/uL Low 4.20-5.70 [facility] Comment on above: Order Comment: Yes: Add to Previous draw if able Performed By: #### 3 1756 #### [facility] [address] [place] [address], [facility] WBC (Bld) [#/Vol] 7.33 10*3/uL Normal 4.00-10.60 [facility] Comment on above: Order Comment: Yes: Add to Previous draw if able Performed By: #### 3 1756 #### [facility] [address] [place] [address], [facility] LIVER BATTERYon 04-29-2021 Albumin [Mass/Vol] 2.8 g/dL Low 3.5-5.7 [facility] Comment on above: Order Comment: No: D o not add to previous draw Performed By: #### 1 0070, 49612, 89760, 69195, 80751, 62964 #### [facility] [address] [place] [address], [place] ALKALINE PHOSPH 50 IU/L Normal 34-104 [facility] Comment on above: Order Comment: No: D o not add to previous draw Performed By: #### 1 0070, 32640, 21148, 34563, 96569, 18130 #### [facility] [address] [place] [address], [place] ALT [Catalytic activity/Vol] 26 U/L Normal 7-52 [facility] Comment on above: Order Comment: No: D o not add to previous draw Performed By: #### 1 0070, 63833, 80888, 95393, 30410, 37826 #### [facility] [address] [place] [address], [place] AST [Catalytic activity/Vol] 17 U/L Normal 13-39 [facility] Comment on above: Order Comment: No: D o not add to previous draw Performed By: #### 1 0070, 25052, 70101, 46662, 15700, 85125 #### [facility] [address] [place] [address], [facility] Bilirubin [Mass/Vol] 0.3 mg/dL Normal 0.3-1.0 [facility] Comment on above: Order Comment: No: D o not add to previous draw Performed By: #### 1 0070, 95143, 23138, 08782, 63773, 81603 #### [facility] [address] [place] [address], [facility] Bilirubin.direct [Mass/Vol] 0.1 mg/dL Normal 0.0-0.2 [facility] Comment on above: Order Comment: No: D o not add to previous draw Performed By: #### 1 0070, 89628, 57883, 53240, 36217, 78391 #### [facility] [address] [place] [address], [facility] Protein [Mass/Vol] 5.4 g/dL Low 6.0-8.3 [facility] Comment on above: Order Comment: No: D o not add to previous draw Performed By: #### 1 0070, 54290, 49090, 65489, 95221, 52941 #### [facility] [address] [place] [address], [facility] POTASSIUM BLOODon 04-29-2021 Potassium [Moles/Vol] 4.8 mmol/L Normal 3.5-5.1 [facility] Comment on above: Order Comment: No: D o not add to previous draw Performed By: #### 1 0070, 17774, 32033, 79261, 84301, 20866 #### [facility] [address] [place] [address], [facility] TACROLIMUSon 04-29-2021 Tacrolimus (Bld) [Mass/Vol] 13.1 ng/mL Normal 5.0-20.0 [facility] Comment on above: Order Comment: No: D o not add to previous draw Result Comment: The [employer]IST[employer] ANALYST Tacrolimus assay is a delayed one-step immunoassay for the quantitative determination of tacrolimus in human whole blood using the chemiluminescent microparticle immunoassay (CMIA) technology with flexible assay protocols, referred to as Chemiflex. Performed By: #### 1 0070, 72837, 04659, 68403, 97508, 88530 #### [facility] [address] [place] [address], [facility] APTTon 04-28-2021 aPTT Coag (Bld) [Time] 31.3 s Normal 25.0-35.0 [facility] Comment on above: Order Comment: No: D o not add to previous draw Result Comment: ALL RESULTS MUST BE INTERPRETED WITH RESPECT TO BLOOD DRAWING ARTIFACT OR DILUTION ERROR OF ANTICOAGULANT AT THE TIME OF SAMPLING. THE APTT SHOULD NOT BE USED TO MONITOR UNFRACTIONATED HEPARIN THERAPY, THIS LABORATORY NO LONGER HAS AN ESTABLISHED THERAPEUTIC RANGE BASED ON THE APTT. IT IS RECOMMENDED THAT THE UFH - HEPARIN ASSAY (ANTI-XA ACTIVITY) BE USED FOR THIS PURPOSE. Performed By: #### 1 0070, 50335, 43595, 13135, 69894, 23527 #### [facility] [address] BK VIRUS QUANTITATION FOR PL ASMAon 04-28-2021 BKV Plasma Quantitation by PCR Not detected Normal [facility] Comment on above: Order Comment: Yes: Add to Previous draw if able Result Comment: Meth od: BK virus was measured by quantitative polymerase chain reaction using a fluorescent hydrolysis probe targeting the polyomavirus BK DAYLIGHT DRILLER-1 gene. The lower limit of quantitation of the assay is 500 copies of BK genome per milliliter of plasma or urine, and any detectable BK DNA below that level is reported as: Detected, <500 copies/ml. Serial BK virus measurement can be used to monitor disease activity. (Reference: Hattie vancel. J CLIN MICRO 2004; 42:8436-7322). This test was developed and its performance characteristics determined by the [facility]. It has not been approved by the US Food and Drug Administration. However, such approval is not required for clinical implementation, and test results have been shown to be clinically useful. This laboratory is CAP accredited and CLIA certified to perform high complexity testing. Performed By: #### 3 1756 #### [facility] [address] [facility]. [address] BKV Plasma Quantitation Log by PCR Not detected Normal [facility] Comment on above: Order Comment: Yes: Add to Previous draw if able Performed By: #### 3 1756 #### [facility] 3000 [facility] [address] C REACTIVE PROTEINon 022 CRP [Mass/Vol] 76.5 mg/L High 0.0-7.0 [facility] Comment on above: Order Comment: No: D o not add to previous draw Performed By: #### 4 1829, 23903 #### [facility] [address] CBC W/DIFFon 04-28-2021 ABS IMM GRANS 0.1 10*3/uL Normal 0.0-0.2 [facility] Comment on above: Order Comment: No: D o not add to previous draw Performed By: #### 1 0070, 18363, 41848, 95331, 43744, 36229 #### [facility] [address] [facility]. [address] ABS NEUTROPHILS 5.0 10*3/uL Normal 1.6-7.6 [facility] Comment on above: Order Comment: No: D o not add to previous draw Performed By: #### 1 0070, 41289, 56766, 26563, 90691, 93279 #### [facility] [address] [facility] [place] [address], [facility] Basophils (Bld) [#/Vol] 0.0 10*3/uL Normal 0.0-0.2 [facility] Comment on above: Order Comment: No: D o not add to previous draw Performed By: #### 1 0070, 22378, 75691, 55267, 67573, 65781 #### [facility] [address] [place] [address], [facility] Basophils/100 WBC (Bld) 0.0 % Normal 0.0-1.0 [facility] Comment on above: Order Comment: No: D o not add to previous draw Performed By: #### 1 0070, 39189, 07683, 37522, 06761, 37967 #### [facility] [address] [place] [address], [facility] Eosinophils (Bld) [#/Vol] 0.0 10*3/uL Normal 0.0-0.5 [facility] Comment on above: Order Comment: No: D o not add to previous draw Performed By: #### 1 0070, 94958, 18187, 09678, 63246, 27078 #### [facility] [address] [place] [address], [facility] Eosinophils/100 WBC (Bld) 0.0 % Normal 0.0-6.0 [facility] Comment on above: Order Comment: No: D o not add to previous draw Performed By: #### 1 0070, 80530, 85478, 83114, 46834, 78776 #### [facility] [address] [place] [address], [facility] Erythrocyte distribution width (RBC) [Ratio] 12.9 % Normal 11.5-15.0 [facility] Comment on above: Order Comment: No: D o not add to previous draw Performed By: #### 1 0070, 76075, 28636, 93629, 91851, 49789 #### [facility] [address] [place] [address], [place] Hematocrit (Bld) [Volume fraction] 40.9 % Normal 39.0-50.0 [facility] Comment on above: Order Comment: No: D o not add to previous draw Performed By: #### 1 0070, 17994, 44133, 65681, 71396, 18829 #### [facility] [address] [place] [address], [facility] Hemoglobin (Bld) [Mass/Vol] 13.3 g/dL Normal 13.0-17.0 [facility] Comment on above: Order Comment: No: D o not add to previous draw Performed By: #### 1 0070, 06279, 66593, 70463, 92170, 32658 #### [facility] [address] [place] [address], [facility] IMMATURE GRANS 0.9 % Normal 0.0-1.0 [facility] Comment on above: Order Comment: No: D o not add to previous draw Performed By: #### 1 0070, 81142, 00423, 90137, 43268, 53755 #### [facility] [address] [facility] [place] [address], [facility] Lymphocytes (Bld) [#/Vol] 0.4 10*3/uL Low 1.2-4.0 [facility] Comment on above: Order Comment: No: D o not add to previous draw Performed By: #### 1 0070, 61735, 98571, 48208, 50122, 35470 #### [facility] [address] [facility] [place] [address], [facility] Lymphocytes/100 WBC (Bld) 6.0 % Low 20.0-45.0 [facility] Comment on above: Order Comment: No: D o not add to previous draw Performed By: #### 1 0070, 44481, 31814, 86438, 53749, 32162 #### [facility] [address] [place] [address], [facility] MCH (RBC) [Entitic mass] 29.2 pg Normal 27.0-33.0 [facility] Comment on above: Order Comment: No: D o not add to previous draw Performed By: #### 1 0070, 26719, 99869, 83448, 59270, 14662 #### [facility] [address] [place] [id number], [facility] MCHC (RBC) [Mass/Vol] 32.5 g/dL Normal 32.0-35.0 [facility] Comment on above: Order Comment: No: D o not add to previous draw Performed By: #### 1 0070, 22972, 52045, 51725, 09354, 66908 #### [facility] [address] [place] [id number], [facility] MCV (RBC) [Entitic vol] 89.9 fL Normal 82.0-98.0 [facility] Comment on above: Order Comment: No: D o not add to previous draw Performed By: #### 1 0070, 77633, 60695, 89133, 53259, 29404 #### [facility] [address] [place] [address], [facility] Monocytes (Bld) [#/Vol] 0.5 10*3/uL Normal 0.1-1.0 [facility] Comment on above: Order Comment: No: D o not add to previous draw Performed By: #### 1 0070, 74435, 38449, 64762, 38012, 66627 #### [facility] [address] [facility] [place] [address], [facility] MONOS 8.5 % Normal 5.0-12.0 [facility] Comment on above: Order Comment: No: D o not add to previous draw Performed By: #### 1 0070, 65204, 08773, 05087, 24138, 15171 #### [facility] [address] [place] [id number], [facility] Neutrophils/100 WBC (Bld) 84.6 % High 40.0-72.0 [facility] Comment on above: Order Comment: No: D o not add to previous draw Performed By: #### 1 0070, 59011, 44437, 88627, 34525, 84191 #### [facility] [address] [place] [address], [facility] Nucleated RBC/100 WBC (Bld) [Ratio] 0 % Normal 0-0 [facility] Comment on above: Order Comment: No: D o not add to previous draw Performed By: #### 1 0070, 14998, 36182, 99678, 84534, 95613 #### [facility] [address] [facility] [place] [address], [facility] PLAT CNT 233 10*3/uL Normal 150-400 [facility] Comment on above: Order Comment: No: D o not add to previous draw Performed By: #### 1 0070, 52917, 44977, 81767, 36833, 23434 #### [facility] [address] [facility] [place] [address], [facility] RBC (Bld) [#/Vol] 4.55 10*6/uL Normal 4.20-5.70 [facility] Comment on above: Order Comment: No: D o not add to previous draw Performed By: #### 1 0070, 77145, 99982, 34544, 32320, 36791 #### [facility] [address] [facility] [place] [address], [facility] WBC (Bld) [#/Vol] 5.86 10*3/uL Normal 4.00-10.60 [facility] Comment on above: Order Comment: No: D o not add to previous draw Performed By: #### 1 0070, 31202, 60467, 49003, 58360, 83090 #### [facility] [address] [facility]. [address] CMV DNA PCR QUAL 42020lb CMV DNA BY PCR Not detected Normal [facility] Comment on above: Order Comment: Yes: Add to Previous draw if able Result Comment: NOT DETECTED - A negative result does not rule out the presence of PCR inhibitors in the patient specimen or assay specific nucleic acid in concentrations below the level of detection by the assay. INTERPRETIVE INFORMATION: Cytomegalovirus Detection by PCR This test was developed and its performance characteristics determined by [facility]. It has not been cleared or approved by the US Food and Drug Administration. This test was performed in a CLIA certified laboratory and is intended for clinical purposes. Performed By: [facility] [address] [place] [address] Pharmacy Service Associate: Tiffanie Portillo MD CMV SOURCE Whole Blood Normal [facility] Comment on above: Order Comment: Yes: Add to Previous draw if able COMP METABOLIC PANELon 04-28 Albumin [Mass/Vol] 3.1 g/dL Low 3.5-5.7 [facility] Comment on above: Performed By: #### 4 1918, 35555 #### [facility] [address] [place] [address], [place] ALKALINE PHOSPH 59 IU/L Normal 34-104 [facility] Comment on above: Performed By: #### 4 1918, #### [facility] [address] [place] [address], [place] ALT [Catalytic activity/Vol] 29 U/L Normal 7-52 [facility] Comment on above: Performed By: #### 4 1918, #### [facility] [address] [place] [address], [place] AST [Catalytic activity/Vol] 15 U/L Normal 13-39 [facility] Comment on above: Performed By: #### 4 1918, #### [facility] [address] [place] [address], [place] Bilirubin [Mass/Vol] 0.4 mg/dL Normal 0.3-1.0 [facility] Comment on above: Performed By: #### 4 1918, #### [facility] [address] [place] [place] [address], [place] Calcium [Mass/Vol] 8.5 mg/dL Low 8.6-10.3 [facility] Comment on above: Performed By: #### 4 1918, #### [facility] [address] [place] [address], [place] Chloride [Moles/Vol] 100 mmol/L Normal 98-107 [facility] Comment on above: Performed By: #### 4 1918, 08154 #### [facility] [address] [place] [address], [place] CO2 [Moles/Vol] 23 mmol/L Normal 21-31 [facility] Comment on above: Performed By: #### 4 1918, 87779 #### [facility] [address] [place] [address], [place] Creatinine [Mass/Vol] 1.86 mg/dL High 0.70-1.30 [facility] Comment on above: Performed By: #### 4 1918, 51329 #### [facility] [address] [place] [address], [place] eGFR- 46 ml/min/1.73sq m Abnormal >60 [facility] Comment on above: Performed By: #### 4 1918, 41648 #### [facility] [address] [place] [address], [place] eGFR- non- 38 ml/min/1.73sq m Abnormal >60 [facility] Comment on above: Performed By: #### 4 1918, 98005 #### [facility] [address] [place] [address], [place] Glucose [Mass/Vol] 128 mg/dL High 70-100 [facility] Comment on above: Performed By: #### 4 1918, 94615 #### [facility] [address] [place] [address], [place] Potassium [Moles/Vol] 5.1 mmol/L Normal 3.5-5.1 [facility] Comment on above: Performed By: #### 4 1918, 32690 #### [facility] [address] [place] [address], [place] Protein [Mass/Vol] 6.2 g/dL Normal 6.0-8.3 [facility] Comment on above: Performed By: #### 4 1918, 11842 #### [facility] [address] [place] [address], [facility] Sodium [Moles/Vol] 131 mmol/L Low 136-145 [facility] Comment on above: Performed By: #### 4 1918, 62540 #### [facility] [address] [place] [address], [facility] Urea nitrogen [Mass/Vol] 42 mg/dL High 7-25 [facility] Comment on above: Performed By: #### 4 1918, 83024 #### [facility] [address] [place] [address], [facility] CPKon 04-28-2021 CK [Catalytic activity/Vol] 41 U/L Normal 30-223 [facility] Comment on above: Order Comment: No: D o not add to previous draw Performed By: #### 4 1918, 26560 #### [facility] [address] [place] [address], [facility] MAGNESIUM BLOODon 04-28-2021 Magnesium [Mass/Vol] 2.3 mg/dL Normal 1.9-2.7 [facility] Comment on above: Order Comment: No: D o not add to previous draw Performed By: #### 4 1918, 38686 #### [facility] [address] [place] [address], [facility] PHOSPHORUS BLOODon 2 Phosphate [Mass/Vol] 4.2 mg/dL Normal 2.5-5.0 [facility] Comment on above: Order Comment: No: D o not add to previous draw Performed By: #### 4 1918, 35203 #### [facility] [address] [place] [id number], [facility] PROTHROMBIN TIMEon 2 INR Coag (PPP) [Relative time] 0.94 {INR} Normal 0.91-1.16 [facility] Comment on above: Order Comment: No: D o not add to previous draw Result Comment: ACCC P RECOMMENDED INR FOR WARFARIN THERAPY ------ ------- CONDITION INR PROPHYLAXIS OF VENOUS THROMBOSIS 2-3 (HIGH-RISK SURGERY) TREATMENT OF VENOUS THROMBOSIS 2-3 TREATMENT OF PULMONARY EMBOLISM 2-3 PREVENTION OF SYSTEMIC EMBOLISM: 2-3 ACUTE MYOCARDIAL INFARCTION TISSUE HEART VALVES VALVULAR HEART DISEASE ATRIAL FIBRILLATION RECURRENT SYSTEMIC EMBOLISM MECHANICAL HEART VALVE 2.5-3.5 FROM: ORAL ANTICOAGULANTS. MECHANISM OF ACTION, CLINICAL EFFECTIVENESS, AND OPTIMAL THERAPEUTIC RANGE. CHEST 1995;108:231S-246S. Performed By: #### 1 0070, 07612, 32865, 95750, 18753, 12305 #### [facility] [address] [facility] [place] [address], [facility] PT Coag (PPP) [Time] 12.6 s Normal 12.3-14.8 [facility] Comment on above: Order Comment: No: D o not add to previous draw Result Comment: ALL RESULTS MUST BE INTERPRETED WITH RESPECT TO BLOOD DRAWING ARTIFACT OR DILUTION ERROR OF ANTICOAGULANT AT THE TIME OF SAMPLING. Performed By: #### 1 0070, 57912, 54706, 20269, 80793, 09950 #### [facility] [address] [place] [id number], [facility] TACROLIMUSon 04-28-2021 Tacrolimus (Bld) [Mass/Vol] 12.4 ng/mL Normal 5.0-20.0 [facility] Comment on above: Order Comment: Yes: Add to Previous draw if able Result Comment: The [employer]NALYST Tacrolimus assay is a delayed one-step immunoassay for the quantitative determination of tacrolimus in human whole blood using the chemiluminescent microparticle immunoassay (CMIA) technology with flexible assay protocols, referred to as ChemApperianex. Performed By: #### 1 0070, 69208, 89290, 33006, 21329, 46145 #### [facility] [address] TRIGLYCERIDES BLOODon 2021 Triglyceride [Mass/Vol] 179 mg/dL High 40-149 [facility] Comment on above: Order Comment: No: D o not add to previous draw Result Comment: TRIG LYCERIDE REFERENCE RANGE: 20 YEARS AND OLDER CARDIOVASCULAR RISK LESS THAN 150 mg/dl LOW RISK 150 TO 199 mg/dl BORDERLINE RISK 200 mg/dl AND GREATER HIGH RISK Performed By: #### 4 1918, 41887 #### [facility] [address] *BLOOD CULTUREon 04-27-2021 *BLOOD CULTURE Clinical Report: (D) Specimen: BLOOD CULTURE Collected: 04/27/2021 06:50 Status: Final Last Updated: 05/02/2021 07:41 CULT RES (Final) No Growth Day 5 Normal [facility] Comment on above: Performed By: #### 4 1918, 39456 #### [facility] [address] Performed By: #### 3 1756 #### [facility] [address] *LEGIONELLA AG, URINEon 04-09 [place] Normal [facility] Comment on above: Order Comment: No: D o not add to previous draw Result Comment: Test Performed by [facility] [address] [place], [place] [id number] - Released 04/27/2021 17:40 LEGIONELLA AG, UR Normal NEG [facility] Comment on above: Order Comment: No: D o not add to previous draw Result Comment: NEGA TIVE L. pneumophila serogroup 1 antigen not detected. A negative result does not exclude infection with Leginella pnemophila serogroup 1 nor does it rule out other microbial-caused respiratory infections of disease caused by other serogroups of Legionella pneumophila. ARTERIAL BLOOD GAS W/COOXon 04-27-2021 BASE EXCESS -5 mmol/L Low -2-3 [facility] Comment on above: Performed By: #### 1 0070, 72643, 54313, 92568, 38690, 30908 #### [facility] [address] [place] [address], [facility] COHB 1.0 % Normal 0.0-1.5 [facility] Comment on above: Performed By: #### 1 0070, 70199, 19671, 63631, 49219, 36741 #### [facility] [address] [place] [address], [facility] [employer] NASAL CANNULA Normal [facility] Comment on above: Performed By: #### 1 0070, 58694, 94776, 46062, 99439, 05703 #### [facility] [address] [place] [address], [facility] HCO3 (Bld) [Moles/Vol] 18 mmol/L Low 21-28 [facility] Comment on above: Performed By: #### 1 0070, 91269, 39402, 42445, 42945, 65059 #### [facility] [address] [place] [address], [facility] LPM 2.0 LPM Normal [facility] Comment on above: Performed By: #### 1 0070, 80894, 22976, 51189, 13162, 80521 #### [facility] [address] [place] [address], [place] METHB 0.7 % Normal 0.0-1.5 [facility] Comment on above: Performed By: #### 1 0070, 75275, 91067, 02465, 15079, 53702 #### [facility] [address] [place] [address], [facility] Oxygen (Bld) [Partial pressure] 73 mm[Hg] Low 83-108 [facility] Comment on above: Performed By: #### 1 0070, 90099, 81462, 90853, 10137, 15245 #### [facility] [address] [place] [address], [facility] Oxygen saturation in Blood 95.0 % Normal 94.0-97.0 [facility] Comment on above: Performed By: #### 1 0070, 16158, 75531, 19171, 81315, 29036 #### [facility] [address] [place] [address], [facility] PCO2 29 mmHg Low 35-45 [facility] Comment on above: Performed By: #### 1 0070, 19778, 46591, 99380, 77143, 92221 #### [facility] [address] [place] [address], [facility] pH (Bld) 7.40 [pH] Normal 7.35-7.45 [facility] Comment on above: Performed By: #### 1 0070, 83897, 29269, 16811, 03907, 09458 #### [facility] [address] [place] [address], [facility] THB 13.0 g/dL Normal 12.0-16.3 [facility] Comment on above: Performed By: #### 1 0070, 82432, 62785, 05552, 76740, 04964 #### [facility] [address] [place] [address], [facility] BASIC METABOLIC PANELon 01-2 0-2021 Calcium [Mass/Vol] 8.6 mg/dL Normal 8.6-10.3 [facility] Comment on above: Order Comment: No: D o not add to previous draw Performed By: #### 1 0070, 93555, 64014, 19740, 74201, 70478 #### [facility] [address] [place] [address], [facility] Chloride [Moles/Vol] 99 mmol/L Normal 98-107 [facility] Comment on above: Order Comment: No: D o not add to previous draw Performed By: #### 1 0070, 08395, 13669, 43686, 38099, 88629 #### [facility] [address] [place] [address], [place] CO2 [Moles/Vol] 20 mmol/L Low 21-31 [facility] Comment on above: Order Comment: No: D o not add to previous draw Performed By: #### 1 0070, 96165, 03457, 72068, 15639, 92849 #### [facility] [address] [place] [address], [facility] Creatinine [Mass/Vol] 2.18 mg/dL High 0.70-1.30 [facility] Comment on above: Order Comment: No: D o not add to previous draw Performed By: #### 1 0070, 98687, 11953, 50244, 99363, 83474 #### [facility] [address] [place] [address], [place] eGFR- 38 ml/min/1.73sq m Abnormal >60 [facility] Comment on above: Order Comment: No: D o not add to previous draw Performed By: #### 1 0070, 20406, 87698, 94109, 71333, 14371 #### [facility] [address] [place] [address], [place] eGFR- non- 32 ml/min/1.73sq m Abnormal >60 [facility] Comment on above: Order Comment: No: D o not add to previous draw Performed By: #### 1 0070, 58625, 06170, 16655, 98233, 91667 #### [facility] [address] [place] [address], [place] Glucose [Mass/Vol] 72 mg/dL Normal 70-100 [facility] Comment on above: Order Comment: No: D o not add to previous draw Performed By: #### 1 0070, 74582, 90879, 10519, 50331, 97911 #### [facility] [address] [place] [address], [facility] Potassium [Moles/Vol] 4.8 mmol/L Normal 3.5-5.1 [facility] Comment on above: Order Comment: No: D o not add to previous draw Performed By: #### 1 0070, 93293, 66597, 44368, 82611, 80337 #### [facility] [address] [place] [address], [place] Sodium [Moles/Vol] 130 mmol/L Low 136-145 [facility] Comment on above: Order Comment: No: D o not add to previous draw Performed By: #### 1 0070, 29645, 45180, 90258, 67034, 10362 #### [facility] [address] [place] [address], [facility] Urea nitrogen [Mass/Vol] 36 mg/dL High 7-25 [facility] Comment on above: Order Comment: No: D o not add to previous draw Performed By: #### 1 0070, 86971, 65506, 12134, 03411, 58296 #### [facility] [address] [place] [address], [facility] Calcium [Mass/Vol] 8.1 mg/dL Low 8.6-10.3 [facility] Comment on above: Order Comment: No: D o not add to previous draw Performed By: #### 1 0070, 19072, 88751, 41743, 79620, 86005 #### [facility] [address] [place] [address], [place] Chloride [Moles/Vol] 98 mmol/L Normal 98-107 [facility] Comment on above: Order Comment: No: D o not add to previous draw Performed By: #### 1 0070, 31812, 85988, 97929, 41875, 94414 #### [facility] [address] [place] [address], [facility] CO2 [Moles/Vol] 19 mmol/L Low 21-31 [facility] Comment on above: Order Comment: No: D o not add to previous draw Performed By: #### 1 0070, 65617, 22715, 64954, 52634, 04439 #### [facility] [address] [place] [address], [place] Creatinine [Mass/Vol] 1.88 mg/dL High 0.70-1.30 [facility] Comment on above: Order Comment: No: D o not add to previous draw Performed By: #### 1 0070, 58839, 28595, 06820, 07483, 65343 #### [facility] [address] [place] [address], [facility] eGFR- 45 ml/min/1.73sq m Abnormal >60 [facility] Comment on above: Order Comment: No: D o not add to previous draw Performed By: #### 1 0070, 74069, 63432, 94083, 75004, 07612 #### [facility] [address] [place] [address], [facility] eGFR- non- 38 ml/min/1.73sq m Abnormal >60 [facility] Comment on above: Order Comment: No: D o not add to previous draw Performed By: #### 1 0070, 77089, 59926, 89597, 94459, 43008 #### [facility] [address] [place] [address], [place] Glucose [Mass/Vol] 123 mg/dL High 70-100 [facility] Comment on above: Order Comment: No: D o not add to previous draw Performed By: #### 1 0070, 07646, 34227, 64752, 59606, 12966 #### [facility] [address] [place] [address], [place] Potassium [Moles/Vol] 5.7 mmol/L High 3.5-5.1 [facility] Comment on above: Order Comment: No: D o not add to previous draw Performed By: #### 1 0070, 84553, 21616, 21326, 94049, 03958 #### [facility] [address] [place] [address], [place] Sodium [Moles/Vol] 126 mmol/L Low 136-145 [facility] Comment on above: Order Comment: No: D o not add to previous draw Performed By: #### 1 0070, 92502, 71767, 26304, 21740, 03998 #### [facility] [address] [place] [address], [place] Urea nitrogen [Mass/Vol] 30 mg/dL High 7-25 [facility] Comment on above: Order Comment: No: D o not add to previous draw Performed By: #### 1 0070, 10072, 04432, 68828, 32097, 43073 #### [facility] [address] [place] [address], [place] Calcium [Mass/Vol] 8.3 mg/dL Low 8.6-10.3 [facility] Comment on above: Performed By: #### 1 0070, 59325, 99885, 77706, 92869, 74928 #### [facility] [address] [place] [address], [place] Chloride [Moles/Vol] 99 mmol/L Normal 98-107 [facility] Comment on above: Performed By: #### 1 0070, 86794, 49519, 91128, 55852, 44369 #### [facility] [address] [place] [address], [place] CO2 [Moles/Vol] 18 mmol/L Low 21-31 [facility] Comment on above: Performed By: #### 1 0070, 52240, 62142, 20681, 53077, 60476 #### [facility] [address] [place] [address], [facility] Creatinine [Mass/Vol] 1.78 mg/dL High 0.70-1.30 [facility] Comment on above: Performed By: #### 1 0070, 84579, 96228, 79050, 69953, 95827 #### [facility] [address] [place] [address], [facility] eGFR- 48 ml/min/1.73sq m Abnormal >60 [facility] Comment on above: Performed By: #### 1 0070, 36818, 92918, 48341, 92772, 08460 #### [facility] [address] [place] [address], [facility] eGFR- non- 40 ml/min/1.73sq m Abnormal >60 [facility] Comment on above: Performed By: #### 1 0070, 37247, 60622, 95409, 31823, 84665 #### [facility] [address] [place] [address], [facility] Glucose [Mass/Vol] 104 mg/dL High 70-100 [facility] Comment on above: Performed By: #### 1 0070, 22948, 14207, 54153, 90951, 40247 #### [facility] [address] [place] [address], [facility] Potassium [Moles/Vol] 6.0 mmol/L High 3.5-5.1 [facility] Comment on above: Performed By: #### 1 0070, 33098, 44759, 92938, 67838, 91060 #### [facility] [address] [place] [address], [facility] Sodium [Moles/Vol] 125 mmol/L Low 136-145 [facility] Comment on above: Performed By: #### 1 0070, 66562, 62884, 18384, 40793, 26072 #### [facility] [address] [facility] [place] [address], [facility] Urea nitrogen [Mass/Vol] 30 mg/dL High 7-25 [facility] Comment on above: Performed By: #### 1 0070, 25930, 09449, 21609, 98549, 39970 #### [facility] [address] [place] [address], [facility] C REACTIVE PROTEINon 022 CRP [Mass/Vol] 77.5 mg/L High 0.0-7.0 [facility] Comment on above: Performed By: #### 1 0070, 36334, 91968, 25797, 58834, 19936 #### [facility] [address] [facility] [address], [facility] CBC W/DIFFon 04-27-2021 ABS IMM GRANS 0.1 10*3/uL Normal 0.0-0.2 [facility] Comment on above: Performed By: #### 3 5376 #### [facility] [address] [facility] [place] [address], [facility] ABS NEUTROPHILS 7.7 10*3/uL High 1.6-7.6 [facility] Comment on above: Performed By: #### 3 2056 #### [facility] [address] [facility] [place] [address], [facility] Basophils (Bld) [#/Vol] 0.0 10*3/uL Normal 0.0-0.2 [facility] Comment on above: Performed By: #### 3 2706 #### [facility] [address] [facility] [place] [address], [facility] Basophils/100 WBC (Bld) 0.1 % Normal 0.0-1.0 [facility] Comment on above: Performed By: #### 3 9076 #### [facility] [address] [facility] [place] [address], [facility] Eosinophils (Bld) [#/Vol] 0.0 10*3/uL Normal 0.0-0.5 [facility] Comment on above: Performed By: #### 3 1756 #### [facility] [address] [place] [address], [facility] Eosinophils/100 WBC (Bld) 0.1 % Normal 0.0-6.0 [facility] Comment on above: Performed By: #### 3 1756 #### [facility] [address] [place] [address], [facility] Erythrocyte distribution width (RBC) [Ratio] 13.0 % Normal 11.5-15.0 [facility] Comment on above: Performed By: #### 3 1756 #### [facility] [address] [place] [address], [facility] Hematocrit (Bld) [Volume fraction] 40.3 % Normal 39.0-50.0 [facility] Comment on above: Performed By: #### 3 6 #### [facility] [address] [facility] [address], [facility] Hemoglobin (Bld) [Mass/Vol] 12.9 g/dL Low 13.0-17.0 [facility] Comment on above: Performed By: #### 3 6 #### [facility] [address] [place] [address], [facility] IMMATURE GRANS 0.8 % Normal 0.0-1.0 [facility] Comment on above: Performed By: #### 3 8106 #### [facility] [address] [place] [address], [facility] Lymphocytes (Bld) [#/Vol] 0.4 10*3/uL Low 1.2-4.0 [facility] Comment on above: Performed By: #### 3 1046 #### [facility] [address] [place] [address], [facility] Lymphocytes/100 WBC (Bld) 4.0 % Low 20.0-45.0 [facility] Comment on above: Performed By: #### 3 1756 #### [facility] [address] [place] [id number], [facility] MCH (RBC) [Entitic mass] 29.1 pg Normal 27.0-33.0 [facility] Comment on above: Performed By: #### 3 1756 #### [facility] [address] [place] [address], [facility] MCHC (RBC) [Mass/Vol] 32.0 g/dL Normal 32.0-35.0 [facility] Comment on above: Performed By: #### 3 1756 #### [facility] [address] [place] [address], [facility] MCV (RBC) [Entitic vol] 90.8 fL Normal 82.0-98.0 [facility] Comment on above: Performed By: #### 3 1756 #### [facility] [address] [facility] [place] [address], [facility] Monocytes (Bld) [#/Vol] 0.8 10*3/uL Normal 0.1-1.0 [facility] Comment on above: Performed By: #### 3 1756 #### [facility] [address] [facility] [place] [address], [facility] MONOS 8.7 % Normal 5.0-12.0 [facility] Comment on above: Performed By: #### 3 1756 #### [facility] [address] [place] [id number], [facility] Neutrophils/100 WBC (Bld) 86.3 % High 40.0-72.0 [facility] Comment on above: Performed By: #### 3 2756 #### [facility] [address] [place] [id number], [facility] Nucleated RBC/100 WBC (Bld) [Ratio] 0 % Normal 0-0 [facility] Comment on above: Performed By: #### 3 1756 #### [facility] [address] [place] [address], [facility] PLAT CNT 218 10*3/uL Normal 150-400 [facility] Comment on above: Performed By: #### 3 1756 #### [facility] [address] [place] [address], [facility] RBC (Bld) [#/Vol] 4.44 10*6/uL Normal 4.20-5.70 [facility] Comment on above: Performed By: #### 3 1756 #### [facility] [address] [facility] [place] [address], [facility] WBC (Bld) [#/Vol] 8.90 10*3/uL Normal 4.00-10.60 [facility] Comment on above: Performed By: #### 3 1756 #### [facility] [address] [facility] CPKon 04-27-2021 CK [Catalytic activity/Vol] 55 U/L Normal 30-223 [facility] Comment on above: Performed By: #### 1 0070, 71828, 54776, 36391, 42652, 56264 #### [facility] [address] [facility] [address] D DIMER TESTon 04-27-2021 D-DIMER TEST 2.00 mcg/mL FEU High 0.27-0.49 [facility] Comment on above: Result Comment: D-Di gavino values of less than 0.50 ug/ml (FEU) are considered to be a negative predictor of thrombosis. However, the D-Dimer result should be used in conjunction with pretest probability and should not be used alone to diagnose a thrombotic event. Performed By: #### 1 0070, 27988, 81958, 22769, 89567, 39344 #### [facility] [address] [place] [address], [facility] FERRITINon 04-27-2021 Ferritin [Mass/Vol] 465 ng/mL High 24-336 [facility] Comment on above: Performed By: #### 1 0070, 17109, 89404, 95447, 42640, 44412 #### [facility] [address] [place] [address], [facility] LACTATE WITH REFLEXon 2021 Lactate [Moles/Vol] 0.7 mmol/L Normal .5-2.2 [facility] Comment on above: Performed By: #### 1 0070, 87327, 65658, 68719, 60885, 43975 #### [facility] [address] [place] [address], [facility] LDH BLOODon 04-27-2021 LDH 283 Units/L High 140-271 [facility] Comment on above: Performed By: #### 1 0070, 72877, 47016, 82432, 63939, 90894 #### [facility] [address] [place] [address], [place] LIVER BATTERYon 04-27-2021 Albumin [Mass/Vol] 3.3 g/dL Low 3.5-5.7 [facility] Comment on above: Performed By: #### 1 0070, 06560, 18018, 36261, 19275, 34894 #### [facility] [address] [place] [address], [facility] ALKALINE PHOSPH 60 IU/L Normal 34-104 [facility] Comment on above: Performed By: #### 1 0070, 46013, 37786, 23120, 28946, 32053 #### [facility] [address] [place] [address], [place] ALT [Catalytic activity/Vol] 31 U/L Normal 7-52 [facility] Comment on above: Performed By: #### 1 0070, 55021, 00539, 93303, 01318, 96124 #### [facility] [address] [place] [address], [facility] AST [Catalytic activity/Vol] 21 U/L Normal 13-39 [facility] Comment on above: Performed By: #### 1 0070, 34845, 52949, 95398, 31409, 88657 #### [facility] [address] [place] [address], [place] Bilirubin [Mass/Vol] 0.5 mg/dL Normal 0.3-1.0 [facility] Comment on above: Performed By: #### 1 0070, 84712, 01156, 26459, 04770, 39095 #### [facility] [address] [place] [address], [facility] Bilirubin.direct [Mass/Vol] 0.1 mg/dL Normal 0.0-0.2 [facility] Comment on above: Performed By: #### 1 0070, 84783, 00682, 26517, 27126, 21225 #### [facility] [address] [place] [address], [facility] Protein [Mass/Vol] 5.9 g/dL Low 6.0-8.3 [facility] Comment on above: Performed By: #### 1 0070, 84723, 16016, 32881, 69632, 23104 #### [facility] [address] [place] [address], [facility] MAGNESIUM BLOODon 04-27-2021 Magnesium [Mass/Vol] 2.3 mg/dL Normal 1.9-2.7 [facility] Comment on above: Order Comment: No: D o not add to previous draw Performed By: #### 1 0070, 97860, 80648, 99423, 11044, 05437 #### [facility] [address] [place] [address], [place] Magnesium [Mass/Vol] 1.6 mg/dL Low 1.9-2.7 [facility] Comment on above: Performed By: #### 1 0070, 96714, 62244, 51958, 36394, 78272 #### [facility] [address] [place] [address], [facility] OSMOLALITY BLOODon 2 Osmolality [Osmolality] 274 mosm/kg Low 285-305 [facility] Comment on above: Performed By: #### 1 0070, 59670, 61571, 85053, 80586, 65482 #### [facility] [address] [place] [address], [facility] POC GLUCOSE LABon 04-27-2021 Glucose [Mass/Vol] 202 mg/dL High 70-100 [facility] Comment on above: Performed By: #### 1 0070, 54732, 31440, 54201, 59394, 55167 #### [facility] [address] [place] [address], [facility] POC SARS COV2 IDon 2 SARS-CoV-2 (COVID-19) RNA JAS+probe Ql (Unsp spec) Positive Critically abnormal NEGATIVE [facility] Comment on above: Result Comment: ID N OW COVID-19 assay performed on the ID NOW Instrument is a rapid molecular in vitro diagnostic test utilizing an isothermal nucleic acid amplification technology intended for the qualitative detection of nucleic acid from the SARS-CoV-2 virus in direct anterior nasal (nasal), nasopharyngeal or throat swabs from individuals who are suspected of COVID-19 by their healthcare provider within the first seven days of the onset of symptoms. Testing is limited to laboratories certified under the Clinical Laboratory Improvement Amendments of 1988 (CLIA), 42 U.S.C. ???263a,that meet the requirements to perform high, moderate, or waived complexity tests. The ID NOW COVID-19 assay is also authorized for use at the Point of Care (POC), i.e., in patient care settings operating under a CLIA Certificate of Waiver, Certificate of Compliance, or Certificate of Accreditation. Performed By: #### 4 1919, 18634 #### [facility] [address] [place] [id number], [facility] PORTABLE CHEST 1 VIEWon 01-2 0-2022 PORTABLE CHEST 1 VIEW [facility] Department of Radiology [address] [place] [id number] ======== Patient Name: IRVIN CARRINGTON : 1965 Sex: M Age: Race: White Pt. Location: [facility] Patient Status: E Ordered Date: 04/27/2021 6:35:00 AM Completed Date: 04/27/2021 06:45 AM Requesting Provider: LONNIE GARCIA Attending Provider: LONNIE GARCIA Report Copy To: Signs & Symptoms: O2 Desaturation History: See Comments Comments: evaluate for Infiltrates Exam: PORTABLE CHEST 1 VIEW ======== PORTABLE CHEST 1 VIEW 04/27/2021 6:45 AM CLINICAL INDICATIONS: O2 Desaturation TECHNOLOGIST COMMENTS: decreased oxygen sats hx covid + 2 weeks ago, renal transplant QUESTION FOR THE RADIOLOGIST: evaluate for Infiltrates PROTOCOL: AP(PA) view was obtained. COMPARISON: 10/10/2017 FINDINGS: Patchy alveolar opacities present in the right midlung with left midlung consolidation. There is no pneumothorax or pleural effusion. Mediastinal contours are stable IMPRESSION: Bilateral infiltrates compatible with pneumonia and/or atelectasis. Follow-up to resolution is recommended to exclude an underlying abnormality. Electronically signed: Jess Card. Transcribed by: [email or web address], User Resident: Electronically Signed by: JESS CARD @ 04/27/2021 06:49 AM Normal [facility] Comment on above: Order Comment: RICHARD SANTOS UNABLE TO PERFORM PROTEIN ELECTROPHORESIS TESTING IN HOUSE. SEE [facility] REPORT FOR MONOCLONAL PROTEIN STUDY - PROCALCITONINon 04-27-2021 PROCALCITONIN 0.21 ng/mL High 0.00-0.10 [facility] Comment on above: Result Comment: Susp ected Lower Respiratory Tract Infection: 0.1-0.25ng/mL- Low likelihood for bacterial infection;Antibiotics discouraged.* >0.25ng/mL- Increased likelihood bacterial infection;Antibiotics encouraged. Suspected Sepsis: Strongly consider initiating antibiotics in all unstable patients. 0.1-0.5ng/mL- Low likelihood for sepsis; Antibiotics discouraged.* >0.5ng/mL- Increased likelihood sepsis; Antibiotics encouraged. >2.0ng/mL- High risk of sepsis/septic shock; Antibiotics strongly encouraged. *Recommend retesting PCT within 6-12hours if clinically indicated and initial PCT<0.5ng/mL Performed By: #### 1 0070, 05709, 19887, 09130, 18332, 69293 #### [address] PROTHROMBIN TIMEon 2 INR Coag (PPP) [Relative time] 0.95 {INR} Normal 0.91-1.16 [facility] [facility] [place] Comment on above: Result Comment: [facility] P RECOMMENDED INR FOR WARFARIN THERAPY ------ ------- CONDITION INR PROPHYLAXIS OF VENOUS THROMBOSIS 2-3 (HIGH-RISK SURGERY) TREATMENT OF VENOUS THROMBOSIS 2-3 TREATMENT OF PULMONARY EMBOLISM 2-3 PREVENTION OF SYSTEMIC EMBOLISM: 2-3 ACUTE MYOCARDIAL INFARCTION TISSUE HEART VALVES VALVULAR HEART DISEASE ATRIAL FIBRILLATION RECURRENT SYSTEMIC EMBOLISM MECHANICAL HEART VALVE 2.5-3.5 FROM: ORAL ANTICOAGULANTS. MECHANISM OF ACTION, CLINICAL EFFECTIVENESS, AND OPTIMAL THERAPEUTIC RANGE. CHEST 1995;108:231S-246S. Performed By: #### 1 0070, 48785, 57694, 12864, 21049, 74280 #### [facility] [address] [place] [address], [facility] PT Coag (PPP) [Time] 12.7 s Normal 12.3-14.8 [facility] Comment on above: Result Comment: ALL RESULTS MUST BE INTERPRETED WITH RESPECT TO BLOOD DRAWING ARTIFACT OR DILUTION ERROR OF ANTICOAGULANT AT THE TIME OF SAMPLING. Performed By: #### 1 0070, 01189, 06303, 25032, 74020, 93327 #### [facility] [address] SEDIMENTATION RATEon 022 SED RATE 34 mm/hr High 0-10 [facility] Comment on above: Performed By: #### 3 1756 #### [facility] [address] [place] [address], [facility] STREP PNEUMO ANTIGEN URINEon 04-27-2021 STREP PNEUMO ANTIGEN URINE Clinical Report: (D) Specimen: URINE Collected: 04/27/2021 08:45 Status: Final Last Updated: 04/27/2021 14:20 SPN AG (Final) Negative Normal [facility] Comment on above: Performed By: #### 4 5489, [id number] #### [facility] [address] [facility] [place] [address], [facility] TACROLIMUSon 04-27-2021 Tacrolimus (Bld) [Mass/Vol] 10.0 ng/mL Normal 5.0-20.0 The [facility] Comment on above: Order Comment: Yes: Add to Previous draw if able Result Comment: The [employer] Tacrolimus assay is a delayed one-step immunoassay for the quantitative determination of tacrolimus in human whole blood using the chemiluminescent microparticle immunoassay (CMIA) technology with flexible assay protocols, referred to as Chemiflex. Performed By: #### 1 0070, 05222, 54376, 34494, 89504, 01542 #### [facility] [address] [facility] [place] [address], [facility] TROPONIN-Ion 04-27-2021 Troponin I.cardiac [Mass/Vol] 0.03 ng/mL Normal 0.00-0.04 [facility] Comment on above: Result Comment: REFE RENCE RANGES: 0.00 - 0.04 ng/ml NORMAL 0.05 - 0.50 ng/ml INDETERMINATE > 0.50 ng/ml CONSISTENT WITH AN M.I. Performed By: #### 1 0070, 77415, 63413, 72925, 56869, 33126 #### [facility] [address] [facility] [place] [address], [facility] URIC ACID BLOODon 04-27-2021 Urate [Mass/Vol] 6.7 mg/dL Normal 4.4-7.6 [facility] Comment on above: Performed By: #### 1 0070, 41050, 78406, 23402, 25226, 75393 #### [facility] [address] [place] [id number], [facility] URINALYSIS REFLEXon 04-27-19 22 Appearance (U) SL CLOUDY Abnormal CLEAR [facility] Comment on above: Order Comment: TEMPO RARILY UNABLE TO PERFORM PROTEIN ELECTROPHORESIS TESTING IN HOUSE. SEE [facility] REPORT FOR MONOCLONAL PROTEIN STUDY - Performed By: #### 4 4117, 98853 #### [facility] [address] [place] [address], [place] Bilirubin Ql (U) Negative Normal NEGATIVE The [facility] Comment on above: Order Comment: TEMPO DANIELLE UNABLE TO PERFORM PROTEIN ELECTROPHORESIS TESTING IN HOUSE. SEE [facility] REPORT FOR MONOCLONAL PROTEIN STUDY - Performed By: #### 4 1918, #### [facility] [address] [place] [address], [place] Color (U) YELLOW Normal YELLOW [facility] Comment on above: Order Comment: TEMPO DANIELLE UNABLE TO PERFORM PROTEIN ELECTROPHORESIS TESTING IN HOUSE. SEE [facility] REPORT FOR MONOCLONAL PROTEIN STUDY - Performed By: #### 4 1918, 88141 #### [facility] [address] [place] [address], [place] EPIS OCC Normal FEW,OCC,NONE SEEN [facility] Comment on above: Order Comment: RICHARD SANTOS UNABLE TO PERFORM PROTEIN ELECTROPHORESIS TESTING IN HOUSE. SEE [facility] REPORT FOR MONOCLONAL PROTEIN STUDY - Performed By: #### 4 1918, #### [facility] [address] [place] [address], [place] Glucose Ql (U) Negative Normal NEGATIVE The [facility] Comment on above: Order Comment: RICHARD SANTOS UNABLE TO PERFORM PROTEIN ELECTROPHORESIS TESTING IN HOUSE. SEE [facility] REPORT FOR MONOCLONAL PROTEIN STUDY - Performed By: #### 4 1918, #### [facility] [address] [place] [address], [place] Hemoglobin Ql (U) LARGE Abnormal NEGATIVE The [facility] Comment on above: Order Comment: RICHARD SANTOS UNABLE TO PERFORM PROTEIN ELECTROPHORESIS TESTING IN HOUSE. SEE [facility] REPORT FOR MONOCLONAL PROTEIN STUDY - Performed By: #### 4 1918, [id number] #### [facility] [address] [place] [address], [place] KETONE Negative Normal NEGATIVE The [facility] Comment on above: Order Comment: RICHARD SANTOS UNABLE TO PERFORM PROTEIN ELECTROPHORESIS TESTING IN HOUSE. SEE [facility] REPORT FOR MONOCLONAL PROTEIN STUDY - Performed By: #### 4 1918, 15114 #### [facility] [address] [place] [id number], [place] LEUK KEELY Negative Normal NEGATIVE The [facility] Comment on above: Order Comment: RICHARD SANTOS UNABLE TO PERFORM PROTEIN ELECTROPHORESIS TESTING IN HOUSE. SEE [facility] REPORT FOR MONOCLONAL PROTEIN STUDY - Performed By: #### 4 1918, 42362 #### [facility] [address] [place] [id number], [facility] MUCUS THREADS OCC Abnormal NONE SEEN The [facility] Comment on above: Order Comment: RICHARD SANTOS UNABLE TO PERFORM PROTEIN ELECTROPHORESIS TESTING IN HOUSE. SEE [facility] REPORT FOR MONOCLONAL PROTEIN STUDY - Performed By: #### 4 1918, #### [facility] [address] [place] [id number], [place] Nitrite Ql (U) Negative Normal NEGATIVE The [facility] Comment on above: Order Comment: RICHARD SANTOS UNABLE TO PERFORM PROTEIN ELECTROPHORESIS TESTING IN HOUSE. SEE [facility] REPORT FOR MONOCLONAL PROTEIN STUDY - Performed By: #### 4 1918, #### [facility] [address] [place] [address], [facility] pH (U) 5.0 [pH] Normal 5.0-8.0 [facility] Comment on above: Order Comment: RICHARD SANTOS UNABLE TO PERFORM PROTEIN ELECTROPHORESIS TESTING IN HOUSE. SEE [facility] REPORT FOR MONOCLONAL PROTEIN STUDY - Performed By: #### 4 1918, #### [facility] [address] [place] [address], [place] Protein Ql (U) 100 mg/dL Abnormal NEGATIVE The [facility] Comment on above: Order Comment: RICHARD SANTOS UNABLE TO PERFORM PROTEIN ELECTROPHORESIS TESTING IN HOUSE. SEE [facility] REPORT FOR MONOCLONAL PROTEIN STUDY - Performed By: #### 4 1918, 60574 #### [facility] [address] RBC 6-10 Abnormal NONE SEEN [facility] Comment on above: Order Comment: TEMPO RARILY UNABLE TO PERFORM PROTEIN ELECTROPHORESIS TESTING IN HOUSE. SEE [facility] REPORT FOR MONOCLONAL PROTEIN STUDY - Performed By: #### 4 1918, 56472 #### [facility] [address] [facility] [address] SPEC GRAV 1.016 Normal 1.015-1.020 [facility] Comment on above: Order Comment: TEMPO RARILY UNABLE TO PERFORM PROTEIN ELECTROPHORESIS TESTING IN HOUSE. SEE [facility] REPORT FOR MONOCLONAL PROTEIN STUDY - Performed By: #### 4 1918, 72485 #### [facility] [address] [facility]. [address] WBC UA 0-2 Abnormal NONE SEEN The [facility] Comment on above: Order Comment: RICHARD SANTOS UNABLE TO PERFORM PROTEIN ELECTROPHORESIS TESTING IN HOUSE. SEE [facility] REPORT FOR MONOCLONAL PROTEIN STUDY - Performed By: #### 4 1918, 06161 #### [facility] [address] [facility]. [address] BNPon 04-25-2021 Natriuretic peptide B (Bld) [Mass/Vol] 205.0 pg/mL Normal <=900.0 The [facility] Comment on above: Performed By: #### C MP, BNP, HSTROPN, LIPA #### [facility] [address] [place] [address] Dr. Preston Bojorquez CBC W MANUAL DIFFon 04-25-19 22 ATYPICAL LYMPH # Normal The [facility] Comment on above: Performed By: #### I NFLUAB #### [facility] [address] [place] [address] [address] Preston Bojorquez ATYPICAL LYMPH % Normal The [facility] Comment on above: Performed By: #### I NFLUAB #### [facility] [address] [place] [address] [address] Preston Bojorquez BAND # Normal 0.0-0.3 The [facility] Comment on above: Performed By: #### I NFLUAB #### [facility] [address] [place] [address] [address] Preston Bojorquez BAND % Normal 0-5 The [facility] Comment on above: Performed By: #### I NFLUAB #### [facility] [address] [place] [address] Dr. Preston Bojorquez BASOM # 0.00 103/ul Normal 0.00-0.10 [facility] Comment on above: Performed By: #### I NFLUAB #### [facility] [address] [place] [address] Dr. Preston Bojorquez BASOM % 0.0 % Critically low 0.2-2.0 [facility] Comment on above: Performed By: #### I NFLUAB #### [facility] [address] [place] [address] Dr. Preston Bojorquez BLAST # Normal [facility] Comment on above: Performed By: #### I NFLUAB #### [facility] [address] [place] [address] Dr. Preston Bojorquez BLAST % Normal [facility] Comment on above: Performed By: #### I NFLUAB #### [facility] [address] [place] [address] Dr. Preston Bojorquez CORRECTED WBC Normal 4.0-11.0 [facility] Comment on above: Performed By: #### I NFLUAB #### [facility] [address] [place] [address] Dr. Preston Bojorquez EOS # 0.00 103/ul Normal 0.00-0.70 [facility] Comment on above: Performed By: #### I NFLUAB #### [facility] [address] [place] [address] Dr. Preston Bojorquez EOS% 0.0 % Critically low 0.9-7.0 [facility] Comment on above: Performed By: #### I NFLUAB #### [facility] [address] [place] [address] Dr. Preston Bojorquez HCT 42.0 % Normal 42.0-54.0 The [facility] Comment on above: Performed By: #### I NFLUAB #### [facility] [address] [place] [address] [address] Preston Bojorquez HGB 13.8 g/dl Critically low 14.0-18.0 [facility] Comment on above: Performed By: #### I NFLUAB #### [facility] [address] [place] [address] [address] Preston Bojorquez LYMPHM # 0.12 103/ul Critically low 1.20-3.80 [facility] Comment on above: Performed By: #### I NFLUAB #### [facility] [address] [place] [address] [address] Preston Bojorquez LYMPHM% 1.0 % Critically low 20.5-60.0 [facility] Comment on above: Performed By: #### I NFLUAB #### [facility] [address] [place] [address] [address] Preston Bojorquez MCH 29.4 pg Normal 25.9-34.0 [facility] Comment on above: Performed By: #### I NFLUAB #### [facility] [address] [place] [address] [address] Preston Bojorquez MCHC 32.9 g/dl Normal 29.9-35.2 [facility] Comment on above: Performed By: #### I NFLUAB #### [facility] [address] [place] [address] [address] Preston Bojorquez MCV 89.4 fL Normal 80.0-94.0 [facility] Comment on above: Performed By: #### I NFLUAB #### [facility] [address] [place] [address] [address] Preston Bojorquez METAMYELOCYTE # Normal [facility] Comment on above: Performed By: #### I NFLUAB #### [facility] [address] [place] [address] [address] Preston Bojorquez METAMYELOCYTE % Normal [facility] Comment on above: Performed By: #### I NFLUAB #### [facility] [address] [place] [address] [address] Preston Bojorquez MONOM# 0.85 103/ul Critically high 0.30-0.80 [facility] Comment on above: Performed By: #### I NFLUAB #### [facility] [address] [place] [address] [address] Preston Bojorquez MONOM% 7.0 % Normal 1.7-12.0 [facility] Comment on above: Performed By: #### I NFLUAB #### [facility] [address] [place] [address] [address] Preston Bojorquez MPV 9.1 fL Critically low 9.5-13.5 [facility] Comment on above: Performed By: #### I NFLUAB #### [facility] [address] [place] [address] Dr. Preston Bojorquez MYELOCYTE # Normal [facility] Comment on above: Performed By: #### I NFLUAB #### [facility] [address] [place] [address] [address] Preston Bojorquez MYELOCYTE % Normal [facility] Comment on above: Performed By: #### I NFLUAB #### [facility] [address] [place] [address] [address] Preston Bojorquez NRBC Normal [facility] Comment on above: Performed By: #### I NFLUAB #### [facility] [address] [place] [address] Dr. Preston Bojorquez PLT 259 103/ul Normal 150-450 The [facility] Comment on above: Performed By: #### I NFLUAB #### [facility] [address] [place] [address] Dr. Preston Bojorquez RBC 4.70 106/ul Normal 4.70-6.10 The [facility] Comment on above: Performed By: #### I NFLUAB #### [facility] [address] [place] [address] Dr. Preston Bojorquez RDW 13.0 % Normal 11.0-15.0 [facility] Comment on above: Performed By: #### I NFLUAB #### [facility] [address] [place], [place] [address] Dr. Preston Bojorquez SEG # 11.13 103/ul Critically high 1.40-6.50 [facility] Comment on above: Performed By: #### I NFLUAB #### [facility] [address] [place] [address] [address] Preston Bojorquez SEG % 92.0 % Critically high 43.0-75.0 [facility] Comment on above: Performed By: #### I NFLUAB #### [facility] [address] [place] [address] [address] Preston Bojorquez WBC 12.1 103/ul Critically high 4.0-11.[address] [facility] Comment on above: Performed By: #### I NFLUAB #### [facility] [address] [place] [address] Dr. Preston Bojorquez [facility] SARS-CoV-2 (COVID-19) RNA JAS+probe Ql (Unsp spec) Detected Critically abnormal NOT DETECTED The [facility] Comment on above: Result Comment: This test is not yet approved or cleared by the [place] Food and Drug Administration (FDA). This test was developed by [email or web address], [place], [place]. The performance characteristics of this test were validated by The [facility]. The results are not intended to be used as the sole means for clinical diagnosis or patient management decisions. The [facility] is authorized under Clinical Laboratory Improvement Amendments (CLIA) to perform high- complexity testing. This test is not yet approved or cleared by the [place] FDA. When there are no FDA-approved or cleared tests available, and other criteria are met, FDA can make tests available under an emergency access mechanism called an Emergency Use Authorization (EUA). The EUA for this test is supported by the [place] of Health and Human Service's declaration that circumstances exist to justify the emergency use of in vitro diagnostics for the detection and/or diagnosis of the virus that causes COVID-19. This EUA will remain in effect for the duration of the COVID-19 declaration justifying emergency of IVDs, unless it is terminated or revoked by the FDA (after which the test may no longer be used). Performed By: #### I NFLUAB #### [facility] [address] [place] [address] Dr. Preston Bojorquez INFLUENZA A AND B AGon 04-25 INFLUANE SEE BELOW Normal [facility] Comment on above: Result Comment: Nega tive for Flu A protein angiten. Infection due to Flu A cannot be ruled out. Flu A angiten in the sample may be below the detection limit of the test. Performed By: #### I NFLUAB #### [facility] [address] [place] [address] Dr. Preston Bojorquez INFLUBNEG SEE BELOW Normal [facility] Comment on above: Result Comment: Nega tive for Flu B protein antigen. Infection due to Flu B cannot be ruled out. Flu B antigen in the sample may be below the detection limit of the test. Performed By: #### I NFLUAB #### [facility] [address] [place] [address] Dr. Preston Bojorquez INFLUENZA A AG Negative Normal NEGATIVE SEE COMMENT [facility] Comment on above: Performed By: #### I NFLUAB #### [facility] [address] [place] [address] Dr. Preston Bojorquez INFLUENZA B AG Negative Normal NEGATIVE SEE COMMENT [facility] Comment on above: Performed By: #### I NFLUAB #### [facility] [address] [place] [address] Dr. Preston Bojorquez INTERNAL CONTROLS Within Normal Limits Normal Wi thin Normal Limits [facility] Comment on above: Performed By: #### I NFLUAB #### [facility] [address] [place] [address] Dr. Preston Bojorquez LACTATE/LACTIC ACIDon 2021 Lactate [Moles/Vol] 1.1 mmol/L Normal 0.7-2.0 [facility] Comment on above: Performed By: #### I NFLUAB #### [facility] [address] [place] [address] Dr. Preston Bojorquez LIPASEon 04-25-2021 Lipase [Catalytic activity/Vol] 133.0 U/L Normal 23.0-300.0 [facility] Comment on above: Performed By: #### C MP, BNP, HSTROPN, LIPA #### [facility] [address] [place] [address] [address] Preston Bojorquez PH VENOUS BLOODon 04-25-2021 PCO2 VENOUS 28.0 mmHg Critically low 40.0-52.0 [facility] Comment on above: Performed By: #### I NFLUAB #### [facility] [address] [place] [address] Dr. Preston Bojorquez pH VENOUS 7.39 Normal 7.33-7.43 [facility] Comment on above: Performed By: #### I NFLUAB #### [facility] [address] [place] [address] Dr. Preston Bojorquez PROF 14(COMP METB)on 022 Albumin [Mass/Vol] 2.6 g/dL Critically low 3.5-5.0 [facility] Comment on above: Performed By: #### C MP, BNP, HSTROPN, LIPA #### [facility] [address] [place] [address] Dr. Preston Bojorquez Albumin/Globulin [Mass ratio] 0.6 {ratio} Normal [facility] Comment on above: Performed By: #### C MP, BNP, HSTROPN, LIPA #### [facility] [address] [place] [address] Dr. Preston Bojorquez ALP [Catalytic activity/Vol] 69 U/L Normal 38-126 [facility] Comment on above: Performed By: #### C MP, BNP, HSTROPN, LIPA #### [facility] [address] [place] [address] Dr. Preston Bojorquez ALT [Catalytic activity/Vol] 48 U/L Normal 21-72 [facility] Comment on above: Performed By: #### C MP, BNP, HSTROPN, LIPA #### [facility] [address] [place] [address] Dr. Preston Bojorquez Anion gap [Moles/Vol] 15.0 mmol/L Normal [facility] Comment on above: Performed By: #### C MP, BNP, HSTROPN, LIPA #### [facility] [address] [place] [address] [address] Preston Bojorquez AST [Catalytic activity/Vol] 16 U/L Critically low 17-59 [facility] Comment on above: Performed By: #### C MP, BNP, HSTROPN, LIPA #### [facility] [address] [place] [address] [address] Preston Bojorquez Bilirubin [Mass/Vol] 0.4 mg/dL Normal 0.2-1.3 [facility] Comment on above: Performed By: #### C MP, BNP, HSTROPN, LIPA #### [facility] [address] [place] [address] Dr. Preston Bojorquez Calcium [Mass/Vol] 8.9 mg/dL Normal 8.4-10.2 [facility] Comment on above: Performed By: #### C MP, BNP, HSTROPN, LIPA #### [facility] [address] [place] [address] [address] Preston Bojorquez Chloride [Moles/Vol] 97 mmol/L Critically low 98-107 The [facility] Comment on above: Performed By: #### C MP, BNP, HSTROPN, LIPA #### [facility] [address] [place] [address] Dr. Preston Bojorquez CO2 [Moles/Vol] 19.2 mmol/L Critically low 22.0-30.0 [facility] Comment on above: Performed By: #### C MP, BNP, HSTROPN, LIPA #### [facility] [address] [place] [address] Dr. Preston Bojorquez Creatinine [Mass/Vol] 2.34 mg/dL Critically high 0.66-1.25 [facility] Comment on above: Performed By: #### C MP, BNP, HSTROPN, LIPA #### [facility] [address] [place] [address] Dr. Preston Bojorquez EGFR-AF MALIAN 35 mL/min/1.73m2 Critically low >=60 The [facility] Comment on above: Performed By: #### C MP, BNP, HSTROPN, LIPA #### [facility] [address] [place] [address] [address] Preston Bojorquez EGFR-NON AF MALIAN 29 mL/min/1.73m2 Critically low >=60 [facility] Comment on above: Performed By: #### C MP, BNP, HSTROPN, LIPA #### [facility] [address] [place] [address] [address] Preston Bojorquez Globulin (S) [Mass/Vol] 4.3 g/dL Normal [facility] Comment on above: Performed By: #### C MP, BNP, HSTROPN, LIPA #### [facility] [address] [place] [address] Dr. Preston Bojorquez Glucose [Mass/Vol] 135 mg/dL Critically high 74-106 [facility] Comment on above: Performed By: #### C MP, BNP, HSTROPN, LIPA #### [facility] [address] [place] [address] Dr. Preston Bojorquez Potassium [Moles/Vol] 5.2 mmol/L Critically high 3.4-5.0 [facility] Comment on above: Performed By: #### C MP, BNP, HSTROPN, LIPA #### [facility] [address] [place] [address] Dr. Preston Bojorquez Protein [Mass/Vol] 6.9 g/dL Normal 6.1-8.2 [facility] Comment on above: Performed By: #### C MP, BNP, HSTROPN, LIPA #### [facility] [address] [place] [address] Dr. Preston Bojorquez Sodium [Moles/Vol] 126 mmol/L Critically low 137-145 [facility] Comment on above: Performed By: #### C MP, BNP, HSTROPN, LIPA #### [facility] [address] [place] [address] Dr. Preston Bojorquez Urea nitrogen [Mass/Vol] 38.0 mg/dL Critically high 9.0-20.0 [facility] Comment on above: Performed By: #### C MP, BNP, HSTROPN, LIPA #### [facility] [address] [address] [address] Preston Bojorquez Urea nitrogen/Creatinine [Mass ratio] 16.2 mg/mg Normal [facility] Comment on above: Performed By: #### C MP, BNP, HSTROPN, LIPA #### [facility] [address] [address] [address] Preston Bojorquez PROTIMEon 04-25-2021 INR Coag (PPP) [Relative time] 0.95 {INR} Normal [facility] Comment on above: Performed By: #### P T #### [facility] [address] [place] [address] Dr. Preston Bojorquez INR GUIDELINES SEE BELOW Normal [facility] Comment on above: Result Comment: DEAN RED INR: 2.0 - 3.0 CONDITIONS NOT LISTED BELOW 2.5 - 3.5 FOR PROSTHETIC HEART VALVE REPLACEMENT 2.5 - 3.5 RECURRENT THROMBOSIS Performed By: #### P T #### [facility] [address] [place] [address] Dr. Preston Bojorquez PT Coag (PPP) [Time] 10.3 s Normal 9.0-11.6 [facility] Comment on above: Performed By: #### P T #### [facility] [address] [place] [address] Dr. Preston Bojorquez TROPONIN, HIGH SENSITIVITYon 04-25-2021 HSTROP 15.4 pg/mL Normal 4.0-42.2 [facility] Comment on above: Result Comment: CUT- OFF POINTS HAVE BEEN ESTABLISHED BASED ON THE FOURTH UNIVERSAL DEFINITIONS OF MYOCARDIAL INFARCTION. THE UPPER REFERENCE LIMIT (URL) OF TROPONIN, DEFINED THE 99TH PERCENTILE OF cTnI DISTRIBUTION IN A REFERENCE POPULATION, HAS BEEN CONFIRMED THE DECISION THRESHOLD FOR [place] DIAGNOSIS. Performed By: #### C MP, BNP, HSTROPN, LIPA #### [facility] [address] [place] [address] Dr. Preston Bojorquez XR CHEST 1 Von 04-25-2021 XR CHEST 1 V EXAMINATION: XR CHES T 1 V HISTORY: SHORTNESS OF BREATH COMPARISON: 07/08/2009 TECHNIQUE: AP portable erect FINDINGS: LUNGS: Low lung volumes. Moderate bilateral parenchymal opacities left greater than right obscuring the left hemidiaphragm VASCULATURE: No increased pulmonary vasculature. PLEURA: No pneumothorax, effusion, or pleural thickening. CARDIAC: No cardiomegaly or cardiac silhouette abnormality. MEDIASTINUM: No visible mass or adenopathy. BONES: No fracture or visible bone lesion. OTHER: Negative. IMPRESSION: Multifocal pneumonia Electronically authenticated by: SOHAIL TRACY Date: 2021-04-25 11:06 Normal [facility] Covid-19 PCR (CVDTBH)on SARS-CoV-2 (COVID-19) RNA JAS+probe Ql (Unsp spec) Detected Critically abnormal NOT DETECTED The [facility] Comment on above: Result Comment: This test is not yet approved or cleared by the [place] FDA. When there are no FDA-approved or cleared tests available, and other criteria are met, FDA can make tests available under an emergency access mechanism called an Emergency Use Authorization (EUA). The EUA for this test is supported by the [place] of Health and Human Service's (HHS's) declaration that circumstances exist to justify the emergency use of in vitro diagnostics for the detection and/or diagnosis of the virus that causes COVID-19. This EUA will remain in effect (meaning this test can be used) for the duration of the COVID-19 declaration justifying emergency of IVDs, unless it is terminated or revoked by FDA (after which the test may no longer be used). Performed By: #### C VDTB #### [facility] [address] [place] [address] Dr. Preston Bojorquez INFLUENZA A AND B AGon 04-14 INFLUENZA A AG Negative Normal NEGATIVE SEE COMMENT [facility] Comment on above: Performed By: #### I NFLUAB #### [facility] [address] [place] [address] Dr. Preston Bojorquez INFLUENZA B AG Negative Normal NEGATIVE SEE COMMENT [facility] Comment on above: Performed By: #### I NFLUAB #### [facility] [address] [place] [address] Dr. Preston Bojorquez INTERNAL CONTROLS Within Normal Limits Normal Wi thin Normal Limits The [facility] Comment on above: Performed By: #### I NFLUAB #### [facility] [address] [place], [place] [address] Dr. Preston Bojorquez BK VIRUS QUANTITATION FOR PL ASMAon 01-20-2021 BKV Plasma Quantitation by PCR Not detected Normal The [facility] Comment on above: Result Comment: Meth od: BK virus was measured by quantitative polymerase chain reaction using a fluorescent hydrolysis probe targeting the polyomavirus BK DAYLIGHT DRILLER-1 gene. The lower limit of quantitation of the assay is 500 copies of BK genome per milliliter of plasma or urine, and any detectable BK DNA below that level is reported as: Detected, <500 copies/ml. Serial BK virus measurement can be used to monitor disease activity. (Reference: Hattie vancel. J CLIN MICRO 2004; 42:9097-6340). This test was developed and its performance characteristics determined by the [facility]. It has not been approved by the [place] Food and Drug Administration. However, such approval is not required for clinical implementation, and test results have been shown to be clinically useful. This laboratory is CAP accredited and CLIA certified to perform high complexity testing. Performed By: #### 4 191, 95921 #### [facility] [address] BKV Plasma Quantitation Log by PCR Not detected Normal [facility] Comment on above: Performed By: #### 4 1918, 41345 #### [facility] [address] [facility]. [address] CBC W/DIFFon 01-20-2021 ABS IMM GRANS 0.1 10*3/uL Normal 0.0-0.2 [facility] Comment on above: Performed By: #### 1 0070, 86603, 11218, 25776, 44982, 50669 #### [facility] [address] [facility]. [address] ABS NEUTROPHILS 7.3 10*3/uL Normal 1.6-7.6 [facility] Comment on above: Performed By: #### 1 0070, 10049, 83967, 26251, 52200, 53159 #### [facility] [address] [place] [address], [facility] Basophils (Bld) [#/Vol] 0.0 10*3/uL Normal 0.0-0.2 [facility] Comment on above: Performed By: #### 1 0070, 55096, 14613, 52212, 82205, 21519 #### [facility] [address] [place] [address], [facility] Basophils/100 WBC (Bld) 0.1 % Normal 0.0-1.0 [facility] Comment on above: Performed By: #### 1 0070, 62829, 99196, 91437, 96918, 24017 #### [facility] [address] [place] [address], [facility] Eosinophils (Bld) [#/Vol] 0.1 10*3/uL Normal 0.0-0.5 [facility] Comment on above: Performed By: #### 1 0070, 15671, 24433, 22708, 25155, 48352 #### [facility] [address] [facility] [place] [address], [facility] Eosinophils/100 WBC (Bld) 1.3 % Normal 0.0-6.0 [facility] Comment on above: Performed By: #### 1 0070, 42342, 39891, 40524, 30254, 56243 #### [facility] [address] [place] [address], [facility] Erythrocyte distribution width (RBC) [Ratio] 12.8 % Normal 11.5-15.0 The [facility] Comment on above: Performed By: #### 1 0070, 95817, 07844, 18542, 73716, 32719 #### [facility] [address] [place] [address], [facility] Hematocrit (Bld) [Volume fraction] 45.3 % Normal 39.0-50.0 The [facility] Comment on above: Performed By: #### 1 0070, 08065, 62391, 82739, 29705, 40277 #### [facility] [address] [place] [address], [facility] Hemoglobin (Bld) [Mass/Vol] 14.5 g/dL Normal 13.0-17.0 [facility] Comment on above: Performed By: #### 1 0070, 55742, 79389, 27504, 10809, 60012 #### [facility] [address] [place] [address], [facility] IMMATURE GRANS 0.9 % Normal 0.0-1.0 [facility] Comment on above: Performed By: #### 1 0070, 18002, 08366, 26198, 04184, 42973 #### [facility] [address] [facility] [place] [address], [facility] Lymphocytes (Bld) [#/Vol] 1.7 10*3/uL Normal 1.2-4.0 The [facility] Comment on above: Performed By: #### 1 0070, 58630, 52909, 43570, 37036, 21298 #### [facility] [address] [facility] [place] [address], [facility] Lymphocytes/100 WBC (Bld) 17.3 % Low 20.0-45.0 The [facility] Comment on above: Performed By: #### 1 0070, 63224, 82933, 27474, 07385, 40933 #### [facility] [address] [facility] [place] [address], [facility] MCH (RBC) [Entitic mass] 29.5 pg Normal 27.0-33.0 The [facility] Comment on above: Performed By: #### 1 0070, 00123, 76284, 00645, 08846, 59947 #### [facility] [address] [place] [address], [facility] MCHC (RBC) [Mass/Vol] 32.0 g/dL Normal 32.0-35.0 The [facility] Comment on above: Performed By: #### 1 0070, 59948, 65077, 61465, 93305, 80323 #### [facility] [address] [place] [address], [facility] MCV (RBC) [Entitic vol] 92.3 fL Normal 82.0-98.0 The [facility] Comment on above: Performed By: #### 1 0070, 23467, 75958, 34466, 99152, 15854 #### [facility] [address] [place] [address], [facility] Monocytes (Bld) [#/Vol] 0.7 10*3/uL Normal 0.1-1.0 The [facility] Comment on above: Performed By: #### 1 0070, 44600, 39963, 29455, 99867, 56725 #### [facility] [address] MONOS 7.2 % Normal 5.0-12.0 The [facility] Comment on above: Performed By: #### 1 0070, 26572, 00562, 41907, 46469, 98433 #### [facility] [address] [place] [address], [facility] Neutrophils/100 WBC (Bld) 73.2 % High 40.0-72.0 The [facility] Comment on above: Performed By: #### 1 0070, 49640, 78146, 99946, 38196, 37972 #### [facility] [address] [place] [address], [facility] Nucleated RBC/100 WBC (Bld) [Ratio] 0 % Normal 0-0 [facility] Comment on above: Performed By: #### 1 0070, 50323, 96253, 25336, 53778, 70198 #### [facility] [address] [place] [address], [facility] PLAT CNT 233 10*3/uL Normal 150-400 The [facility] Comment on above: Performed By: #### 1 0070, 57665, 66201, 90856, 33348, 10738 #### [facility] [address] [place] [address], [facility] RBC (Bld) [#/Vol] 4.91 10*6/uL Normal 4.20-5.70 [facility] Comment on above: Performed By: #### 1 0070, 56562, 27208, 15086, 16528, 01248 #### [facility] [address] [place] [address], [facility] WBC (Bld) [#/Vol] 9.94 10*3/uL Normal 4.00-10.60 The [facility] Comment on above: Performed By: #### 1 0070, 67995, 85285, 34198, 49732, 79799 #### [facility] [address] COMP METABOLIC PANELon 01-20 Albumin [Mass/Vol] 3.9 g/dL Normal 3.5-5.7 The [facility] Comment on above: Performed By: #### 1 0070, 25624, 92234, 86572, 24167, 24340 #### [facility] [address] ALKALINE PHOSPH 52 IU/L Normal 34-104 [facility] Comment on above: Performed By: #### 1 0070, 95175, 44856, 79934, 67703, 53446 #### [facility] [address] [place] [address], [facility] ALT [Catalytic activity/Vol] 20 U/L Normal 7-52 [facility] Comment on above: Performed By: #### 1 0070, 81880, 99324, 72282, 67293, 28477 #### [facility] [address] [place] [address], [place] AST [Catalytic activity/Vol] 12 U/L Low 13-39 [facility] Comment on above: Performed By: #### 1 0070, 68929, 31645, 37062, 56329, 30060 #### [facility] [address] [place] [address], [place] Bilirubin [Mass/Vol] 0.8 mg/dL Normal 0.3-1.0 [facility] Comment on above: Performed By: #### 1 0070, 71651, 83620, 18485, 42746, 94720 #### [facility] [address] [place] [address], [place] Calcium [Mass/Vol] 9.5 mg/dL Normal 8.6-10.3 [facility] Comment on above: Performed By: #### 1 0070, 78942, 33953, 25735, 83392, 13552 #### [facility] [address] [place] [address], [place] Chloride [Moles/Vol] 106 mmol/L Normal 98-107 [facility] Comment on above: Performed By: #### 1 0070, 44785, 36008, 74439, 27849, 99915 #### [facility] [address] [place] [address], [place] CO2 [Moles/Vol] 27 mmol/L Normal 21-31 [facility] Comment on above: Performed By: #### 1 0070, 04196, 78947, 14897, 30104, 10826 #### [facility] [address] [place] [address], [place] Creatinine [Mass/Vol] 1.70 mg/dL High 0.70-1.30 The [facility] Comment on above: Performed By: #### 1 0070, 21451, 19530, 94670, 78417, 33225 #### [facility] [address] [place] [address], [facility] eGFR- 51 ml/min/1.73sq m Abnormal >60 The [facility] Comment on above: Performed By: #### 1 0070, 22581, 82181, 23356, 70377, 10011 #### [facility] [address] [place] [address], [facility] eGFR- non- 42 ml/min/1.73sq m Abnormal >60 The [facility] Comment on above: Performed By: #### 1 0070, 04695, 32907, 86952, 81895, 07547 #### [facility] [address] [place] [address], [place] Glucose [Mass/Vol] 103 mg/dL High 70-100 The [facility] Comment on above: Performed By: #### 1 0070, 85049, 41100, 31329, 23547, 83663 #### [facility] [address] [place] [address], [place] Potassium [Moles/Vol] 4.6 mmol/L Normal 3.5-5.1 [facility] Comment on above: Performed By: #### 1 0070, 21658, 76130, 30699, 22268, 09222 #### [facility] [address] [place] [address], [place] Protein [Mass/Vol] 6.5 g/dL Normal 6.0-8.3 [facility] Comment on above: Performed By: #### 1 0070, 69954, 07298, 22795, 66728, 53174 #### [facility] [address] [place] [address], [place] Sodium [Moles/Vol] 136 mmol/L Normal 136-145 [facility] Comment on above: Performed By: #### 1 0070, 88802, 31523, 66793, 85565, 74005 #### [facility] [address] [place] [address], [facility] Urea nitrogen [Mass/Vol] 32 mg/dL High 7-25 [facility] Comment on above: Performed By: #### 1 0070, 09994, 10705, 66214, 17662, 71120 #### [facility] [address] [place] [address], [facility] DIRECT BILIon 01-20-2021 Bilirubin.direct [Mass/Vol] 0.1 mg/dL Normal 0.0-0.2 The [facility] Comment on above: Performed By: #### 1 0070, 78982, 81861, 18961, 87949, 76280 #### [facility] [address] [place] [address], [facility] HEMOGLOBIN A1Con 01-20-2021 Glucose [Moles/Vol] 123 mmol/L Normal [facility] Comment on above: Performed By: #### 1 0070, 06998, 60320, 89999, 60467, 99438 #### [facility] [address] [place] [address], [facility] HbA1c (Bld) [Mass fraction] 5.9 % Normal 4.0-6.0 [facility] Comment on above: Performed By: #### 1 0070, 51168, 12207, 65846, 92135, 62247 #### [facility] [address] [place] [address], [facility] LIPID PROFILEon 01-20-2021 Cholesterol [Mass/Vol] 202 mg/dL High 120-200 [facility] Comment on above: Result Comment: CHOL ESTEROL REFERENCE RANGE: 20 YEARS AND OLDER CARDIOVASCULAR RISK Less than 200 mg/dl Low Risk 200 to 239 mg/dl Borderline Risk 240 mg/dl and greater High Risk Performed By: #### 1 0070, 13881, 24363, 66012, 17081, 49592 #### [facility] [address] [place] [address], [facility] Cholesterol in HDL [Mass/Vol] 53 mg/dL Normal 23-92 [facility] Comment on above: Result Comment: Slig ht variation in normal range could be due to gender and/or age. HDL CHOLESTEROL REFERENCE RANGE: 20 years and older Cardiovascular Risk > or =60 mg/dL Desirable 40 TO 59 mg/dL Low Risk <40 mg/dL High Risk Performed By: #### 1 0070, 97770, 75349, 74713, 88399, 07855 #### [facility] [address] [place] [address], [place] Cholesterol in LDL [Mass/Vol] 118 mg/dL Normal 0-130 [facility] Comment on above: Result Comment: LDL IS A CALCULATION LDL IS ONLY VALID IF THE TRIG IS LESS THAN 400. Performed By: #### 1 0070, 03125, 10262, 57458, 42721, 89960 #### [facility] [address] [place] [address], [place] Cholesterol.total/C holesterol in HDL [Mass ratio] 3.8 {ratio} Normal .0-4.5 [facility] Comment on above: Performed By: #### 1 0070, 95087, 17038, 21656, 98703, 60662 #### [facility] [address] [place] [address], [facility] NON-HDL CHOLESTEROL 149 mg/dL Normal [facility] Comment on above: Performed By: #### 1 0070, 03046, 08583, 79731, 91925, 49488 #### [facility] [address] [place] [address], [place] Triglyceride [Mass/Vol] 155 mg/dL High 40-149 The [facility] Comment on above: Result Comment: TRIG LYCERIDE REFERENCE RANGE: 20 YEARS AND OLDER CARDIOVASCULAR RISK LESS THAN 150 mg/dl LOW RISK 150 TO 199 mg/dl BORDERLINE RISK 200 mg/dl AND GREATER HIGH RISK Performed By: #### 1 0070, 61816, 27821, 69060, 50170, 53205 #### [facility] [address] [place] [address], [place] VLDL CHOL 31 mg/dL Normal 0-40 [facility] Comment on above: Performed By: #### 1 0070, 02333, 67474, 84919, 01271, 51383 #### [facility] [address] [place] [address], [facility] MAGNESIUM BLOODon 01-20-2021 Magnesium [Mass/Vol] 2.0 mg/dL Normal 1.9-2.7 [facility] Comment on above: Performed By: #### 1 0070, 08348, 97576, 09383, 50373, 63110 #### [facility] [address] [place] [address], [facility] PHOSPHORUS BLOODon Phosphate [Mass/Vol] 3.0 mg/dL Normal 2.5-5.0 [facility] Comment on above: Performed By: #### 1 0070, 74321, 65023, 01590, 12856, 85293 #### [facility] [address] [place] [address], [facility] TACROLIMUSon 01-20-2021 Tacrolimus (Bld) [Mass/Vol] 4.6 ng/mL Low 5.0-20.0 The [facility] Comment on above: Result Comment: The [employer] Tacrolimus assay is a delayed one-step immunoassay for the quantitative determination of tacrolimus in human whole blood using the chemiluminescent microparticle immunoassay (CMIA) technology with flexible assay protocols, referred to as Chemiflex. Performed By: #### 1 0070, 01970, 96829, 67057, 26807, 33072 #### [facility] [address] [place] [address], [facility] TESTOSTERONE, BIO+FREE+SHBG+ TOTAL ILon 01-20-2021 IL Normal The [facility] Comment on above: Result Comment: Test Performed by [facility] [address] [place], [place] [id number] - Released 01/20/2021 11:25 SEX HORM BIND GLOB 23 nmol/L Normal 11-80 [facility] Testosterone [Mass/Vol] 271 ng/dL Normal 220-1000 The [facility] TESTOSTERONE, BIO 150.3 ng/dL Normal 130-680 [facility] Comment on above: Result Comment: The concentration of bioavailable testosterone is derived from a mathematical expression based on the constant for the binding of testosterone to albumin and/or sex hormone binding globulin. TESTOSTERONE, FREE 64.1 pg/mL Normal 47-244 The [facility] Comment on above: Result Comment: The concentration of free testosterone is derived from a mathematical expression based on the constant for the binding of testosterone to albumin and/or sex hormone binding globulin. URIC ACID BLOODon 01-20-2021 Urate [Mass/Vol] 9.5 mg/dL High 4.4-7.6 [facility] Comment on above: Performed By: #### 1 0070, 08755, 05562, 76218, 66964, 05334 #### [facility] [address] [facility]-08 SARS-CoV-2 (COVID-19) RNA JAS+probe Ql (Unsp spec) Not detected Normal NOT DETECTED The [facility] Comment on above: Result Comment: This test is not yet approved or cleared by the [place] FDA. When there are no FDA-approved or cleared tests available, and other criteria are met, FDA can make tests available under an emergency access mechanism called an Emergency Use Authorization (EUA). The EUA for this test is supported by the [place] of Health and Human Service's (HHS's) declaration that circumstances exist to justify the emergency use of in vitro diagnostics for the detection and/or diagnosis of the virus that causes COVID-19. This EUA will remain in effect (meaning this test can be used) for the duration of the COVID-19 declaration justifying emergency of IVDs, unless it is terminated or revoked by FDA (after which the test may no longer be used). When diagnostic testing is negative, the possibility of a false negative should be considered in the context of a patient's recent exposures and the presence of clinical signs and symptoms consistent with SARS-CoV-2. Performed By: #### I NFLUAB #### [facility] [address], [place] [address] Dr. Preston Bojorquez OPERATIVE REPORTon 9 OPERATIVE REPORT [address] [address] OPERATIVE REPORT PATIENT NAME: IRVIN CARRINGTON : 1965 MED REC NO: [id number] ROOM: ACCOUNT NO: [id number] ADMIT DATE: 10/22/2018 PROVIDER: Oleg Lopez DATE OF PROCEDURE: 10/22/2018 PREOPERATIVE DIAGNOSES: 1. 15-mm nodular left dorsal forearm basal cell carcinoma. 2. Lesion of left distal dorsal forearm. POSTOPERATIVE DIAGNOSES: 1. 15-mm nodular left dorsal forearm basal cell carcinoma. 2. Lesion of left distal dorsal forearm. PROCEDURES: 1. Excision of basal cell carcinoma with V-Y flap closure. 2. Excision of distal left dorsal forearm lesion, 6 mm. SURGEON: Oleg Lopez MD ANESTHESIA: MAC along with 0.5% Marcaine, 1:200,000 epinephrine local. INDICATIONS: A 52-year-old gentleman with biopsy-positive basal cell carcinoma of left forearm that is recurrent and enlarging. He has a second lesion measuring 6 mm just distal and ulnar to this. DESCRIPTION OF PROCEDURE: With the patient supine, intravenous sedation was administered. The area was anesthetized with local anesthetic. After appropriate prep and drape, circular excision of this basal cell was carried out. A V-Y shaped sliding, proximally based V-Y flap was designed with gentian rebekah and incised. This was rotated distally and ulnarly. Burow's triangle was removed and deep suture closure with 4-0 Monocryl. Intracuticular 4-0 Monocryl was then used to close the skin. Elliptical excision of the 6-mm lesion was carried out with multilayer closure using 4-0 Monocryl. Steri-Strips were applied. Tolerated this well. Follow up in the office in 2 weeks' time. No complication. Needle and sponge counts correct. OLEG LOPEZ [id number] Doc#: [id number] CC: Normal [facility] Surgical Pathologyon 019 Surgical Pathology (NOTE) [id number] [facility] ANATOMIC PATHOLOGY [address] [place] [phone] SURGICAL PATHOLOGY CONSULTATION Patient Name: IRVIN CARRINGTON [facility] Rec: [id number] Path Number: [id number] Collected: 10/22/2018 Received: 10/23/2018 Reported: 10/24/2018 17:26 -- Diagnosis -- 1. SKIN, LEFT MEDIAL FOREARM, EXCISION: - SUPERFICIAL AND EARLY INFILTRATIVE BASAL CELL CARCINOMA AND SCAR. - MARGINS APPEAR NEGATIVE FOR INVOLVEMENT. 2. SKIN, LEFT LATERAL FOREARM, EXCISION: - NEUROMA, EXCISED. Lucio Anne M.D. Electronically Signed Out jet/10/24/2018 Clinical Information Pre-op Diagnosis: BASAL CELL LEFT FOREARM Operative Findings: BCC LEFT MEDIAL FOREARM; LEFT LATERAL FOREARM BCC Operation Performed: ARM LESION BIOPSY EXCISION Source of Specimen 1: BCC LEFT MEDIAL FOREARM (A) 2: LEFT LATERAL FOREARM BCC (B) Gross Description 1. IRVIN CARRINGTON, BCC LEFT MEDIAL FOREARM 2.2 x 1.5 x 0.6 (depth) cm unoriented wakefield skin ellipse with a 0.5 cm wakefield-white scar. Inked, sectioned and entirely serially submitted 1cs. 2. IRVIN CARRINGTON, BCC LEFT LATERAL FOREARM 1.5 x 0.7 x 0.4 (depth) cm unoriented wakefield skin ellipse. Inked and trisected 1cs. tm Microscopic Description 1. The sections show superficial aggregates and thin strands of basaloid cells extending into the dermis. Adjacent scar is present. 2. The sections show a well-circumscribed dermal proliferation of spindle cells without significant atypia. There is some palisading of nuclei, but well-formed Verocay bodies are not identified. Normal [facility] Comment on above: Performed By: #### P PPVDP #### [facility] [address] [place] [phone] Drag Out Worker: Armando Childs MD BUN (Urea N)on 10-14-2018 Urea nitrogen [Mass/Vol] 26 mg/dL High 6-20 [facility] Comment on above: Performed By: #### B UN, CREG, LYTE #### [facility] [place] [address] Drag Out Worker: Armando Childs MD Creatinine w/GFRon 9 (cont.) Normal [facility] Comment on above: Result Comment: Aver age GFR for 50-59 years old: 93 mL/min/1.73sq m Chronic Kidney Disease: <60 mL/min/1.73sq m Kidney failure: <15 mL/min/1.73sq m eGFR calculated using average adult body mass. Additional eGFR calculator available at: http://www.[employer]/multiple_crcl_2012.htm Performed By: #### B KT CREG, LYTE #### [facility] [address] [place] [address] Drag Out Worker: Armando Childs MD Creatinine [Mass/Vol] 1.65 mg/dL High 0.70-1.20 [facility] Comment on above: Performed By: #### B UN CREG, LYTE #### [facility] [address] [place] [address] Drag Out Worker: Armando Childs MD GFR, Amer 54 mL/min Low >60 [facility] Comment on above: Performed By: #### B UN CREG, LYTE #### [facility] [address] [place] [address] Drag Out Worker: Armando Childs MD GFR,non Amer 44 mL/min Low >60 [facility] Comment on above: Performed By: #### B UN CREG, LYTE #### [facility] [address] [place] [address] Drag Out Worker: Armando Childs MD Staging: NOT REPORTED Normal [facility] Comment on above: Performed By: #### B UN, CREG, LYTE #### [facility] [address] [place] [address] Drag Out Worker: Armando Childs MD Electrolyteson 10-14-2018 Anion gap [Moles/Vol] 14 mmol/L Normal 9-17 [facility] Comment on above: Performed By: #### B PRAVEEN MERAZ, LYTE #### [facility] [address] [place] [address] Drag Out Worker: Armando Childs MD Chloride [Moles/Vol] 106 mmol/L Normal 98-107 [facility] Comment on above: Performed By: #### B PRAVEEN MERAZ, LYTE #### [facility] [address] [place] [address] Drag Out Worker: Armando Childs MD CO2 [Moles/Vol] 18 mmol/L Low 20-31 [facility] Comment on above: Performed By: #### B PRAVEEN MERAZ, LYTE #### [facility] [address] [place] [address] Drag Out Worker: Armando Childs MD Potassium [Moles/Vol] 5.1 mmol/L Normal 3.7-5.3 [facility] Comment on above: Performed By: #### B PRAVEEN MERAZ, LYTE #### [facility] [address] [place] [address] Drag Out Worker: Armando Childs MD Sodium [Moles/Vol] 138 mmol/L Normal 135-144 [facility] Comment on above: Performed By: #### B PRAVEEN MERAZ, LYTE #### [facility] [address] [place] [address] Drag Out Worker: Armando Childs MD Vital Signs Date Time Vital Sign Value Performing Clinician Carol Ann bean 01-21-2024 15:06-0400 Body mass index (BMI) [Ratio] 31.34 kg/m2 Aviva Brown APRN-NURSE SPECIAL Work Phone: [facility] 01-21-2024 15:06-0400 Body weight 99.07 kg Aviva Brown MERCHANDISE BUYER-NURSE SPECIAL [facility] 01-21-2024 15:06-0400 Diastolic blood pressure 78 mm[Hg] Aviva Brown MERCHANDISE BUYER-NURSE SPECIAL [facility] 01-21-2024 15:06-0400 Heart rate 63 /min Aviva Brown MERCHANDISE BUYER-NURSE SPECIAL [facility] 01-21-2024 15:06-0400 Systolic blood pressure 123 mm[Hg] Aviva Brown MERCHANDISE BUYER-NURSE SPECIAL Work Phone[facility] Encounters Encounter Date Encounter Type Care Provider Facility Start: 09-09-2024 ambulatory RENE JUAREZ [facility] Start: 08-18-2024 ambulatory CARMELO FARNSWORTH [facility] Start: 06-19-2024 End: 06-19-2024 ambulatory ROBB [facility] Start: 06-19-2024 End: 06-19-2024 Emergency department patient visit ROBB BURGOS [facility] Start: 06-19-2024 End: 06-19-2024 ambulatory BRENNEN Restrepo [facility] Start: 06-19-2024 End: 06-19-2024 ambulatory BRENNEN Restrepo [facility] Start: 05-28-2024 End: 05-28-2024 ambulatory JAJA LANDAVERDE [facility] Start: 05-27-2024 ambulatory RENE JUAREZ [facility] Start: 05-15-2024 End: 05-15-2024 Emergency department patient visit RENE JUAREZ [facility] Start: 05-15-2024 ambulatory RENE JUAREZ [facility] Start: 04-30-2024 ambulatory RENE JUAREZ [facility] Start: 03-18-2024 ambulatory CARMELO FARNSWORTH [facility] Start: 02-06-2024 End: 02-06-2024 Evaluation and management of inpatient JANN E GRILLIS [facility] Start: 02-05-2024 ambulatory RENE JUAREZ [facility] Start: 01-21-2024 End: 01-21-2024 Patient encounter procedure Aviva Brown MERCHANDISE BUYER-NURSE SPECIAL Work Phone: [facility] Comment on above: Encounter for screen ing colonoscopy (Primary Dx) Start: 01-21-2024 End: 01-21-2024 ambulatory [facility] Oly BROWN [facility] Start: 12-26-2023 End: 12-26-2023 Office outpatient new 30 minutes Rodrigo Bobo MERCHANDISE BUYER-NURSE SPECIAL Work Phone: [facility] Comment on above: Seborrheic keratosis (Primary Dx); Melanocytic nevus of trunk; Young angioma; Actinic keratosis Start: 12-26-2023 End: 12-26-2023 ambulatory RODRIGO BOBO Not Available Start: 12-26-2023 End: 12-26-2023 Bamboo flowsheet Rodrigo A Felter MERCHANDISE BUYER-NURSE SPECIAL Work Phone: [facility] Start: 12-26-2023 End: 12-26-2023 Bamboo flowsheet Rodrigo A Felter MERCHANDISE BUYER-NURSE SPECIAL Work Phone: [facility] Start: 12-25-2023 ambulatory RENE JUAREZ [facility] Start: 12-05-2023 ambulatory RENE JUAREZ [facility] Start: 10-29-2023 End: 10-29-2023 ambulatory ROJELIO DUKES [facility] Start: 10-29-2023 ambulatory RENE JUAREZ [facility] Start: 10-15-2023 ambulatory RENE JUAREZ [facility] Start: 09-17-2023 ambulatory RENE JUAREZ [facility] Start: 05-25-2021 End: 05-26-[address] DAYRON BROWN Facility:[facility] Start: 05-19-[address] KAYKAY Montalvo ty:[facility] Start: 05-18-2021 End: 05-18-2021 Emergency department patient visit RENE JUAREZ Facility:[facility] Start: 04-27-2021 End: 05-02-2021 Evaluation and management of inpatient MACY SAUCEDO Facility:[facility] Start: 04-25-2021 End: 04-25-[address] TAYLA AMAYA Facility:[facility] Start: 04-17-2021 End: 04-17-[address] DAYRON BROWN Facility:[facility] Start: 04-14-2021 End: 04-14-[address] DAYRON BROWN Facility:[facility] Start: 01-04-2021 End: 01-06-[address] DAYRON BROWN Facility:[facility] Start: 10-22-2018 End: 10-22-2018 Patient encounter procedure OLEG LOPEZ [facility] Start: 10-14-2018 End: 10-15-2018 Patient encounter procedure JOSH HILLIARD [facility] Procedures Date Procedure Procedure Detail Performing Clinician Start: 12-26-2023 CRYOTHERAPY SKIN LESION Rodrigo Bobo MERCHANDISE BUYER-NURSE SPECIAL Work Phone: Start: 10-22-2018 DISCHARGE PATIENT JOSH PE NG Start: 10-22-2018 Level iv surg pathol ogy gross&microscopic exam JOSH HILLIARD Start: 10-22-2018 ENCOURAGE DEEP BREAT CORINNA AND COUGHING JOSH HILLIARD Start: 10-22-2018 INITIATE OXYGEN THER APY PROTOCOL JOSH HILLIARD Start: 10-22-2018 NURSING COMMUNICATION Roni HILLIARD Start: 10-22-2018 REMOVE IV JOSH HILLIARD Start: 10-22-2018 ASSESS JOSH HILLIARD Start: 10-22-2018 BEDREST JOSH HILLIARD Start: 10-22-2018 NEURO/VASCULAR CHECKS L U ARMINDA Start: 10-22-2018 NOTIFY PHYSICIAN (SPECIFY) JOSH HILLIARD Start: 10-22-2018 TELEMETRY MONITORING JOSH HILLIARD Start: 10-22-2018 VITAL SIGNS JOSH HILLIARD Start: 10-14-2018 Assay of urea nitrog en quantitative JOSH HILLIARD Start: 10-14-2018 Creatinine blood JOSH Clarke Start: 10-14-2018 Electrolyte panel JOSH THOMAS NG Plan of Treatment Date Care Activity Detail Author Start: 01-20-2025 Adult BMI Screening Adult BMI Screen ing [facility] Start: 01-20-2025 Tobacco Screening Tobacco Screening [facility] Start: 06-24-2024 End: 06-24-2024 Patient encounter procedure 06/24/2024 8:35 AM EDT Office Visit [facility] [address] [place] [phone] ShemarRodrigo clementLALI-NURSE SPECIAL [address] [place] [address] [facility] Start: 02-06-2024 End: 02-06-2024 Admission to same day surgery center 02/06/2024 8:00 AM EDT - 02/06/2024 8:30 AM EDT Surgery [facility] Surgery [address] [place] [phone] Jann Adams, DO [address] [place], [place] [phone] COLONOSCOPY DIAGNOSTIC / SCREENING [82933 (CPT )] [facility] [place] [facility] Comment on above: COLONOSCOPY DIAGNOST IC / SCREENING [58219 (CPT )] Start: 02-06-2024 End: 02-06-2024 Colonoscopy flx dx w/collj spec when pfrmd COLONOSCOPY DIAGNOSTIC / SCREENING Screen for colon cancer 02/06/2024 8:00 AM EDT [facility] Start: 02-06-2024 Subsequent hospital visit by physician 02/06/2024 8:00 AM EDT Hospital Encounter [facility] Surgery [address] [place] [phone] Jann Adams, DO [address] [place], [place] [phone] [facility] [place] [facility] Start: 01-30-2024 End: 01-30-2024 ambulatory 01/30/2024 1:40 PM EDT Support Visit [facility] Admit [address] [place] [phone] [facility] Start: 12-26-2023 End: 12-26-2023 Patient encounter procedure 12/26/2023 2:50 PM EDT Office Visit [facility] [address] [place] [address] Rodrigo Bobo APRN-CNP [address] [place] [address] Arrived [facility] Comment on above: Arrived Start: 12-08-2023 Influenza vaccination Influenza Vacc ine [facility] Start: 2016 Administration of varicella zoster vaccine Zoster (Shingles) Vaccine (1 of 2) [facility] Start: 11-15-2011 Screening for malign ant neoplasm of colon Colonoscopy [facility] Start: 1985 DTaP,Tdap and Td Vac cines (1 - Tdap) DTaP,Tdap and Td Vaccines (1 - Tdap) [facility] Start: 1978 [facility] End: 01-20-2025 Colonoscopy Colonoscopy GI Routine Encounter for screening colonoscopy 1 Occurrences starting 01/21/2024 until 01/20/2025 [facility] Work Phone: Comment on above: 1 Occurrences starti ng 01/21/2024 until 01/20/2025 Immunizations Immunization Date Immunization Notes Care Provider Chay marino 02-25-2019 influenza virus vaccine, unspecified formulation Aviva Brown MERCHANDISE BUYER-[facility] Work Phone: [facility] Payers Date Payer Category Payer Unknown [id number] 1965 Unknown [id number] 2.16.8 [id number] 1965 Unknown [id number] 2.16.8 [id number] 1965 Unknown [id number] 2.16.84 0.1.104081.3.579.2.593 1965 Unknown [id number] 2.16.84 [id number] 1965 Unknown [id number] 2.16.84 0.1.356081.3.579.2.593 1965 Unknown [id number] 2.16.84 [id number] 1965 Unknown [id number] 2.16.84 0.1.488915.3.579.2.593 1965 Unknown [id number] 2.16.84 0.1.136115.3.579.2.593 1965 Unknown [id number] 2.16.8 40.1.380374.3.579.2.647 1965 Unknown [id number] 2.16.8 40.1.984927.3.579.2.647 1965 Unknown [id number] 2.16.84 0.1.349588.3.579.2.1259 1965 Unknown [id number] 2.16.8 [id number] 1965 Unknown [id number] 2.16.8 [id number] 1958 Unknown [id number] Social History Date Type Detail Facility Tobacco smoking stat [facility] Tobacco smoking consumption unknown [facility] Start: 1965 Sex assigned at Not on file [facility] Start: 09-17-2018 End: 12-26-2023 Gender identity Not on file [facility] Start: 12-11-2021 End: 12-26-2023 Tobacco smoking status AZIS Never smoked tobacco [facility] Start: 12-11-2021 End: 12-26-2023 Tobacco use and exposure Smokeless tobacco non-user [facility] Start: 09-17-2018 End: 12-26-2023 History of Social function [facility] Start: 01-21-2024 Alcoholic beverage intake Current drinker of alcohol (finding) [facility] Unknown [facility] Start: 01-21-2024 Alcohol Comment few drinks few times a week [facility] Clinical Notes 05-03-2021 to 09-10-2024 Aviva Brown, MERCHANDISE BUYER-NURSE SPECIAL - 01/21/2024 3:00 PM EDTShastaradha Bobo, MERCHANDISE BUYER-NURSE SPECIAL - 12/26/2023 2:50 PM EDT Note Date & Type Note Facility 09-10-2024 Note Reviewed over the ph one with Dr. Mullins patients TAC level 3.6. No new orders. [facility] 08-19-2024 Note Reviewed level, prog hank dose and Phos level with Dr. Farnsworth no new orders received. Photo Producer called pt to encourage to increase Phosphorus in his diet. Educated on high Phosphorus foods. Pt mentioned he has a tooth ache, is working on being seen tomorrow at the dentist, educated on not taking NSAIDs, no motrin. Tylenol is acceptable to take for pain. Pt verbalized understanding. Encouraged to up date [facility] Txp, if needs arise. Denied needing any refills at this time. [facility] 06-19-2024 Note Subjective Patient ID: Irvin Carrington is a 58 y.o. male who presents for History of renal transplant; Gout of multiple sites, unspecified cause, unspecified endocrinology physician; and Follow-up. HPI Interval History: 56-year-old male with past medical history of IgA nephropathy s/p living donor renal transplant in October 2009, hypertension and gout presented to our clinic on 02/23/2022 to establish care for gout. He came for follow-up today. Patient reports that he was diagnosed with gout approximately 10 years ago but recently he has noticed that he gets gout flares more frequently than usual. When he initially came to us he was getting gout flares almost on a weekly basis. Usually involved his right big toe on the right lateral foot. He was previously on allopurinol 100 mg daily and it was later increased to 300 mg daily and but he did not notice any improvement after the change in dose. He was prescribed colchicine 0.6 mg daily to be taken on days he flares up but for the almost a month prior to presenting to our clinic he taking it almost on a daily basis. Patient was last seen in Apr 2022 and he reported that he has had no flares since switching to Uloric. His uric acid was 6.7 at the time but given his renal function we continued him on the same dose of Uloric and recommend using colchicine on an as-needed basis. He is here for follow up and continues to deny having episodes of gout since his last visit. Has not the need to take Colchicine. 06/19/2024 Today, Mr. Carrington reports no flares of gout since his last visit in 2022. He had one flare 2 months ago when he was in the ED for HTN due to his kidney issues. He took colchicine at this time. His current medication regime is Uloric 40 mg daily and colchicine 0.6 mg PRN. He reports a good response to the medication and denies side effects. He endorses pain in his right calf that has been constant since Saturday (06/14/2024). He rated the pain 8/10 on Saturday and gradually improved as the week progressed. During this time, he also experienced nausea, slight shortness of breath, and fogginess . Today, he rates the pain a 4/10 and reports slight improvement and denies nausea and shortness of breath. He is concerned for a DVT as he has had DVT's in the past. He has taken aspirin since Saturday to help with the pain. Review of Systems Constitutional: Negative for chills, diaphoresis, fatigue and fever. HENT: Negative for congestion, rhinorrhea and sore throat. Respiratory: Negative for cough, chest tightness and shortness of breath. Cardiovascular: Positive for leg swelling (right calf). Negative for chest pain and palpitations. Gastrointestinal: Negative for abdominal pain, constipation, diarrhea, nausea and vomiting. Genitourinary: Negative for difficulty urinating. Musculoskeletal: Negative for arthralgias, back pain, joint swelling and myalgias (right calf pain). Skin: Negative for rash. Neurological: Negative for headaches. Objective Visit Vitals BP 131/86 (BP Location: Right arm, Patient Position: Sitting, BP Cuff Size: Adult) Pulse 62 Physical Exam Constitutional: Appearance: Normal appearance. HENT: Head: Normocephalic and atraumatic. Eyes: Extraocular Movements: Extraocular movements intact. Conjunctiva/sclera: Conjunctivae normal. Cardiovascular: Rate and Rhythm: Normal rate and regular rhythm. Pulses: Normal pulses. Heart sounds: Normal heart sounds. No murmur heard. Pulmonary: Effort: Pulmonary effort is normal. No respiratory distress. Breath sounds: Normal breath sounds. No wheezing or rales. Musculoskeletal: General: Swelling (right calf slightly larger than left) present. No tenderness. Normal range of motion. Cervical back: Normal range of motion. Right lower leg: No edema. Left lower leg: No edema. Skin: General: Skin is warm and dry. Findings: No erythema (negative on the right calf). Neurological: General: No focal deficit present. Mental Status: He is alert and oriented to person, place, and time. Mental status is at baseline. Psychiatric: Mood and Affect: Mood normal. Behavior: Behavior normal. Assessment/Plan Diagnoses and all orders for this visit: Right calf pain - Vascular US lower extremity venous duplex right; Future Gout of multiple sites, unspecified cause, unspecified chronicity - Vascular US lower extremity venous duplex right; Future History of renal transplant - Vascular US lower extremity venous duplex right; Future Stage 3b chronic kidney disease (CMS/HCC) - Vascular US lower extremity venous duplex right; Future 56-year-old male with past medical history of IgA nephropathy s/p living donor renal transplant in October 2009, hypertension and gout presented to our clinic on 02/23/2022 to establish care for gout. He came for follow-up today. 1. Gout -His last regimen was allopurinol 300 mg daily and colchicine 0.6 mg during flareups -the highest uric acid wa (more content not included)... [facility] 06-19-2024 Note Attestation signed by Brennen Vidales MD at 06/19/2024 12:31 PM By using the attestations below, the signing clinician agrees that I have read and verify that the documentation has been personally reviewed by me and ensure that the documentation accurately reflects the encounter. GC: I personally saw this patient on the day of the encounter, performed the mills portion(s) of the service and participated in the management and confirm the resident's documentation. Please note there may be an additional personal documentation from me. I was present and supervised the procedure No popliteal cyst. Concern of DVT R leg was confirmed by vascular US. I received urgent result and tried to call Mr. Carrington twice with no answer. Gregory in the vascular US suit said he will notify pt to go to the ER for management fo DVT. List all members of procedural/operative team: Dr. Garza, Dr. Vidales LOCATION: Left Posterior knee and leg CLINICAL INDICATION: Pain FINDINGS: No evidence of Peña's cyst. Popliteal veins compressible. Evidence of intraluminal hypoechoic material and absence of Doppler signal in the popliteal veins. IMPRESSION: Compressible popliteal veins however cannot rule out DVT given absence of popliteal vein doppler signal and presence of intraluminal material (Must include permanently recorded images with 2 patient identifiers) [facility] 05-28-2024 Note Nephrology Located within [facility] Irvin Carrington 1965 [id number] Patient : Irvin Carrington; 58 y.o. Reason for Visit: History of renal transplant. HPI: Irvin Carrington is a 57 y.o. male who End-stage renal disease secondary to IgA Nephropathy who underwent living donor kidney transplant on 11/02/2009 (Kidney). Subjective: Patient was seen in ER on 05/15/24 for chest pain and hypertension. ECG normal, CT head normal.Trop normal. No longer having chest pain but still concerned regarding blood pressure. He currently is only taking Lisinopril 20mg daily. He monitors BP at home and at times is 170s/ 80s prior to taking medication Immunosuppression: TAC: 0.5mg - 2 tabs BID Mycophenolate 180mg 3 tabs BID Prednisone 5mg daily- He reports he has never taken this medication Objective: Constitutional: Appearance: NAD HENT: Head: Normocephalic and atraumatic. Eyes: Conjunctiva/sclera: Conjunctivae normal. Cardiovascular: Rate and Rhythm: Normal rate and regular rhythm. Pulses: Normal pulses. Heart sounds: Normal heart sounds. Pulmonary: Effort: Pulmonary effort is normal. Breath sounds: Normal breath sounds. Abdominal: General: Bowel sounds are normal. Palpations: Abdomen is soft. Musculoskeletal: General: Normal range of motion. Cervical back: Neck supple. Skin: General: Skin is warm and dry. Neurological: Mental Status: alert and oriented to person, place, and time. Psychiatric: Mood and Affect: Mood normal. Behavior: Behavior normal. Extremities: No edema ROS: + Immunosuppressed otherwise negative unless stated otherwise in HPI Impression: History of renal transplant Immunosuppression management HTN Hypomagnesemia Plan: Continue:TAC:- level elevated as he did labs after taking medication TAC: 0.5mg - 2 tabs BID Mycophenolate 180mg 3 tabs BID Prednisone 5mg daily- he is to restart taking this medication Continue Lisinopril and will prescribe hydrochlorothiazide 12.5mg daily Continue magnesium oxide Continue statin Monthly labs Good hydration Follow up: 6 months Recent Labs I have reviewed the patient's most recent labs as listed below: Chemistry: Lab Results Component Value Date/Time NA 139 05/27/2024 1247 K 4.7 05/27/2024 1247 CL 108 (H) 05/27/2024 1247 CO2 23 05/27/2024 1247 CO2 27 11/08/2021 0808 BUN 27 (H) 05/27/2024 1247 CREATININE 2.00 (H) 05/27/2024 1247 EGFR 38.2 (L) 05/27/2024 1247 GLU 90 11/08/2021 0808 CALCIUM 9.3 05/27/2024 1247 MG 1.9 05/27/2024 1247 PHOS 2.9 05/27/2024 1247 URICAC 7.2 11/08/2021 0808 ALBUMIN 4.0 05/27/2024 1247 PROT 7.0 05/27/2024 1247 AST 17 05/27/2024 1247 ALT 23 05/27/2024 1247 BILITOT 0.6 05/27/2024 1247 ALKPHOS 83 05/27/2024 1247 Hematology: Lab Results Component Value Date WBC 8.37 05/27/2024 HGB 14.3 05/27/2024 HCT 45.0 05/27/2024 MCV 91.6 05/27/2024 PLT 242 05/27/2024 FERRITIN 465 (H) 04/27/2021 Endocrine: Lab Results Component Value Date/Time HGBA1C 5.7 03/18/2024 0800 Lipids: Lab Results Component Value Date/Time CHOL 204 (H) 03/18/2024 0800 TRIG 83 03/18/2024 0800 LDL 152 03/18/2024 0800 HDL 52 03/18/2024 0800 Viral: Lab Results Component Value Date BKQUANT Not Detected 03/18/2024 BKLOG Not Detected 03/18/2024 Urine studies: Lab Results Component Value Date PROTUR 2+ 05/28/2024 PROTUR 61.0 05/07/2023 CREATUR 120.0 05/07/2023 COLORU Yellow 05/28/2024 SPECGRAVU 1.006 (L) 06/05/2021 BILIRUBINUR 0 05/28/2024 BILIRUBINUR Negative 05/07/2023 BLOODU SMALL (A) 06/05/2021 WBCU NONE SEEN 06/05/2021 LEUKOCYTESU NEGATIVE 06/05/2021 NITRITEU NEGATIVE 06/05/2021 Vitals: 05/28/24 1442 BP: 135/88 Pulse: 61 Resp: 18 SpO2: 98% Current Outpatient Medications on File Prior to Visit Medication Sig Dispense Refill atorvastatin (Lipitor) 20 mg tablet TAKE 1 TABLET IN THE MORNING 90 tablet 3 colchicine 0.6 mg tablet Take 1 tab every other day 30 tablet 1 febuxostat (Uloric) 40 mg tablet TAKE 1 TABLET IN THE MORNING 90 tablet 3 lisinopril 20 mg tablet TAKE 1 TABLET DAILY 90 tablet 3 magnesium oxide (Mag-Ox) 400 mg (241.3 mg magnesium) tablet Take 1 tablet (400 mg) by mouth in the morning. 90 tablet 3 mycophenolate (Myfortic) 180 mg EC tablet TAKE 3 TABLETS BY MOUTH TWICE DAILY 540 tablet 3 ondansetron ODT (Zofran-ODT) 4 mg disintegrating tablet Take 1 tablet (4 mg) by mouth every 8 (eight) hours if needed for nausea or vomiting for up to 10 doses. 10 tablet 0 Prograf 0.5 mg capsule Take 1 capsule twice a day by oral route for 90 days. TDD: 3mg 60 capsule 11 Prograf 1 mg capsule Take 1 capsule twice a day by oral route for 90 days. TDD: 3 MG 180 capsule 3 tacrolimus (Prograf) 0.5 mg capsule TAKE 2 CAPSULES BY MOUTH IN THE MORNING AND 2 CAPSULES BY MOUTH IN THE EVENING 360 capsule 3 [DISCONTINUED] amLODIPine (Norvasc) 5 mg tablet Take 1 tablet every day by oral route in the morning. 90 tablet 3 [DI (more content not included)... [facility] 05-15-2024 Note Patient called in to speak to coordinator. Had repeat labs today, K down to 4.4 from 5.7 with last check. BP meds reduced at that time, currently on Lisinopril 10 mg daily. BP this morning before medications was 165/115, p. 73. BP after meds was 155/105. Patient reporting blurred vision, dizziness, lethargy, pressure around chest and SOB with exertion. Coordinator immediately called and spoke to Dr. Mullins regarding patients symptoms. Recommend go to ER to be evaluated. We can manage his BP outpatient but he needs to be evaluated first. Spoke to patient and who verbalized understanding. Given instructions if patient is taken to local ER to have the MD there call roll mill operator here and ask for transplant physician nuclear control operator. [facility] 04-30-2024 Note Reviewed over the ph one with Dr. Farnsworth patients K 5.7. Patient reported taking Lisinopril 20 mg daily, not taking any diuretics/water pills. His made a Kale/potato soup and he has been eating that for the past two days. New orders to decrease Lisinopril to 10 mg daily, and monitor BP. Patient instructed to call if systolic (top number) above 150/160s. Repeat labs next week. Limit K rich foods. Verbalized understanding. New Rx sent for Lisinopril for patient to have correct dose on hand. He is not on any other BP meds per his report. [facility] 01-21-2024 History of Present illness Narrative Images from the original note were not included. Chief Complaint: Colon cancer screening History of Present Illness Irvin Carrington is a 58 y.o. male who presents to the office for colon cancer screening. His last colonoscopy was in 2013. No polyps were removed. He denies diarrhea, constipation, abdominal pain, melena, hematochezia, unexplained weight loss. There is no family history of colon cancer. Review of Systems Constitutional: Negative for fever and unexpected weight change. HENT: Negative for trouble swallowing. Respiratory: Negative for shortness of breath. Cardiovascular: Negative for chest pain. Gastrointestinal: Negative for nausea, vomiting, abdominal pain, diarrhea, constipation, blood in stool and black tarry stool. Genitourinary: Negative for dysuria and difficulty urinating. Musculoskeletal: Negative for gait problem. Skin: Negative for rash and wound. Neurological: Negative for dizziness, weakness and light-headedness. Hematological: Does not bruise/bleed easily. Psychiatric/Behavioral: Negative for confusion. Past Medical History: Diagnosis Date Hypertension Tachycardia Past Surgical History: Procedure Laterality Date AV FISTULA REMOVAL COLONOSCOPY NEPHRECTOMY TRANSPLANTED ORGAN No Known Allergies Current Outpatient Medications: allopurinoL (ZYLOPRIM) 100 mg tablet, Take 1 tablet (100 mg total) by mouth in the morning., Disp: , Rfl: atorvastatin (LIPITOR) 20 mg tablet, Take 1 tablet (20 mg total) by mouth in the morning., Disp: , Rfl: lisinopriL (PRINIVIL,ZESTRIL) 20 mg tablet, Take 1 tablet (20 mg total) by mouth in the morning., Disp: , Rfl: magnesium oxide (MAGOX) 400 mg tablet, Take 1 tablet (400 mg total) by mouth in the morning., Disp: , Rfl: metoprolol tartrate (LOPRESSOR) 25 mg tablet, Take 1 tablet (25 mg total) by mouth., Disp: , Rfl: mycophenolate (MYFORTIC) 180 mg EC tablet, Take 3 tablets (540 mg total) by mouth in the morning and 3 tablets (540 mg total) before bedtime., Disp: , Rfl: tacrolimus (PROGRAF) 1 mg capsule, Take 1 capsule (1 mg total) by mouth every 12 (twelve) hours., Disp: , Rfl: peg 3350-sod sulf,yaip-stt-uyq 178.7-7.3-0.5 gram recon soln, Take 1 kit by mouth once daily for 1 dose. Please see instructional sheet given by physicians office., Disp: 1 each, Rfl: 0 Social History Socioeconomic History Marital status: Spouse name: Not on file Number of children: Not on file Years of education: Not on file Highest education level: Not on file Occupational History Not on file Tobacco Use Smoking status: Never Smokeless tobacco: Never Vaping Use Vaping status: Never Used Substance and Sexual Activity Alcohol use: Yes Comment: few drinks few times a week Drug use: Never Sexual activity: Defer Other Topics Concern Not on file Social History Narrative Not on file Social Determinants of Health Financial Resource Strain: Not on file Food Insecurity: Not on file Transportation Needs: Not on file Physical Activity: Not on file Stress: Not on file Social Connections: Not on file Interpersonal Safety: Unknown (05/30/2023) Received from [facility] Safety & Environment Fear of Current or Ex-Partner: Not on file Emotionally Abused: Not on file Physically Abused: Not on file Sexually Abused: Not on file Physically or Sexually Abused: Not on file Housing Instability: Not on file History reviewed. No pertinent family history. Objective Physical Exam Constitutional: General: He is not in acute distress. Appearance: Normal appearance. He is not ill-appearing. HENT: Head: Normocephalic and atraumatic. Mouth/Throat: Mouth: Mucous membranes are moist. Eyes: Pupils: Pupils are equal, round, and reactive to light. Cardiovascular: Rate and Rhythm: Normal rate. Pulmonary: Effort: Pulmonary effort is normal. No respiratory distress. Abdominal: General: There is no distension. Musculoskeletal: General: Normal range of motion. Skin: General: Skin is warm and dry. Neurological: Mental Status: He is alert and oriented to person, place, and time. Mental status is at baseline. Vital Signs: Blood pressure 123/78, pulse 63, weight 99.1 kg (218 lb 6.4 oz). Respiratory Source: No data recorded Admission Weight: Weight: 99.1 kg (218 lb 6.4 oz) Labs Lab Results Component Value Date WBC 7.1 12/11/2021 HGB 13.1 12/11/2021 HCT 39.7 12/11/2021 MCV 90 12/11/2021 PLT 196 12/11/2021 Lab Results Component Value Date GLU 144 (H) 12/11/2021 CALCIUM 8.9 12/11/2021 K 3.8 12/11/2021 CO2 20 (L) 12/11/2021 CL 110 (H) 12/11/2021 BUN 35 (H) 12/11/2021 CREATININE 1.57 (H) 12/11/2021 No results found for: AMYLASE No results found for: LIPASE No results found for: ALT , AST , GGT , ALKPHOS , LABBILI No results found for: INR , PROTIME Assessment Irvin Carrington is a 58 y.o.male who presents to the office for screening colonoscopy. Plan Colonoscopy with possible biopsy and/or polypectomy. Risks, benefits, and alternatives discussed with patient. Educated on bowel evacuation preparation. Patient verbalizes understanding and wishes to proceed. Evaluation included: Preparing to see the patient (e.g., review of tests) Obtaining and/or reviewing separately obtained history Performing a medically appropriate examination and/or evaluation Counseling and educating the patient/family/caregiver Referring and communicating with other health care trainer Encounter for screening colonoscopy [Z12.11] GABRIEL BOWERS [facility] [place] This note was created with the assistance of a speech recognition program. While intending to generate a timely document that accurately reflects the content of the visit, no guarantee can be provided that every grammatical or spelling mistake has been or will be identified or corrected. Thank you for your understanding. GABRIEL Bowers 01/21/24 1527 documented in this encounter [facility] 12-26-2023 History of Present illness Narrative Skin Check Location: Patient requests a full body skin examination Dermatologic history: history of skin cancer New patient All pertinent medical history, medications, and allergies were reviewed. General Exam: alert , oriented to person, place, and time , normal affect, well appearing Unaccompanied Scalp, Examined Right leg Examined Head, Face Examined Left leg Examined Neck Examined Right foot Examined Chest Examined Left foot Examined Back Examined Buttocks Examined Abdomen Examined Digits,nails: Examined Right arm Examined Left arm Examined Lymphatics: Not examined Hands Examined 1. Seborrheic keratosis Stuck on verrucous, variably pigmented papules and plaques. Patient was counseled regarding these benign growths. Removal is normally not necessary, but they may be removed if they are symptomatic or for cosmetic reasons. 2. Melanocytic nevus of trunk Scattered benign appearing, regular brown to light brown melanocytic papules and macules with similar morphology Counseled regarding these benign growths. Rarely, a nevus can develop into malignant melanoma, so any changing nevi should be promptly re-evaluated. 3. Young angioma Head - Anterior (Face) Scattered young-red papule(s). The patient was informed that angiomas are benign growths on the the skin. No treatment is necessary. 4. Actinic keratosis Left Bahai Erythematous scaly papules Patient was counseled regarding these sun-induced growths that can develop into squamous cell carcinoma if left untreated. Discussed treatment with cryotherapy. It was emphasized that any treated lesions that fail to resolve should be re-evaluated. Cryotherapy performed today; see procedure note Diagnosis: Actinic keratosis Indication: Precancerous Location: see skin exam Consent: Verbal consent was obtained and risks were discussed, including, but not limited to risks of scarring, darker or executive sales manager pigmentary changes, recurrence, incomplete removal and infection. Method: Liquid nitrogen was used to treat the lesion(s) with two 5-10 second freeze-thaw cycles. Number of lesions treated: 1 Post-procedure instructions: Instructions were given orally and in writing. The office will be contacted if the lesion fails to resolve despite treatment, or if a side effect develops such as abnormal crusting, scabbing, redness or tenderness Cryotherapy, skin lesion - Left Bahai Next Visit: 6 months documented in this encounter [facility] 12-06-2023 Note Tac level 8.[address] Currie. No new orders received. Will monitor for repeat monthly labs. [facility] 10-29-2023 Note 10/29/23 Chief Complaint Patient presents with Kidney Follow-up No concerns PCP: Dayron Brown MD Txp Referring: Preferred Pharmacy: [facility] - [place], [place] - [address] [phone] Subjective Visit Vitals BP 125/87 (BP Location: Left arm, Patient Position: Sitting, BP Cuff Size: Adult) Pulse 67 Temp 36.6 ???C (97.8 ???F) (Oral) Resp 18 Ht 1.778 m (5' 10 ) Wt 99.8 kg (220 lb) BMI 31.57 kg/m??? Smoking Status Never BSA 2.22 m??? No Known Allergies Medication Documentation Review Audit Reviewed by Dora Emerson LPN (Licensed Nurse) on 10/29/23 at 1456 Medication Order Taking? Sig Documenting Provider Last Dose Status amLODIPine (Norvasc) 5 mg tablet [id number] Yes Take 1 tablet every day by oral route in the morning. Kaykay Currie MD Taking Active atorvastatin (Lipitor) 20 mg tablet [id number] Yes TAKE 1 TABLET IN THE MORNING Kaykay Currie MD Taking Active b complex 0.4 mg tablet [id number] Yes Take 1 tablet by mouth in the morning. Historical ProviderMD Taking Active colchicine 0.6 mg tablet [id number] Yes Take 1 tab every other day Allison Yan MD Taking Active febuxostat (Uloric) 40 mg tablet [id number] Yes TAKE 1 TABLET IN THE MORNING Brennen Vidales MD Taking Active hydroCHLOROthiazide (HYDRODiuril) 25 mg tablet [id number] Yes TAKE 1 TABLET IN THE MORNING Kaykay Currie MD Taking Active levoFLOXacin (Levaquin) 500 mg tablet [id number] Take 1 tablet by mouth in the morning. Historical ProviderMD Active lisinopril 20 mg tablet [id number] Yes TAKE 1 TABLET DAILY Thor Rodriguez MD Taking Active losartan (Cozaar) 100 mg tablet [id number] Yes TAKE 1 TABLET DAILY Thor Rodriguez MD Taking Flag for Review magnesium oxide (Mag-Ox) 400 mg (241.3 mg magnesium) tablet [id number] Yes Take 1 tablet (400 mg) by mouth in the morning. Kaykay Currie MD Taking Active metoprolol tartrate (Lopressor) 25 mg tablet [id number] Yes Take 0.5 tablets (12.5 mg) by mouth in the morning and at bedtime. Kaykay Currie MD Taking Active mycophenolate (Myfortic) 180 mg EC tablet [id number] Yes Take 3 tabs BID Rojelio Dukes NP Taking Active ondansetron ODT (Zofran-ODT) 4 mg disintegrating tablet [id number] Yes Take 1 tablet (4 mg) by mouth every 8 (eight) hours if needed for nausea or vomiting for up to 10 doses. Vinod Maria NP Taking Flag for Review predniSONE (Deltasone) 10 mg tablet [id number] Yes Take 10 mg daily for 3 days during a flare up Allison Yan MD Taking Flag for Review predniSONE (Deltasone) 5 mg tablet [id number] Yes Take 1 tablet (5 mg) by mouth in the morning. Rojelio Dukes NP Taking Active Prograf 0.5 mg capsule [id number] Yes Take 1 capsule twice a day by oral route for 90 days. TDD: 3mg Carmelo Farnsworth MD Taking Active Prograf 1 mg capsule [id number] Yes Take 1 capsule twice a day by oral route for 90 days. TDD: 3 MG Carmelo Farnsworth MD Taking Active tacrolimus (Prograf) 0.5 mg capsule [id number] Yes Two tabs in morning and two tabs in evening Rojelio Dukes NP Taking Active There is no immunization history on file for this patient. Patient Active Problem List Diagnosis Chest pain End-stage renal disease (CMS/HCC) Essential hypertension History of renal transplant Hypomagnesemia Increased infection risk status post immunosuppressive therapy Proteinuria Stage 3 chronic kidney disease (CMS/HCC) Supraventricular tachycardia (CMS/HCC) No family history on file. Social History Tobacco Use Smoking status: Never Smokeless tobacco: Never Substance Use Topics Alcohol use: Yes Comment: 6 A WEEK BEER OR liquor Drug use: Never History reviewed. No pertinent past medical history. Past Surgical History: Procedure Laterality Date CT GUIDED PERCUTANEOUS BIOPSY RENAL LEFT Left 10/16/2017 CT GUIDED PERCUTANEOUS BIOPSY RENAL LEFT [place] CONVERSION Travel Screening No screening recorded since 10/28/23 0000 Travel History Travel since 09/29/23 No documented travel since 09/29/23 Patient Health Questionnaire-9 Score: 0 HPI Irvin Carrington is a 57 y.o. male who End-stage renal disease secondary to IgA Nephropathy who underwent living donor kidney transplant on 11/02/2009 (Kidney). 10.29.23 Pt presents for office visit. Lengthy discussion on monthly labs. Pt continues to [address] [employer] [facility] with busy season educated importance of labs. Pt hx: significant for IgA nephropathy and HTN who underwent living donor renal transplant on 11/03/19. Lengthy discussion IS meds including prednisone. TAC: 0.5mg - 2 tabs BID Mycophenolate 180mg 3 tabs BID Prednisone 5mg daily Labs from 10.28.24: B/S 111; Creat 1.8 K+ 4.5 Mag 1.7; Phos 2.3; Hgb 14.8 WBC 7.4 Pt denies CP or Sob. No edema. Discussed adequate hydration as life style. PCP: Kevin Plan: continue meds. Labs monthly. Adequate hydration. Follow up 6 months. Chart Review Today: 05/07/22 [place] (more content not included)... [facility] 05-03-2021 Note MR#: [id number] I [facility] Pt. Name: Irvin Carrington Admitted: 04/27/2021 Discharged: 05/02/2021 Date of : 1965 Physician: Macy Saucedo MD DISCHARGE SUMMARY PRIMARY DIAGNOSES: 1. COVID-19 pneumonia. 2. Acute kidney disease. SECONDARY DIAGNOSES: 1. History of renal transplant. 2. Hypertension. HISTORY OF PRESENT ILLNESS: This patient is a 55-year-old male with past medical history of renal transplant, presented to the emergency due to shortness of breath, fever, chills, body ache and nonproductive cough. The patient was given azithromycin and prednisone as outpatient but no improvement. HOSPITAL COURSE: 1. Acute hypoxic respiratory failure due to COVID-19 pneumonia. The patient received 3 days of remdesivir and Decadron. The patient was discharged on 2 L oxygen with exertion. 2. Acute kidney injury in renal transplant, which has improved. Nephrology recommended to stop Myfortic and resume tacrolimus and prednisone. The patient will follow up with Transplant Clinic. 3. Hyperkalemia which has improved. PHYSICAL EXAM: GENERAL: Not in acute distress. NECK: Supple. CARDIOVASCULAR: Normal rate, rhythm. No murmur. RESPIRATORY: Clear to auscultation bilaterally. GI: Soft, nontender, nondistended. EXTREMITIES: No pitting edema. DISCHARGE MEDICATIONS: Lipitor 10 mg at bedtime, Lopressor 12.5 b.i.d., prednisone 10 mg daily, tacrolimus 1.5 mg b.i.d. DISPOSITION: Discharged home in stable condition, with 2 liters home oxygen with exertion. INSTRUCTIONS: The patient is to follow up with renal transplant. TIME SPENT: 45 minutes spent with the patient working on discharge planning. Electronically Signed by: Macy Saucedo MD 05/04/2021 01:26 P _ Macy Saucedo MD Date Dict: 05/03/2021/02:34 P/Macy Saucedo MD Date Trans: 05/03/2021 03:01 P/mmo [id number] cc: Dayron Brown M.D. [address] [facility] [phone] [facility] Evaluation note Diagnosis Seborrheic keratosis- Primary Melanocytic nevus of trunk Benign neoplasm of skin of trunk, except scrotum Oyung angioma Actinic keratosis [facility] Diagnosis Encounter for screening colonoscopy- Primary Screen for colon cancer Special screening for malignant neoplasms, colon documented in this encounter [facility] SystemInstructionsNot on filedocumented in this encounter [facility] Summary Purpose Family History No Family History Records FoundNo Family History Records FoundNo Family History Records FoundNo Family History Records FoundNo Family History Records FoundNo Family History Records FoundNo Family History Records Found Advance Directives No Advanced Directives Records FoundNo Advanced Directives Records FoundNo Advanced Directives Records FoundNo Advanced Directives Records FoundNo Advanced Directives Records FoundNo Advanced Directives Records FoundNo Advanced Directives Records Found Additional Source Comments (unrecognized sect ion and content) No Status Records FoundNo Status Records FoundNo Status Records FoundNo Status Records FoundNo Status Records FoundNo Status Records FoundNo Status Records Found INFORMATION SOURCE (unrecogn ized section and content) DATE CREATED AUTHOR 10/24/2018 [facility] DATE CREATED AUTHOR AUTHOR'S ORGANIZ ATION 05/30/2021 [facility] DATE CREATED AUTHOR AUTHOR'S ORGANIZ ATION 11/20/2021 [facility] DATE CREATED AUTHOR AUTHOR'S ORGANIZ ATION 12/29/2023 [facility] EPIC DATE CREATED AUTHOR AUTHOR'S ORGANIZ ATION [facility] DATE CREATED AUTHOR AUTHOR'S ORGANIZ ATION 02/07/2024 [facility] DATE CREATED AUTHOR AUTHOR'S ORGANIZ ATION 09/14/2024 [facility] Reason for Visit (unrecogniz ed section and content) Reason Comments Skin Check Reason Comments Colon Cancer Screening 10 year recall Care Teams (unrecognized sec tion and content) Predatory Animal Trapper Relationship Specialty Start Date End Date Dayron Brown MD PCP - General Family Medicine 12/11/21 FOR RECORDS PERTAINING TO PATIENTS WHO ARE OR HAVE BEEN ENROLLED IN A CHEMICAL DEPENDENCY/SUBSTANCEABUSE PROGRAM, SOME INFORMATION MAY BE OMITTED. This clinical summary was aggregated from multiple sources. Caution should be exercised in using it in the provision of clinical care. This summary normalizes information from multiple sources, and as a consequence, information in this document may materially change the coding, format and clinical context of patient data. In addition, data may be omitted in some cases. CLINICAL DECISIONS SHOULD BE BASED ON THE PRIMARY CLINICAL RECORDS. [employer] provides no warranty or guarantee of the accuracy or completeness of information in this document.
--- OUTSIDE RECORDS SUMMARY | 2024-09-24 07:42 | XMS_ITS | Encounter Summary ---
Author Organization [facility] Address [address] [place] [address] Care Team Providers Care Milieu Technician Name Role Phone Sal Guerrero MD Unavailable Dayron Pleitez MD Primary Care Provider [phone] Rojelio Dukes CNP Unavailable [phone] Reason for Visit * Reason Onset Date Comments Med Refill 12/19/2022 Encounter Details Date Type Department Care Team (Late st Contact Info) Description 12/19/2022 Refill [facility] Rheumatology [address] [place] [address] Brennen Vidales MD [address] [place] [address] Gout of multiple sites, unspecified cause, unspecified chronicity Social History Tobacco Use Types Packs/Day Years [...] PM EST documented as of this encounter Miscellaneous Notes * Telephone Encounter - Aviva Li MA - 12/20/2022 8:02 AM EDT Last visit 08/24/22 No upcoming visit scheduled Last cbc/cmp 10/31/22 documented in this encounter Plan of Treatment Upcoming Encounters Date Type Department Care Team (Late st Contact Info) Description 11/26/2024 2:30 PM EDT Follow-Up [facility] Transplant [address] [place] [phone] Flower Baig, GUILLE [address] [facility] [address] [place], [place] [id number] 12/18/2024 10:30 AM EDT Follow-Up [facility] Rheumatology [address] [place] [address] Brennen Vidales MD [address] [facility] [place] [address] documented as of this encounter Visit Diagnoses Diagnosis Gout of multiple sites, unspecified cause, unspecified chronicity documented in this encounter Additional Health Concerns Infection Onset Date Last Indicated Resolved Time COVID-19 (confirmed) 03/21/2023 03/21/2023 024 5:23 AM EST documented as of this encounter Care Teams Milieu Technician Relationship Specialty Start Date End Date Dayron Pleitez MD [address] [place] [address] PCP - General 04/26/22 Sal Guerrero MD [address] [place] [address] Dr Delacruz [address] [place] [address] Consulting Physician Urology 01/16/22 Rojelio Dukes CNP [address] [facility] [place] [facility] [address] Nurse Practitioner Urology 05/07/23 documented as of this encounter
--- OUTSIDE RECORDS SUMMARY | 2024-09-24 07:42 | XMS_ITS | Clinical Summary ---
Author Organization [facility] Address [address] [place] [address] Care Team Providers Care Corporate Director Talent Assessment Name Role Phone Dayron Pleitez MD Primary Care Provider [phone] Allergies No known active allergies Medications atorvastatin (LIPITOR) 20 MG tablet 08/20/2018 Active hydrochlorothiaz valerio (HYDRODIURIL) 25 MG tablet 08/09/2018 Active lisinopril (PRINIVIL;ZESTRI L) 20 MG tablet 08/09/2018 Act suzanne metoprolol tartrate (LOPRESSOR) 25 MG tablet 08/21/2018 Active mycophenolate (MYFORTIC) [address] tablet 07/22/2018 Active tacrolimus (PROGRAF) 0.5 MG capsule Take 0.5 mg by mouth 2 times daily Active Active Problems Problem Noted Date Diagnosed Date Basal cell carcinoma (BCC) of left forearm 11/17 Hypertension 09/30/2018 Hyperlipidemia 09/30/2018 Social History Tobacco Use Types Packs/Day Years Used Date Smoking Tobacco: Never Smokeless Tobacco: Never Alcohol Use Standard Drinks/Week Comments Yes 2 (1 standard drink = 0.6 oz pur e alcohol) Sex and Gender Information Value Date Recorded Sex Assigned at Not on file Legal Sex Male 1:42 PM EDT Gender Identity Not on file Sexual Orientation Not on file Last Filed Vital Signs Vital Sign Reading Time Taken Comments Blood Pressure 114/78 12/17/2018 2:06 PM EDT Pulse 56 12/17/2018 2:06 PM EDT Temperature 36.8 C (98.3 F) 10/22/2018 9:13 AM EDT Respiratory Rate 0 10/22/2018 10:35 AM EDT Oxygen Saturation 97% 10/22/2018 10:45 AM EDT Inhaled Oxygen Concentration - - Weight 83.9 kg (185 lb) 12/17/2018 2:06 PM EDT s tated Height 179.1 cm (5' 10.5 ) 12/17/2018 2:06 PM ED T stated Body Mass Index 26.17 12/17/2018 2:06 PM EDT Plan of Treatment Not on file [place] Care Teams Corporate Director Talent Assessment Relationship Specialty Start Date End Date Dayron Pleitez MD [address] [place] [address] PCP - General Family Medicine 10/08/18
--- OUTSIDE RECORDS SUMMARY | 2024-09-24 07:42 | XMS_ITS | Encounter Summary ---
Author Organization [facility] Address [address] [place] [address] Care Team Providers Care Home Aide Name Role Phone Sal Guerrero MD Unavailable Dayron Pleitez MD Primary Care Provider [phone] Rojelio Dukes CNP Unavailable [phone] Reason for Visit * Reason Comments Med Refill Encounter Details Date Type Department Care Team (Late st Contact Info) Description 02/14/2023 Refill [facility] Transplant [address] [place] [address] Latha Currie MD [address] [place], [place] Aftercare following organ transplant Social History [...] Info) Description 11/26/2024 2:30 PM EDT Follow-Up [facility] Transplant [address] [place] [address] Flower Baig, GUILLE [address] [facility] [address] [place], [place] [id number] 12/18/2024 10:30 AM EDT Follow-Up [facility] Rheumatology [address] [place] [address] Brennen Vidales MD [address] [facility] [place] [address] documented as of this encounter Visit Diagnoses Diagnosis Aftercare following organ transplant documented in this encounter Additional Health Concerns Infection Onset Date Last Indicated Resolved Time COVID-19 (confirmed) 03/21/2023 03/21/2023 024 5:23 AM EST documented as of this encounter Care Teams Home Aide Relationship Specialty Start Date End Date Dayron Pleitez MD [address] [place] [address] PCP - General 04/26/22 Sal Guerrero MD [address] [place] [address] Dr Delacruz [address] [place] [address] Consulting Physician Urology 01/16/22 Rojelio Dukes CNP [address] [place] [address] Nurse Practitioner Urology 05/07/23 documented as of this encounter
--- OUTSIDE RECORDS SUMMARY | 2024-09-24 07:42 | XMS_ITS | Encounter Summary ---
Author Organization [facility] Address [address] [place] [address] Care Team Providers Care Director Radiation Oncology Name Role Phone Sal Guerrero MD Unavailable Dayron Pleitez MD Primary Care Provider [phone] Rojelio Dukes CNP Unavailable [phone] Reason for Visit * Reason Comments Med Refill Encounter Details Date Type Department Care Team (Late st Contact Info) Description 03/07/2023 Refill [facility] Nephrology Clinic [address] [place] [address] Thor Rodriguez [facility] [address] [facility] [place] [address] Aftercare following organ transplant Social History Tobacco [...] Info) Description 11/26/2024 2:30 PM EDT Follow-Up [facility] Transplant [address] [place] [phone] Flower Baig, GUILLE [address] [facility] [address] [place], [place] [id number] 12/18/2024 10:30 AM EDT Follow-Up [facility] Rheumatology [address] [place] [address] Brennen Vidales MD [address] [place] [address] documented as of this encounter Visit Diagnoses Diagnosis Aftercare following organ transplant documented in this encounter Additional Health Concerns Infection Onset Date Last Indicated Resolved Time COVID-19 (confirmed) 03/21/2023 03/21/2023 024 5:23 AM EST documented as of this encounter Care Teams Director Radiation Oncology Relationship Specialty Start Date End Date Dayron Pleitez MD [address] [place] [address] PCP - General 04/26/22 Sal Guerrero MD [address] [place] [address] Dr Delacruz [address] [place] [address] Consulting Physician Urology 01/16/22 Rojelio Dukes CNP [address] [place] [address] Nurse Practitioner Urology 05/07/23 documented as of this encounter
--- OUTSIDE RECORDS SUMMARY | 2024-09-24 07:42 | XMS_ITS | Encounter Summary ---
Author Organization [facility] Address [address] [place] [address] Care Team Providers Care Powersaw Supervisor Name Role Phone Sal Guerrero MD Unavailable Dayron Pleitez MD Primary Care Provider [phone] Rojelio Dukes CNP Unavailable [phone] Reason for Visit * Reason Comments Med Refill Encounter Details Date Type Department Care Team (Late st Contact Info) Description 01/28/2023 Refill [facility] Nephrology Clinic [address] [place] [address] Latha Currie MD [address] [facility] [place] [place] Aftercare following organ transplant Social History [...] Info) Description 11/26/2024 2:30 PM EDT Follow-Up [facility] Transplant [address] [place] [phone] Flower Baig, GUILLE [address] [facility] [address] [place], [place] [id number] 12/18/2024 10:30 AM EDT Follow-Up [facility] Rheumatology [address] [place] [address] Brennen Vidales MD [address] [facility] [place] [address] documented as of this encounter Visit Diagnoses Diagnosis Aftercare following organ transplant documented in this encounter Additional Health Concerns Infection Onset Date Last Indicated Resolved Time COVID-19 (confirmed) 03/21/2023 03/21/2023 024 5:23 AM EST documented as of this encounter Care Teams Powersaw Supervisor Relationship Specialty Start Date End Date Dayron Pleitez MD [address] [place] [address] PCP - General 04/26/22 Sal Guerrero MD [address] [place] [address] Dr Delacruz [address] [place] [address] Consulting Physician Urology 01/16/22 Rojelio Dukes CNP [address] [place] [address] Nurse Practitioner Urology 05/07/23 documented as of this encounter
== END 2024-09-24 07:38 | disposition home or self-care (01) ==
LOC: US 07:39
PROVIDERS: PCP Family Medicine; Visit Provider Family Medicine
DX: I82.401 Acute embolism and thrombosis of unspecified deep veins of right lower extremity (principal)
CPT/HCPCS: 93970